=== PATIENT | female | born 1965 | race Caucasian/White ===

== ENCOUNTER 2023-08-10 09:41 | Outpatient (OUT) | payer OTHER, SELFPAY ==
--- NOTE | 2023-08-10 | VEIN_ITS ---
Patient Name: BEAU DUNCAN MR#: [id number] : 1965 Exam Date: 08/10/2023 Ordering Doctor: DR MANDY SMITH D.P.M. RADIOLOGY REPORT PROCEDURE: [facility] - OFFICE VISIT INITIAL COMPARISON: None. PROGRESS NOTES: [age] year old female who presents with a 20 year history of dilated bulging veins, leg pain, swelling, muscle cramping, with recent episodes of cellulitis. The patient's right leg symptoms are worse than the left. There has been a progression of symptoms over time. This increases with prolonged dependency. The patient describes an improvement with rest, elevation, exercise, and support stockings. The patient denies any signs and symptoms to suggest arterial ischemia. The patient describes a family history varicose veins on maternal side. The patient has drinking and smoking history of : Remote history of alcohol consumption; no tobacco use. Patient has a past medical history significant for diabetes mellitus type 2, hypertension, right lower extremity cellulitis and sepsis. The patient denies a history of deep venous thrombus or pulmonary embolus. See separate history and physical for medication list. No prior treatment for varicose or spider veins. Current use of compression stockings. After review of nurse notes, history and physical exam I discussed at length the pathophysiology of venous hypertension and possible treatments, therapies and strategies available. We discussed at length the importance of elevating the lower extremities above the level of the heart, increased physical activity and compression stocking use. Ultrasound venous reflux study performed today was discussed at length with the patient. The report demonstrates moderate-marked abnormal dilation and incompetency of the great saphenous and small saphenous veins bilaterally. Numerous abnormally dilated incompetent branch saphenous varicosities bilaterally, and bilateral distal lower extremity shift production associate veins. PHYSICAL EXAM: The right leg demonstrates multiple large varicosities, numerous spider veins, several skin surface blister wounds, but no ulceration, marked edema, marked skin discoloration. The left leg demonstrates multiple varicosities, numerous spider veins, no ulceration, marked edema, no skin discoloration. Both thighs, legs and feet were symmetrically warm to the touch. Good posterior tibial and dorsalis pedis pulses were present bilaterally. VEIN/VC Facility EST Comprehensive IMPRESSION: 1. Moderate-marked bilateral lower extremity venous insufficiency 2. Moderate-marked bilateral lower extremity varicose veins 3. Marked bilateral lower extremity subcutaneous edema 4. No flow significant arterial disease 5. CEAP: C4a, EC, AP, LA PLAN: 1. Continued use of compression stockings 2. Elevated legs and increased physical activity symptomatic relief 3. Endovenous laser ablation of right great saphenous, left great saphenous, right small saphenous, and left small saphenous veins. 4. Microfoam chemical ablation of bilateral lower extremity dilating incompetent branch saphenous varicosities. 5. Sclerotherapy of numerous prominent spider veins and reticular veins. Nurse notes, history and physical were reviewed and confirmed, see attached forms. The nurse was present throughout the physical exam and consultation Dictated by: Derek Caal M.D. on 08/10/2023 at 11:41 Approved by: Derek Caal M.D. on 08/10/2023 at 11:47
--- NOTE | 2023-08-10 | VEIN_ITS ---
Patient Name: BEAU DUNCAN MR#: [id number] : 1965 Exam Date: 08/10/2023 Ordering Doctor: DR MANDY HanksPKarey RADIOLOGY REPORT PROCEDURE: VC EXT VENOUS REFLUX [place] LMTD COMPARISON: None. INDICATIONS: Phlebitis of superficial vein of bilateral lower extremities TECHNIQUE: Duplex imaging of the lower extremity to assess the deep and superficial venous system for the presence of deep or superficial venous incompetence and to document the location and severity of disease. The study includes evaluation of the great saphenous vein (GSV), anterior accessory saphenous vein (AASV) and small saphenous vein (SSV). Patient scanned in reverse Trendelenburg and standing. FINDINGS: RIGHT LOWER EXTREMITY: Saphenofemoral Junction Reflux: Yes 9.5mm 2.7 sec GSV: Diam (mm) Reflux/ Time (sec) Proximal Thigh 8.1 Yes 3.2 Mid Thigh 6.7 Yes 2.5 Distal Thigh 8.0 Yes 1.5 Prox Calf 7.9 Yes 0.8 Mid Calf 5.5 Yes 2.0 Saphenopopliteal Junction Reflux: 6.8mm Yes 2.2 SSV: Proximal Calf 6.0 Yes 1.4 Mid Calf 6.9 1.6 AASV: Proximal Thigh 4.3 Yes 1.0 Mid Thigh 4.0 Yes 1.0 Distal Thigh Thrombi: No acute or chronic thrombus visualized Compressibility: Normal Flow: Normal Preforator: Dist/med calf 4.7mm with 0s reflux. Tech Note: Incompetent GSV and SSV. Patent varicose vein mid/med calf 5.2mm with 1.7s reflux. Patent varicose vein prox/med calf 6.7mm with 1.0s reflux. Patent varicose vein dist/med thigh 3.4mm with 0.8s reflux. Patent varicose vein mid/ant calf 3.5mm with 0.9s reflux. LEFT LOWER EXTREMITY: Saphenofemoral Junction Reflux: Yes 8.1 mm 2.1 sec GSV: Diam (mm) Reflux/Time (sec) Proximal Thigh 7.3 Yes 1.5 Mid Thigh 8.1 Yes 1.5 Distal Thigh 6.4 Yes 0.6 Prox Calf 5.0 No Mid Calf 2.5 No Saphenopopliteal Junction Relux: 5.9 mm Yes 2.9 SSV: Proximal Calf 6.1 Yes 1.5 Mid Calf 3.5 Yes 1.7 AASV: Not present Proximal Thigh Mid Thigh Distal Thigh Thrombi: No acute or chronic thrombus visualized Compressibility: Normal Flow: Normal Pulp Drier: Dist/med calf 2.8mm with 1.0s reflux. Mid/med calf 4.0mm with 0s reflux. Mid/med calf 4.2mm with 0.7s reflux. Tech Note: Incompetent GSV and SSV. Patent varicose vein prox/med calf 5.8mm with 1.6s reflux. Patent varicose vein mid/med thigh 5.5mm with 1.4s reflux. Patent varicose vein mid/med thigh 4.6mm with 0.7s reflux. Patent varicose vein mid/lat calf 4.5mm with 0.9s reflux. CONCLUSION: 1. Moderate-marked abnormal dilation and reflux within the great saphenous and small saphenous veins bilaterally. 2. Numerous prominent and incompetent branch saphenous varicosities bilaterally. 3. Bilateral distal lower extremity cadence specialists veins. Dictated by: Derek Caal M.D. on 08/10/2023 at 11:07 Approved by: Derek Caal M.D. on 08/10/2023 at 11:41
== END 2023-08-10 09:42 | disposition home or self-care (01) ==
LOC: VC 09:42
PROVIDERS: PCP Podiatrist Foot & Ankle Surgery; Visit Provider Podiatrist Foot & Ankle Surgery
DX: I83.813 Varicose veins of bilateral lower extremities with pain (principal)
CPT/HCPCS: 93970; G0463

== ENCOUNTER 2023-11-02 08:37 | Outpatient (OUT) | payer OTHER, SELFPAY ==
--- NOTE | 2023-11-02 08:38 | VEIN_ITS ---
The [address] [address] Patient Name: BEAU DUNCAN MRN: [id number] date: 1965 Sex: F Assigned Patient Location: Current Patient Location: Accession/Order Number: [id number] Exam Date: 11/02/2023 08:40 Report Date: 11/02/2023 10:01 At the request of: CARMELA COLORADO Procedure: VC Endovenous Ablation 1VeinRT EXAMINATION: VC Endovenous Ablation 1VeinRT HISTORY: Pain due to varicose veins of bilateral legs I83.813 The risks and benefits of the procedure had been previously discussed, and were rediscussed at length. Informed written consent was obtained. Jose Andrade RN and Katja Hong RDMS, RVT assisted. Time out procedure was performed. The right lower extremity was prepared and draped in the usual sterile fashion to allow knee flexion in the sterile field. Duplex ultrasound probe was draped in a sterile cover, sterile transmission gel was used. Venous mapping was performed with the areas of dilation and large tributaries marked. The total length was 67 cm from the entry 4 cm above the ankle to 3 cm below the Saphenofemoral junction. The diameter of the right great saphenous vein ranged from 8.1 mm. A 30 gauge needle and 1% buffered lidocaine was used to anesthetize the entry site. A 4 mm incision was made with a scalpel and the saphenous vein was entered percutaneously under direct ultrasound guidance with a micropuncture set, a single stick was successful in gaining access. A micro-guide wire was inserted and the needle removed. A micro-set including a dilator was inserted over the microwire and the needle and dilator were removed. A guide wire was inserted through the micro-set and guided through the saphenous vein to the saphenofemoral junction. The dilator was removed and an introducer sheath was inserted over the wire until the end of the sheath entered the saphenofemoral junction. The dilator and wire were removed and the 600 micron fiber was introduced and placed and positioned so that it extended beyond the sheath and was 3 cm distal to the saphenofemoral or saphenopopliteal junction. Final position of the fiber was determined by ultrasound guidance and duplex imaging. Tumescent anesthetic was delivered by ultrasound guidance. 475 cc of fluid was delivered along the entire course of the saphenous vein. The solution consisted of 1000 cc of normal saline with 40 mL of 1% lidocaine and 20 mL of sodium bicarbonate. A final positioning check was made. The energy source was turned on by means of the foot pedal and the fiber and sheath were withdrawn. The total number of Joules delivered was 3481. The laser was active for 435 seconds under continuous pulse, average laser use of 8 J. Laser start time 9:44 AM, 11/02/2023. Laser stop time 9:57 AM, 11/02/2023. A duplex ultrasound revealed compressibility and flow at the saphenofemoral junction immediately after the procedure. Hemostasis at the access site was achieved. The skin incision of the saphenous vein was closed with a 4 x 4. A compression stocking was applied. Postop instructions were given. A follow up appointment was recommended and scheduled. The patient tolerated the procedure well. Electronically authenticated by: VICKEY CRUM Date: 11/02/2023 10:01
[2023-11-02] MEDS: LIDOCAINE HCL 1% 100 MG/10 ML MDV INJ (08:39)
[2023-11-02] MEDS: 0.9 % SODIUM CHLORIDE 500 ML, LIDOCAINE HCL 20 ML, SODIUM BICARBONATE 10 MEQ INJ (08:39)
--- OUTSIDE RECORDS SUMMARY | 2023-11-02 08:43 | XMS_ITS | CCD ---
Author Name Unknown Address [address] [facility] [address] [place] [address] Organization [facility] Care Team Providers Care Industrial Custodian Name Role Phone Unavailable Primary Care Provider UnavailKarina Wright MD Primary Care Provider KARINA MARTINEZ Referring Unavailable KARINA MARTINEZ Primary Care Unavailable ALLSOKARINA Shah Referring Unavailable ALLSOKARINA Shah Primary Care Unavailable ROSISOKARINA Shah Referring Unavailable KARINA MARTINEZ Primary Care Unavailable PATEL RAYMOND Attending Unavailable Karina Martinez Primary Care Physician Sky Chen Attending Unavailable Karina Martinez Referring Unavailable DolSky hunter Attending Unavailable DolMark hunter Attending Unavailable DolMark hunter Attending Unavailable REFERRAL, SELF Referring Unavailable DolSky hunter Attending Unavailable NONE, XXXX Referring Unavailable Aris Juares Admitting Unavaila Aris Severino Attending Unavaila ble Karina Martinez Attending Unavailable Allsop, Karina D Admitting Unavailable [facility] Cardio, XXXX Consulting Unavailable ALAHMAD, Alaa Admitting Unavailable ALAHMAD, Alaa Attending Unavailable Heather REID Admitting Unavailable DolceMark Consulting Unavailable Adarsh Betancourt Attending Unavailable DolMark hunter Consulting Unavailable Dolce, Mark Britton Consulting Unavailable Dolce, Mark D Consulting Unavailable Dolce, Mark D Consulting Unavailable Dolce, Mark D Consulting Unavailable Dolce, Mark D Consulting Unavailable Dolce, Mark D Consulting Unavailable Dolce, Mark D Consulting Unavailable Dolce, Mark Reba Consulting Unavailable Dolce, Mark D Consulting Unavailable ALLSOP, KARINA Britton Attending Unavailable KARINA MARTINEZ Attending Unavailable Karina Martinez DO Primary Care Provider Allergies Allergy Classification Reported Allergen(s) Allergy Type Date of Onset Reaction(s) Facility (4 sources) Amoxicillin / Clavulanate; Translations: [amoxicillin-cl avulanate] Drug Allergy Lethargy (finding) [facility] (1 source) No Known Medication Allergies; Translations: [No Known Medication Allergies] Propensity to adverse reactions (disorder) [facility] Repository Medications Current Medications Medication Drug Class(es) Dates Sig (Normalized) Sig (Original) amLODIPine 5 mg oral tablet (11 sources) Dihydropyridine Calcium Channel Maury Start: 09-09-2023 take 1 tablet by mouth in the morning amLODIPine (Norvasc) 5 MG tablet Indications: Primary hypertension (CMS/HCC) Take 1 tablet (5 mg) by mouth in the morning. 0 09/09/2023 Active Start: 06-28-2023 take 1 tablet by eduin th once daily amLODIPine 10 mg Tab 10 mg = 1 tab(s), Oral, Daily, Refills(s) 0 Start Date: 06/28/23 Status: Ordered Start: 04-24-2021 End: 04-19-2022 take 1 tablet by mouth once daily amLODIPine 10 mg Tab 10 mg = 1 tab(s), Oral, Daily, X 90 day(s), # 90 tab(s), Refills(s) 3, [facility]: [facility], 170, cm, 04/23/21 10:46:00 EDT, Height/Length Dosing, 122, kg, 04/23/21 10:46:00 EDT, Weight Dosing Start Date: 04/24/21 Stop Date: 04/19/22 Status: Ordered apixaban 5 mg oral tablet (10 sources) Factor Xa Inhibitor Start: 07-02-2023 take 1 tablet by mouth in the morning apixaban (Eliquis) 5 MG tablet Indications: Paroxysmal atrial fibrillation (CMS/HCC) Take 1 tablet (5 mg) by mouth in the morning and 1 tablet (5 mg) before bedtime. 60 tablet 11 07/22/2023 Active aspirin 81 mg delayed release oral tablet (1 source) Platelet Aggregation Inhibitor, Nonsteroidal Anti-inflammatory Drug Start: 04-24-2021 End: 04-19-2022 take 1 tablet by mouth once daily aspirin 81 mg Oral EC Tab 81 mg = 1 tab(s), Oral, Daily, X 90 day(s), # 90 tab(s), Refills(s) 3, Pharmacy: [facility], 170, cm, 04/23/21 10:46:00 EDT, Height/Length Dosing, 122, kg, 04/23/21 10:46:00 EDT, Weight Dosing Start Date: 04/24/21 Stop Date: 04/19/22 Status: Ordered atorvastatin 40 mg oral tablet (11 sources) HMG-CoA Reductase Inhibitor Start: 06-16-2023 take 1 tablet by mouth once daily atorvastatin (Lipitor) 40 MG tablet Indications: Mixed hyperlipidemia (CMS/HCC) TAKE 1 TABLET BY MOUTH ONCE DAILY FOR 90 DAYS 90 tablet 3 06/16/2023 Active Start: 04-24-2021 End: 04-19-2022 take 1 tablet by mouth at bedtime atorvastatin 40 mg Tab 40 mg = 1 tab(s), Oral, Bedtime, X 90 day(s), # 90 tab(s), Refills(s) 3, Pharmacy: [facility], 170, cm, 04/23/21 10:46:00 EDT, Height/Length Dosing, 122, kg, 04/23/21 10:46:00 EDT, Weight Dosing Start Date: 04/24/21 Stop Date: 04/19/22 Status: Ordered busPIRone hydrochloride 5 mg oral tablet (10 sources) Start: 06-28-2023 take 1 tablet by mouth in the morning busPIRone (Buspar) 5 MG tablet Take 5 mg by mouth in the morning and 5 mg before bedtime. 0 06/28/2023 Active citalopram 20 mg oral tablet (3 sources) Serotonin Reuptake Inhibitor Start: 05-10-2023 take 1 tablet by mouth in the morning citalopram (CeleXA) 20 MG tablet Take 20 mg by mouth in the morning. 0 05/10/2023 Active clindamycin 300 mg oral capsule (4 sources) Lincosamide Antibacterial Start: 04-23-2021 clindamycin 300 mg oral cap Refills(s) 0 Start Date: 04/23/21 Status: Ordered cloNIDine hydrochloride 0.1 mg oral tablet (5 sources) Central alpha-2 Adrenergic Agonist Start: 04-07-2021 cloNIDine (CATAPRES) tablet 0.2 mg Start: 04-07-2021 take 1 tablet by eduin th once daily cloNIDine (CATAPRES) 0.2 MG tablet Take 1 tablet by mouth daily 30 tablet 0 04/07/2021 Active cyclobenzaprine hydrochloride 10 mg oral tablet (7 sources) Muscle Relaxant Start: 06-28-2023 take 1 tablet by mouth once daily as needed for muscle spasms cyclobenzaprine 10 mg Tab 10 mg = 1 tab(s), Oral, Daily, PRN for spasm, # 30 tab(s), Refills(s) 0 Start Date: 06/28/23 Status: Ordered doxycycline hyclate 100 mg oral capsule (9 sources) Tetracycline-c lass Drug Start: 07-13-2023 End: 10-26-2023 take 1 capsule by mouth in the morning doxycycline (Vibramycin) 100 MG capsule Indications: Cellulitis of other specified site Take 1 capsule (100 mg) by mouth in the morning and 1 capsule (100 mg) before bedtime. 20 capsule 0 10/26/2023 Active Start: 07-02-2023 take 1 capsule by mouth once d oxycycline hyclate 100 mg Cap 100 mg = 1 cap(s), Oral, q12hr, Take one capsule by mouth every twelve hours for ten days, # 20 cap(s), Refills(s) 0, Pharmacy: [facility], 170, cm, 06/28/23 15:08:00 EDT, Height/Length Dosing, 117, kg, 06/28/23 15:08:00 EDT, Weight Dosing Start Date: 07/02/23 Status: Ordered furosemide 20 mg oral tablet (8 sources) Loop Diuretic Start: 08-29-2023 take 1 tablet by mouth three times weekly furosemide (Lasix) 20 MG tablet Indications: Edema, unspecified type One tablet po 3 times weekly 12 tablet 3 08/29/2023 Active Start: 04-07-2021 furosemide (LA SIX) tablet 40 mg Start: 04-07-2021 take 1 tablet by eduin th once daily furosemide (LASIX) 20 MG tablet Take 1 tablet by mouth daily 10 tablet 0 04/07/2021 Active glimepiride 2 mg oral tablet (10 sources) Sulfonylurea Start: 06-28-2023 take 1.5 tablets by mouth once daily glimepiride 2 mg Tab 1.5, Oral, Daily, Refills(s) 0 Start Date: 06/28/23 Status: Ordered Start: 06-28-2023 take 1 tablet by eduin th before mealtime glimepiride (Amaryl) 2 MG tablet Take 2 mg by mouth in the morning. Take before meals. 0 06/28/2023 Active lisinopril 40 mg oral tablet (11 sources) Angiotensin Converting Enzyme Inhibitor Start: 08-23-2023 take 1 tablet by mouth once daily lisinopril 40 mg Tab 40 mg = 1 tab(s), Oral, Daily, # 90 tab(s), Refills(s) 3, Pharmacy: [facility], 170, cm, 08/23/23 13:24:00 EST, Height/Length Dosing, 125.1, kg, 08/23/23 13:24:00 EST, Weight Dosing Start Date: 08/23/23 Status: Ordered Start: 06-28-2023 take 1 tablet by eduin th in the morning lisinopril 20 MG tablet Take 20 mg by mouth in the morning. 0 06/28/2023 Active Start: 04-24-2021 End: 04-19-2022 take 1 tablet by mouth once daily lisinopril 20 mg Tab 20 mg = 1 tab(s), Oral, Daily, X 90 day(s), # 90 tab(s), Refills(s) 3, Pharmacy: [facility], 170, cm, 04/23/21 10:46:00 EDT, Height/Length Dosing, 122, kg, 04/23/21 10:46:00 EDT, Weight Dosing Start Date: 04/24/21 Stop Date: 04/19/22 Status: Ordered metFORMIN hydrochloride 500 mg oral tablet (11 sources) Biguanide Start: 06-28-2023 take 1 tablet by mouth twice daily metformin 500 mg ER Tab 500 mg = 1 tab(s), Oral, BID, Refills(s) 0 Start Date: 06/28/23 Status: Ordered Start: 04-24-2021 End: 04-19-2022 metformin 500 mg Tab 1,000 m g = 2 tab(s), Oral, BIDAC, X 90 day(s), # 360 tab(s), Refills(s) 3, Pharmacy: [facility], 170, cm, 04/23/21 10:46:00 EDT, Height/Length Dosing, 122, kg, 04/23/21 10:46:00 EDT, Weight Dosing Start Date: 04/24/21 Stop Date: 04/19/22 Status: Ordered microencapsulated potassium chloride 10 meq extended release oral tablet (3 sources) Start: 08-29-2023 take 1 tablet by mouth three times weekly potassium chloride CR (Klor-Con M10) 10 MEQ ER tablet Indications: Hypokalemia One tab po 3 times weekly 12 tablet 3 08/29/2023 Active SITagliptin 100 mg oral tablet (4 sources) Dipeptidyl Peptidase 4 Inhibitor Start: 09-09-2023 take 1 tablet by mouth in the morning SITagliptin (Januvia) 100 MG tablet Indications: Primary hypertension (CMS/HCC) Take 1 tablet (100 mg) by mouth in the morning. 90 tablet 3 09/09/2023 Active Start: 04-24-2021 End: 04-19-2022 take 2 tablets by mouth once daily Januvia 25 mg Tab 50 mg = 2 tab(s), Oral, Daily, X 90 day(s), # 180 tab(s), Refills(s) 3, Pharmacy: [facility], 170, cm, 04/23/21 10:46:00 EDT, Height/Length Dosing, 122, kg, 04/23/21 10:46:00 EDT, Weight Dosing Start Date: 04/24/21 Stop Date: 04/19/22 Status: Ordered Completed/Discontinued Medications Medication Drug Class(es) Dates Sig (Normalized) Sig (Original) Humalog (2 sources) Insulin Analog Start: 10-16-2023 End: 10-16-2023 HumaLOG Sliding Scale 0-10 Unit(s), Injection-Insulin, SubCutaneous, Start date 10/16/23 11:30:00 AM EST Start Date: 10/16/23 Stop Date: 10/16/23 Status: Completed Start: 10-14-2023 End: 10-14-2023 HumaLOG Sliding Scale 0-10 U nit(s), Injection-Insulin, SubCutaneous, Start date 10/14/23 4:30:00 PM EST Start Date: 10/14/23 Stop Date: 10/14/23 Status: Completed insulin lispro 100 units/mL injectable solution (4 sources) Start: 04-24-2021 insulin lispro 100 units/mL injectable solution See Instructions, Take 2 units of lispro if BS between 151-200 Take 4 units of lispro if BS between 201-250 Take 6 units of lispro if BS between 251-300 Take 8 units of lispro if BS between 301-350 Take 10 units of lispro if BS between 351-400 Ta... Start Date: 04/24/21 Status: Ordered 24 hr metoprolol succinate 50 mg extended release oral tablet (15 sources) beta-Adrenergic Maury Start: 10-15-2023 End: 10-16-2023 metoprolol 50 mg ER Tab 50 mg = 1 tab(s), Tab-ER, Oral, Start date 10/16/23 9:00:00 AM EST, 10/13/23 22:35:00 EST Start Date: 10/16/23 Stop Date: 10/16/23 Status: Completed Start: 07-15-2023 End: 07-14-2024 take 1 tablet by mouth every twenty-four hours in the morning metoprolol succinate XL (Toprol XL) 100 MG 24 hr tablet Indications: Paroxysmal atrial fibrillation (CMS/HCC) Take 1 tablet (100 mg) by mouth in the morning. Do not crush or chew. . 30 tablet 11 07/15/2023 07/14/2024 Active Start: 07-01-2023 End: 07-02-2023 take 1 tablet by mouth twice daily metoprolol 50 mg ER Tab 50 mg = 1 tab(s), Oral, BID, # 30 tab(s), Refills(s) 0, Pharmacy: [facility], 170, cm, 06/28/23 15:08:00 EDT, Height/Length Dosing, 117, kg, 06/28/23 15:08:00 EDT, Weight Dosing Start Date: 07/02/23 Status: Ordered Problems Active Problems Problem Classification Problem Date Documented Date Episodic/Chronic Acute and unspecified renal failure (2 sources) Acute renal failure syndrome; Translations: [Acute kidney failure, unspecified] Onset: 06-28-2023 Episodic Acute cerebrovascular disease (3 sources) Cerebrovascular accident; Translations: [Cerebral infarction, unspecified] Onset: 07-08-2023 07-08-2023 Chronic Anxiety disorders (2 sources) Anxiety disorder; Translations: [Anxiety disorder, unspecified] Onset: 10-13-2023 Chronic Cardiac dysrhythmias (3 sources) Unspecified atrial fibrillation; Translations: [Atrial fibrillation] Onset: 08-23-2023 Chronic Chronic ulcer of skin (3 sources) Chronic ulcer of lower extremity; Translations: [Non-pressure chronic ulcer of unspecified part of right lower leg with fat layer exposed] Onset: 07-08-2023 07-08-2023 Chronic Diabetes mellitus with complications (7 sources) Type 2 diabetes mellitus; Translations: [Type 2 diabetes mellitus with other diabetic neurological complication] Onset: 07-08-2023 07-08-2023 Chronic Diabetes mellitus without complication (3 sources) Type 2 diabetes mellitus without complication; Translations: [Type 2 diabetes mellitus without complications] Onset: 06-28-2023 Chronic Diseases of white blood cells (2 sources) Leukocytosis; Translations: [Elevated white blood cell count, unspecified] Onset: 06-28-2023 Chronic Disorders of lipid metabolism (5 sources) Hyperlipidemia; Translations: [Hyperlipidemia, unspecified] Onset: 06-28-2023 Chronic Essential hypertension (20 sources) Essential hypertension; Translations: [Essential (primary) hypertension] Onset: 06-28-2023 Chronic Fluid and electrolyte disorders (2 sources) Acidosis; Translations: [Acidosis, unspecified] Onset: 06-28-2023 Episodic Other aftercare (1 source) Long-term current use of anticoagulant; Translations: [intermediate manager (current) use of anticoagulants] Onset: 08-23-2023 Episodic Other aftercare (1 source) Long-term current use of drug therapy; Translations: [Other assisted (current) drug therapy] Onset: 10-13-2023 Episodic Other circulatory disease (1 source) History of transient ischemic attack; Translations: [Personal history of transient ischemic attack (TIA), and cerebral infarction without residual deficits] Onset: 06-28-2023 Episodic Other ear and sense organ disorders (3 sources) Hearing loss of right ear; Translations: [Unspecified hearing loss, right ear] Onset: 07-08-2023 07-08-2023 Chronic Other hematologic conditions (1 source) Abnormal finding on evaluation procedure; Translations: [Other specified abnormalities of plasma proteins] Onset: 06-28-2023 Episodic Other nutritional; endocrine; and metabolic disorders (1 source) Obesity; Translations: [Obesity, unspecified] Onset: 06-28-2023 Chronic Other nutritional; endocrine; and metabolic disorders (1 source) Body mass index 40+ - severely obese; Translations: [Body mass index (BMI) 40.0-44.9, adult] Onset: 08-23-2023 Chronic Other nutritional; endocrine; and metabolic disorders (3 sources) Morbid obesity; Translations: [Morbid (severe) obesity due to excess calories] Onset: 07-08-2023 07-08-2023 Chronic Other screening for suspected conditions (not mental disorders or infectious disease) (2 sources) Blood chemistry abnormal; Translations: [Other specified abnormal findings of blood chemistry] Onset: 08-23-2023 Episodic Residual codes; unclassified (1 source) Peripheral edema; Translations: [Edema, unspecified] Episodic Residual codes; unclassified (1 source) Edema; Translations: [Edema, unspecified] 10-21-2023 Episodic Skin and subcutaneous tissue infections (5 sources) Cellulitis of left foot; Translations: [Cellulitis of left lower limb] Onset: 10-13-2023 Episodic Past or Other Problems Problem Classification Problem Date Documented Date Episodic/Chronic Other diseases of veins and lymphatics (4 sources) Peripheral venous insufficiency; Translations: [Venous insufficiency (chronic) (peripheral)] Onset: 07-08-2023 07-08-2023 Episodic Other non-traumatic joint disorders (3 sources) Joint pain; Translations: [Pain in unspecified joint] Onset: 07-08-2023 07-08-2023 Episodic Pneumonia (except that caused by tuberculosis or sexually transmitted disease) (10 sources) Bacterial pneumonia; Translations: [Unspecified bacterial pneumonia] Onset: 07-08-2023 07-02-2023 Episodic Septicemia (except in labor) (3 sources) Sepsis; Translations: [Sepsis, unspecified organism] Onset: 06-28-2023 Episodic Spondylosis; intervertebral disc disorders; other back problems (3 sources) Acute back pain with sciatica; Translations: [Lumbago with sciatica, right side] Onset: 07-08-2023 07-08-2023 Episodic Varicose veins of lower extremity (4 sources) Ruptured varicose veins; Translations: [Varicose veins of unspecified lower extremity with other complications] Onset: 07-08-2023 Resolved: 09-11-2023 Episodic Results Test Name Value Interpretation Reference Range Facility POCT Glycated hemoglobin, to krishan 10-21-2023 HbA1c (Bld) [Mass fraction] 8.7 % [facility] Comment on above: 8.7 Interpretation and review of laboratory results Normal [facility] POCT microalbumin manually r esultedon 10-21-2023 Albumin DL <= 20 mg/L (U) [Mass/Vol] 80 mg/dL [facility] Albumin/Creatinine DL <= 1.0 mg/L (U) [Ratio] 300 [facility] Creatinine (U) [Mass/Vol] 80/300 [facility] Interpretation and review of laboratory results Normal [facility] BMPon 10-16-2023 Anion gap [Moles/Vol] 12 mmol/L Normal 6-16 [facility] Comment on above: Performed By: #### 2 [id number], [id number], [id number], [id number] ####[facility] [address] [place] [address] BUN/Creat Ratio 18 No Units Normal 10-20 [facility] Comment on above: Performed By: #### 2 518386, 0870547, 1841474, [id number] ####[facility] [address] [place] [address] Calcium [Mass/Vol] 8.0 mg/dL Low 8.9-11.1 [facility] Comment on above: Performed By: #### 2 851887, 0586787, 1545608, [id number] ####[facility] [address] [place] [address] Chloride [Moles/Vol] 103 mmol/L Normal 101-111 [facility] Comment on above: Performed By: #### 2 348186, 3462549, 4141418, [id number] ####[facility] [address] [place] [address] CO2 [Moles/Vol] 23 mmol/L Normal 21-31 [facility] Comment on above: Performed By: #### 2 443580, 1188098, 0975024, [id number] ####[facility] [address] [place] [address] Creatinine [Mass/Vol] 0.5 mg/dL Normal 0.5-1.3 [facility] Comment on above: Performed By: #### 2 452069, 8112114, 0224970, [id number] ####[facility] [address] [place] [address] Glucose [Mass/Vol] 180 mg/dL Normal 55-199 [facility] Comment on above: Performed By: #### 2 103262, 0329456, 8586604, [id number] ####[address] [address] Potassium [Moles/Vol] 3.1 mmol/L Low 3.5-5.3 [facility] Comment on above: Performed By: #### 2 447998, 4025149, 4708946, 30423963 ####[facility] [address] [place] [address] Sodium [Moles/Vol] 135 mmol/L Normal 135-145 [facility] Comment on above: Performed By: #### 2 324577, 2831322, 2832572, [id number] ####[facility] [address] [place] [address] Urea nitrogen [Mass/Vol] 9 mg/dL Normal 5-21 [facility] Comment on above: Performed By: #### 2 780371, 9962814, 8770770, [id number] ####[address] [address] CBC w/ Auto Diffon 4 Basophil Absolute 0.0 E9/L Normal 0.0-0.2 [facility] Comment on above: Performed By: #### 2 951501, 2708253, 1573042, [id number] ####[facility] [address] [place] [address] Basophils/100 WBC (Bld) 0.3 % Normal 0.0-2.0 [facility] Comment on above: Performed By: #### 2 191727, 7778849, 0325027, [id number] ####[facility] [address] [place] [address] Eos Absolute 0.0 E9/L Normal 0.0-0.5 [facility] Comment on above: Performed By: #### 2 653347, 1533176, 9394708, 75401922 ####[address] [address] Eosinophils/100 WBC (Bld) 0.6 % Normal 0.0-8.0 [facility] Comment on above: Performed By: #### 2 385667, 9663884, 4919632, 31982615 ####[address] [address] Erythrocyte distribution width (RBC) [Ratio] 14.7 % High 10.9-14.2 [facility] Comment on above: Performed By: #### 2 105141, 2404853, 4405147, [id number] ####[address] [address] Hematocrit (Bld) [Volume fraction] 35.0 % Normal 34.0-46.0 [facility] Comment on above: Performed By: #### 2 795512, 5246272, 1963755, 41421259 ####[address] [address] Hemoglobin (Bld) [Mass/Vol] 11.4 g/dL Low 12.0-16.0 [facility] Comment on above: Performed By: #### 2 885669, 1615600, 2982927, 51341930 ####[address] [address] Lymph Absolute 1.3 E9/L Normal 1.0-4.0 [facility] Comment on above: Performed By: #### 2 701247, 7566025, 2862477, [id number] ####[address] [address] Lymphocytes/100 WBC (Bld) 20.3 % Normal 14.0-50.0 [facility] Comment on above: Performed By: #### 2 299953, 3557778, 2981868, 03221050 ####[address] [address] MCH (RBC) [Entitic mass] 27.8 pg Normal 27.0-34.0 [facility] Comment on above: Performed By: #### 2 371007, 2558314, 7514819, [id number] ####[address] [address] MCHC (RBC) [Mass/Vol] 32.9 g/dL Normal 31.4-36.0 [facility] Comment on above: Performed By: #### 2 496641, 1962967, 6958616, [id number] ####[address] [address] MCV (RBC) [Entitic vol] 84.6 fL Normal 80.0-100.0 [facility] Comment on above: Performed By: #### 2 442411, 0647751, 6960493, [id number] ####[address] [address] [place] Absolute 0.5 E9/L Normal 0.2-1.0 [facility] Comment on above: Performed By: #### 2 962971, 7128219, 1091027, [id number] ####[address] [address] Monocytes/100 WBC (Bld) 6.8 % Normal 4.0-14.0 [facility] Comment on above: Performed By: #### 2 910384, 0705420, 6441758, [id number] ####[facility] [address] [place] [address] Neutro Absolute 4.8 E9/L Normal 2.0-7.5 [facility] Comment on above: Performed By: #### 2 869935, 5498492, 9021536, 11909081 ####[facility] [address] [facility] [place] [address] Neutro Auto 72.0 % Normal 36.0-75.0 [facility] Comment on above: Performed By: #### 2 147909, 1375688, 2327499, 83006112 ####[facility] [address] [place] [address] Platelet 156.0 E9/L Normal 150.0-500.0 [facility] Comment on above: Performed By: #### 2 337326, 4232059, 9532573, [id number] ####[facility] [address] [place] [address] Platelet mean volume (Bld) [Entitic vol] 10.0 fL Normal 6.4-10.8 [facility] Comment on above: Performed By: #### 2 082224, 1529036, 5420908, [id number] ####[facility] [address] [facility] [place] [address] RBC 4.1 E12/L Low 4.3-5.9 [facility] Comment on above: Performed By: #### 2 444219, 1462350, 9108276, 14634046 ####[facility] [address] [place] [address] WBC 6.6 E9/L Normal 4.0-11.0 [facility] Comment on above: Performed By: #### 2 222287, 6503091, 8507635, [id number] ####[facility] [address] [place] [address] CHEMISTRYOrdered By: Lab ROP User on 10-16-2023 Glucose [Mass/Vol] 246 mg/dL High 55 - 99 mg/dL [facility] POC Subsection Comment on above: Result Comment: Simón GRIFFIN POC Device SN [id number] Invalid Interpretation Code [facility] POC Subsection POC User ID [id number] 1 Invalid Interpretation Code FT POC Subsection POC Username MATT NORRIS Invalid Interpretation Code [facility] POC Subsection Glucose [Mass/Vol] 194 mg/dL High 55 - 99 mg/dL [facility] [place] Subsection Comment on above: Result Comment: Simón GRIFFIN POC Device SN [id number] Invalid Interpretation Code FT POC Subsection POC User ID [id number] 1 Invalid Interpretation Code FT POC Subsection POC Username MATT NORRIS Invalid Interpretation Code FT POC Subsection CHEMISTRYOrdered By: SYSTEM SYSTEM on 10-16-2023 Anion gap [Moles/Vol] 12 mmol/L Normal 6 - 16 mEq/L R emisol Chem Calcium [Mass/Vol] 8.0 mg/dL Low 8.9 - 11. 1 mg/dL Remisol Chem Chloride [Moles/Vol] 103 mmol/L Normal 101 - 1 11 mmol/L Remisol Chem CO2 [Moles/Vol] 23 mmol/L Normal 21 - 31 mmol/L Remisol Chem Creatinine [Mass/Vol] 0.5 mg/dL Normal 0.5 - 1.3 mg/dL Remisol Chem eGFR 107 mL/min/1.73 m2 Normal >=59mL/mi n/1 .73 m2 Remisol Chem Glucose [Mass/Vol] 180 mg/dL Normal 55 - 199 mg/dL Remisol Chem Magnesium [Mass/Vol] 1.8 mg/dL Normal 1.3 - 2 .4 mg/dL Remisol Chem Potassium [Moles/Vol] 3.1 mmol/L Low 3.5 - 5.3 mmol/L Remisol Chem Sodium [Moles/Vol] 135 mmol/L Normal 135 - 145 mmol/L Remisol Chem Urea nitrogen [Mass/Vol] 9 mg/dL Normal 5 - 21 mg/dL Remisol Chem Urea nitrogen/Creatinine [Mass ratio] 18 mg/mg Normal 10 - 20 Remisol Chem Capillary Glucose POCon Glucose [Mass/Vol] 246 mg/dL High 55-99 [facility] Comment on above: Result Comment: Simón GRIFFIN Performed By: #### 2 [id number] #### [facility] Laboratory [address] [place] [address] Glucose [Mass/Vol] 194 mg/dL High 55-99 [facility] Comment on above: Result Comment: Simón lozano RN/MD Performed By: #### 2 [id number] #### [facility] [address] [place] [address] Discharge Instructionson Discharge Instructions [id number] #[id number] Normal [facility] Discharge Note-Nursingon Discharge Note-Nursing MARILYN DUNCAN :1965 Visit Date:10/13/2023 Inpatient Discharge Instructions Your Care Team Admitting Physician - Heather REID DO Consulting Physician - Mark Chen DPM Reason for Your Visit Swelling of right leg that started yesterday Your Diagnosis Sepsis Cellulitis of right leg Acute renal failure Troponin level elevated Atrial fibrillation HTN (hypertension) DM2 (diabetes mellitus, type 2) Anxiety On deep vein thrombosis (DVT) prophylaxis Acute cellulitis Cellulitis - Leg Lactic acidosis Leukocytosis Tests Performed BMP -- Results Pending -- Magnesium Level -- Results Pending -- UA With Cult Reflex -- Results Pending -- MRI Tibia/Fibula w/ + w/o Contrast Right XR Chest Single View XR Tib/Fib Right 2 View Please visit your patient portal for your results or contact your primary care physician. This Is Your Medications List Misc Prescription (glucometer, lancets, alcohol swabs, syringes, needles) Misc Prescription (glucometer, lancets, alcohol swabs, syringes, needles, test strips) amlodipine (amLODIPine 10 mg Tab) apixaban (Eliquis 5 mg oral tablet) atorvastatin (atorvastatin 40 mg Tab) busPIRone (busPIRone 5 mg Tab) cyclobenzaprine (cyclobenzaprine 10 mg Tab) doxycycline (doxycycline hyclate 100 mg Cap) glimepiride (glimepiride 2 mg Tab) lisinopril (lisinopril 40 mg Tab) metformin (metformin 500 mg ER Tab) metoprolol (metoprolol 50 mg ER Tab) Procedure History Carpal tunnel, Hand tendon repaired. Discharge Vitals Temperature (Oral) 36.7 ?C Heart Rate (Monitored) 72 Respiratory Rate 18 Blood Pressure 144/83 What to do next Instructions From Your Doctor Event Name Event Result Discharge Activity Ambulate as tolerated Discharge Restrictions No restrictions Discharge Diet(s) Calorie Controlled- 1800 Calorie Diet, Fat Modified- Low cholesterol Pharmacy Information [facility] Previously Scheduled Follow-Up Appointments 2023 3:30 PM EDT With: Mor GUERRERO, Aris Hanks Where: [facility] New Follow Up Appointments after Discharge Follow Up with Mark Chen When: Within 1 week Where: [facility] [place] [address] [place] [address] 0 Business (1) Follow Up with Karina Martinez When: Comments: Keep scheduled appointment Where: [address] [place] [address]- Business (1) Medications What How Much When Why Instructions Next Dose New doxycycline (doxycycline hyclate 100 mg Cap) 1 Capsules By Mouth 2 times a day Pickup at [facility] #[facility] 10/16/2023 @ 9pm Changed amlodipine (amLODIPine 10 mg Tab) 1 Tablets By Mouth Every day 10/17/2023 @ 9am Unchanged apixaban (Eliquis 5 mg oral tablet) 1 Tablets By Mouth 2 times a day 10/16/2023 @ 9pm Unchanged atorvastatin (atorvastatin 40 mg Tab) 1 Tablets By Mouth Every day 10/17/2023 @ 9am Unchanged busPIRone (busPIRone 5 mg Tab) 1 Tablets By Mouth 2 times a day 10/16/2023 @ 9pm Unchanged cyclobenzaprine (cyclobenzaprine 10 mg Tab) 1 Tablets By Mouth Every day as needed for for spasm follow perscription as needed for spasms Unchanged glimepiride (glimepiride 2 mg Tab) 1.5 By Mouth Every day 10/17/2023 @ 9am Unchanged lisinopril (lisinopril 40 mg Tab) 1 Tablets By Mouth Every day 10/17/2023 @ 9am Unchanged metformin (metformin 500 mg ER Tab) 1 Tablets By Mouth 2 times a day 10/16/2023 @ 9pm Unchanged metoprolol (metoprolol 50 mg ER Tab) 1 Tablets By Mouth 2 times a day Sepsis Acute cellulitis Leukocytosis Acute renal failure Lactic acidosis 10/16/2023 @ 9pm Unchanged Misc Prescription (glucometer, lancets, alcohol swabs, syringes, needles) 0 check BS 3x/ day Unchanged Misc Prescription (glucometer, lancets, alcohol swabs, syringes, needles, test strips) 0 Diabetes check BS 3x/ day Pharmacy Information [facility]: [address] [place], [place] [id number] [phone] Test Results CBC BMP WBC: 6.6 E9/L (10/16/23 05:11:00) Glucose Lvl: 180 mg/dL (10/16/23 05:11:00) RBC: 4.1 E12/L Low (10/16/23 05:11:00) BUN: 9 mg/dL (10/16/23 05:11:00) HGB: 11.4 gm/dL Low (10/16/23 05:11:00) Creatinine: 0.5 mg/dL (10/16/23 05:11:00) Hct: 35 % (10/16/23 05:11:00) BUN/Creat Ratio: 18 (10/16/23 05:11:00) MCV: 84.6 fL (10/16/23 05:11:00) Sodium Lvl: 135 mmol/L (10/16/23 05:11:00) MCH: 27.8 pg (10/16/23 05:11:00) Potassium Lvl: 3.1 mmol/L Low (10/16/23 05:11:00) MCHC: 32.9 gm/dL (10/16/23 05:11:00) Chloride: 103 mmol/L (10/16/23 05:11:00) RDW: 14.7 % High (10/16/23 05:11:00) CO2: 23 mmol/L (10/16/23 05:11:00) Platelet: 156 E9/L (10/16/23 05:11:00) AGAP: 12 mEq/L (10/16/23 05:11:00) MPV: 10 fL (10/16/23 05:11:00) Calcium Lvl: 8 mg/dL Low (10/16/23 05:11:00) Allergies Augmentin (Lethargic) Problems Ongoing - Any (more content not included)... Normal [facility] HEMATOLOGYOrdered By: SYSTEM SYSTEM on 10-16-2023 Basophil Absolute 0.0 E9/L Normal 0.0 - 0.2 E9/L Remisol Heme Basophils/100 WBC (Bld) 0.3 % Normal 0.0 - 2.0 % Remisol Heme Eos Absolute 0.0 E9/L Normal 0.0 - 0.5 E9/L Remisol Heme Eosinophils/100 WBC (Bld) 0.6 % Normal 0.0 - 8.0 % Remisol Heme Erythrocyte distribution width (RBC) [Ratio] 14.7 % High 10.9 - 14.2 % Remisol Heme Hematocrit (Bld) [Volume fraction] 35.0 % Normal 34.0 - 46.0 % Remisol Heme Hemoglobin (Bld) [Mass/Vol] 11.4 g/dL Low 12.0 - 16.0 gm/dL Remisol Heme Lymph Absolute 1.3 E9/L Normal 1.0 - 4.0 E9/L Remisol Heme Lymphocytes/100 WBC (Bld) 20.3 % Normal 14.0 - 50.0 % Remisol Heme MCH (RBC) [Entitic mass] 27.8 pg Normal 27.0 - 34.0 pg Remisol Heme MCHC (RBC) [Mass/Vol] 32.9 g/dL Normal 31.4 - 36.0 gm/dL Remisol Heme MCV (RBC) [Entitic vol] 84.6 fL Normal 80.0 - 100.0 fL Remisol Heme [place] Absolute 0.5 E9/L Normal 0.2 - 1.0 E9/L Remisol Heme Monocytes/100 WBC (Bld) 6.8 % Normal 4.0 - 14.0 % Remisol Heme Neutro Absolute 4.8 E9/L Normal 2.0 - 7.5 E9/L Remisol Heme Neutro Auto 72.0 % Normal 36.0 - 75.0 % Remisol Heme Platelet 156.0 E9/L Normal 150.0 - 500.0 E9/L Remisol Heme Platelet mean volume (Bld) [Entitic vol] 10.0 fL Normal 6.4 - 10.8 fL Remisol Heme RBC 4.1 E12/L Low 4.3 - 5.9 E12/L Remisol Heme WBC 6.6 E9/L Normal 4.0 - 11.0 E9/L Remisol Heme Inpatient Clinical Summaryon 10-16-2023 Inpatient Clinical Summary [place] [address] Clinical Summary Person Information: Name: MARILYN DUNCAN Age: 58 Years : 1965 Sex: Female PCP: Karina Martinez DO Marital Status: Phone: [phone] Race: White Ethnicity: Non- or Language: Somali Visit Id: Visit Reason: Cellulitis - Leg; PUFFY RT LEG Speciality: Acuity: Enc Type: Inpatient Med Service: Medical Arrival: 10/13/2023 17:29:32 Discharge: Dispo Type: Admitted as IP to this Hosp Address: [address] [facility] [id number] Provider Notes: Diagnosis: 1:Sepsis; 2:Cellulitis of right leg; 3:Acute renal failure; 4:Troponin level elevated; 5:Atrial fibrillation; 6:HTN (hypertension); 7:DM2 (diabetes mellitus, type 2); 8:Anxiety; 9:On deep vein thrombosis (DVT) prophylaxis; Acute cellulitis; Lactic acidosis; Leukocytosis Problems Active Anxiety DM2 (diabetes mellitus, type 2) HTN (hypertension) Atrial fibrillation Bacterial pneumonia Smoking Status: Never Smoker Functional Status: Sensory Deficits: History of Falls: Mobility Assistance Prior to Admission: Independent ADLs: Independent Current Level of Assistance for Self-Care/Mobility: Cognitive Status: Oriented x 3 Allergies Augmentin (Lethargic) Measurements: Height: 170.18 cm Weight: 125.4 kg Blood Pressure: 144 mmHg / 83 mmHg BMI: 43.3 kg/m2 Procedures No Procedures Documented Immunizations No Immunizations Documented This Visit Final Med List: amlodipine (amLODIPine 10 mg Tab) 1 Tablets By Mouth every day. apixaban (Eliquis 5 mg oral tablet) 1 Tablets By Mouth 2 times a day. Refills: 1. atorvastatin (atorvastatin 40 mg Tab) 1 Tablets By Mouth every day. busPIRone (busPIRone 5 mg Tab) 1 Tablets By Mouth 2 times a day. cyclobenzaprine (cyclobenzaprine 10 mg Tab) 1 Tablets By Mouth every day as needed for spasm. doxycycline (doxycycline hyclate 100 mg Cap) 1 Capsules By Mouth 2 times a day. Refills: 0. glimepiride (glimepiride 2 mg Tab) 1.5 By Mouth every day. lisinopril (lisinopril 40 mg Tab) 1 Tablets By Mouth every day. Refills: 3. metformin (metformin 500 mg ER Tab) 1 Tablets By Mouth 2 times a day. metoprolol (metoprolol 50 mg ER Tab) 1 Tablets By Mouth 2 times a day. Refills: 0. Misc Prescription (glucometer, lancets, alcohol swabs, syringes, needles) 0. check BS 3x/day. Refills: 0. Misc Prescription (glucometer, lancets, alcohol swabs, syringes, needles, test strips) 0. check BS 3x/day. Refills: 0. Care Team Members: Attending Physician: Heather REID DO Consulting Physician: Mark Chen DPM Referring Physician: Follow up: With: Address: When: [facility] PHILLIP [facility] [address], [place] [address] 0 Business (1) Within 1 week With: Address: When: Karina Mendez[address] [address] Business (1) Comments: Keep scheduled appointment Type Location Start [facility] Cardiology Follow Up (FT) [facility] 11/25/2023 3:30 PM 11/25/2023 3:45 PM Confirmed Patient Education Information: Normal [facility] Inpatient Patient Summaryon 10-16-2023 Inpatient Patient Summary [address] [address] Patient Discharge Instructions PERSON INFORMATION Name: MARILYN DUNCAN Date of : 1965 Current Date: 10/16/2023 15:11:39 PHYSICIANS Admitting Physician: Heather REID DO Primary Care Physician: Karina Martinez DO PCP Comment: Discharge Diagnosis: 1:Sepsis; 2:Cellulitis of right leg; 3:Acute renal failure; 4:Troponin level elevated; 5:Atrial fibrillation; 6:HTN (hypertension); 7:DM2 (diabetes mellitus, type 2); 8:Anxiety; 9:On deep vein thrombosis (DVT) prophylaxis; Acute cellulitis; Lactic acidosis; Leukocytosis Condition at Discharge: Stable MARILYN DUNCAN has been given the following list of follow-up instructions, prescriptions, and patient education materials: PATIENT FOLLOW-UP INFORMATION Diet: Calorie Controlled- 1800 Calorie Diet, Fat Modified- Low cholesterol Discharge Activity: Ambulate as tolerated Discharge Restrictions: No restrictions Wound Care Instructions: Remove Your Dressing In Days Call Your Doctor For: IF UNABLE TO CONTACT YOUR PHYSICIAN AND YOU FEEL IT IS AN EMERGENCY, GO TO THE NEAREST EMERGENCY ROOM OR CALL 911 Home Treatment: Devices/Equipment: Blood glucose monitor Special Services: Additional Instructions: Primary Care Physician to provide the following pending test results: Follow up: With: Address: When: Mark PHILLIP [facility], [address], [place] [address] 0 Business (1) Within 1 week With: Address: When: Karina Martinez [address] [place] [address] Business (1) Comments: Keep scheduled appointment In the event that this physician does not participate in your insurance network, please consult with your insurance company to find a nearby participating provider. Type Location Start [facility] Cardiology Follow Up (FT) [facility] 11/25/2023 3:30 PM 11/25/2023 3:45 PM Confirmed Comment: DAKOTA Rico DEBORAH, have received the attached patient education materials/instructio ns and have verbalized understanding: Patient Signature Date Clinican/Nurse Signature Date HERE ARE THE MEDICATION CHANGES THAT OCCURRED DURING YOUR HOSPITAL STAY New Medications [facility], [address], [place] [id number], [phone] doxycycline (doxycycline hyclate 100 mg Cap) 1 Capsules By Mouth 2 times a day. Refills: 0. Last Dose: Next Dose: Medications to Continue Taking That Have Changed Other Medications START: amlodipine (amLODIPine 10 mg Tab) 1 Tablets By Mouth every day. Last Dose: Next Dose: STOP: amlodipine 5 Milligram By Mouth every day. Medications to Continue with No Changes Other Medications apixaban (Eliquis 5 mg oral tablet) 1 Tablets By Mouth 2 times a day. Refills: 1. Last Dose: Next Dose: atorvastatin (atorvastatin 40 mg Tab) 1 Tablets By Mouth every day. Last Dose: Next Dose: busPIRone (busPIRone 5 mg Tab) 1 Tablets By Mouth 2 times a day. Last Dose: Next Dose: cyclobenzaprine (cyclobenzaprine 10 mg Tab) 1 Tablets By Mouth every day as needed for spasm. Last Dose: Next Dose: glimepiride (glimepiride 2 mg Tab) 1.5 By Mouth every day. Last Dose: Next Dose: lisinopril (lisinopril 40 mg Tab) 1 Tablets By Mouth every day. Refills: 3. Last Dose: Next Dose: metformin (metformin 500 mg ER Tab) 1 Tablets By Mouth 2 times a day. Last Dose: Next Dose: metoprolol (metoprolol 50 mg ER Tab) 1 Tablets By Mouth 2 times a day. Refills: 0. Last Dose: Next Dose: Misc Prescription (glucometer, lancets, alcohol swabs, syringes, needles) 0. check BS 3x/day. Refills: 0. Last Dose: Next Dose: Misc Prescription (glucometer, lancets, alcohol swabs, syringes, needles, test strips) 0. check BS 3x/day. Refills: 0. Last Dose: Next Dose: Comment: MEDICATION LIST PROVIDED FOR YOU IS A LIST OF YOUR CURRENT MEDICATIONS. PLEASE CARRY THIS WITH YOU AT ALL TIMES. amlodipine (amLODIPine 10 mg Tab) 1 Tablets By Mouth every day. apixaban (Eliquis 5 mg oral tablet) 1 Tablets By Mouth 2 times a day. Refills: 1. atorvastatin (atorvastatin 40 mg Tab) 1 Tablets By Mouth every day. busPIRone (busPIRone 5 mg Tab) 1 Tablets By Mouth 2 times a day. cyclobenzaprine (cyclobenzaprin (more content not included)... [facility] Interdisciplinary Note - Vinayak e Manageron 10-16-2023 Interdisciplinary Note - Switchboard Inspector Pt is awake and alert in bed, previously rounded with Dr. Betancourt. Pt is aware of plan to check with Podiatry but will DC home today on oral antibiotics. Pt is from home with spouse, has all needed DME at home and declines any further concerns or DC needs. will transport today. . PCP verified and insurance information reviewed and DME discussed. Contact information provided and white board updated. [facility] Comment on above: Result Comment: Elec tronically Signed By: Sol MERAZ, uJhi\.br\Date and Time Signed: 10/16/23 10:35 EST Magnesiumon 10-16-2023 Magnesium [Mass/Vol] 1.8 mg/dL Normal 1.3-2.4 [facility] Comment on above: Performed By: #### 2 [id number], [id number], [id number], [id number] ####[facility] [address] [place] [address] Monitor Recordon 10-16-2023 Monitor Record [id number] [facility] Progress Note-Physicianon Progress Note-Physician Subjective Day 4 IV Arjun Still having a burning-like tingling sensation to her right leg but doing better overall; no complaints otherwise Review of Systems Constitutional: no fever, no chills, no sweats, no weakness Respiratory: no shortness of breath, no cough, no orthopnea, no wheezing Cardiovascular: no chest pain, no palpitations, no edema Additional ROS info: Except as noted in the above Review of Systems and in the History of Present Illness all other systems have been reviewed and are negative or noncontributory. Objective Vitals & Measurements T: 36.7 ?C(Oral) TMIN: 36.4 ?C(Oral) TMAX: 37.4 ?C(Oral) HR: 73(Monitored) RR: 18 BP: 141/81 SpO2: 98% Intake & Output This visit (24 hour periods starting at 07:00 EST) 10/16/23 * 10/15/23 10/14/23 Total Summary Intake mL -- 700.68 325.57 Output mL -- -- -- Fluid Balance -- 700.68 325.57 Intake (4) Al hydroxide/Mg hydroxide/simethicon e mL -- 30 -- Oral Intake mL -- 550 -- Sodium Chloride 0.9% mL -- -- 325.57 Sodium Chloride 0.9%, piperacillin-tazobac mcguire mL -- 120.68 -- Total -- 700.68 325.57 Output (0) Counts (0) * This column has not completed the indicated time period. Physical Exam Constitutional: Awake and alert; oriented x 3 with no apparent distress or respiratory distress Head/neck: Neck supple with no palpable lymphadenopathy, bruits or masses; trachea midline with increased neck circumference Chest/lungs: Diminished but clear with no wheezes or rhonchi noted bilaterally Cardiovascular: Regular rate and rhythm; normal S1-S2 with no murmur; 1+ pitting edema right lower extremity and 2+ pulses bilaterally: Erythema right lower extremity no open lesions or sores Gastrointestinal: Soft, nontender, nondistended, positive bowel sounds; obese Neurological: Nonfocal; cranial nerves II through XII are intact Psychological: Pleasant affect Lab Results WBC: 6.6 E9/L (10/16/23 05:11:00) RBC: 4.1 E12/L Low (10/16/23 05:11:00) HGB: 11.4 gm/dL Low (10/16/23 05:11:00) Hct: 35 % (10/16/23 05:11:00) MCV: 84.6 fL (10/16/23 05:11:00) MCH: 27.8 pg (10/16/23 05:11:00) MCHC: 32.9 gm/dL (10/16/23 05:11:00) RDW: 14.7 % High (10/16/23 05:11:00) Platelet: 156 E9/L (10/16/23 05:11:00) MPV: 10 fL (10/16/23 05:11:00) Neutro Auto: 72 % (10/16/23 05:11:00) Lymph Auto: 20.3 % (10/16/23 05:11:00) [place] Auto: 6.8 % (10/16/23 05:11:00) Eos Auto: 0.6 % (10/16/23 05:11:00) Basophil Auto: 0.3 % (10/16/23 05:11:00) Neutro Absolute: 4.8 E9/L (10/16/23 05:11:00) Lymph Absolute: 1.3 E9/L (10/16/23 05:11:00) [place] Absolute: 0.5 E9/L (10/16/23 05:11:00) Eos Absolute: 0 E9/L (10/16/23 05:11:00) Basophil Absolute: 0 E9/L (10/16/23 05:11:00) Glucose Lvl: 180 mg/dL (10/16/23 05:11:00) BUN: 9 mg/dL (10/16/23 05:11:00) Creatinine: 0.5 mg/dL (10/16/23 05:11:00) eGFR: 107 mL/min/1.73 m2 (10/16/23 05:11:00) BUN/Creat Ratio: 18 (10/16/23 05:11:00) Sodium Lvl: 135 mmol/L (10/16/23 05:11:00) Potassium Lvl: 3.1 mmol/L Low (10/16/23 05:11:00) Chloride: 103 mmol/L (10/16/23 05:11:00) CO2: 23 mmol/L (10/16/23 05:11:00) AGAP: 12 mEq/L (10/16/23 05:11:00) Calcium Lvl: 8 mg/dL Low (10/16/23 05:11:00) Magnesium: 1.8 mg/dL (10/16/23 05:11:00) Glucose Cap: 194 mg/dL High (10/16/23 08:25:00) POC Device SN: [id number] (10/16/23 08:25:00) POC User ID: [id number] (10/16/23 08:25:00) POC Username: POC Username (10/16/23 08:25:00) Assessment/Plan 58-year-old female admitted for sepsis (leukocytosis; her tachycardia and lactic acidosis has resolved) secondary to cellulitis of her right leg. MRI of the right tib-fib shows cellulitis with no bone involvement. Initially had acute kidney injury which has resolved as well. Patient has had history of type 2 diabetes, hypertension, hypercholesterolemia , A-fib on Eliquis therapy and anxiety. 1. Sepsis (A41.9: Sepsis, unspecified organism) Resolved On IV Zosyn Blood cultures x 2 no growth to date Ordered: [facility] Care/Day Moderate 35 Minutes 27412 2. Cellulitis of right leg (L03.115: Cellulitis of right lower limb) MRI right tib-fib shows cellulitis but no bony involvement Continue IV antibiotics with day 4 IV Zosyn Compression orders per podiatry with double Tubigrip Blood culture x 2 no growth to date Ordered: [facility] Care/Day Moderate 35 Minutes 24086 3. Acute renal failure (N17.9: Acute kidney failure, unspecified) Resolved [facility] Care/Day Moderate 35 Minutes 24332 4. Troponin level elevated (R79.89: Other specified abnormal findings of blood chemistry) Stable/resolved Ordered: [facility] Care/Day Moderate 35 Minutes 68306 5. Atrial fibrillation (I48.91: Unspecified atrial fibrillation) In sinus rhythm Continue metoprolol and Eliquis Ordered: [facility] Care/Day Moderate 35 Minutes 60247 6. HTN (hypertension) (I10: Essential (primary) hypertension) On amlodipine plus metopr (more content not included)... Normal [facility] Comment on above: Result Comment: Elec tronically Signed By: Adarsh Betancourt DO.br\Date and Time Signed: 10/16/23 09:13 EST eGFRon 10-16-2023 eGFR 107 mL/min/1.73 m2 Normal >=59 [facility] Comment on above: Order Comment: Order added by Discern Expert. Performed By: #### 2 [id number], [id number], [id number], [id number] ####[facility] [address] [place] [address] BMPon 10-15-2023 Anion gap [Moles/Vol] 10 mmol/L Normal 6-16 [facility] Comment on above: Performed By: #### 2 [id number], [id number], [id number] ####[facility] [address] [place] [address] BUN/Creat Ratio 24 No Units High 10-20 [facility] Comment on above: Performed By: #### 2 004287, [id number], [id number] ####[facility] [address] [place] [address] Calcium [Mass/Vol] 8.0 mg/dL Low 8.9-11.1 [facility] Comment on above: Performed By: #### 2 [id number], [id number], [id number] ####[facility] [address] [place] [address] Chloride [Moles/Vol] 104 mmol/L Normal 101-111 [facility] Comment on above: Performed By: #### 2 838836, [id number], [id number] ####[facility] [address] [place] [address] CO2 [Moles/Vol] 26 mmol/L Normal 21-31 [facility] Comment on above: Performed By: #### 2 910833, [id number], [id number] ####[facility] [address] [place] [address] Creatinine [Mass/Vol] 0.7 mg/dL Normal 0.5-1.3 [facility] Comment on above: Performed By: #### 2 [id number], [id number], [id number] ####[facility] [address] [place] [address] Glucose [Mass/Vol] 150 mg/dL Normal 55-199 [facility] Comment on above: Performed By: #### 2 490559, [id number], [id number] ####[facility] [address] [place] [address] Potassium [Moles/Vol] 3.5 mmol/L Normal 3.5-5.3 [facility] Comment on above: Performed By: #### 2 599972, [id number], [id number] ####[place] [address] [place] [address] Sodium [Moles/Vol] 136 mmol/L Normal 135-145 [facility] Comment on above: Performed By: #### 2 811164, [id number], [id number] ####[address] [address] Urea nitrogen [Mass/Vol] 17 mg/dL Normal 5-21 [facility] Comment on above: Performed By: #### 2 228268, [id number], [id number] ####[address] [address] CBC w/ Auto Diffon 4 Basophil Absolute 0.0 E9/L Normal 0.0-0.2 [facility] Comment on above: Performed By: #### 2 453374, [id number], [id number] ####[address] [address] Basophils/100 WBC (Bld) 0.2 % Normal 0.0-2.0 [facility] [facility] Comment on above: Performed By: #### 2 668719, 8527228, [id number] ####[address] [address] Eos Absolute 0.0 E9/L Normal 0.0-0.5 [facility] Comment on above: Performed By: #### 2 419989, 3906617, [id number] ####[address] [address] Eosinophils/100 WBC (Bld) 0.1 % Normal 0.0-8.0 [facility] Comment on above: Performed By: #### 2 790425, 0306200, 78060402 ####[address] [address] Erythrocyte distribution width (RBC) [Ratio] 14.6 % High 10.9-14.2 [facility] Comment on above: Performed By: #### 2 680356, 3654403, 79116975 ####[address] [address] Hematocrit (Bld) [Volume fraction] 35.0 % Normal 34.0-46.0 [facility] Comment on above: Performed By: #### 2 176491, 9745799, 66149822 ####[place] [address] Hemoglobin (Bld) [Mass/Vol] 11.4 g/dL Low 12.0-16.0 [facility] Comment on above: Performed By: #### 2 069105, 4143930, 51834151 ####[address] [address] Lymph Absolute 1.3 E9/L Normal 1.0-4.0 [facility] Comment on above: Performed By: #### 2 868291, 9558598, 28128468 ####[address] [address] Lymphocytes/100 WBC (Bld) 12.0 % Low 14.0-50.0 [facility] Comment on above: Performed By: #### 2 437284, 3290747, 36465239 ####[address] [address] MCH (RBC) [Entitic mass] 28.0 pg Normal 27.0-34.0 [facility] Comment on above: Performed By: #### 2 439107, 6740611, 56313298 ####[address] [address] MCHC (RBC) [Mass/Vol] 32.8 g/dL Normal 31.4-36.0 [facility] Comment on above: Performed By: #### 2 569893, 6601720, 12218054 ####[address] [address] MCV (RBC) [Entitic vol] 85.5 fL Normal 80.0-100.0 [facility] Comment on above: Performed By: #### 2 608345, 7227034, 40122680 ####[facility] [address] [place] [address] [place] Absolute 0.3 E9/L Normal 0.2-1.0 [facility] Comment on above: Performed By: #### 2 343466, 1419276, 55701975 ####[address] [address] Monocytes/100 WBC (Bld) 3.0 % Low 4.0-14.0 [facility] Comment on above: Performed By: #### 2 431256, 7093274, 03181782 ####[address] [address] Neutro Absolute 9.1 E9/L High 2.0-7.5 [facility] Comment on above: Performed By: #### 2 439512, 5967956, 57761861 ####[address] [address] Neutro Auto 84.7 % High 36.0-75.0 [facility] Comment on above: Performed By: #### 2 359275, 3372667, 82596399 ####[address] [address] Platelet 175.0 E9/L Normal 150.0-500.0 [facility] Comment on above: Performed By: #### 2 942913, 8450398, 93782372 ####[place] [address] [place] [address] Platelet mean volume (Bld) [Entitic vol] 9.8 fL Normal 6.4-10.8 [facility] Comment on above: Performed By: #### 2 797122, 3540143, 69465982 ####[place] [address] [place] [address] RBC 4.1 E12/L Low 4.3-5.9 [facility] Comment on above: Performed By: #### 2 453016, 0858823, 23344160 ####[facility] [address] [place] [address] WBC 10.8 E9/L Normal 4.0-11.0 [facility] Comment on above: Performed By: #### 2 717146, 2403720, 45879645 ####[facility] [address] [place] [address] CHEMISTRYOrdered By: Lab ROP User on 10-15-2023 Glucose [Mass/Vol] 179 mg/dL High 55 - 99 mg/dL [facility] Subsection Comment on above: Result Comment: Simón lozano RN/ POC Device SN [id number] Invalid Interpretation Code [facility] Subsection POC User ID [id number] 1 Invalid Interpretation Code [facility] Subsection POC Username JUDE GARCIA Invalid Interpretation Code [facility] Subsection CHEMISTRYOrdered By: SYSTEM SYSTEM on 10-15-2023 Anion gap [Moles/Vol] 10 mmol/L Normal 6 - 16 mEq/L R emisol Chem Calcium [Mass/Vol] 8.0 mg/dL Low 8.9 - 11. 1 mg/dL Remisol Chem Chloride [Moles/Vol] 104 mmol/L Normal 101 - 1 11 mmol/L Remisol Chem CO2 [Moles/Vol] 26 mmol/L Normal 21 - 31 mmol/L Remisol Chem Creatinine [Mass/Vol] 0.7 mg/dL Normal 0.5 - 1.3 mg/dL Remisol Chem eGFR 99 mL/min/1.73 m2 Normal >=59mL/min /1 .73 m2 Remisol Chem Glucose [Mass/Vol] 150 mg/dL Normal 55 - 199 mg/dL Remisol Chem Potassium [Moles/Vol] 3.5 mmol/L Normal 3.5 - 5.3 mmol/L Remisol Chem Sodium [Moles/Vol] 136 mmol/L Normal 135 - 145 mmol/L Remisol Chem Urea nitrogen [Mass/Vol] 17 mg/dL Normal 5 - 21 mg/dL Remisol Chem Urea nitrogen/Creatinine [Mass ratio] 24 mg/mg High 10 - 20 Remisol Chem Capillary Glucose POCon 02-0 Glucose [Mass/Vol] 179 mg/dL High 55-99 [facility] Comment on above: Result Comment: Simón lozano RN/ Performed By: #### 2 [id number] #### [facility] [address] [place] [address] Glucose [Mass/Vol] 163 mg/dL High 55-99 [facility] Comment on above: Result Comment: Simón GRIFFIN Performed By: #### 2 [id number] #### [facility] [address] [place] [address] Glucose [Mass/Vol] 203 mg/dL High 55-99 [facility] Comment on above: Performed By: #### 2 [id number] #### [facility] [address] [place] [address] Glucose [Mass/Vol] 202 mg/dL High 55-99 [facility] Comment on above: Result Comment: Simón GRIFFIN Performed By: #### 2 610744, 1071504, 5239603, 2206529, 43146653 #### [facility] [address] [place] [address] Coding Queryon 10-15-2023 Coding Query - From: Adán Davidson RN To: Adarsh Betancourt DO; Sent: 10/15/2023 11:37:21 EST ! Subject: Coding Query Due Date/Time: 10/16/2023 11:37:00 EST Caller Name: MARILYN DUNCAN; Caller Number: H , B [phone] Documentation in the medical record indicates that this patient has been admitted with the following BMI: BMI 43.3 While BMI may be coded from speech therapy director or nursing documentation, the weight-related diagnosis must be coded from physician documentation. BMI is usually calculated as weight (in kg) divided by height (in meters) squared, or kg/m2. The following is also documented in the medical record: BMI 43.3 Based on your medical judgment, can you further clarify the following? Select all that apply: [___]Morbid (severe) obesity due to excess calories (BMI 40 or greater) [___]BMI 40.0 - 44.9 [___]Other: In responding to this request, please exercise your independent professional judgement. The fact that a question is asked does not imply that any particular answer is desired or expected. Thank you![phone] [phone] - From: Adarsh Betancourt DO To: Lety RN, Adán Cardenas; Sent: 10/15/2023 16:32:33 EST Subject: RE: Coding Query Caller Name: MARILYN DUNCAN; Caller Number: H , B [phone] Morbid (severe) obesity due to excess calories (BMI 40 or greater) Normal [facility] HEMATOLOGYOrdered By: SYSTEM SYSTEM on 10-15-2023 Basophil Absolute 0.0 E9/L Normal 0.0 - 0.2 E9/L Remisol Heme Basophils/100 WBC (Bld) 0.2 % Normal 0.0 - 2.0 % Remisol Heme Eos Absolute 0.0 E9/L Normal 0.0 - 0.5 E9/L Remisol Heme Eosinophils/100 WBC (Bld) 0.1 % Normal 0.0 - 8.0 % Remisol Heme Erythrocyte distribution width (RBC) [Ratio] 14.6 % High 10.9 - 14.2 % Remisol Heme Hematocrit (Bld) [Volume fraction] 35.0 % Normal 34.0 - 46.0 % Remisol Heme Hemoglobin (Bld) [Mass/Vol] 11.4 g/dL Low 12.0 - 16.0 gm/dL Remisol Heme Lymph Absolute 1.3 E9/L Normal 1.0 - 4.0 E9/L Remisol Heme Lymphocytes/100 WBC (Bld) 12.0 % Low 14.0 - 50.0 % Remisol Heme MCH (RBC) [Entitic mass] 28.0 pg Normal 27.0 - 34.0 pg Remisol Heme MCHC (RBC) [Mass/Vol] 32.8 g/dL Normal 31.4 - 36.0 gm/dL Remisol Heme MCV (RBC) [Entitic vol] 85.5 fL Normal 80.0 - 100.0 fL Remisol Heme [place] Absolute 0.3 E9/L Normal 0.2 - 1.0 E9/L Remisol Heme Monocytes/100 WBC (Bld) 3.0 % Low 4.0 - 14.0 % Remisol Heme Neutro Absolute 9.1 E9/L High 2.0 - 7.5 E9/L Remisol Heme Neutro Auto 84.7 % High 36.0 - 75.0 % Remisol Heme Platelet 175.0 E9/L Normal 150.0 - 500.0 E9/L Remisol Heme Platelet mean volume (Bld) [Entitic vol] 9.8 fL Normal 6.4 - 10.8 fL Remisol Heme RBC 4.1 E12/L Low 4.3 - 5.9 E12/L Remisol Heme WBC 10.8 E9/L Normal 4.0 - 11.0 E9/L Remisol Heme Insurance Correspondence Off iceon 10-15-2023 Insurance Correspondence Office [id number] 5#1.00TIFF Normal [facility] Interdisciplinary Note - Vinayak e Manageron 10-15-2023 Interdisciplinary Note - Switchboard Inspector CRM to room to discuss DC planning. Patient is awake, alert and oriented. Patient is from home with her spouse. He will transport at [place]. Patient verified PCP, home DME and insurance. Patient is here as inpatient for puffy legs. Patient has cellulitis. Patient is assigned to Dr Betancourt. Patient has seen by podiatry. Patient had a CXR and it was negative. MRI= Cellulitis, no abscess. Patient denied need for DME, HH or PM. She has a walker at home. Patient was provided CRM contact, white board updated. CRM following CRM will get updates at 10am, if IV meds needed at DC patient would like HH and her and her spouse would be willing to learn. Per Dr Betancourt unknown if IV at DC needed, pending final cx. Blood cultures are showing negative for day 1 Normal [facility] Comment on above: Result Comment: Elec tronically Signed By: Yumiko Black\.br\Date and Time Signed: 10/15/23 13:22 EST MRI Tibia/Fibula w/ + w/o Co ntrast Righton 10-15-2023 MRI Tibia/Fibula w/ + w/o Contrast Right Exam Date/Time: 10/14/2023 19:15 EST Reason for Exam: Cellulitis Report IMPRESSION: FINDINGS COMPATIBLE WITH CELLULITIS. NO ABSCESS. EXAMINATION: MRI Tibia/Fibula w/ + w/o Contrast Right HISTORY: Redness and swelling of the right lower extremity. Chronic wound. COMPARISON: None available TECHNIQUE: Multiplanar multisequence MRI of the right lower extremity was performed without and with contrast FINDINGS: Diffuse subcutaneous soft tissue edema and skin thickening. No loculated rim-enhancing fluid collection is suggest abscess. Visualized myotendinous structures are intact. No aggressive bone marrow signal abnormality or enhancing bone lesion. Ordering Provider: Mark Chen FINAL REPORT Dictated: 10/15/2023 8:21 am Jos Kohler DO Signed (Electronic Signature): 10/15/2023 8:21 am Signed by: Jos Kohler DO Transcribed by: ELEN Technologist: HORACE Technical Comments Vueway Contrast amount in ml's: 7.5 Normal [facility] Monitor Recordon 10-15-2023 Monitor Record [id number] 0#1.00TIFF Normal [facility] Progress Note-Physicianon Progress Note-Physician Subjective Day 3 IV Arjun Appreciate Podiatry consult Doing well voicing no complaints overnight or this morning; she describes a burning tingling sensation with weightbearing to her right ankle Review of Systems Constitutional: no fever, no chills, no sweats, no weakness Respiratory: no shortness of breath, no cough, no orthopnea, no wheezing Cardiovascular: no chest pain, no palpitations, no edema Additional ROS info: Except as noted in the above Review of Systems and in the History of Present Illness all other systems have been reviewed and are negative or noncontributory. Objective Vitals & Measurements T: 37.1 ?C(Oral) TMIN: 36.6 ?C(Oral) TMAX: 39.1 ?C(Oral) HR: 89(Apical) RR: 18 BP: 176/70 SpO2: 96% Intake & Output This visit (24 hour periods starting at 07:00 EST) 10/15/23 * 10/14/23 10/13/23 Total Summary Intake mL -- 325.57 3,196.01 Output mL -- -- -- Fluid Balance -- 325.57 3,196.01 Intake (4) Generic Diluent, vancomycin mL -- -- 400 Sodium Chloride 0.9% mL -- 325.57 2,174.58 Sodium Chloride 0.9% intravenous solution 1,000 mL mL -- -- 471.43 Sodium Chloride 0.9%, piperacillin-tazobac mcguire mL -- -- 150 Total -- 325.57 3,196.01 Output (0) Counts (0) * This column has not completed the indicated time period. Physical Exam Constitutional: Awake and alert; oriented x 3 with no apparent distress or respiratory distress Head/neck: Neck supple with no palpable lymphadenopathy, bruits or masses; trachea midline with increased neck circumference Chest/lungs: Diminished but clear with no wheezes or rhonchi noted bilaterally Cardiovascular: Regular rate and rhythm; normal S1-S2 with no murmur; 1+ pitting edema right lower extremity and 2+ pulses bilaterally: Erythema right lower extremity no open lesions or sores Gastrointestinal: Soft, nontender, nondistended, positive bowel sounds; obese Neurological: Nonfocal; cranial nerves II through XII are intact Psychological: Pleasant affect Lab Results WBC: 10.8 E9/L (10/15/23 05:52:00) RBC: 4.1 E12/L Low (10/15/23 05:52:00) HGB: 11.4 gm/dL Low (10/15/23 05:52:00) Hct: 35 % (10/15/23 05:52:00) MCV: 85.5 fL (10/15/23 05:52:00) MCH: 28 pg (10/15/23 05:52:00) MCHC: 32.8 gm/dL (10/15/23 05:52:00) RDW: 14.6 % High (10/15/23 05:52:00) Platelet: 175 E9/L (10/15/23 05:52:00) MPV: 9.8 fL (10/15/23 05:52:00) Neutro Auto: 84.7 % High (10/15/23 05:52:00) Lymph Auto: 12 % Low (10/15/23 05:52:00) [place] Auto: 3 % Low (10/15/23 05:52:00) Eos Auto: 0.1 % (10/15/23 05:52:00) Basophil Auto: 0.2 % (10/15/23 05:52:00) Neutro Absolute: 9.1 E9/L High (10/15/23 05:52:00) Lymph Absolute: 1.3 E9/L (10/15/23 05:52:00) [place] Absolute: 0.3 E9/L (10/15/23 05:52:00) Eos Absolute: 0 E9/L (10/15/23 05:52:00) Basophil Absolute: 0 E9/L (10/15/23 05:52:00) Glucose Lvl: 150 mg/dL (10/15/23 05:52:00) BUN: 17 mg/dL (10/15/23 05:52:00) Creatinine: 0.7 mg/dL (10/15/23 05:52:00) eGFR: 99 mL/min/1.73 m2 (10/15/23 05:52:00) BUN/Creat Ratio: 24 High (10/15/23 05:52:00) Sodium Lvl: 136 mmol/L (10/15/23 05:52:00) Potassium Lvl: 3.5 mmol/L (10/15/23 05:52:00) Chloride: 104 mmol/L (10/15/23 05:52:00) CO2: 26 mmol/L (10/15/23 05:52:00) AGAP: 10 mEq/L (10/15/23 05:52:00) Calcium Lvl: 8 mg/dL Low (10/15/23 05:52:00) Glucose Cap: 202 mg/dL High (10/15/23 09:21:00) POC Device SN: [id number] (10/15/23 09:21:00) POC User ID: [id number] (10/15/23 09:21:00) POC Username: EMELYN RANDALL (10/15/23 09:21:00) Images MRI Tibia/Fibula w/ + w/o Contrast Right 10/15/23 08:25:03 IMPRESSION: FINDINGS COMPATIBLE WITH CELLULITIS. NO ABSCESS. EXAMINATION: MRI Tibia/Fibula w/ + w/o Contrast Right HISTORY: Redness and swelling of the right lower extremity. Chronic wound. COMPARISON: None available TECHNIQUE: Multiplanar multisequence MRI of the right lower extremity was performed without and with contrast FINDINGS: Diffuse subcutaneous soft tissue edema and skin thickening. No loculated rim-enhancing fluid collection is suggest abscess. Visualized myotendinous structures are intact. No aggressive bone marrow signal abnormality or enhancing bone lesion. Ordering Provider: Mark Chen Signed By: Jos Kohler DO 10/14/23 19:15:45 Vueway Contrast amount in ml?s: 7.5 Signed By: Jos Kohler DO XR Tibia/Fibula Right 10/15/23 09:17:35 IMPRESSION: NO ACUTE OSSEOUS ABNORMALITY. EXAMINATION: X-ray tibia and fibula, 2 view HISTORY: Lower extremity swelling TECHNIQUE: AP and lateral views of the right tibia and fibula COMPARISON: MRI 10/15/2023 FINDINGS: No acute or aggressive abnormality of the tibia or fibula. Diffuse subcutaneous soft tissue edema. Ordering Provider: Mark Chen Signed By: Jos Kohler DO 10/15/23 08:40:10 Radiation Dose: Ka,r in mGy = 0 DAP = 0 Signed By: Jos Kohler DO As (more content not included)... Normal [facility] Comment on above: Result Comment: Elec tronically Signed By: Adarsh Betancourt DO\.br\Date and Time Signed: 10/15/23 10:38 EST XR Tib/Fib Right 2 Viewon XR Tib/Fib Right 2 View Exam Date/Time: 10/15/2023 08:40 EST Reason for Exam: Other (please specify) Report IMPRESSION: NO ACUTE OSSEOUS ABNORMALITY. EXAMINATION: X-ray tibia and fibula, 2 view HISTORY: Lower extremity swelling TECHNIQUE: AP and lateral views of the right tibia and fibula COMPARISON: MRI 10/15/2023 FINDINGS: No acute or aggressive abnormality of the tibia or fibula. Diffuse subcutaneous soft tissue edema. Ordering Provider: Mark Chen FINAL REPORT Dictated: 10/15/2023 9:14 am Jos Kohler DO Signed (Electronic Signature): 10/15/2023 9:14 am Signed by: Jos Kohler DO Transcribed by: ELEN Technologist: WADE Technical Comments Radiation Dose: Ka,r in mGy = 0 DAP = 0 Normal [facility] eGFRon 10-15-2023 eGFR 99 mL/min/1.73 m2 Normal >=59 [facility] Comment on above: Order Comment: Order added by Discern Expert. Performed By: #### 2 826889, 0963878, [id number] ####[facility] [address] [place] [address] BMPon 10-14-2023 Anion gap [Moles/Vol] 12 mmol/L Normal 6-16 [facility] Comment on above: Performed By: #### 2 739594, 9301561, 9294545, 2073816, 99589005 #### [facility] [address] [place] [address] BUN/Creat Ratio 24 No Units High 10-20 [facility] Comment on above: Performed By: #### 2 111731, 7404723, 5754823, 2408025, 18090694 #### [facility] [address] [place] [address] Calcium [Mass/Vol] 7.9 mg/dL Low 8.9-11.1 [facility] Comment on above: Performed By: #### 2 061548, 4295582, 8429001, 9033821, 97881319 #### [facility] [address] [place] [address] Chloride [Moles/Vol] 103 mmol/L Normal 101-111 [facility] Comment on above: Performed By: #### 2 469505, 8873567, 6137972, 8984201, 98153375 #### [facility] [address] [place] [address] CO2 [Moles/Vol] 24 mmol/L Normal 21-31 [facility] Comment on above: Performed By: #### 2 719337, 4941443, 4035698, 0403503, 85284406 #### [facility] [address] [place] [address] Creatinine [Mass/Vol] 0.9 mg/dL Normal 0.5-1.3 [facility] Comment on above: Performed By: #### 2 382019, 0412358, 6629229, 6986949, 55998745 #### [facility] [address] [place] [address] Glucose [Mass/Vol] 116 mg/dL Normal 55-199 [facility] Comment on above: Performed By: #### 2 853754, 4594924, 7983695, 7121741, 87429134 #### [facility] [address] [place] [address] Potassium [Moles/Vol] 3.4 mmol/L Low 3.5-5.3 [facility] Comment on above: Performed By: #### 2 033003, 5850592, 3295989, 2501344, 61791290 #### [facility] [address] [place] [address] Sodium [Moles/Vol] 136 mmol/L Normal 135-145 [facility] Comment on above: Performed By: #### 2 340538, 9930533, 5770985, 0345260, 44358103 #### [facility] [address] [place] [address] Urea nitrogen [Mass/Vol] 22 mg/dL High 5-21 [facility] Comment on above: Performed By: #### 2 863133, 3586689, 8058716, 3095757, 16174353 #### [facility] [address] [place] [address] CBC w/Indiceson 10-14-2023 RBC morphology finding Nom (Bld) NORMAL Invalid Interpretation Code [facility] Comment on above: Performed By: #### 2 891236, 6074422, 4826627, 5244330, 69635496 #### [facility] [address] [place] [address] Erythrocyte distribution width (RBC) [Ratio] 15.0 % High 10.9-14.2 [facility] Comment on above: Performed By: #### 2 368497, 8139050, 7901471, 5663378, 01666295 #### [facility] [address] [place] [address] Hematocrit (Bld) [Volume fraction] 37.0 % Normal 34.0-46.0 [facility] Comment on above: Performed By: #### 2 407355, 1266087, 6616898, 1530228, 31105281 #### [facility] [address] [place] [address] Hemoglobin (Bld) [Mass/Vol] 11.7 g/dL Low 12.0-16.0 [facility] Comment on above: Performed By: #### 2 227392, 9419518, 2818303, 1509354, 81558674 #### [facility] [address] [place] [address] MCH (RBC) [Entitic mass] 27.5 pg Normal 27.0-34.0 [facility] Comment on above: Performed By: #### 2 150677, 1788376, 5369462, 2222765, 34860407 #### [facility] [address] [place] [address] MCHC (RBC) [Mass/Vol] 31.9 g/dL Normal 31.4-36.0 [facility] Comment on above: Performed By: #### 2 150816, 9890362, 7148572, 5317715, 54524200 #### [facility] [address] [place] [address] MCV (RBC) [Entitic vol] 86.2 fL Normal 80.0-100.0 [facility] Comment on above: Performed By: #### 2 500688, 0133093, 5045333, 6408026, 19195125 #### [facility] [address] [place] [address] Platelet 186.0 E9/L Normal 150.0-500.0 [facility] Comment on above: Performed By: #### 2 327884, 4993018, 3831041, 0196313, 21125650 #### [facility] [address] [place] [address] Platelet mean volume (Bld) [Entitic vol] 10.1 fL Normal 6.4-10.8 [facility] Comment on above: Performed By: #### 2 406715, 0791994, 1814401, 6698542, 04319407 #### [facility] [address] [place] [address] RBC 4.3 E12/L Normal 4.3-5.9 [facility] Comment on above: Performed By: #### 2 543565, 2959325, 8245150, 1941689, 43964054 #### [facility] [address] [place] [address] WBC 15.0 E9/L High 4.0-11.0 [facility] Comment on above: Performed By: #### 2 737369, 8831419, 1971706, 3275617, 07154013 #### [facility] [address] [place] [address] CHEMISTRYOrdered By: SYSTEM SYSTEM on 10-14-2023 Anion gap [Moles/Vol] 12 mmol/L Normal 6 - 16 mEq/L R emisol Chem Calcium [Mass/Vol] 7.9 mg/dL Low 8.9 - 11. 1 mg/dL Remisol Chem Chloride [Moles/Vol] 103 mmol/L Normal 101 - 1 11 mmol/L Remisol Chem CO2 [Moles/Vol] 24 mmol/L Normal 21 - 31 mmol/L Remisol Chem Creatinine [Mass/Vol] 0.9 mg/dL Normal 0.5 - 1.3 mg/dL Remisol Chem eGFR 73 mL/min/1.73 m2 Normal >=59mL/min /1 .73 m2 Remisol Chem Glucose [Mass/Vol] 116 mg/dL Normal 55 - 199 mg/dL Remisol Chem Magnesium [Mass/Vol] 1.3 mg/dL Normal 1.3 - 2 .4 mg/dL Remisol Chem Potassium [Moles/Vol] 3.4 mmol/L Low 3.5 - 5.3 mmol/L Remisol Chem Sodium [Moles/Vol] 136 mmol/L Normal 135 - 145 mmol/L Remisol Chem Troponin 25.10 pg/mL Normal 10.10 - 27.10 pg/mL Remisol Chem Comment on above: Interpretive Data: T he 95% CI (Confidence Interval) PPV (Positive Predictive Value) for myocardial infarction in females is 38 pg/mL, in males 51 pg/mL. The results should be used in conjunction with clinical conditions of myocardial infarction. (Access High Sensitivity Troponin I Instructions For Use, Geraldo Jessica, April 2018) Urea nitrogen [Mass/Vol] 22 mg/dL High 5 - 21 mg/dL Remisol Chem Urea nitrogen/Creatinine [Mass ratio] 24 mg/mg High 10 - 20 Remisol Chem Capillary Glucose POCon 02-0 Glucose [Mass/Vol] 193 mg/dL High 55-99 [facility] Comment on above: Result Comment: Simón lozano RN/ Performed By: #### 2 [id number] #### [facility] [address] [place] [address] Glucose [Mass/Vol] 126 mg/dL High 55-99 [facility] Comment on above: Result Comment: Yin aneta Meter Performed By: #### 2 [id number] #### [facility] [address] [place] [address] Glucose [Mass/Vol] 160 mg/dL High 55-99 [facility] Comment on above: Result Comment: Yin aneta Meter Performed By: #### 2 [id number] #### [facility] [address] [place] [address] Glucose [Mass/Vol] 146 mg/dL High 55-99 [facility] Comment on above: Result Comment: Yin aneta Meter Performed By: #### 2 [id number] #### [facility] [address] [place] [address] Glucose [Mass/Vol] 104 mg/dL High 55-99 [facility] Comment on above: Result Comment: Simón lozano RN/ Performed By: #### 2 [id number] #### [facility] [address] [place] [address] Consultation Noteon 10-14-19 Consultation Note Patient: MARILYN DUNCAN Age: 58 years Sex: Female : 1965 Associated Diagnoses: None Author: Mark Chen DPM Subjective Chief complaint 10/13/2023 22:18 EST Swelling of right leg that started yesterday 10/13/2023 17:40 EST patient presents with right lower leg cellulitis up to inner thigh that started yesterday with fevers last night. . Patient is a 58-year-old female with past medical history as noted below who comes in with above-stated chief complaint. Patient states that she noticed right lower extremity erythema and pain on 10/12/2023. Symptoms progressed and became more severe on 10/13/2023 therefore she came to ED for evaluation. Patient does admit to having some subjective chills but no fever. Patient denies any chest pain, shortness of breath, headache, vision changes, diarrhea, abdominal pain, nausea, vomiting, vision changes. Of note patient had a chronic wound on her right lower extremity for the majority of 2022. She states that she was released from wound care middle fall 2022 and had been doing well until this bout of erythema. Patient is currently on vancomycin and Zosyn. Duplex ultrasound was negative for deep venous thrombosis. She was seen previously in the wound care center for this issue. She relates no history of ulcerations. Or portals of entry. She denies any history of trauma Health Status Allergies: Allergic Reactions (Selected) Severity Not Documented Augmentin- Lethargic., Allergies (1) Active Severity Reaction Augmentin Lethargic Current medications: (Selected) Inpatient Medications Ordered Benadryl 25 mg Cap: 25 mg = 1 cap(s), Cap, Oral, q6hr PRN Itching, Routine, Start date 10/13/23 22:41:00 EST, 10/13/23 22:41:00 EST Dextrose 50% Soln-IV: 50 mL, Soln-IV, IV Push, Once PRN Blood glucose, Routine, Start date 10/13/23 22:40:00 EST Eliquis 5 mg oral tablet: 5 mg = 1 tab(s), Tab, Oral, BID, Routine, Start date 10/14/23 9:00:00 EST, 10/13/23 22:35:00 EST HumaLOG Sliding Scale: 0-10 Unit(s), Injection-Insulin, SubCutaneous, QIDACHS, Routine, Start date 10/14/23 7:30:00 EST Norvasc 5 mg Tab: 5 mg = 1 tab(s), Tab, Oral, Daily, Routine, Start date 10/14/23 9:00:00 EST, 10/13/23 22:34:00 EST Zofran 4 mg/2 mL Injection: 4 mg = 2 mL, Injection, IV Push, q6hr PRN Nausea, Routine, Start date 10/13/23 22:41:00 EST, 10/13/23 22:41:00 EST acetaminophen 325 mg Tab: 650 mg = 2 tab(s), Tab, Oral, q6hr PRN Pain, Routine, Start date 10/13/23 22:41:00 EST, 10/13/23 22:41:00 EST atorvastatin 40 mg Tab: 40 mg = 1 tab(s), Tab, Oral, Daily, Routine, Start date 10/14/23 9:00:00 EST, 10/13/23 22:35:00 EST busPIRone 5 mg Tab: 5 mg = 1 tab(s), Tab, Oral, BID, NOW, Start date 10/13/23 22:35:00 EST, 10/13/23 22:35:00 EST hydrALAZINE 20 mg/mL Inj: 10 mg = 0.5 mL, Injection, IV Push, q6hr PRN Other (see comment), Routine, Start date 10/13/23 22:41:00 EST, 10/13/23 22:41:00 EST metformin: 500 mg = 1 tab(s), Tab, Oral, BIDWM for 30 day(s), Stop date 11/12/23 22:59:00 EST, Start date 10/13/23 23:00:00 EST metoprolol 50 mg ER Tab: 50 mg = 1 tab(s), Tab-ER, Oral, BID, NOW, Start date 10/13/23 22:35:00 EST, 10/13/23 22:35:00 EST piperacillin-tazobac mcguire additive + Sodium Chloride 0.9% intravenous solution 50 mL: 3.375 gm = 1 EA, Injection, IV Piggyback, q6hr, Stop date 11/12/23 23:59:00 EST, Routine, Start date 10/14/23 0:00:00 EST, 100 mL/hr, Infuse over 30 minute(s) Prescriptions Prescribed Eliquis 5 mg oral tablet: 5 mg = 1 tab(s), Oral, BID, # 60 tab(s), Refills(s) 1, Pharmacy: [facility], 170, cm, 06/28/23 15:08:00 EDT, Height/Length Dosing, 117, kg, 06/28/23 15:08:00 EDT, Weight Dosing glucometer, lancets, alcohol swabs, syringes, needles, test strips: glucometer, lancets, alcohol swabs, syringes, needles, test strips, check BS 3x/day, Print Requisition, Supply glucometer, lancets, alcohol swabs, syringes, needles: glucometer, lancets, alcohol swabs, syringes, needles, check BS 3x/day, Print Requisition, Supply lisinopril 40 mg Tab: 40 mg = 1 tab(s), Oral, Daily, # 90 tab(s), Refills(s) 3, Pharmacy: [facility], 170, cm, 08/23/23 13:24:00 EST, Height/Length Dosing, 125.1, kg, 08/23/23 13:24:00 EST, Weight Dosing metoprolol 50 mg ER Tab: 50 mg = 1 tab(s), Oral, BID, # 30 tab(s), Refills(s) 0, Pharmacy: [facility], 170, cm, 06/28/23 15:08:00 EDT, Height/Length Dosing, 117, kg, 06/28/23 15:08:00 EDT, Weight Dosing Documented Medications Documented amLODIPine 10 mg Tab: 10 mg = 1 tab(s), Oral, Daily, Refills(s) 0 amlodipine: 5 mg, Oral, Daily, Refills(s) 0 atorvastatin 40 mg Tab: 40 mg = 1 tab(s), Oral, Daily, Refills(s) 0 busPIRone 5 mg Tab: 5 mg = 1 tab(s), Oral, BID, Refills(s) 0 cyclobenzaprine 10 mg Tab: 10 mg = 1 tab(s), Oral, Daily, PRN for spasm, # 30 tab(s), Refills(s) 0 glimepiride 2 mg Tab: 1.5, Oral, Daily, Refills(s) 0 metformin 500 mg ER Tab: 500 mg = 1 tab(s), Oral, BID, Refills(s) 0 Problem list: All Problems A (more content not included)... Normal [facility] Comment on above: Result Comment: Elec tronically Signed By: Mark Chen DPM\.br\Date and Time Signed: 10/14/23 17:02 EST HEMATOLOGYOrdered By: SYSTEM SYSTEM on 10-14-2023 Erythrocyte distribution width (RBC) [Ratio] 15.0 % High 10.9 - 14.2 % Remisol Heme Hematocrit (Bld) [Volume fraction] 37.0 % Normal 34.0 - 46.0 % Remisol Heme Hemoglobin (Bld) [Mass/Vol] 11.7 g/dL Low 12.0 - 16.0 gm/dL Remisol Heme MCH (RBC) [Entitic mass] 27.5 pg Normal 27.0 - 34.0 pg Remisol Heme MCHC (RBC) [Mass/Vol] 31.9 g/dL Normal 31.4 - 36.0 gm/dL Remisol Heme MCV (RBC) [Entitic vol] 86.2 fL Normal 80.0 - 100.0 fL Remisol Heme Platelet 186.0 E9/L Normal 150.0 - 500.0 E9/L Remisol Heme Platelet mean volume (Bld) [Entitic vol] 10.1 fL Normal 6.4 - 10.8 fL Remisol Heme RBC 4.3 E12/L Normal 4.3 - 5.9 E12/L Remisol Heme WBC 15.0 E9/L High 4.0 - 11.0 E9/L Remisol Heme HEMATOLOGYOrdered By: Didi Yoder on 10-14-2023 RBC morphology finding Nom (Bld) NORMAL Invalid Interpretation Code Remisol Heme Insurance Correspondence Off iceon 10-14-2023 Insurance Correspondence Office [id number] 6#1.00TIFF Normal [facility] Interdisciplinary Note - Vinayak e Manageron 10-14-2023 Interdisciplinary Note - Switchboard Inspector CRM to room to discuss DC planning. Patient is awake, alert and oriented. Patient is from home with her spouse. He will transport at DC. Patient verified PCP, home DME and insurance. Patient is here as inpatient for puffy legs. Patient is assigned to Dr Betancourt. Patient will be seen by podiatry. Patient had a CXR and it was negative. Patient is not a DC today. Patient was made aware he will be here a few days. Patient denied need for DME, HH or PM. She has a walker at home. Patient was provided CRM contact, white board updated. CRM following Normal [facility] Comment on above: Result Comment: Elec tronically Signed By: Yumiko Black\.br\Date and Time Signed: 10/14/23 12:30 EST Lactic Acidon 10-14-2023 Lactic Acid Lvl 1.7 mmol/L Normal 0.5-2.2 [facility] Comment on above: Order Comment: Order added by EKS Rule. (FT_LACTIC_ACID_REFLEX) Adds reflex Lactic Acid 4 hours after initial if result is greater than or equal to 2.0. Performed By: #### 2 [id number] #### [facility] [address] [place] [address] Magnesiumon 10-14-2023 Magnesium [Mass/Vol] 1.3 mg/dL Normal 1.3-2.4 [facility] Comment on above: Performed By: #### 2 [id number] #### [facility] [address] [place] [address] Monitor Recordon 10-14-2023 Monitor Record [id number] 4#1.00TIFF Normal [facility] Monitor Record [id number] 3#1.00TIFF Normal [facility] Progress Note-Physicianon Progress Note-Physician Subjective Day 2 IV Zosyn Patient doing well voicing no complaints overnight or this morning Review of Systems Constitutional: no fever, no chills, no sweats, no weakness Respiratory: no shortness of breath, no cough, no orthopnea, no wheezing Cardiovascular: no chest pain, no palpitations, no edema Additional ROS info: Except as noted in the above Review of Systems and in the History of Present Illness all other systems have been reviewed and are negative or noncontributory. Objective Vitals & Measurements T: 37.5 ?C(Oral) TMIN: 36.9 ?C(Oral) TMAX: 39.4 ?C(Oral) HR: 86(Apical) RR: 12 BP: 119/68 SpO2: 95% HT: 170.18 cm WT: 125.4 kg Intake & Output This visit (24 hour periods starting at 07:00 EST) 10/14/23 * 10/13/23 10/12/23 Total Summary Intake mL 325.57 3,196.01 -- Output mL -- -- -- Fluid Balance 325.57 3,196.01 -- Intake (4) Generic Diluent, vancomycin mL -- 400 -- Sodium Chloride 0.9% mL 325.57 2,174.58 -- Sodium Chloride 0.9% intravenous solution 1,000 mL mL -- 471.43 -- Sodium Chloride 0.9%, piperacillin-tazobac mcguire mL -- 150 -- Total 325.57 3,196.01 -- Output (0) Counts (0) * This column has not completed the indicated time period. Physical Exam Constitutional: Awake and alert; oriented x 3 with no apparent distress or respiratory distress Head/neck: Neck supple with no palpable lymphadenopathy, bruits or masses; trachea midline with increased neck circumference Chest/lungs: Diminished but clear with no wheezes or rhonchi noted bilaterally Cardiovascular: Regular rate and rhythm; normal S1-S2 with no murmur; 1+ pitting edema right lower extremity and 2+ pulses bilaterally: Erythema right lower extremity no open lesions or sores Gastrointestinal: Soft, nontender, nondistended, positive bowel sounds; obese Neurological: Nonfocal; cranial nerves II through XII are intact Psychological: Pleasant affect Lab Results WBC: 15 E9/L High (10/14/23 06:01:00) RBC: 4.3 E12/L (10/14/23 06:01:00) HGB: 11.7 gm/dL Low (10/14/23 06:01:00) Hct: 37 % (10/14/23 06:01:00) MCV: 86.2 fL (10/14/23 06:01:00) MCH: 27.5 pg (10/14/23 06::00) MCHC: 31.9 gm/dL (10/14/23 06:01:00) RDW: 15 % High (10/14/23 06:01:00) Platelet: 186 E9/L (10/14/23 06:01:00) MPV: 10.1 fL (10/14/23 06:01:00) Neutro Auto: 94 % High (10/13/23 18:01:00) Lymph Auto: 4.4 % Low (10/13/23 18:01:00) [place] Auto: 1.5 % Low (10/13/23 18:01:00) Eos Auto: 0 % (10/13/23 18:01:00) Basophil Auto: 0.1 % (10/13/23 18:01:00) Neutro Absolute: 18.5 E9/L High (10/13/23 18:01:00) Lymph Absolute: 0.9 E9/L Low (10/13/23 18:01:00) [place] Absolute: 0.3 E9/L (10/13/23 18:01:00) Eos Absolute: 0 E9/L (10/13/23 18:01:00) Basophil Absolute: 0 E9/L (10/13/23 18:01:00) RBC Morph: NORMAL (10/14/23 06:01:00) PT: 26.1 second(s) High (10/13/23 18:01:00) INR: 2.3 (10/13/23 18:01:00) PTT: 43.2 second(s) High (10/13/23 18:01:00) Glucose Lvl: 116 mg/dL (10/14/23 06::00) BUN: 22 mg/dL High (10/14/23 06::00) Creatinine: 0.9 mg/dL (10/14/23 06::00) eGFR: 73 mL/min/1.73 m2 (10/14/23 06::00) BUN/Creat Ratio: 24 High (10/14/23 06::00) Sodium Lvl: 136 mmol/L (10/14/23 06::00) Potassium Lvl: 3.4 mmol/L Low (10/14/23::00) Chloride: 103 mmol/L (10/14/23 06::00) CO2: 24 mmol/L (10/14/23 06::00) AGAP: 12 mEq/L (10/14/23 06::00) Calcium Lvl: 7.9 mg/dL Low (10/14/23 06::00) Alk Phos: 60 Int._Unit/L (10/13/23 18:01:00) ALT: 14 Int._Unit/L (10/13/23 18::00) AST: 22 Int._Unit/L (10/13/23 18::00) Total Protein: 7.8 gm/dL (10/13/23 18:01:00) Albumin Lvl: 3.7 gm/dL (10/13/23 18:01:00) Globulin: 4.1 gm/dL High (10/13/23 18::00) A/G Ratio: 0.9 Low (10/13/23 18:01:00) Bili Total: 0.8 mg/dL (10/13/23 18:01:00) Lactic Acid Lvl: 1.7 mmol/L (10/13/23 21:45:00) Magnesium: 1.3 mg/dL (10/14/23 06:01:00) Troponin: 25.1 pg/mL (10/14/23 06:01:00) Glucose Cap: 146 mg/dL High (10/14/23 08:39:00) POC Device SN: [id number] (10/14/23 08:39:00) POC User ID: [id number] (10/14/23 08:39:00) POC Username: POC Username (10/14/23 08:39:00) Assessment/Plan 58-year-old female admitted for sepsis (leukocytosis; her tachycardia and lactic acidosis has resolved) secondary to cellulitis of her right leg. Initially had acute kidney injury which has resolved as well. Patient has had history of type 2 diabetes, hypertension, hypercholesterolemia , A-fib on Eliquis therapy and anxiety. 1. Sepsis (A41.9: Sepsis, unspecified organism) Secondary to cellulitis of her right leg Day 2 IV Zosyn Blood cultures x 2 pending Will saline lock the patient at this time 2. Cellulitis of right leg (L03.115: Cellulitis of right lower limb) Day 2 IV Zosyn Podiatry consult pending 3. Acute renal failure (N17.9: Acute kidney failure, unspecified) Resolved with fluids 4. Troponin level elevated (R79.89: Other specified abnormal findings of blood chemistry) Resolved 5. Atrial fibri (more content not included)... Normal [facility] Comment on above: Result Comment: Elec tronically Signed By: Adarsh Betancourt DO\.br\Date and Time Signed: 10/14/23 10:54 EST RAD - MRI Screening Formon 0 10-14-2023 RAD - MRI Screening Form [id number] #1.00TIFF Normal [facility] Troponinon 10-14-2023 Troponin 25.10 pg/mL Normal 10.10-27.10 [facility] Comment on above: Result Comment: The 95% CI (Confidence Interval) PPV (Positive Predictive Value) for myocardial infarction in females is 38 pg/mL, in males 51 pg/mL. The results should be used in conjunction with clinical conditions of myocardial infarction. (Access High Sensitivity Troponin I Instructions For Use, Geraldo Siloam, April 2018) Performed By: #### 2 [id number] #### [facility] [address] [place] [address] eGFRon 10-14-2023 eGFR 73 mL/min/1.73 m2 Normal >=59 [facility] Comment on above: Order Comment: Order added by Discern Expert. Performed By: #### 2 [id number], [id number] #### [facility] [address] [place] [address] CBC w/ Auto Diffon 4 Basophil Absolute 0.0 E9/L Normal 0.0-0.2 [facility] Comment on above: Performed By: #### 2 [id number] #### [facility] [address] [place] [address] Basophils/100 WBC (Bld) 0.1 % Normal 0.0-2.0 [facility] Comment on above: Performed By: #### 2 [id number] #### [facility] [address] [place] [address] Eos Absolute 0.0 E9/L Normal 0.0-0.5 [facility] Comment on above: Performed By: #### 2 [id number] #### [facility] [address] [place] [address] Eosinophils/100 WBC (Bld) 0.0 % Normal 0.0-8.0 [facility] Comment on above: Performed By: #### 2 [id number] #### [facility] [address] [place] [address] Erythrocyte distribution width (RBC) [Ratio] 15.1 % High 10.9-14.2 [facility] Comment on above: Performed By: #### 2 [id number] #### [facility] [address] [place] [address] Hematocrit (Bld) [Volume fraction] 41.0 % Normal 34.0-46.0 [facility] Comment on above: Performed By: #### 2 [id number] #### [facility] [address] [place] [address] Hemoglobin (Bld) [Mass/Vol] 13.6 g/dL Normal 12.0-16.0 [facility] Comment on above: Performed By: #### 2 [id number] #### [facility] [address] [place] [address] Lymph Absolute 0.9 E9/L Low 1.0-4.0 [facility] Comment on above: Performed By: #### 2 [id number] #### [facility] [address] [place] [address] Lymphocytes/100 WBC (Bld) 4.4 % Low 14.0-50.0 [facility] Comment on above: Performed By: #### 2 [id number] #### [facility] [address] [place] [address] MCH (RBC) [Entitic mass] 27.9 pg Normal 27.0-34.0 [facility] Comment on above: Performed By: #### 2 [id number] #### [facility] [address] [place] [address] MCHC (RBC) [Mass/Vol] 32.9 g/dL Normal 31.4-36.0 [facility] Comment on above: Performed By: #### 2 [id number] #### [facility] [address] [place] [address] MCV (RBC) [Entitic vol] 84.8 fL Normal 80.0-100.0 [facility] Comment on above: Performed By: #### 2 [id number] #### [facility] [address] [place] [address] [place] Absolute 0.3 E9/L Normal 0.2-1.0 [facility] Comment on above: Performed By: #### 2 [id number] #### [facility] [address] [place] [address] Monocytes/100 WBC (Bld) 1.5 % Low 4.0-14.0 [facility] Comment on above: Performed By: #### 2 [id number] #### [facility] [address] [place] [address] Neutro Absolute 18.5 E9/L High 2.0-7.5 [facility] Comment on above: Performed By: #### 2 [id number] #### [facility] [address] [place] [address] Neutro Auto 94.0 % High 36.0-75.0 [facility] Comment on above: Performed By: #### 2 [id number] #### [facility] [address] [place] [address] Platelet 251.0 E9/L Normal 150.0-500.0 [facility] Comment on above: Performed By: #### 2 [id number] #### [facility] [address] [place] [address] Platelet mean volume (Bld) [Entitic vol] 9.9 fL Normal 6.4-10.8 [facility] Comment on above: Performed By: #### 2 [id number] #### [facility] [address] [place] [address] RBC 4.9 E12/L Normal 4.3-5.9 [facility] Comment on above: Performed By: #### 2 [id number] #### [facility] [address] [place] [address] WBC 19.7 E9/L High 4.0-11.0 [facility] Comment on above: Performed By: #### 2 [id number] #### [facility] [address] [place] [address] CHEMISTRYOrdered By: SYSTEM SYSTEM on 10-13-2023 Lactic Acid Lvl 1.7 mmol/L Normal 0.5 - 2.2 mmol/L Remisol Chem Albumin [Mass/Vol] 3.7 g/dL Normal 3.3 - 5.0 gm/dL Remisol Chem Albumin/Globulin [Mass ratio] 0.9 {ratio} Low 1.1 - 2.2 Remisol Chem Alk Phos 60 [iU]/d Normal 21 - 98 Int._Unit/L Remisol Chem ALT 14 [iU]/d Normal 6 - 46 Int._Unit/L Remisol Chem AST 22 [iU]/d Normal 5 - 43 Int._Unit/L Remisol Chem Bili Total 0.8 mg/dL Normal 0.0 - 1.1 mg/dL Remisol Chem Globulin (S) [Mass/Vol] 4.1 g/dL High 1.4 - 4.0 gm/dL Remisol Chem Lactic Acid Lvl 3.9 mmol/L High 0.5 - 2.2 mmol/L Remisol Chem Protein [Mass/Vol] 7.8 g/dL Normal 6.0 - 7.8 gm/dL Remisol Chem Troponin 28.20 pg/mL High 10.10 - 27.10 pg/mL Remisol Chem Comment on above: Interpretive Data: T he 95% CI (Confidence Interval) PPV (Positive Predictive Value) for myocardial infarction in females is 38 pg/mL, in males 51 pg/mL. The results should be used in conjunction with clinical conditions of myocardial infarction. (Access High Sensitivity Troponin I Instructions For Use, Geraldo Siloam, April 2018) CMPon 10-13-2023 Albumin [Mass/Vol] 3.7 g/dL Normal 3.3-5.0 [facility] Comment on above: Performed By: #### 2 [id number] #### [facility] [address] [place] [address] Albumin/Globulin [Mass ratio] 0.9 {ratio} Low 1.1-2.2 [facility] Comment on above: Performed By: #### 2 [id number] #### [facility] [address] [place] [address] Alk Phos 60 Int._Unit/L Normal 21-98 [facility] Comment on above: Performed By: #### 2 [id number] #### [facility] [address] [place] [address] ALT 14 Int._Unit/L Normal 6-46 [facility] Comment on above: Performed By: #### 2 [id number] #### [facility] [address] [place] [address] Anion gap [Moles/Vol] 17 mmol/L High 6-16 [facility] Comment on above: Performed By: #### 2 [id number] #### [facility] [address] [place] [address] AST 22 Int._Unit/L Normal 5-43 [facility] Comment on above: Performed By: #### 2 [id number] #### [facility] [address] [place] [address] Bili Total 0.8 mg/dL Normal 0.0-1.1 [facility] Comment on above: Performed By: #### 2 [id number] #### [facility] [address] [place] [address] BUN/Creat Ratio 17 No Units Normal 10-20 [facility] Comment on above: Performed By: #### 2 [id number] #### [facility] [address] [place] [address] Calcium [Mass/Vol] 9.0 mg/dL Normal 8.9-11.1 [facility] Comment on above: Performed By: #### 2 [id number] #### [facility] [address] [place] [address] Chloride [Moles/Vol] 97 mmol/L Low 101-111 [facility] Comment on above: Performed By: #### 2 [id number] #### [facility] [address] [place] [address] CO2 [Moles/Vol] 22 mmol/L Normal 21-31 [facility] Comment on above: Performed By: #### 2 [id number] #### [facility] [address] [place] [address] Creatinine [Mass/Vol] 1.4 mg/dL High 0.5-1.3 [facility] Comment on above: Performed By: #### 2 [id number] #### [facility] [address] [place] [address] Globulin (S) [Mass/Vol] 4.1 g/dL High 1.4-4.0 [facility] Comment on above: Performed By: #### 2 [id number] #### [facility] [address] [place] [address] Glucose [Mass/Vol] 193 mg/dL Normal 55-199 [facility] Comment on above: Performed By: #### 2 [id number] #### [facility] [address] [place] [address] Potassium [Moles/Vol] 3.5 mmol/L Normal 3.5-5.3 [facility] Comment on above: Performed By: #### 2 [id number] #### [facility] [address] [place] [address] Protein [Mass/Vol] 7.8 g/dL Normal 6.0-7.8 [facility] Comment on above: Performed By: #### 2 [id number] #### [facility] [address] [place] [address] Sodium [Moles/Vol] 132 mmol/L Low 135-145 [facility] Comment on above: Performed By: #### 2 [id number] #### [facility] [address] [place] [address] Urea nitrogen [Mass/Vol] 24 mg/dL High 5-21 [facility] Comment on above: Performed By: #### 2 [id number] #### [facility] [address] [place] [address] COAGULATIONOrdered By: Moise Eng on 10-13-2023 aPTT Coag (PPP) [Time] 43.2 s High 25.1 - 36.5 second(s) [facility] Comment on above: Interpretive Data: Pablo rivas 15 days - 4 weeks 1 - 5 months 6 - 11 months 1 - 5 years 6 - 10 years 11 - 17 years PTT Mean: 35.4 (27.6-45.6) Mean: 33.5 (24.8-40.7) Mean: 32.4 (25.1-40.7) Mean: 31.6 (24.0-39.2) Mean: 31.6 (26.9-38.7) Mean: 31.0 (24.6-38.4) Pediatric Reference ranges were obtained from a study by miguel angel Hylton al. prepared from 1437 samples obtained at 7 different centers using the same coagulation reagent and instrumentation as [facility]. Currently there are no coagulation studies available worldwide for children to 14 days, and no normal ranges. Heparin therapeutic range (represented by Anti-Factor Xa activity of 0.2 - 0.4 U/mL) corresponds to PTT of 56.6 - 109.0 sec. INR Coag (PPP) [Relative time] 2.3 {INR} Invalid Interpretation Code [facility] Auto Coag Comment on above: Interpretive Data: I NR results are specifically intended to assess patients stabilized on long-term Anticoagulation therapy suggested INR s Less Intensive Anticoagulation 2.0 3.0 Conventional Range 3.0 4.5 PT Coag (PPP) [Time] 26.1 s High 9.4 - 1 2.5 second(s) [facility] Auto Coag Comment on above: Interpretive Data: 1 5 days - 4 weeks 1 - 5 months 6 -11 months 1 5 years 6 10 years 11 -17 years Mean: 11.2 (9.5 12.6) Mean: 11.0 (9.7 12.8) Mean: 11.0 (9.8 13.0) Mean: 11.3 (9.9 13.4) Mean: 11.7 (10.0 14.6) Mean: 11.8 (10.0 - 14.1) Pediatric Reference ranges were obtained from a study by miguel angel Hylton alNadeem prepared from 1437 samples obtained at 7 different centers using the same coagulation reagent and instrumentation as [facility]. Currently there are no coagulation studies available worldwide for children to 14 days, and no normal ranges. Consent for Treatmenton 09-15 Consent for Treatment [id number]#1.00TIFF Normal [facility] Consent for Treatment [id number] #1.00TIFF Normal [facility] ED Clinical Summaryon 2023 ED Clinical Summary [address] [address] ED Clinical Summary Person Information Name: MARILYN DUNCAN/New_Richard Age: 58 Years : 1965 Sex: Female Language: Somali PCP: Karina Martinez DO Marital Status: Phone: [phone] Visit Id: Visit Reason: Cellulitis - Leg; PUFFY RT LEG Speciality: Acuity: 3 Enc Type: Inpatient Med Service: Emergency Arrival: 10/13/2023 17:29:32 Discharge: LOS: 000 04:01 Checkin: 10/13/2023 17:29:32 Checkout: 10/13/2023 21:30:17 Dispo Type: Admitted as IP to this [facility] EVENTS: Event Name Event Status Request Date/Time Start Date/Time Complete Date/Time Arrive Complete 10/13/2023 17:29:32 10/13/2023 17:29:32 10/13/2023 17:29:32 Document Home Meds Request 10/13/2023 17:29:32 Triage Complete 10/13/2023 17:29:32 10/13/2023 17:46:26 10/13/2023 17:46:26 Bed Assign Complete 10/13/2023 17:40:15 10/13/2023 17:40:15 10/13/2023 17:40:15 Dr Exam Complete 10/13/2023 17:40:15 10/13/2023 17:40:59 10/13/2023 17:40:59 RN Exam Complete 10/13/2023 17:40:15 10/13/2023 18:08:10 10/13/2023 18:08:10 Registration Complete 10/13/2023 17:40:59 10/13/2023 17:50:51 10/13/2023 17:58:35 Dr Exam Complete 10/13/2023 17:46:50 10/13/2023 17:46:50 10/13/2023 17:46:50 EKG Complete 10/13/2023 17:52:14 10/13/2023 18:32:45 Pending Labs Request 10/13/2023 17:52:14 Lab Request 10/13/2023 17:52:14 Urine Collect Request 10/13/2023 17:52:14 X-Ray Complete 10/13/2023 17:52:14 10/13/2023 17:58:37 10/13/2023 18:19:13 RT Request 10/13/2023 17:52:14 Meds Admin Complete 10/13/2023 17:52:14 10/13/2023 18:04:28 Reg Complete Request 10/13/2023 17:58:35 Reg Bed Request Complete 10/13/2023 17:58:35 10/13/2023 17:58:35 10/13/2023 17:58:35 Pending Labs Complete 10/13/2023 18:07:40 10/13/2023 18:07:40 10/13/2023 18:27:07 Lab Complete 10/13/2023 18:07:40 10/13/2023 18:07:40 10/13/2023 18:27:07 Wet Read Request 10/13/2023 18:19:13 Pending Labs Request 10/13/2023 18:24:57 Lab Request 10/13/2023 18:24:57 Pending Labs Complete 10/13/2023 18:33:48 10/13/2023 18:33:48 10/13/2023 18:33:49 Meds Admin Request 10/13/2023 18:35:19 Meds Admin Complete 10/13/2023 18:39:55 10/13/2023 19:30:57 Meds Admin Complete 10/13/2023 18:55:17 10/13/2023 19:00:44 Consult Request 10/13/2023 19:20:23 Hospitalist Consult Request 10/13/2023 19:20:23 Bed Request Request 10/13/2023 19:24:35 Reg Bed Request Complete 10/13/2023 19:24:35 10/13/2023 19:28:28 10/13/2023 19:28:28 Admit Request 10/13/2023 19:24:35 Patient Care Request 10/13/2023 19:28:29 Patient Care Request 10/13/2023 19:28:29 Patient Care Request 10/13/2023 19:28:29 Patient Care Request 10/13/2023 19:28:29 Patient Care Request 10/13/2023 19:28:30 Patient Care Request 10/13/2023 19:28:30 ADDRESS: [address] [facility] [id number] PHYS DOC NOTES: MEDICAL INFORMATION: Prescriptions Given: Medications to Continue with No Changes Other Medications amlodipine (amLODIPine 10 mg Tab) 1 Tablets By Mouth every day. apixaban (Eliquis 5 mg oral tablet) 1 Tablets By Mouth 2 times a day. Refills: 1. atorvastatin (atorvastatin 40 mg Tab) 1 Tablets By Mouth every day. busPIRone (busPIRone 5 mg Tab) 1 Tablets By Mouth 2 times a day. cyclobenzaprine (cyclobenzaprine 10 mg Tab) 1 Tablets By Mouth every day as needed for spasm. glimepiride (glimepiride 2 mg Tab) 1.5 By Mouth every day. lisinopril (lisinopril 40 mg Tab) 1 Tablets By Mouth every day. Refills: 3. metformin (metformin 500 mg ER Tab) 1 Tablets By Mouth 2 times a day. metoprolol (metoprolol 50 mg ER Tab) 1 Tablets By Mouth 2 times a day. Refills: 0. Misc Prescription (glucometer, lancets, alcohol swabs, syringes, needles) 0. check BS 3x/day. Refills: 0. Misc Prescription (glucometer, lancets, alcohol swabs, syringes, needles, test strips) 0. check BS 3x/day. Refills: 0. PATIENT EDUCATION INFORMATION: Instructions: Follow up: DIAGNOSIS: Cellulitis of right leg; Sepsis Normal [facility] ED Note-Physicianon 10-13-19 24 ED Note-Physician Basic Information Time Seen: Korey ARANDA, Juanjo Liz 10/13/2023 17:41 Chief Complaint patient presents with right lower leg cellulitis up to inner thigh that started yesterday with fevers last night. History of Present Illness A 58-year-old female reports to the emergency department chief complaint of right lower leg cellulitis. Reports he goes on the right leg all the way up to the inner thigh. Reports started yesterday, had low-grade fevers last night. Reports that she is on Eliquis. She denies any chest pain or shortness of breath. Reports otherwise she feels okay, has had cellulitis in his leg before. Reports has been worse before, but thought she went to get checked out. Reports allergies to Augmentin. Reports somewhat itchy and painful. Review of Systems A 10 point review of systems is negative except as noted above. Medical and Surgical History: Reviewed and noted Social history: Lives at home Family History: Reviewed. Tobacco: Denies Physical Exam Vitals & Measurements T: 37.5 ?C(Oral) HR: 117(Monitored) RR: 22 BP: 131/59 SpO2: 93% HT: 170 cm WT: 129.1 kg BMI: 44.67 General: The patient appears well and in no apparent distress. Patient is resting comfortably on bed. Afebrile Skin: Warm, dry, no pallor noted. there is a large area of erythema that is sharply demarcated all the way from the lower extremity that extends upward along the medial aspect of the inner leg all the way up into the thigh. Warmth noted on palpation. Head: Normocephalic, atraumatic Neck: No JVD Eye: PERRLA, EOMI ENT: Moist mucus membranes Cardiovascular: Tachycardic rate normal peripheral perfusion. Pedal pulses +2 bilaterally Respiratory: No respiratory distress no accessory muscle use no obvious audible wheezing Chest Wall: no deformity Musculoskeletal: normal ROM, no deformity, no swelling GI: No obvious distention soft nontender nondistended no guarding rebounding or rigidity Neurological: A&O moves all extremities equal strength and symmetry Psychiatric: Cooperative and appropriate Medical Decision Making MEDICAL DECISION MAKING Number and Complexity of Problems Differential Diagnosis: [] [facility] Data External documents reviewed: [] My EKG interpretation: [Reviewed My CT interpretation: [] My X-ray interpretation: Reviewed My Ultrasound interpretation: [] Decision rules/scores evaluated: [] Discussed with: [] Treatment and Disposition ED Course: A 58-year-old female reports emerged department chief complaint of cellulitis of her right leg. Reports that she has had this before. Reports started yesterday. Reports low-grade fevers last night. States that otherwise she feels okay, but wanting it checked out. On exam, she has diffuse cellulitis, but exam basically her entire right leg. Warmth on palpation. Patient is tachycardic here, as well as has a temperature of 37.5. Reports low-grade fevers at home. Due to concerns, we did do a full septic workup on the patient. Lab work reviewed and noted. Patient's white count did elevate to 19, as well as troponin slightly elevated. Lactic acid at 3.9. Due to this, we did initiate septic protocol. We did give her 2 L of fluid, which does cover her ideal body weight, which would be 1830 mL of saline. due to her obesity we did not want to overload the patient.. We did get blood cultures. Patient started on Zosyn and vancomycin. Due to the patient's cellulitis as well as likely sepsis, patient will be admitted to the hospitalist. Discussed case with hospitalist who was agreeable with admission. Total critical care time: 35 minutes. Due to a high probability of clinically significant, life threatening deterioration, the patient required my highest level of preparedness to intervene emergently and I personally spent this critical care time directly and personally managing the patient. This critical care time included obtaining a history; examining the patient; pulse oximetry; ordering and review of studies; arranging urgent treatment with development of a management plan; evaluation of patient's response to treatment; frequent reassessment; and, discussions with other providers. This critical care time was performed to assess and manage the high probability of imminent, life-threatening deterioration that could result in multi-organ failure. It was exclusive of separately billable procedures and treating other patients and teaching time. Please see MDM section and the rest of the note for further information on patient assessment and treatment. Shared decision making: [] Code status: [] Assessment/Plan Cellulitis of right leg (L03.115: Cellulitis of right lower limb) Sepsis (A41.9: Sepsis, unspecified organism) Orders: acetaminophen, 650 mg = 2 tab(s), Tab, Oral, Once, Stop date 10/13/23 17:51:00 EST, STAT, Start date 10/13/23 17:51:00 EST, 10/13/23 17:51:00 EST piperacillin-tazobac mcguire + Sodium Chloride 0.9% intravenous solution 50 mL, 3.375 gm = 1 EA, IV P (more content not included)... Normal [facility] Comment on above: Result Comment: Elec tronically Signed By: Juanjo Nair PA-C\.br\Date and Time Signed: 10/13/23 19:20 EST\.br\Electronically Co-Signed By: Antonio Potter DO\.br\Date and Time Co-Signed: 10/13/23 19:36 EST ED Patient Education Noteon 10-13-2023 ED Patient Education Note Normal [facility] ED Patient Summaryon 024 ED Patient Summary [place] [id number] Patient Discharge Instructions Person Information Name: MARILYN DUNCAN Age: 58 Years Arrival Date: 10/13/2023 17:29:32 Discharge Diagnosis: Cellulitis of right leg; Sepsis Primary Care Physician: Karina Martinez DO Provider Information Primary Provider: Antonio Potter DO Advanced Event Coordinator:None The exam and treatment you received in the Emergency Department were for an urgent problem and are not intended as complete care. It is important that you follow up with a doctor, nurse practitioner, or physician?s cashier assistant for ongoing care. If your symptoms become worse or you do not improve as expected and you are unable to reach your usual health care provider, you should return to the Emergency Department. We are available 24 hours a day. MARILYN DUNCAN has been given the following list of patient education materials, prescriptions and follow-up instructions: Follow-up Instructions: In the event that this physician does not participate in your insurance network, please consult with your insurance company to find a nearby participating provider. Patient Education Materials: A MESSAGE TO ALL PATIENTS REGARDING OPIOIDS PRESCRIPTION OPIOIDS: WHAT YOU NEED TO KNOW Prescription opioids can be used to help relieve xzikpxtw-xv-aueqzx pain and are often prescribed following a surgery or injury, or for certain health conditions. These medications can be an important part of the treatment but also come with serious risks. It is important to work with your healthcare provider to make sure you are getting the safest, most effective care. WHAT ARE THE RISKS AND SIDE EFFECTS OF OPIOID USE? Prescription opioids carry serious risks of addiction and overdose, especially with prolonged use. An opioid overdose, often marked by slowed breathing, can cause sudden . The use of prescription opioids can have a number of side effects as well, even when taken as directed: ? Tolerance?meaning you might need to take more of the medication for the same pain relief ? Physical dependence?meaning you have symptoms of withdrawal when a medication is stopped ? Increased sensitivity to pain ? Constipation ? Nausea, vomiting, and dry mouth ? Sleepiness and dizziness ? Confusion ? Depression ? Low levels of testosterone that can result in lower sex drive, energy, and strength ? Itching and sweating RISKS ARE GREATER WITH: ? History of drug misuse, substance use disorder, or overdose ? Mental health conditions (such as depression or anxiety) ? Sleep apnea ? Older age (65 years and older) ? Avoid alcohol while taking prescription opioids. Also, unless specifically advised by your health care provider, medications to avoid include: ? Benzodiazepines (such as Xanax or Valium) ? Muscle relaxants (such as Soma or Flexeril) ? Hypnotics (such as Ambien or Lunesta) ? Other prescription opioids KNOW YOUR OPTIONS Talk to your health care provider about ways to manage your pain that don?t involve prescription opioids. Some of these options may actually work better and have fewer risks and side effects. Options may include: ? Pain relievers such as acetaminophen, ibuprofen, and naproxen ? Some medication that are also used for depression or seizures ? Physical therapy and exercise ? Cognitive behavioral therapy, a psychological, goal-directed approach, in which patients learn how to modify physical, behavioral, and emotional triggers of pain and stress. IF YOU ARE PRESCRIBED OPIOIDS FOR PAIN: ? Never take opioids in greater amounts or more often than prescribed. ? Follow up with your primary health care provider. o Work together to create a plan on how to manage your pain. o Talk about ways to help manage your pain that don?t involve prescription opioids. o Talk about any and all concerns and side effects. ? Help prevent misuse and abuse o Never sell or share prescription opioids. o Never use another person?s prescription opioids. ? Store prescription opioids in a secure place and out of reach of others (this may include visitors, children, friends, and family). ? Safely dispose of unused prescription opioids: Find your community drug take-back program or your pharmacy mail-back program, or flush them down the toilet, following guidance from the Food and Drug Administration (www.fda.gov/Drugs/R esourcesForYou). ? Visit www.cdc.gov/drugover dose to learn about the risks of opioids abuse and overdose. ? If you believe you may be struggling with addiction, tell your health hospice care transitions coordinator and ask for guidance or call [facility]?S National Helpline at 7-415-241-CENC. h Source: [place] Department of Health and Human Services/Center for Disease Control & Prevention [facility] Medications Given: Medication Dose (more content not included)... Normal [facility] HEMATOLOGYOrdered By: SYSTEM SYSTEM on 10-13-2023 Basophil Absolute 0.0 E9/L Normal 0.0 - 0.2 E9/L Remisol Heme Basophils/100 WBC (Bld) 0.1 % Normal 0.0 - 2.0 % Remisol Heme Eos Absolute 0.0 E9/L Normal 0.0 - 0.5 E9/L Remisol Heme Eosinophils/100 WBC (Bld) 0.0 % Normal 0.0 - 8.0 % Remisol Heme Lymph Absolute 0.9 E9/L Low 1.0 - 4.0 E9/L Remisol Heme Lymphocytes/100 WBC (Bld) 4.4 % Low 14.0 - 50.0 % Remisol Heme [place] Absolute 0.3 E9/L Normal 0.2 - 1.0 E9/L Remisol Heme Monocytes/100 WBC (Bld) 1.5 % Low 4.0 - 14.0 % Remisol Heme Neutro Absolute 18.5 E9/L High 2.0 - 7.5 E9/L Remisol Heme Neutro Auto 94.0 % High 36.0 - 75.0 % Remisol Heme Lactic Acidon 10-13-2023 Lactic Acid Lvl 3.9 mmol/L High 0.5-2.2 [facility] Comment on above: Performed By: #### 2 [id number] #### [facility] [address] [place] [address] No Panel InformationOrdered By: ANGPROCESSSERVER MICROBIOLOGY on 10-13-2023 Blood Culture Charcoal No growth at 2 da ys. Final to follow at 7 days. [facility] Blood Culture Charcoal No growth at 2 da ys. Final to follow at 7 days. [facility] PT & PTTon 10-13-2023 aPTT Coag (PPP) [Time] 43.2 second(s) High 25.1-36.5 [facility] Comment on above: Result Comment: Para meter 15 days - 4 weeks 1 - 5 months 6 - 11 months 1 - 5 years 6 - 10 years 11 - 17 years PTT Mean: 35.4 (27.6-45.6) Mean: 33.5 (24.8-40.7) Mean: 32.4 (25.1-40.7) Mean: 31.6 (24.0-39.2) Mean: 31.6 (26.9-38.7) Mean: 31.0 (24.6-38.4) Pediatric Reference ranges were obtained from a study by Donald Astorga et al. prepared from 1437 samples obtained at 7 different centers using the same coagulation reagent and instrumentation as [facility]. Currently there are no coagulation studies available worldwide for children to 14 days, and no normal ranges. Heparin therapeutic range (represented by Anti-Factor Xa activity of 0.2 - 0.4 U/mL) corresponds to PTT of 56.6 - 109.0 sec. Performed By: #### 2 [id number] #### [facility] [address] [place] [address] INR Coag (PPP) [Relative time] 2.3 {INR} Invalid Interpretation Code [facility] Comment on above: Result Comment: INR results are specifically intended to assess patients stabilized on long-term Anticoagulation therapy suggested INR?s ?Less Intensive Anticoagulation? 2.0 ? 3.0 Conventional Range 3.0 ? 4.5 Performed By: #### 2 [id number] #### [facility] [address] [place] [address] PT Coag (PPP) [Time] 26.1 second(s) High 9.4-12.5 [facility] Comment on above: Result Comment: 15 d ays - 4 weeks 1 - 5 months 6 -11 months 1 ? 5 years 6 ? 10 years 11 -17 years Mean: 11.2 (9.5 ? 12.6) Mean: 11.0 (9.7 ? 12.8) Mean: 11.0 (9.8 ? 13.0) Mean: 11.3 (9.9 ? 13.4) Mean: 11.7 (10.0 ? 14.6) Mean: 11.8 (10.0 - 14.1) Pediatric Reference ranges were obtained from a study by miguel angel Hylton al. prepared from 1437 samples obtained at 7 different centers using the same coagulation reagent and instrumentation as [facility]. Currently there are no coagulation studies available worldwide for children to 14 days, and no normal ranges. Performed By: #### 2 [id number] #### [facility] [address] [place] [address] Troponinon 10-13-2023 Troponin 28.20 pg/mL High 10.10-27.10 [facility] Comment on above: Result Comment: The 95% CI (Confidence Interval) PPV (Positive Predictive Value) for myocardial infarction in females is 38 pg/mL, in males 51 pg/mL. The results should be used in conjunction with clinical conditions of myocardial infarction. (Access High Sensitivity Troponin I Instructions For Use, [employer], April 2018) Performed By: #### 2 [id number] #### [facility] [address] [place] [address] XR Chest Single Viewon 10-13 XR Chest Single View Exam Date/Time: 10/13/2023 18:19 EST Reason for Exam: Shortness of breath (SOB) Report IMPRESSION: NO RADIOGRAPHIC EVIDENCE OF ACUTE INTRATHORACIC PROCESS. EXAM: XR Chest Single View History: Shortness of breath Technique: Portable AP view of the chest. Comparison: 06/28/2023 radiograph Findings: The cardiomediastinal silhouette is within normal limits. No pneumothorax, pleural effusion, or consolidation. No acute osseous abnormality. Ordering Provider: Juanjo Nair FINAL REPORT Dictated: 10/13/2023 6:42 pm Jos Kohler DO Signed (Electronic Signature): 10/13/2023 6:42 pm Signed by: Jos Kohler DO Transcribed by: ELEN Technologist: SHIELA Technical Comments Radiation Dose: Ka,r in mGy = na DAP = na Normal [facility] eGFRon 10-13-2023 eGFR 43 mL/min/1.73 m2 Low >=59 [facility] Comment on above: Order Comment: Order added by Discern Expert. Performed By: #### 2 [id number] #### [facility] [address] [place] [address] Insurance Correspondenceon 1 10-25-2022 Insurance Correspondence [id number] #1.00TIFF Normal [facility] Consent for Treatmenton 08-13 Consent for Treatment [id number] #1.00TIFF Normal [facility] Heart and Vascular Office/Cl inic Noteon 08-23-2023 Heart and Vascular Office/Clinic Note Chief Complaint Inpatient F/U History of Present Illness Marilyn Duncan is a 57-year-old female who presents in the office for inpatient follow-up for new onset of atrial fibrillation, sepsis, and cellulitis. The patient reports an improvement in her condition compared to a month ago. She has received approval from her insurance provider to undergo a vein procedure to address her cellulitis. This procedure will be performed at [facility]. She mentions that the normal size of her legs should be 5 mm, but they currently measure between 8 mm and 10 mm. Despite the absence of significant swelling, she is experiencing issues with cellulitis. She develops large water blisters that require several weeks to heal. She also mentions that she has never undergone a stress test. She has been taking amlodipine for about 3 years. Review of Systems PHQ Score Initial Depression Screen Score: 0 SCORE Constitutional: no fever, no chills, no weakness, no fatigue Respiratory: no shortness of breath, no cough, no orthopnea, no wheezing Cardiovascular: no chest pain, no palpitations, Positive for lower extremity edema Neuro: no dizziness, no lightheadedness, no syncope Additional ROS info: Except as noted in the above Review of Systems and in the History of Present Illness all other systems have been reviewed and are negative or noncontributory. Physical Exam Vitals & Measurements HR: 55(Peripheral) BP: 162/78 SpO2: 99% HT: 67 in HT: 170 cm WT: 125.1 kg WT: 275.22 lb BMI: 43.29 General: alert, no acute distress Skin: warm, dry intact Head: atraumatic, normocephalic Neck: trachea midline, no JVD, no bruit Eye: normal conjunctiva, sclera clear ENMT: oral mucosa moist Cardiovascular: regular rate and rhythm, no murmur, normal peripheral perfusion Respiratory: lungs CTA, respirations non labored Chest wall: no deformity. Gastrointestinal: soft, non-distended, no tenderness, no guarding. Back: no tenderness, normal ROM, normal alignment. Extremities: no edema, no deformity, no trauma Neurological: oriented x 4, LOC appropriate for age, sensation equal & normal bilaterally, speech normal Psychiatric: cooperative, affect appropriate for age, normal judgement, normal psychiatric thoughts. Procedure Results: Ejection fraction is normal. Elevated troponin. Assessment/Plan Marilyn Duncan is a 57-year-old female with a history of lower extremity venous stasis and recurrent cellulitis; recent admission with cellulitis and sepsis; found to have atrial fibrillation, new onset. We started her on NOAC and rate control with beta blockers. She did well. She is here for follow-up now, and she has converted to sinus rhythm. She is feeling good. Blood pressure remains a little bit high during hospitalization. During the hospitalization, she had elevated troponin, which she had not yet investigated. The plan is to get a stress test, a Lexiscan, to increase her blood pressure control with lisinopril, going up to 40 mg, and consider possibly discontinuing amlodipine since she is having so many issues with swollen legs. In addition, she is getting a vein procedure soon. 1. New onset atrial fibrillation (I48.91: Unspecified atrial fibrillation) Now converted to sinus spontaneously, we discussed AF was probably related to sepsis. We will continue Eliquis and rate control for 6 more months. If patient has no recurrence, we will check an event monitor and then she might be able to come off of Eliquis. 2. Troponin level elevated (R79.89: Other specified abnormal findings of blood chemistry) We will need stress test, staff to arrange 3. Hypertension (I10: Essential (primary) hypertension) Borderline poor control at this point, so we will increase lisinopril. Rx sent for lisinopril 40 mg daily. 4. Hyperlipidemia (E78.5: Hyperlipidemia, unspecified) She continues on atorvastatin 40 mg daily 5. BMI 40.0-44.9, adult (Z68.41: Body mass index [BMI] 40.0-44.9, adult) The standard range for ages 18 and older is >=18.5 and < 25 kg/m2. Your BMI today was above this range, this falls in the overweight to obese category and there are medical benefits to weight loss. We can offer counselling, referral, and/or medical support in addressing this problem. Your BMI and weight management will be followed at subsequent visits. 6. Anticoagulated (Z79.01: intermediate manager (current) use of anticoagulants) Will continue Eliquis 5 mg BID for now Portions of this record may have been created with voice recognition artificial intelligence software, specifically en-Gauge, [employer] and or NOTIK. Substitutions may have occurred due to the inherent limitations of voice recognition and artificial intelligence software. ATTESTATION: Documentation services were performed after patient or guardian consented to allow [employer] to record this visit. KIESHA biomedical equipment support specialist and provider reviewed before signing. DA (more content not included)... [facility] Comment on above: Result Comment: Elec tronically Signed By: Mor GUERRERO, Aris Hanks\.br\Date and Time Signed: 08/23/23 16:54 EST\.br\Electronically Co-Signed By: Emily Gonzalez\.br\Date and Time Co-Signed: 08/23/23 15:00 EST Physician Orderon 08-23-2023 Physician Order [id number] 6#1.00TIFF [facility] Outside Recordson 08-10-2023 Outside Records [id number] 8#1.00TIFF [facility] Outside Records [id number] 8#1.00TIFF [facility] Coding Queryon 07-28-2023 Coding Query - From: Ty MERAZ, Madeline To: Unruly CUETO MD; Cc: Lucía Randhawa; Sent: 07/06/2023 08:39:57 EDT ! Subject: Coding Query Due Date/Time: 07/12/2023 08:39:00 EDT Caller Name: MARILYN DUNCAN; Caller Number: H , F [phone] Documentation in the medical record indicates this patient has been admitted with or diagnosed as having: Sepsis The following is also documented in the medical record: H&P, 07/01 progress note, DC summary-Associated with some confusion and disorientation. ED note -Per squad she is slightly confused. Reports that it is up, for last few days. Her who is with her, also gave some of the story. reports that cellulitis began a couple days ago, but yesterday morning she became more confused. Reports that she has not had any fever that they have not noted. Based on your medical judgment, can you please clarify any underlying cause of the above clinical indicators/diagnosis ? Respond back with any that apply: [___]Metabolic encephalopathy [___]Other encephalopathy [___]Septic encephalopathy [___]Other: In responding to this request, please exercise your independent professional judgement. The fact that a question is asked does not imply that any particular answer is desired or expected. Thank you! Madeline [phone] - From: Unruly CUETO MD To: Madeline Crawford RN; Sent: 07/14/2023 16:06:02 EDT Subject: RE: Coding Query Caller Name: MARILYN DUNCAN; Caller Number: H , B [phone] - From: Madeline Crawford RN To: Unruly CUETO MD; Cc: Lucía Randhawa; Sent: 07/27/2023 07:44:05 EST ! Subject: FW: Coding Query Due Date/Time: 07/28/2023 07:43:00 EST Caller Name: MARILYN DUNCAN; Caller Number: H , I [phone] Jose Cueto your response was blank so I was hoping you can take a look and respond back. I checked the discharge summary and did not see an addendum there either. - From: Unruly CUETO MD To: Ty MERAZ, Madeline; Sent: 07/28/2023 13:55:24 EST Subject: RE: Coding Query Caller Name: MARILYN DUNCAN; Caller Number: Clement , B [phone] Metabolic encephalopathy [facility] Consent for Treatmenton 07-14 Consent for Treatment [id number] #1.00TIFF [facility] Multi-Wound Charton 07-27-20 Multi-Wound Chart [id number] 8#1.00TIFF [facility] Nursing Assessment - Woundon 07-27-2023 Nursing Assessment - Wound [id number] 2#1.00TIFF [facility] Nursing Note - Woundon 07-27 Nursing Note - Wound [id number] 6#1.00TIFF [facility] Physician Orderon 07-27-2023 Physician Order [id number] 3#1.00TIFF [facility] Procedure - Woundon 07-27-20 Procedure - Wound [id number] 1#1.00TIFF [facility] Progress Note - Woundon 07-14 Progress Note - Wound [id number] 7#1.00TIFF [facility] Nursing Note - Woundon 07-26 Nursing Note - Wound [id number] 3#3.00TIFF [facility] Correspondence - [place] Correspondence - Wound [id number] 311 [id number] 1#1.00TIFF [facility] Insurance Correspondenceon 1 09-20-2022 Insurance Correspondence [id number] 3#1.00TIFF [facility] Consent for Procedure/Surger yon 07-20-2023 Consent for Procedure/Surgery [id number] 4#1.00TIFF [facility] Consent for Treatmenton Consent for Treatment [id number] #1.00TIFF [facility] Consent to Photographon Consent to Photograph [id number] 0#1.00TIFF [facility] Correspondence - [place]ound[place] Correspondence - Wound [id number] 3#1.00TIFF [facility] Correspondence - Wound [id number] 311 [id number] 0#1.00TIFF [facility] Multi-Wound Charton 07-20-20 Multi-Wound Chart [id number] 1#1.00TIFF [facility] Nursing Assessment - Woundon 07-20-2023 Nursing Assessment - Wound [id number] 7#1.00TIFF [facility] Nursing Assessment - Wound [id number] 3#1.00TIFF [facility] Physician Orderon 07-20-2023 Physician Order [id number] 4#1.00TIFF [facility] Procedure - Woundon 07-20-20 23 Procedure - Wound [id number] 6#1.00TIFF [facility] Progress Note - Woundon 11-0 Progress Note - Wound [id number] 1#1.00TIFF Normal [facility] Progress Note-Physicianon Progress Note-Physician Basic Informatio n 57-year-old white female with past medical history obesity, hypertension, hyperlipidemia, history of TIA diabetes type 2, and a history of, cellulitis of present emergency room with right leg swelling, redness, and tenderness. Right leg redness extended from her ankle to the knee. It is very warm to touch. Associated with fever. Associated with some confusion and disorientation. She had recent a blister on her right foot. No history of injury or trauma. She denies having nausea vomiting. No diarrhea. She denies any chest pain or shortness of breath. No orthopnea PND. No dysuria, hematuria, frequency. Upon presentation to emergency room she was tachycardic and tachypneic. Her white count was elevated at 20,000. Her lactic acid was elevated at 3.6. She was given IV fluid and given vancomycin and Zosyn. She was admitted to the hospital for further management. A/P 1. Sepsis (A41.9: Sepsis, unspecified organism) Tachycardia tachypnea/leukocytos is Secondary to acute right leg cellulitis Seen and examined Clinically better Low grade fever CBC is improving Blood cultures are negative C/O Zosyn IV and Vancomycin IV CBC with diff daily 2. Acute cellulitis (L03.90: Cellulitis, unspecified) As above 3. Leukocytosis (D72.829: Elevated white blood cell count, unspecified) CBC with differential daily 4. Acute renal failure (N17.9: Acute kidney failure, unspecified) Resolved 5. Lactic acidosis (E87.20: Acidosis, unspecified) Lactic acid daily 6. Elevated troponin (R77.8: Other specified abnormalities of plasma proteins) Type II secondary to increased demand No chest pain 7. Diabetes mellitus, type II (E11.9: Type 2 diabetes mellitus without complications) Accu-Chek ACHS Insulin sliding scale 8. HTN (hypertension) (I10: Essential (primary) hypertension) Resume home medication 9. Hyperlipemia (E78.5: Hyperlipidemia, unspecified) Resume home medication 10. History of TIA (transient ischemic attack) (Z86.73: Personal history of transient ischemic attack (TIA), and cerebral infarction without residual deficits) Resume home medication 11. Obesity (E66.9: Obesity, unspecified) Lifestyle modification DVT prophylaxis: Lovenox Subjective Doing slightly better Low grade fever Review of Systems Constitutional: no fever, no chills, no sweats, no weakness Respiratory: no shortness of breath, no cough, no orthopnea, no wheezing Cardiovascular: no chest pain, no palpitations, no edema Additional ROS info: Except as noted in the above Review of Systems and in the History of Present Illness all other systems have been reviewed and are negative or noncontributory. Objective Vitals & Measurements T: 37.9 ?C(Oral) TMIN: 36.7 ?C(Axillary) TMAX: 39.4 ?C(Oral) HR: 109(Monitored) RR: 16 BP: 138/74 SpO2: 97% HT: 170.18 cm WT: 125.5 kg Intake & Output This visit (24 hour periods starting at 07:00 EDT) 06/29/23 * 06/28/23 06/27/23 Total Summary Intake mL -- 1,452 -- Output mL -- -- -- Fluid Balance -- 1,452 -- Intake (4) Generic Diluent, acetaminophen mL -- 100 -- Generic Diluent, vancomycin mL -- 350 -- Sodium Chloride 0.9% mL -- 1,000 -- diltiazem mL -- 2 -- Total -- 1,452 -- Output (0) Counts (0) * This column has not completed the indicated time period. Physical Exam General: alert, no acute distress Skin: warm, dry Head: no trauma, normocephalic Neck: Trachea midline, no adenopathy, no tenderness Eye: normal conjunctiva, sclera clear ENMT: TM's clear, oral mucosa moist, no pharyngeal erythema or exudate Cardiovascular: regular rate and rhythm, normal peripheral perfusion Respiratory: Lungs CTA, respirations non labored Chest wall: no deformity. Gastrointestinal: soft, non distended, no tenderness, no guarding. Back: No tenderness, Normal ROM, Normal alignment. Extremities: no deformity, no trauma, right leg swelling, redness around the ankle to the knee, very warm to touch, very tender to touch. Neurological: oriented x 4, LOC appropriate for age, CN II-XII intact, motor strength equal & normal bilaterally, sensation equal & normal bilaterally, speech normal Psychiatric: cooperative, affect appropriate for age, normal judgement, normal psychiatric thoughts. Lab Results WBC: 18 E9/L High (06/29/23 05:59:00) RBC: 5 E12/L (06/29/23 05:59:00) HGB: 14.4 gm/dL (06/29/23 05:59:00) Hct: 43.1 % (06/29/23 05:59:00) MCV: 85.9 fL (06/29/23 05:59:00) MCH: 28.6 pg (06/29/23 05:59:00) MCHC: 33.3 gm/dL (06/29/23 05:59:00) RDW: 14.1 % (06/29/23 05:59:00) Platelet: 107 E9/L Low (06/29/23 05:59:00) MPV: 10.8 fL (06/29/23 05:59:00) Segs Man: 81 % High (06/29/23 05:59:00) Band Man: 12 % High (06/29/23 05:59:00) Lymph Man: 7 % Low (06/29/23 05:59:00) Monocyte Man: 0 % Low (06/29/23 05:59:00) Eos Man: 0 % (06/29/23 05:59:00) Basophil Man: 0 % (06/29/23 05:59:00) React Lymph Man: 0 % (06/29/23 (more content not included)... Normal [facility] Comment on above: Result Comment: Elec tronically Signed By: NELY GUERRERO, Unruly\.br\Date and Time Signed: 07/14/23 09:05 EDT Progress Note-Physician Basic Informatio n 57-year-old white female with past medical history obesity, hypertension, hyperlipidemia, history of TIA diabetes type 2, and a history of, cellulitis of present emergency room with right leg swelling, redness, and tenderness. Right leg redness extended from her ankle to the knee. It is very warm to touch. Associated with fever. Associated with some confusion and disorientation. She had recent a blister on her right foot. No history of injury or trauma. She denies having nausea vomiting. No diarrhea. She denies any chest pain or shortness of breath. No orthopnea PND. No dysuria, hematuria, frequency. Upon presentation to emergency room she was tachycardic and tachypneic. Her white count was elevated at 20,000. Her lactic acid was elevated at 3.6. She was given IV fluid and given vancomycin and Zosyn. She was admitted to the hospital for further management. A/P 1. Sepsis (A41.9: Sepsis, unspecified organism) Tachycardia tachypnea/leukocytos is Secondary to acute right leg cellulitis Seen and examined Clinically better Less leg swelling Less redness No fever Blood cultures are negative CBC is trending down C/w Zosyn and Vancomycin IV 2. Acute cellulitis (L03.90: Cellulitis, unspecified) As above 3. Leukocytosis (D72.829: Elevated white blood cell count, unspecified) CBC with differential daily Improving 4. Acute renal failure (N17.9: Acute kidney failure, unspecified) Resolved 5. Lactic acidosis (E87.20: Acidosis, unspecified) Lactic acid daily 6. Elevated troponin (R77.8: Other specified abnormalities of plasma proteins) Type II secondary to increased demand No chest pain 7. Diabetes mellitus, type II (E11.9: Type 2 diabetes mellitus without complications) Accu-Chek ACHS Insulin sliding scale 8. HTN (hypertension) (I10: Essential (primary) hypertension) Resume home medication 9. Hyperlipemia (E78.5: Hyperlipidemia, unspecified) Resume home medication 10. History of TIA (transient ischemic attack) (Z86.73: Personal history of transient ischemic attack (TIA), and cerebral infarction without residual deficits) Resume home medication 11. Obesity (E66.9: Obesity, unspecified) Lifestyle modification 12. Afib with RVR On Cardizem infusion Toprol Xl Cardiology was consulted Replace potassium 13. Hypokalemia: Replaced DVT prophylaxis: Lovenox Objective Vitals & Measurements T: 36.0 ?C(Axillary) TMIN: 36.0 ?C(Axillary) TMAX: 38.8 ?C(Axillary) HR: 84(Monitored) RR: 16 BP: 113/77 SpO2: 97% WT: 125.7 kg Intake & Output This visit (24 hour periods starting at 07:00 EDT) 06/30/23 * 06/29/23 06/28/23 Total Summary Intake mL -- 2,250 1,452 Output mL -- 200 -- Fluid Balance -- 2,050 1,452 Intake (5) Generic Diluent, acetaminophen mL -- -- 100 Generic Diluent, vancomycin mL -- 250 350 Sodium Chloride 0.9% mL -- -- 1,000 Sodium Chloride 0.9% intravenous solution 1,000 mL mL -- 2,000 -- diltiazem mL -- -- 2 Total -- 2,250 1,452 Output (1) Urine Voided mL -- 200 -- Total -- 200 -- Counts (1) Stool Count -- 1 -- * This column has not completed the indicated time period. Physical Exam General: alert, no acute distress Skin: warm, dry Head: no trauma, normocephalic Neck: Trachea midline, no adenopathy, no tenderness Eye: normal conjunctiva, sclera clear ENMT: TM's clear, oral mucosa moist, no pharyngeal erythema or exudate Cardiovascular: irregularly-irregula r rate and rhythm, normal peripheral perfusion Respiratory: Lungs CTA, respirations non labored Chest wall: no deformity. Gastrointestinal: soft, non distended, no tenderness, no guarding. Back: No tenderness, Normal ROM, Normal alignment. Extremities: no deformity, no trauma Neurological: oriented x 4, LOC appropriate for age, CN II-XII intact, motor strength equal & normal bilaterally, sensation equal & normal bilaterally, speech normal Psychiatric: cooperative, affect appropriate for age, normal judgement, normal psychiatric thoughts. Lab Results Glucose Lvl: 223 mg/dL High (06/30/23 06:22:00) BUN: 17 mg/dL (06/30/23 06:22:00) Creatinine: 0.8 mg/dL (06/30/23 06:22:00) eGFR: 85 mL/min/1.73 m2 (06/30/23 06:22:00) BUN/Creat Ratio: 21 High (06/30/23 06:22:00) Sodium Lvl: 136 mmol/L (06/30/23 06:22:00) Potassium Lvl: 3 mmol/L Low (06/30/23 06:22:00) Chloride: 109 mmol/L (06/30/23 06:22:00) CO2: 21 mmol/L (06/30/23 06:22:00) AGAP: 9 mEq/L (06/30/23 06:22:00) Calcium Lvl: 7.8 mg/dL Low (06/30/23 06:22:00) Lactic Acid Lvl: 1.8 mmol/L (06/29/23 12:43:00) Hgb A1C %: 9.7 % High (06/29/23 08:42:00) Glucose Cap: 221 mg/dL High (06/29/23 21:12:00) POC Device SN: [id number] (06/29/23 21:12:00) POC User ID: [id number] (06/29/23 21:12:00) POC Username: STAN WILD (06/29/23 21:12:00) Problem List/Past Medical History Ongoing No qualifying data Historical No qualifying data Med[employer] (more content not included)... Normal [facility] Comment on above: Result Comment: Elec tronically Signed By: NELY GUERRERO, Unruly\.br\Date and Time Signed: 07/14/23 09:05 EDT GENESIS w/Reflex if POSon 2022 Nuclear Ab Ql (S) Negative Invalid Interpretation Code Negative [facility] Comment on above: Result Comment: Perf ormed at: [facility] [address] [id number] PhD Wilver Damon Performed By: #### 2 [id number] #### [facility] [address] [place] [address] Auto Diffon 07-08-2023 Basophils/100 WBC (Bld) 0.7 % Normal 0.0-2.0 [facility] Comment on above: Order Comment: Order Added by Discern Expert. Performed By: #### 2 254186, [id number], [id number], [id number], [id number] ####[facility] [address] [place] [address] Basophils/Leukocytes Auto (Bld) [Pure # fraction] 0.1 E9/L Normal 0.0-0.2 [facility] Comment on above: Order Comment: Order Added by Discern Expert. Performed By: #### 2 226065, 2691364, 3339216, [id number], [id number] ####[facility] [address] [place] [address] Eosinophils/100 WBC (Bld) 0.7 % Normal 0.0-8.0 [facility] Comment on above: Order Comment: Order Added by Discern Expert. Performed By: #### 2 991714, 2584566, 0141647, [id number], [id number] ####[facility] [address] [place] [address] Eosinophils/Leukocytes Auto (Bld) [Pure # fraction] 0.1 E9/L Normal 0.0-0.5 [facility] Comment on above: Order Comment: Order Added by Discern Expert. Performed By: #### 2 288064, 9259746, 6131934, [id number], [id number] ####[address] [address] Lymphocytes/100 WBC (Bld) 26.2 % Normal 14.0-50.0 [facility] Comment on above: Order Comment: Order Added by Mariano Expert. Performed By: #### 2 543062, 1272545, 3848421, 05647671, [id number] ####[address] [place] [address] Lymphocytes/Leukocytes Auto (Bld) [Pure # fraction] 2.6 E9/L Normal 1.0-4.0 [facility] Comment on above: Order Comment: Order Added by Mariano Expert. Performed By: #### 2 315174, 6480907, 1138280, 93084134, 94097730 ####[address] [place] [address] Monocytes/100 WBC (Bld) 6.0 % Normal 4.0-14.0 [facility] Comment on above: Order Comment: Order Added by Discern Expert. Performed By: #### 2 338763, 5807841, 2438372, [id number], 67724914 ####[address] [place] [address] Monocytes/Leukocytes Auto (Bld) [Pure # fraction] 0.6 E9/L Normal 0.2-1.0 [facility] Comment on above: Order Comment: Order Added by Discern Expert. Performed By: #### 2 271816, 0371243, 3843466, [id number], [id number] ####[address] [address] Neutrophils/100 WBC (Bld) 66.4 % Normal 36.0-75.0 [facility] Comment on above: Order Comment: Order Added by Discern Expert. Performed By: #### 2 069668, 9023647, 3792682, 43873937, 08678359 ####[address] [address] Neutrophils/Leukocytes Auto (Bld) [Pure # fraction] 6.5 E9/L Normal 2.0-7.5 [facility] Comment on above: Order Comment: Order Added by Discern Expert. Performed By: #### 2 255273, 9356542, 6227049, 58272184, [id number] ####[address] [address] CBC w/ Auto Diffon Erythrocyte distribution width (RBC) [Ratio] 14.1 % Normal 10.9-14.2 [facility] Comment on above: Performed By: #### 2 107298, 8211393, 2638979, 52693071, 67202784 ####[address] [address] Hematocrit (Bld) [Volume fraction] 41.5 % Normal 34.0-46.0 [facility] Comment on above: Performed By: #### 2 273207, 3764570, 0255382, 17160466, 46875144 ####[address] [place] [address] Hemoglobin (Bld) [Mass/Vol] 13.9 g/dL Normal 12.0-16.0 [facility] Comment on above: Performed By: #### 2 606016, 9626602, 6150718, 06758685, 79423577 ####[address] [address] MCH (RBC) [Entitic mass] 28.9 pg Normal 27.0-34.0 [facility] Comment on above: Performed By: #### 2 063391, 6579661, 8345795, 56282725, 11044001 ####[address] [address] MCHC (RBC) [Mass/Vol] 33.4 g/dL Normal 31.4-36.0 [facility] Comment on above: Performed By: #### 2 857442, 6575816, 0539433, 59563228, 30287510 ####[address] [address] MCV (RBC) [Entitic vol] 86.7 fL Normal 80.0-100.0 [facility] Comment on above: Performed By: #### 2 745881, 6143163, 9558171, 94009840, 27813371 ####[address] [address] Platelet mean volume (Bld) [Entitic vol] 9.4 fL Normal 6.4-10.8 [facility] Comment on above: Performed By: #### 2 595167, 5389989, 4563080, 57971961, 42570996 ####[address] [address] Platelets (Bld) [#/Vol] 347.0 E9/L Normal 150.0-500.0 [facility] Comment on above: Performed By: #### 2 798503, 7097673, 4615797, 27222033, 94021152 ####[facility] [address] [place] [address] RBC (Bld) [#/Vol] 4.8 E12/L Normal 4.3-5.9 [facility] Comment on above: Performed By: #### 2 272803, 6647586, 5703050, 84879787, 04692260 ####[facility] [address] [place] [address] WBC corrected for nucl RBC Auto (Bld) [#/Vol] 9.8 E9/L Normal 4.0-11.0 [facility] Comment on above: Performed By: #### 2 125406, 4552851, 3039706, 28279130, 04654577 ####[facility] [address] [place] [address] CHEMISTRYOrdered By: SYSTEM SYSTEM on 07-08-2023 Albumin [Mass/Vol] 3.4 g/dL Normal 3.3 - 5.0 gm/dL [facility] Albumin/Globulin [Mass ratio] 0.7 {ratio} Low 1.1 - 2.2 [facility] ALP [Catalytic activity/Vol] 71 [iU]/d Normal 21 - 98 Int._Unit/L [facility] ALT No additional P-5'-P [Catalytic activity/Vol] 28 [iU]/d Normal 6 - 46 Int._Unit/L [facility] Anion gap [Moles/Vol] 12 mmol/L Normal 6 - 16 mEq/L F [facility] AST [Catalytic activity/Vol] 27 [iU]/d Normal 5 - 43 Int._Unit/L [facility] Bilirubin [Mass/Vol] 0.6 mg/dL Normal 0.0 - 1 .1 mg/dL [facility] Calcium [Mass/Vol] 9.4 mg/dL Normal 8.9 - 11. 1 mg/dL [facility] Chloride [Moles/Vol] 100 mmol/L Low 101 - 1 11 mmol/L [facility] CO2 [Moles/Vol] 26 mmol/L Normal 21 - 31 mmol/L [facility] Creatinine [Mass/Vol] 0.6 mg/dL Normal 0.5 - 1.3 mg/dL [facility] Remisol GFR/1.73 sq M.predicted among non-blacks MDRD (S/P/Bld) [Vol rate/Area] 103 mL/min/1.73 m2 Normal >=59mL/min/1 .73 m2 [facility] Chem S Comment on above: Interpretive Data: C hronic kidney disease could be indicated at eGFR's of less than 60 mL/min/1.73m2. Kidney failure is indicated at less than 15 mL/min/1.73m2. Globulin (S) [Mass/Vol] 5.0 g/dL High 1.4 - 4.0 gm/dL [facility] Remisol Glucose [Mass/Vol] 226 mg/dL High 55 - 199 mg/dL [facility] Remisol Comment on above: Interpretive Data: I f this glucose result represents a fasting glucose, interpretation should refer to the following reference range: 55-99 mg/dL Potassium [Moles/Vol] 3.9 mmol/L Normal 3.5 - 5.3 mmol/L [facility] Remisol Protein [Mass/Vol] 8.4 g/dL High 6.0 - 7.8 gm/dL [facility] Remisol Sodium [Moles/Vol] 134 mmol/L Low 135 - 145 mmol/L [facility] Remisol Urea nitrogen [Mass/Vol] 9 mg/dL Normal 5 - 21 mg/dL [facility] Remisol Urea nitrogen/Creatinine [Mass ratio] 15 mg/mg Normal 10 - 20 [facility] Remisol CMPon 07-08-2023 Albumin [Mass/Vol] 3.4 g/dL Normal 3.3-5.0 [facility] Comment on above: Performed By: #### 2 821814, 9921919, 3345945, 01386293, [id number] ####[facility] [address] [place] [address] Albumin/Globulin (S) [Mass conc ratio] 0.7 Low 1.1-2.2 [facility] Comment on above: Performed By: #### 2 493892, 8707970, 9294605, 97193666, 06435160 ####[facility] [address] [place] [address] ALP [Catalytic activity/Vol] 71 Int._Unit/L Normal 21-98 [facility] Comment on above: Performed By: #### 2 286799, 7097818, 5041391, 94649000, 84774842 ####[facility] [address] [place] [address] ALT No additional P-5'-P [Catalytic activity/Vol] 28 Int._Unit/L Normal 6-46 [facility] Comment on above: Performed By: #### 2 359630, 0549083, 6944521, 42556101, 47661362 ####[facility] [address] [place] [address] Anion gap [Moles/Vol] 12 mmol/L Normal 6-16 [facility] Comment on above: Performed By: #### 2 027404, 7356969, 3048018, 82603834, 20137949 ####[facility] [address] [place] [address] AST [Catalytic activity/Vol] 27 Int._Unit/L Normal 5-43 [facility] Comment on above: Performed By: #### 2 454095, 3190965, 7140952, 80486175, 69845801 ####[facility] [address] [place] [address] Bilirubin [Mass/Vol] 0.6 mg/dL Normal 0.0-1.1 [facility] Comment on above: Performed By: #### 2 237497, 0520093, 2896906, 72726987, 83281346 ####[facility] [address] [place] [address] Calcium [Mass/Vol] 9.4 mg/dL Normal 8.9-11.1 [facility] Comment on above: Performed By: #### 2 321513, 7016731, 8984184, 24712938, 51868030 ####[facility] [address] [place] [address] Chloride [Moles/Vol] 100 mmol/L Low 101-111 [facility] Comment on above: Performed By: #### 2 437517, 5986739, 9827093, 28434204, 83554007 ####[facility] [address] [place] [address] CO2 [Moles/Vol] 26 mmol/L Normal 21-31 [facility] Comment on above: Performed By: #### 2 040203, 4684638, 6195930, 36323130, 03395282 ####[facility] [address] [place] [address] Creatinine [Mass/Vol] 0.6 mg/dL Normal 0.5-1.3 [facility] Comment on above: Performed By: #### 2 470790, 9291492, 0730968, 20009594, 35198895 ####[facility] [address] [place] [address] Globulin (S) [Mass/Vol] 5.0 g/dL High 1.4-4.0 [facility] Comment on above: Performed By: #### 2 076773, 6187011, 0905706, 22028159, 01246438 ####[facility] [address] [place] [address] Glucose [Mass/Vol] 226 mg/dL High 55-199 [facility] Comment on above: Result Comment: If t his glucose result represents a fasting glucose, interpretation should refer to the following reference range: 55-99 mg/dL Performed By: #### 2 143003, 4841337, 3245781, 07516158, 12062846 ####[facility] [address] [place] [address] Potassium [Moles/Vol] 3.9 mmol/L Normal 3.5-5.3 [facility] Comment on above: Performed By: #### 2 797787, 0320591, 1116361, 74255220, 65714550 ####[facility] [address] [place] [address] Protein [Mass/Vol] 8.4 g/dL High 6.0-7.8 [facility] Comment on above: Performed By: #### 2 405180, 6585496, 2959292, 69084674, 95016794 ####[facility] [address] [place] [address] Sodium [Moles/Vol] 134 mmol/L Low 135-145 [facility] Comment on above: Performed By: #### 2 444926, 0445317, 4615999, 46601594, 65296757 ####[facility] [address] [place] [address] Urea nitrogen [Mass/Vol] 9 mg/dL Normal 5- [facility] Comment on above: Performed By: #### 2 085597, 2477766, 7350396, 89002770, 64979686 ####[facility] [address] [place] [address] Urea nitrogen/Creatinine [Mass ratio] 15 No Units Normal 10- [facility] Comment on above: Performed By: #### 2 820922, 2309919, 7767522, 72436073, 58388551 ####[facility] [address] [place] [address] Consent for Treatmenton 06-14 Consent for Treatment [id number] #1.00TIFF Normal [facility] HEMATOLOGYOrdered By: SYSTEM SYSTEM on 07-08-2023 Basophils/100 WBC (Bld) 0.7 % Normal 0.0 - 2.0 % [facility] Basophils/Leukocytes Auto (Bld) [Pure # fraction] 0.1 E9/L Normal 0.0 - 0.2 E9/L [facility] Eosinophils/100 WBC (Bld) 0.7 % Normal 0.0 - 8.0 % [facility] Eosinophils/Leukocytes Auto (Bld) [Pure # fraction] 0.1 E9/L Normal 0.0 - 0.5 E9/L [facility] Lymphocytes/100 WBC (Bld) 26.2 % Normal 14.0 - 50.0 % [facility] Lymphocytes/Leukocytes Auto (Bld) [Pure # fraction] 2.6 E9/L Normal 1.0 - 4.0 E9/L [facility] Monocytes/100 WBC (Bld) 6.0 % Normal 4.0 - 14.0 % [facility] Monocytes/Leukocytes Auto (Bld) [Pure # fraction] 0.6 E9/L Normal 0.2 - 1.0 E9/L [facility] Neutrophils/100 WBC (Bld) 66.4 % Normal 36.0 - 75.0 % [facility] Neutrophils/Leukocytes Auto (Bld) [Pure # fraction] 6.5 E9/L Normal 2.0 - 7.5 E9/L [facility] HEMATOLOGYOrdered By: Jackie Bauman on 07-08-2023 Erythrocyte distribution width (RBC) [Ratio] 14.1 % Normal 10.9 - 14.2 % [facility] Hematocrit (Bld) [Volume fraction] 41.5 % Normal 34.0 - 46.0 % [facility] Hemoglobin (Bld) [Mass/Vol] 13.9 g/dL Normal 12.0 - 16.0 gm/dL [facility] MCH (RBC) [Entitic mass] 28.9 pg Normal 27.0 - 34.0 pg [facility] MCHC (RBC) [Mass/Vol] 33.4 g/dL Normal 31.4 - 36.0 gm/dL [facility] MCV (RBC) [Entitic vol] 86.7 fL Normal 80.0 - 100.0 fL [facility] Platelet mean volume (Bld) [Entitic vol] 9.4 fL Normal 6.4 - 10.8 fL [facility] Platelets (Bld) [#/Vol] 347.0 E9/L Normal 150. 0 - 500.0 E9/L [facility] RBC (Bld) [#/Vol] 4.8 E12/L Normal 4.3 - 5.9 E12/L [facility] WBC corrected for nucl RBC Auto (Bld) [#/Vol] 9.8 E9/L Normal 4.0 - 11.0 E9/L [facility] Physician Orderon 07-08-2023 Physician Order [id number] #1.00TIFF Normal [facility] eGFRon 07-08-2023 GFR/1.73 sq M.predicted among non-blacks MDRD (S/P/Bld) [Vol rate/Area] 103 mL/min/1.73 m2 Normal >=59 [facility] Comment on above: Order Comment: Order added by Discern Expert. Result Comment: Stenciler jyothi kidney disease could be indicated at eGFR's of less than 60 mL/min/1.73m2. Kidney failure is indicated at less than 15 mL/min/1.73m2. Performed By: #### 2 172404, 6277984, 5217050, 41602687, 83416669 ####[facility] [address] [place] [address] Insurance Correspondence Off iceon 07-07-2023 Insurance Correspondence Office [id number]#1.00TIFF Normal [facility] Coding Queryon 07-04-2023 Coding Query - From: Madeline Crawford RN To: Unruly CUETO MD; Sent: 07/01/2023 12:57:00 EDT ! Subject: Coding Query Due Date/Time: 07/02/2023 12:56:00 EDT Caller Name: MARILYN DUNCAN; Caller Number: , B [phone] The following abnormal lab values are documented in the medical record. Platelet 06/30-83.0, 06/29-107.0 Please document the significance of the abnormal lab and treatment or clarify which diagnosis or condition these tests and treatments were associated with: Document/clarify: [___]Other: In responding to this request, please exercise your independent professional judgement. The fact that a question is asked does not imply that any particular answer is desired or expected. Thank you! Madeline [phone] - From: Unruly CUETO MD To: Madeline Crawford RN; Sent: 07/04/2023 17:58:55 EDT Subject: RE: Coding Query Caller Name: MARILYN DUNCAN; Caller Number: Clement , B [phone] thrombocytopenia Normal [facility] C. diff by PCRon 07-02-2023 Clostridium difficile by PCR Negative Normal Negative [facility] Comment on above: Order Comment: Order added by Discern Expert. Result Comment: This test result should be correlated with clinical presentations and medical history by a healthcare provider to determine its clinical significance. Performed By: #### 3 [id number], [id number] ####[facility] [address] [place] [address] CDiff PCRon 07-02-2023 Cdiff Specimen Acceptable Acceptable Normal [facility] Comment on above: Performed By: #### 3 [id number], [id number] ####[facility] [address] [place] [address] Order Cancelled No, PCR to follow Normal Fi [facility] Comment on above: Performed By: #### 3 [id number], [id number] ####[facility] [address] [place] [address] CHEMISTRYOrdered By: Lab ROP User on 07-02-2023 Glucose [Mass/Vol] 304 mg/dL High 55 - 99 mg/dL [facility] POC Subsection Comment on above: Result Comment: Simón GRIFFIN POC Username TIP MOTTA Invalid Interpretation Code FT POC Subsection Sodium [Moles/Vol] 745741830749 mmol/L Invalid Interpretation Code FT POC Subsection Sodium [Moles/Vol] 139595122 mmol/L Invalid Interpretation Code FT POC Subsection Glucose [Mass/Vol] 242 mg/dL High 55 - 99 mg/dL [facility] POC Subsection Comment on above: Result Comment: Simón GRIFFIN POC Username TIP MOTTA Invalid Interpretation Code FT POC Subsection Sodium [Moles/Vol] 337522637686 mmol/L Invalid Interpretation Code FT POC Subsection Sodium [Moles/Vol] 948617552 mmol/L Invalid Interpretation Code FT POC Subsection CHEMISTRYOrdered By: SYSTEM SYSTEM on 07-02-2023 Vancomycin trough [Moles/Vol] 6 microgram/mL Low 10 - 20 mcg/mL [facility] Remisol Capillary Glucose POCon 06-14 Glucose [Mass/Vol] 304 mg/dL High 55-99 [facility] Comment on above: Result Comment: Simón lozano RN/ Performed By: #### 2 [id number] #### [facility] [address] [place] [address] Glucose [Mass/Vol] 242 mg/dL High 55-99 [facility] Comment on above: Result Comment: Simón lozano RN/ Performed By: #### 2 [id number] ####[facility] [address] [place] [address] Coding Queryon 07-02-2023 Coding Query - From: Adán Davidson RN To: Unruly CUETO MD; Sent: 06/29/2023 07:44:16 EDT ! Subject: Coding Query Due Date/Time: 06/30/2023 07:44:00 EDT Caller Name: MARILYN DUNCAN; Caller Number: H , B [phone] Documentation in the medical record indicates this patient has been admitted with or diagnosed as having: sepsis/ elevated troponin The following is also documented in the medical record: # 6. Elevated troponin (R77.8: Other specified abnormalities of plasma proteins) Type II secondary to increased demand No chest pain Based on your medical judgment, can you please clarify which, if any, of the following conditions are present? [___]Demand ischemia with Type 2 OK. [___]Other: In responding to this request, please exercise your independent professional judgement. The fact that a question is asked does not imply that any particular answer is desired or expected. Thank you!adán [phone] - From: Unruly CUETO MD To: Adán Davidson RN; Sent: 07/02/2023 13:56:18 EDT Subject: RE: Coding Query Caller Name: MARILYN DUNCAN; Caller Number: Clement , B [phone] Demand ischemia with Type 2 OK. Normal [facility] Discharge Instructionson Discharge Instructions [id number] #1.00TIFF Normal [facility] Discharge Note-Nursingon Discharge Note-Nursing Per Dr. Cueto, he will not refill her diabetic medication Lispro scale. She needs to discuss this medication with her PCP when she has her follow up visit with him. Patient verbally agreed. Normal [facility] Discharge Note-Nursing MARILYN DUNCAN :1965 Visit Date:06/28/2023 Inpatient Discharge Instructions Your Care Team Admitting Physician - NELY GUERRERO, Unruly Consulting Physician - [facility] Cardio, XXXX Reason for Your Visit Right leg swollen Your Diagnosis Cellulitis - Leg Sepsis Leukocytosis Acute renal failure Lactic acidosis Elevated troponin Diabetes mellitus, type II HTN (hypertension) Hyperlipemia History of TIA (transient ischemic attack) Obesity Fever Leg pain-swelling Shortness of breath Tests Performed .Manual Abs Automated Diff Basic Metabolic Panel BMP Capillary Glucose POC CBC w/ Auto Diff Clostridium difficile by PCR Clostridium Difficile PCR CMP eGFR HgbA1c Lactic Acid Magnesium Level Manual Diff PT & PTT Troponin UA With Cult Reflex -- Results Pending -- Vancomycin Level Peak Vancomycin Level Trough Echo Transthoracic Complete XR Chest Single View Please visit your patient portal for your results or contact your primary care physician. This Is Your Medications List Misc Prescription (glucometer, lancets, alcohol swabs, syringes, needles) Misc Prescription (glucometer, lancets, alcohol swabs, syringes, needles, test strips) amlodipine (amLODIPine 10 mg Tab) apixaban (Eliquis 5 mg oral tablet) atorvastatin (atorvastatin 40 mg Tab) busPIRone (busPIRone 5 mg Tab) cyclobenzaprine (cyclobenzaprine 10 mg Tab) doxycycline (doxycycline hyclate 100 mg Cap) glimepiride (glimepiride 2 mg Tab) lisinopril (lisinopril 20 mg Tab) metformin (metformin 500 mg ER Tab) metoprolol (metoprolol 50 mg ER Tab) [Image Removed: STOP]Stop taking these medications clindamycin (clindamycin 300 mg oral cap) insulin lispro (insulin lispro 100 units/mL injectable solution) Procedure History Carpal tunnel, Hand tendon repaired. Discharge Vitals Temperature (Axillary) 36.5 ?C Heart Rate (Monitored) 106 Respiratory Rate 16 Blood Pressure 120/75 What to do next Instructions From Your Doctor Event Name Event Result Discharge Activity Ambulate as tolerated Discharge Restrictions No restrictions Discharge Diet(s) Calorie Controlled- 1800 Calorie Diet Pending Diagnostic Test Results None Pharmacy Information [facility] New Follow Up Appointments after Discharge Follow Up with Karina Martinez When: 07/08/2023 05:00 PM EDT Where: [place] [address] Business (1) Medications What How Much When Why Instructions Next Dose New apixaban (Eliquis 5 mg oral tablet) 1 Tablets By Mouth 2 times a day Refills: 1 Pickup at [facility] 07/02/23 @9pm New doxycycline (doxycycline hyclate 100 mg Cap) 1 Capsules By Mouth Every 12 hours Take one capsule by mouth every twelve hours for ten days [facility]up at [facility] 07/02/23 @ 9pm New metoprolol (metoprolol 50 mg ER Tab) 1 Tablets By Mouth 2 times a day Sepsis Acute cellulitis Leukocytosis Acute renal failure Lactic acidosis Pickup at [facility] 07/02/23@ 9pm Unchanged amlodipine (amLODIPine 10 mg Tab) 1 Tablets By Mouth Every day 07/03/23 Unchanged atorvastatin (atorvastatin 40 mg Tab) 1 Tablets By Mouth Every day 07/03/23 Unchanged busPIRone (busPIRone 5 mg Tab) 1 Tablets By Mouth 2 times a day 07/02/23 @9pm Unchanged cyclobenzaprine (cyclobenzaprine 10 mg Tab) 1 Tablets By Mouth Every day as needed for for spasm Take as needed for spasms Unchanged glimepiride (glimepiride 2 mg Tab) 1.5 By Mouth Every day 07/02/23 Unchanged lisinopril (lisinopril 20 mg Tab) 1 Tablets By Mouth Every day 07/02/23 Unchanged metformin (metformin 500 mg ER Tab) 1 Tablets By Mouth 2 times a day 07/02/23 @ 9pm Pharmacy Information [facility]: [address], [place] [id number] [phone] What How Much When Comments Stop Taking clindamycin (clindamycin 300 mg oral cap) Stop Taking insulin lispro (insulin lispro 100 units/ mL injectable solution) See instructions Take 2 units of lispro if BS between 151-200 Take 4 units of lispro if BS between 201-250 Take 6 units of lispro if BS between 251-300 Take 8 units of lispro if BS between 301-350 Take 10 units of lispro if BS between 351-400 Take 14 units of lispro if BS between >400 Test Results CBC BMP WBC: 8.1 E9/L (07/01/23 06:21:00) Glucose Lvl: 223 mg/dL High (07/01/23 06:21:00) RBC: 4.3 E12/L (07/01/23 06:21:00) BUN: 12 mg/dL (07/01/23 06:21:00) HGB: 12.5 gm/dL (07/01/23 06:21:00) Creatinine: 0.7 mg/dL (07/01/23 06:21:00) Hct: 36.8 % (07/01/23 06:21:00) BUN/Creat Ratio: 17 (07/01/23 06:21:00) MCV: 85.6 fL (07/01/23 06:21:00) Sodium Lvl: 135 mmol/L (07/01/23 06:21:00) MCH: 29 pg (07/01/23 06:21:00) Potassium Lvl: 3.6 mmol/L (07/01/23 06:21:00) MCHC: 33.9 gm/dL (07/01/23 06:21:00) Chloride: 108 mmol/L (07/01/23 06:21:00) RDW: 14.2 % (07/01/23 06:21:00) CO2: 1 (more content not included)... Normal [facility] Discharge Note-Nursing MARILYN DUNCAN :1965 Visit Date:06/28/2023 Inpatient Discharge Instructions Your Care Team Admitting Physician - NELY GUERRERO, Unruly Consulting Physician - [facility] Cardio, XXXX Reason for Your Visit Right leg swollen Your Diagnosis Cellulitis - Leg Sepsis Leukocytosis Acute renal failure Lactic acidosis Elevated troponin Diabetes mellitus, type II HTN (hypertension) Hyperlipemia History of TIA (transient ischemic attack) Obesity Fever Leg pain-swelling Shortness of breath Tests Performed .Manual Abs Automated Diff Basic Metabolic Panel BMP Capillary Glucose POC CBC w/ Auto Diff Clostridium Difficile PCR -- Results Pending -- CMP eGFR HgbA1c Lactic Acid Magnesium Level Manual Diff PT & PTT Troponin UA With Cult Reflex -- Results Pending -- Vancomycin Level Peak Vancomycin Level Trough Echo Transthoracic Complete XR Chest Single View Please visit your patient portal for your results or contact your primary care physician. This Is Your Medications List Misc Prescription (glucometer, lancets, alcohol swabs, syringes, needles) Misc Prescription (glucometer, lancets, alcohol swabs, syringes, needles, test strips) amlodipine (amLODIPine 10 mg Tab) apixaban (Eliquis 5 mg oral tablet) atorvastatin (atorvastatin 40 mg Tab) busPIRone (busPIRone 5 mg Tab) cyclobenzaprine (cyclobenzaprine 10 mg Tab) doxycycline (doxycycline hyclate 100 mg Cap) glimepiride (glimepiride 2 mg Tab) insulin lispro (insulin lispro 100 units/mL injectable solution) lisinopril (lisinopril 20 mg Tab) metformin (metformin 500 mg ER Tab) metoprolol (metoprolol 50 mg ER Tab) [Image Removed: STOP]Stop taking these medications clindamycin (clindamycin 300 mg oral cap) Procedure History Carpal tunnel, Hand tendon repaired. Discharge Vitals Temperature (Axillary) 36.5 ?C Heart Rate (Monitored) 106 Respiratory Rate 16 Blood Pressure 120/75 What to do next Instructions From Your Doctor Event Name Event Result Discharge Activity Ambulate as tolerated Discharge Restrictions No restrictions Discharge Diet(s) Calorie Controlled- 1800 Calorie Diet Pending Diagnostic Test Results None Pharmacy Information [facility] New Follow Up Appointments after Discharge Follow Up with Karina Martinez When: 07/08/2023 05:00 PM EDT Where: [address] [place] [address]- Business (1) Medications What How Much When Why Instructions Next Dose New apixaban (Eliquis 5 mg oral tablet) 1 Tablets By Mouth 2 times a day Refills: 1 Pickup at [facility] #27 New doxycycline (doxycycline hyclate 100 mg Cap) 1 Capsules By Mouth Every 12 hours Take one capsule by mouth every twelve hours for ten days Pickup at [facility] New metoprolol (metoprolol 50 mg ER Tab) 1 Tablets By Mouth 2 times a day Sepsis Acute cellulitis Leukocytosis Acute renal failure Lactic acidosis Pickup at [facility] Unchanged amlodipine (amLODIPine 10 mg Tab) 1 Tablets By Mouth Every day Unchanged atorvastatin (atorvastatin 40 mg Tab) 1 Tablets By Mouth Every day Unchanged busPIRone (busPIRone 5 mg Tab) 1 Tablets By Mouth 2 times a day Unchanged cyclobenzaprine (cyclobenzaprine 10 mg Tab) 1 Tablets By Mouth Every day as needed for for spasm Unchanged glimepiride (glimepiride 2 mg Tab) 1.5 By Mouth Every day Unchanged insulin lispro (insulin lispro 100 units/ mL injectable solution) See instructions Take 2 units of lispro if BS between 151-200 Take 4 units of lispro if BS between 201-250 Take 6 units of lispro if BS between 251-300 Take 8 units of lispro if BS between 301-350 Take 10 units of lispro if BS between 351-400 Take 14 units of lispro if BS between >400 Unchanged lisinopril (lisinopril 20 mg Tab) 1 Tablets By Mouth Every day Unchanged metformin (metformin 500 mg ER Tab) 1 Tablets By Mouth 2 times a day Unchanged Misc Prescription (glucometer, lancets, alcohol swabs, syringes, needles) 0 check BS 3x/ day Unchanged Misc Prescription (glucometer, lancets, alcohol swabs, syringes, needles, test strips) 0 Diabetes check BS 3x/ day Pharmacy Information [facility]27: [address], [place] [id number] [phone] What When Comments Stop Taking clindamycin (clindamycin 300 mg oral cap) Test Results CBC BMP WBC: 8.1 E9/L (07/01/23 06:21:00) Glucose Lvl: 223 mg/dL High (07/01/23 06:21:00) RBC: 4.3 E12/L (07/01/23 06:21:00) BUN: 12 mg/dL (07/01/23 06:21:00) HGB: 12.5 gm/dL (07/01/23 06:21:00) Creatinine: 0.7 mg/dL (07/01/23 06:21:00) Hct: 36.8 % (07/01/23 06:21:00) BUN/Creat Ratio: 17 (07/01/23 06:21:00) MCV: 85.6 fL (07/01/23 06:21:00) Sodium Lvl: 135 mmol/L (07/01/23 06:21:00) MCH: 29 pg (07/01/23 06:21:00) Potassium Lvl: 3.6 mmol/L (07/01/23 06:21:00) MCHC: 33.9 gm/dL (07/01/23 06:21:00) Chlori (more content not included)... Normal [facility] Discharge Note-Nursing MARILYN DUNCAN :1965 Visit Date:06/28/2023 Inpatient Discharge Instructions Your Care Team Admitting Physician - NELY GUERRERO, Unruly Consulting Physician - [facility] Cardio, XXXX Reason for Your Visit Right leg swollen Your Diagnosis Cellulitis - Leg Sepsis Leukocytosis Acute renal failure Lactic acidosis Elevated troponin Diabetes mellitus, type II HTN (hypertension) Hyperlipemia History of TIA (transient ischemic attack) Obesity Fever Leg pain-swelling Shortness of breath Tests Performed .Manual Abs Automated Diff Basic Metabolic Panel BMP Capillary Glucose POC CBC w/ Auto Diff Clostridium Difficile PCR -- Results Pending -- CMP eGFR HgbA1c Lactic Acid Magnesium Level Manual Diff PT & PTT Troponin UA With Cult Reflex -- Results Pending -- Vancomycin Level Peak Vancomycin Level Trough Echo Transthoracic Complete XR Chest Single View Please visit your patient portal for your results or contact your primary care physician. This Is Your Medications List Misc Prescription (glucometer, lancets, alcohol swabs, syringes, needles) Misc Prescription (glucometer, lancets, alcohol swabs, syringes, needles, test strips) amlodipine (amLODIPine 10 mg Tab) apixaban (Eliquis 5 mg oral tablet) atorvastatin (atorvastatin 40 mg Tab) busPIRone (busPIRone 5 mg Tab) cyclobenzaprine (cyclobenzaprine 10 mg Tab) doxycycline (doxycycline hyclate 100 mg Cap) glimepiride (glimepiride 2 mg Tab) insulin lispro (insulin lispro 100 units/mL injectable solution) lisinopril (lisinopril 20 mg Tab) metformin (metformin 500 mg ER Tab) metoprolol (metoprolol 50 mg ER Tab) [Image Removed: STOP]Stop taking these medications clindamycin (clindamycin 300 mg oral cap) Procedure History Carpal tunnel, Hand tendon repaired. Discharge Vitals Temperature (Axillary) 36.5 ?C Heart Rate (Monitored) 106 Respiratory Rate 16 Blood Pressure 120/75 What to do next Instructions From Your Doctor Event Name Event Result Discharge Activity Ambulate as tolerated Discharge Restrictions No restrictions Discharge Diet(s) Calorie Controlled- 1800 Calorie Diet Pending Diagnostic Test Results None Pharmacy Information [facility] New Follow Up Appointments after Discharge Follow Up with Karina Martinez When: 07/08/2023 05:00 PM EDT Where: [address] [place] [address] Business (1) Medications What How Much When Why Instructions Next Dose New apixaban (Eliquis 5 mg oral tablet) 1 Tablets By Mouth 2 times a day Refills: 1 Pickup at [facility] #27 07/02/23 @ 9pm New doxycycline (doxycycline hyclate 100 mg Cap) 1 Capsules By Mouth Every 12 hours Take one capsule by mouth every twelve hours for ten days Pickup at [facility] 07/02/23 @9pm New metoprolol (metoprolol 50 mg ER Tab) 1 Tablets By Mouth 2 times a day Sepsis Acute cellulitis Leukocytosis Acute renal failure Lactic acidosis Pickup at [facility] 07/02/23 @9pm Unchanged amlodipine (amLODIPine 10 mg Tab) 1 Tablets By Mouth Every day 07/03/23 Unchanged atorvastatin (atorvastatin 40 mg Tab) 1 Tablets By Mouth Every day 07/03/23 Unchanged busPIRone (busPIRone 5 mg Tab) 1 Tablets By Mouth 2 times a day 07/02/23 @9pm Unchanged cyclobenzaprine (cyclobenzaprine 10 mg Tab) 1 Tablets By Mouth Every day as needed for for spasm Take as needed for spasms Unchanged glimepiride (glimepiride 2 mg Tab) 1.5 By Mouth Every day 07/03/23 Unchanged insulin lispro (insulin lispro 100 units/ mL injectable solution) See instructions Take 2 units of lispro if BS between 151-200 Take 4 units of lispro if BS between 201-250 Take 6 units of lispro if BS between 251-300 Take 8 units of lispro if BS between 301-350 Take 10 units of lispro if BS between 351-400 Take 14 units of lispro if BS between >400 07/02/23 @dinnertime and bedtime Unchanged lisinopril (lisinopril 20 mg Tab) 1 Tablets By Mouth Every day 07/03/23 Unchanged metformin (metformin 500 mg ER Tab) 1 Tablets By Mouth 2 times a day 07/02/23 @ 9pm Unchanged Misc Prescription (glucometer, lancets, alcohol swabs, syringes, needles) 0 check BS 3x/ day Unchanged Misc Prescription (glucometer, lancets, alcohol swabs, syringes, needles, test strips) 0 Diabetes check BS 3x/ day Pharmacy Information [facility]: [address], [place] [id number] [phone] What When Comments Stop Taking clindamycin (clindamycin 300 mg oral cap) Test Results CBC BMP WBC: 8.1 E9/L (07/01/23 06:21:00) Glucose Lvl: 223 mg/dL High (07/01/23 06:21:00) RBC: 4.3 E12/L (07/01/23 06:21:00) BUN: 12 mg/dL (07/01/23 06:21:00) HGB: 12.5 gm/dL (07/01/23 06:21:00) Creatinine: 0.7 mg/dL (07/01/23 06:21:00) Hct: 36.8 % (07/01/23 06:21:00) BUN/Creat Ratio: 17 (07/01/23 06:21:00) MCV: 85.6 fL (07/01/23 06:21:00) S[place] (more content not included)... Normal [facility] Inpatient Clinical Summaryon 07-02-2023 Inpatient Clinical Summary [address] [address] Clinical Summary Person Information: Name: MARILYN DUNCAN Age: 57 Years : 1965 Sex: Female PCP: Karina Martinez DO Marital Status: Phone: [phone] Race: White Ethnicity: Non- or Language: Somali Visit Id: Visit Reason: Cellulitis - Leg; Fever; Shortness of breath; Leg pain-swelling; LEG EDEMA Speciality: Acuity: Enc Type: Inpatient Med Service: Medical Arrival: 06/28/2023 14:45:11 Discharge: Dispo Type: Admitted as IP to this Hosp Address: [address] [place] [phone] Provider Notes: Diagnosis: 2:Sepsis; 3:Leukocytosis; 4:Acute renal failure; 5:Lactic acidosis; 6:Elevated troponin; 7:Diabetes mellitus, type II; 8:HTN (hypertension); 9:Hyperlipemia; 10:History of TIA (transient ischemic attack); 11:Obesity Problems Active Bacterial pneumonia Smoking Status: Never Smoker Functional Status: Sensory Deficits: History of Falls: Mobility Assistance Prior to Admission: Independent ADLs: Moderate assistance Current Level of Assistance for Self-Care/Mobility: Cognitive Status: Not oriented to place, Not oriented to time Allergies No Known Medication Allergies Measurements: Height: 170.18 cm Weight: 125.6 kg Blood Pressure: 120 mmHg / 75 mmHg BMI: 44.09 kg/m2 Procedures No Procedures Documented Immunizations No Immunizations Documented This Visit Final Med List: amlodipine (amLODIPine 10 mg Tab) 1 Tablets By Mouth every day. apixaban (Eliquis 5 mg oral tablet) 1 Tablets By Mouth 2 times a day. Refills: 1. atorvastatin (atorvastatin 40 mg Tab) 1 Tablets By Mouth every day. busPIRone (busPIRone 5 mg Tab) 1 Tablets By Mouth 2 times a day. cyclobenzaprine (cyclobenzaprine 10 mg Tab) 1 Tablets By Mouth every day as needed for spasm. doxycycline (doxycycline hyclate 100 mg Cap) 1 Capsules By Mouth every 12 hours. Take one capsule by mouth every twelve hours for ten days. Refills: 0. glimepiride (glimepiride 2 mg Tab) 1.5 By Mouth every day. insulin lispro (insulin lispro 100 units/mL injectable solution) Take 2 units of lispro if BS between 151-200 Take 4 units of lispro if BS between 201-250 Take 6 units of lispro if BS between 251-300 Take 8 units of lispro if BS between 301-350 Take 10 units of lispro if BS between 351-400 Take 14 units of lispro if BS between >400. Refills: 3. lisinopril (lisinopril 20 mg Tab) 1 Tablets By Mouth every day. metformin (metformin 500 mg ER Tab) 1 Tablets By Mouth 2 times a day. metoprolol (metoprolol 50 mg ER Tab) 1 Tablets By Mouth 2 times a day. Refills: 0. Misc Prescription (glucometer, lancets, alcohol swabs, syringes, needles) 0. check BS 3x/day. Refills: 0. Misc Prescription (glucometer, lancets, alcohol swabs, syringes, needles, test strips) 0. check BS 3x/day. Refills: 0. Care Team Members: Attending Physician: Unruly CUETO MD Consulting Physician: [facility] [place] [facility], XXXX Referring Physician: Follow up: With: Address: When: Karina Martinez [address] [place], [place] [id number] Business (1) 07/08/2023 5:00 PM Patient Education Information: Cellulitis, Adult; Sepsis, Diagnosis, Adult Normal [facility] Inpatient Patient Summaryon 07-02-2023 Inpatient Patient Summary [address] [address] Patient Discharge Instructions PERSON INFORMATION Name: MARILYN DUNCAN Date of : 1965 Current Date: 07/02/2023 11:43:27 PHYSICIANS Admitting Physician: Unruly CUETO MD Primary Care Physician: Karina Martinez DO PCP Comment: Discharge Diagnosis: 2:Sepsis; 3:Leukocytosis; 4:Acute renal failure; 5:Lactic acidosis; 6:Elevated troponin; 7:Diabetes mellitus, type II; 8:HTN (hypertension); 9:Hyperlipemia; 10:History of TIA (transient ischemic attack); 11:Obesity Condition at Discharge: Improved MARILYN DUNCAN has been given the following list of follow-up instructions, prescriptions, and patient education materials: PATIENT FOLLOW-UP INFORMATION Diet: Calorie Controlled- 1800 Calorie Diet Discharge Activity: Ambulate as tolerated Discharge Restrictions: No restrictions Wound Care Instructions: Remove Your Dressing In Days Call Your Doctor For: IF UNABLE TO CONTACT YOUR PHYSICIAN AND YOU FEEL IT IS AN EMERGENCY, GO TO THE NEAREST EMERGENCY ROOM OR CALL 911 Home Treatment: Devices/Equipment: None Special Services: Additional Instructions: Primary Care Physician to provide the following pending test results: None Follow up: With: Address: When: [address] [place] [place] [place] [address] Business (1) 07/08/2023 5:00 PM In the event that this physician does not participate in your insurance network, please consult with your insurance company to find a nearby participating provider. Comment: DAKOTA Rico DEBORAH, have received the attached patient education materials/instructio ns and have verbalized understanding: Patient Signature Date Clinican/Nurse Signature Date HERE ARE THE MEDICATION CHANGES THAT OCCURRED DURING YOUR HOSPITAL STAY New Medications [facility], [address], [place] [id number], [phone] apixaban (Eliquis 5 mg oral tablet) 1 Tablets By Mouth 2 times a day. Refills: 1. Last Dose: Next Dose: doxycycline (doxycycline hyclate 100 mg Cap) 1 Capsules By Mouth every 12 hours. Take one capsule by mouth every twelve hours for ten days. Refills: 0. Last Dose: Next Dose: metoprolol (metoprolol 50 mg ER Tab) 1 Tablets By Mouth 2 times a day. Refills: 0. Last Dose: Next Dose: Medications to Continue with No Changes Other Medications amlodipine (amLODIPine 10 mg Tab) 1 Tablets By Mouth every day. Last Dose: Next Dose: atorvastatin (atorvastatin 40 mg Tab) 1 Tablets By Mouth every day. Last Dose: Next Dose: busPIRone (busPIRone 5 mg Tab) 1 Tablets By Mouth 2 times a day. Last Dose: Next Dose: cyclobenzaprine (cyclobenzaprine 10 mg Tab) 1 Tablets By Mouth every day as needed for spasm. Last Dose: Next Dose: glimepiride (glimepiride 2 mg Tab) 1.5 By Mouth every day. Last Dose: Next Dose: insulin lispro (insulin lispro 100 units/mL injectable solution) Take 2 units of lispro if BS between 151-200 Take 4 units of lispro if BS between 201-250 Take 6 units of lispro if BS between 251-300 Take 8 units of lispro if BS between 301-350 Take 10 units of lispro if BS between 351-400 Take 14 units of lispro if BS between >400. Refills: 3. Last Dose: Next Dose: lisinopril (lisinopril 20 mg Tab) 1 Tablets By Mouth every day. Last Dose: Next Dose: metformin (metformin 500 mg ER Tab) 1 Tablets By Mouth 2 times a day. Last Dose: Next Dose: Misc Prescription (glucometer, lancets, alcohol swabs, syringes, needles) 0. check BS 3x/day. Refills: 0. Last Dose: Next Dose: Misc Prescription (glucometer, lancets, alcohol swabs, syringes, needles, test strips) 0. check BS 3x/day. Refills: 0. Last Dose: Next Dose: No Longer Take the Following Medications clindamycin (clindamycin 300 mg oral cap) Comment: MEDICATION LIST PROVIDED FOR YOU IS A LIST OF YOUR CURRENT MEDICATIONS. PLEASE CARRY THIS WITH YOU AT ALL TIMES. amlodipine (amLODIPine 10 mg Tab) 1 Tablets By Mouth every day. apixaban (Eliquis 5 mg oral tablet) 1 Tablets By Mouth 2 times a day. Refills: 1. atorvastatin (atorvastatin 40 mg Tab) 1 Tablets By Mouth every day. busPIRone (busPIRone 5 mg Tab) 1 Tablets By Mouth 2 times a day. cyclobenzaprine (cyclobenzaprine 10 mg Tab) 1 (more content not included)... Normal [facility] Interdisciplinary Note - Vinayak e Manageron 07-02-2023 Interdisciplinary Note - Switchboard Inspector Pt is awake and alert in chair, previously rounded with Dr. Cueto. pt is aware of plan to DC home today, declines any concerns or DC needs. Discussed plan to DC home today, discussed paramedicine, pt declines. PCP verified and insurance information reviewed and DME discussed. Contact information provided and Normal [facility] Comment on above: Result Comment: Elec tronically Signed By: Sol MERAZ, Juhi\.carlos\Date and Time Signed: 07/02/23 12:32 EDT Monitor Recordon 07-02-2023 Monitor Record [id number] 2#1.00TIFF [facility] Progress Note-Physicianon Progress Note-Physician Basic Informatio n 57-year-old white female with past medical history obesity, hypertension, hyperlipidemia, history of TIA diabetes type 2, and a history of, cellulitis of present emergency room with right leg swelling, redness, and tenderness. Right leg redness extended from her ankle to the knee. It is very warm to touch. Associated with fever. Associated with some confusion and disorientation. She had recent a blister on her right foot. No history of injury or trauma. She denies having nausea vomiting. No diarrhea. She denies any chest pain or shortness of breath. No orthopnea PND. No dysuria, hematuria, frequency. Upon presentation to emergency room she was tachycardic and tachypneic. Her white count was elevated at 20,000. Her lactic acid was elevated at 3.6. She was given IV fluid and given vancomycin and Zosyn. She was admitted to the hospital for further management. A/P 1. Sepsis (A41.9: Sepsis, unspecified organism) Tachycardia tachypnea/leukocytos is Secondary to acute right leg cellulitis Seen and examined Clinically better No fever No Leukocytosis Less leg redness Blood cultures are negative C/w Zosyn and Vancomycin IV 2. Acute cellulitis (L03.90: Cellulitis, unspecified) As above 3. Leukocytosis (D72.829: Elevated white blood cell count, unspecified) CBC with differential daily Improving 4. Acute renal failure (N17.9: Acute kidney failure, unspecified) Resolved 5. Lactic acidosis (E87.20: Acidosis, unspecified) Lactic acid daily 6. Elevated troponin (R77.8: Other specified abnormalities of plasma proteins) Type II secondary to increased demand No chest pain 7. Diabetes mellitus, type II (E11.9: Type 2 diabetes mellitus without complications) Accu-Chek ACHS Insulin sliding scale 8. HTN (hypertension) (I10: Essential (primary) hypertension) Resume home medication 9. Hyperlipemia (E78.5: Hyperlipidemia, unspecified) Resume home medication 10. History of TIA (transient ischemic attack) (Z86.73: Personal history of transient ischemic attack (TIA), and cerebral infarction without residual deficits) Resume home medication 11. Obesity (E66.9: Obesity, unspecified) Lifestyle modification 12. Afib with RVR HR is better controlled DC IV Cardizem infusion Toprol XL DAILY Replace potassium 13. Hypokalemia: Replaced DVT prophylaxis: Lovenox Subjective Doing better Less leg swelling Less leg redness No fever Review of Systems ;;ftros Objective Vitals & Measurements T: 36.3 ?C(Oral) TMIN: 36.2 ?C(Oral) TMAX: 36.7 ?C(Axillary) HR: 84(Monitored) RR: 18 BP: 126/66 SpO2: 96% WT: 125.6 kg Intake & Output This visit (24 hour periods starting at 07:00 EDT) 07/01/23 * 06/30/23 06/29/23 Total Summary Intake mL -- 1,500.09 2,250 Output mL -- 950 200 Fluid Balance -- 550.09 2,050 Intake (6) Generic Diluent, potassium chloride mL -- 197.26 -- Generic Diluent, vancomycin mL -- 250 250 Sodium Chloride 0.9% intravenous solution 1,000 mL mL -- 610.48 2,000 Sodium Chloride 0.9%, piperacillin-tazobac mcguire mL -- 150 -- Sodium Chloride 0.9%, vancomycin mL -- 250 -- diltiazem 100 mg [5 mg/hr] + Sodium Chloride 0.9% intravenous solution 100 mL mL -- 42.35 -- Total -- 1,500.09 2,250 Output (1) Urine Voided mL -- 950 200 Total -- 950 200 Counts (1) Stool Count -- -- 1 * This column has not completed the indicated time period. Physical Exam ;;General: alert, no acute distress Skin: warm, dry Head: no trauma, normocephalic Neck: Trachea midline, no adenopathy, no tenderness Eye: normal conjunctiva, sclera clear ENMT: TM's clear, oral mucosa moist, no pharyngeal erythema or exudate Cardiovascular: regular rate and rhythm, normal peripheral perfusion Respiratory: Lungs CTA, respirations non labored Chest wall: no deformity. Gastrointestinal: soft, non distended, no tenderness, no guarding. Back: No tenderness, Normal ROM, Normal alignment. Extremities: no deformity, no trauma, right leg swelling, redness around the ankle to the knee, very warm to touch, very tender to touch. Neurological: oriented x 4, LOC appropriate for age, CN II-XII intact, motor strength equal & normal bilaterally, sensation equal & normal bilaterally, speech normal Psychiatric: cooperative, affect appropriate for age, normal judgement, normal psychiatric thoughts. [1] Lab Results WBC: 8.1 E9/L (07/01/23 06:21:00) RBC: 4.3 E12/L (07/01/23 06:21:00) HGB: 12.5 gm/dL (07/01/23 06:21:00) Hct: 36.8 % (07/01/23 06:21:00) MCV: 85.6 fL (07/01/23 06:21:00) MCH: 29 pg (07/01/23 06:21:00) MCHC: 33.9 gm/dL (07/01/23 06:21:00) RDW: 14.2 % (07/01/23 06:21:00) Platelet: 108 E9/L Low (07/01/23 06:21:00) MPV: 11.3 fL High (07/01/23 06:21:00) Neutro Auto: 71.5 % (07/01/23 06:21:00) Lymph Auto: 19.9 % (07/01/23 06:21:00) [place] Auto: 7.9 % (07/01/23 06:21:00) Eos Auto: 0.4 % (07/01/23 06:2 (more content not included)... Normal [facility] Comment on above: Result Comment: Elec tronically Signed By: NELY GUERRERO, Unruly\.br\Date and Time Signed: 07/02/23 11:35 EDT Vanco Peakon 07-02-2023 VANCOMYCIN 16 microgram/mL Abnormal 20-40 [facility] Comment on above: Result Comment: Crit ical Result verified by repeat analysis\Critical Result S_VANC_P:16.0 Called to [facility] AT 3S by COLBY MARTINEZ And Read Back For Confirmation at: 07/02/2023 00:19:01 Performed By: #### 2 [id number] ####[facility] [id number] [place] [address] Vanco Troughon 07-02-2023 VANCOMYCIN 6 microgram/mL Low 07-02 [facility] Comment on above: Order Comment: Pleas e draw 1 hour prior to dose at 0800 on 07/02. Thank you. Performed By: #### 2 [id number] ####[facility] [id number] [place] [address] Auto Diffon 07-01-2023 Basophils/100 WBC (Bld) 0.3 % Normal 0.0-2.0 [facility] Comment on above: Order Comment: Order added by Discern Expert. Performed By: #### 2 [id number], [id number], [id number], [id number], [id number] #### [facility] [address] [place] [address] Basophils/Leukocytes Auto (Bld) [Pure # fraction] 0.0 E9/L Normal 0.0-0.2 [facility] Comment on above: Order Comment: Order added by Discern Expert. Performed By: #### 2 [id number], [id number], [id number], [id number], [id number] #### [facility] [address] [place] [address] Eosinophils/100 WBC (Bld) 0.4 % Normal 0.0-8.0 [facility] Comment on above: Order Comment: Order added by Discern Expert. Performed By: #### 2 [id number], 5809538, 5581895, [id number], [id number] #### [facility] [address] [place] [address] Eosinophils/Leukocytes Auto (Bld) [Pure # fraction] 0.0 E9/L Normal 0.0-0.5 [facility] Comment on above: Order Comment: Order added by Discern Expert. Performed By: #### 2 476497, 3081068, 2131445, 1362244, [id number] #### [facility] [address] [place] [address] Lymphocytes/100 WBC (Bld) 19.9 % Normal 14.0-50.0 [facility] Comment on above: Order Comment: Order added by Discern Expert. Performed By: #### 2 518415, 4914130, 2306125, 9283849, [id number] #### [facility] [address] [place] [address] Lymphocytes/Leukocytes Auto (Bld) [Pure # fraction] 1.6 E9/L Normal 1.0-4.0 [facility] Comment on above: Order Comment: Order added by Mariano Expert. Performed By: #### 2 250789, 4063736, 2515391, 2025504, [id number] #### [facility] [address] [place] [address] Monocytes/100 WBC (Bld) 7.9 % Normal 4.0-14.0 [facility] Comment on above: Order Comment: Order added by Mariano Expert. Performed By: #### 2 534423, 6742663, 1379889, 6141001, [id number] #### [facility] [address] [place] [address] Monocytes/Leukocytes Auto (Bld) [Pure # fraction] 0.6 E9/L Normal 0.2-1.0 [facility] Comment on above: Order Comment: Order added by Mariano Expert. Performed By: #### 2 109580, 9746911, 6481340, 0694075, [id number] #### [facility] [address] [place] [address] Neutrophils/100 WBC (Bld) 71.5 % Normal 36.0-75.0 [facility] Comment on above: Order Comment: Order added by Discern Expert. Performed By: #### 2 783733, 4903106, 7048975, 0379404, [id number] #### [facility] [address] [place] [address] Neutrophils/Leukocytes Auto (Bld) [Pure # fraction] 5.8 E9/L Normal 2.0-7.5 [facility] Comment on above: Order Comment: Order added by Discern Expert. Performed By: #### 2 003136, 6297148, 6566834, 4201526, [id number] #### [facility] [address] [place] [address] BMPon 07-01-2023 Anion gap [Moles/Vol] 12 mmol/L Normal 6-16 [facility] Comment on above: Performed By: #### 2 [id number] #### [facility] [address] [place] [address] Calcium [Mass/Vol] 7.9 mg/dL Low 8.9-11.1 [facility] Comment on above: Performed By: #### 2 [id number] #### [facility] [address] [place] [address] Chloride [Moles/Vol] 108 mmol/L Normal 101-111 [facility] Comment on above: Performed By: #### 2 [id number] #### [facility] [address] [place] [address] CO2 [Moles/Vol] 19 mmol/L Low 21-31 [facility] Comment on above: Performed By: #### 2 [id number] #### [facility] [address] [place] [address] Creatinine [Mass/Vol] 0.7 mg/dL Normal 0.5-1.3 [facility] Comment on above: Performed By: #### 2 [id number] #### [facility] [address] [place] [address] Glucose [Mass/Vol] 223 mg/dL High 55-199 [facility] Comment on above: Result Comment: If t his glucose result represents a fasting glucose, interpretation should refer to the following reference range: 55-99 mg/dL Performed By: #### 2 [id number] #### [facility] [address] [place] [address] Potassium [Moles/Vol] 3.6 mmol/L Normal 3.5-5.3 [facility] Comment on above: Performed By: #### 2 [id number] #### [facility] [address] [place] [address] Sodium [Moles/Vol] 135 mmol/L Normal 135-145 [facility] Comment on above: Performed By: #### 2 [id number] #### [facility] [address] [place] [address] Urea nitrogen [Mass/Vol] 12 mg/dL Normal 5-21 [facility] Comment on above: Performed By: #### 2 [id number] #### [facility] [address] [place] [address] Urea nitrogen/Creatinine [Mass ratio] 17 No Units Normal 10-20 [facility] Comment on above: Performed By: #### 2 [id number] #### [facility] [address] [place] [address] CBC w/ Auto Diffon 3 Erythrocyte distribution width (RBC) [Ratio] 14.2 % Normal 10.9-14.2 [facility] Comment on above: Performed By: #### 2 136568, 3232091, 4445469, 1393109, [id number] #### [facility] [address] [place] [address] Hematocrit (Bld) [Volume fraction] 36.8 % Normal 34.0-46.0 [facility] Comment on above: Performed By: #### 2 294150, 1076436, 4587138, 9987639, 43959813 #### [facility] [address] [place] [address] Hemoglobin (Bld) [Mass/Vol] 12.5 g/dL Normal 12.0-16.0 [facility] Comment on above: Performed By: #### 2 939521, 0553984, 9868315, 2740891, [id number] #### [facility] [address] [place] [address] MCH (RBC) [Entitic mass] 29.0 pg Normal 27.0-34.0 [facility] Comment on above: Performed By: #### 2 298783, 9780623, 3081519, 2170680, [id number] #### [facility] [address] [place] [address]34 MCHC (RBC) [Mass/Vol] 33.9 g/dL Normal 31.4-36.0 [facility] Comment on above: Performed By: #### 2 [id number], [id number], 4250746, [id number], [id number] #### [facility] [address] [place] [address] 87044 MCV (RBC) [Entitic vol] 85.6 fL Normal 80.0-100.0 [facility] Comment on above: Performed By: #### 2 258517, 4940753, 6178354, 4113204, [id number] #### [facility] [address] [place] [address] 88409 Platelet mean volume (Bld) [Entitic vol] 11.3 fL High 6.4-10.8 [facility] Comment on above: Performed By: #### 2 432885, 2291771, 1922611, 7462692, [id number] #### [facility] [address] [place] [address] 604[address] Platelets (Bld) [#/Vol] 108.0 E9/L Low 150.0-500.0 [facility] Comment on above: Performed By: #### 2 068390, 5166605, 0092409, 8119801, [id number] #### [facility] [address] [place] [address] RBC (Bld) [#/Vol] 4.3 E12/L Normal 4.3-5.9 [facility] Comment on above: Performed By: #### 2 609815, 8715188, 2945344, 2055061, [id number] #### [facility] [address] [place] [address] WBC corrected for nucl RBC Auto (Bld) [#/Vol] 8.1 E9/L Normal 4.0-11.0 [facility] Comment on above: Performed By: #### 2 927961, 9648692, 0138038, 7505710, [id number] #### [facility] [address] [place] [address] CHEMISTRYOrdered By: SYSTEM SYSTEM on 07-01-2023 Vancomycin peak [Moles/Vol] 16 microgram/mL Invalid Interpretation Code 20 - 40 mcg/mL [facility] Comment on above: Result Comment: Crit ical Result verified by repeat analysis\Critical Result S_VANC_P:16.0 Called to [facility] by COLBY MARTINEZ And Read Back For Confirmation at: 07/02/2023 00:19:01 Anion gap [Moles/Vol] 12 mmol/L Normal 6 - 16 mEq/L [facility] Calcium [Mass/Vol] 7.9 mg/dL Low 8.9 - 11. 1 mg/dL [facility] Chloride [Moles/Vol] 108 mmol/L Normal 101 - 1 11 mmol/L [facility] CO2 [Moles/Vol] 19 mmol/L Low 21 - 31 mmol/L [facility] Creatinine [Mass/Vol] 0.7 mg/dL Normal 0.5 - 1.3 mg/dL [facility] GFR/1.73 sq M.predicted among non-blacks MDRD (S/P/Bld) [Vol rate/Area] 100 mL/min/1.73 m2 Normal >=59mL/min/1 .73 m2 [facility] Chem S Comment on above: Interpretive Data: C hronic kidney disease could be indicated at eGFR's of less than 60 mL/min/1.73m2. Kidney failure is indicated at less than 15 mL/min/1.73m2. Glucose [Mass/Vol] 223 mg/dL High 55 - 199 mg/dL [facility] Comment on above: Interpretive Data: I f this glucose result represents a fasting glucose, interpretation should refer to the following reference range: 55-99 mg/dL Magnesium [Mass/Vol] 1.8 mg/dL Normal 1.3 - 2 .4 mg/dL [facility] Remisol Potassium [Moles/Vol] 3.6 mmol/L Normal 3.5 - 5.3 mmol/L [facility] Remisol Sodium [Moles/Vol] 135 mmol/L Normal 135 - 145 mmol/L [facility] Remisol Urea nitrogen [Mass/Vol] 12 mg/dL Normal 5 - 21 mg/dL [facility] Urea nitrogen/Creatinine [Mass ratio] 17 mg/mg Normal 10 - 20 [facility] CHEMISTRYOrdered By: Lab ROP User on 07-01-2023 Glucose [Mass/Vol] 208 mg/dL High 55 - 99 mg/dL [facility] POC Subsection POC Username DUSTIN FARRELL Invalid Interpretation Code [facility] POC Subsection Sodium [Moles/Vol] 761622065274 mmol/L Invalid Interpretation Code [facility] POC Subsection Sodium [Moles/Vol] 653730972 mmol/L Invalid Interpretation Code [facility] POC Subsection Capillary Glucose POCon 06-13 Glucose [Mass/Vol] 208 mg/dL High 55-99 [facility] Comment on above: Performed By: #### 2 [id number] #### [facility] [address] [place] [address] Glucose [Mass/Vol] 275 mg/dL High 55-99 [facility] Comment on above: Result Comment: Simón GRIFFIN Performed By: #### 2 [id number] ####[facility] [address] [place] [address] Glucose [Mass/Vol] 253 mg/dL High 55-99 [facility] Comment on above: Result Comment: Simón GRIFFIN Performed By: #### 2 086210, 6045990, 0861778, 7332517, [id number] #### [facility] [address] [place] [address] Glucose [Mass/Vol] 214 mg/dL High 55-99 [facility] Comment on above: Result Comment: Simón GRIFFIN Performed By: #### 2 [id number] #### [facility] [address] [place] [address] HEMATOLOGYOrdered By: Roth Builders SYSTEM on 07-01-2023 Basophils/100 WBC (Bld) 0.3 % Normal 0.0 - 2.0 % [facility] Basophils/Leukocytes Auto (Bld) [Pure # fraction] 0.0 E9/L Normal 0.0 - 0.2 E9/L [facility] Eosinophils/100 WBC (Bld) 0.4 % Normal 0.0 - 8.0 % [facility] Eosinophils/Leukocytes Auto (Bld) [Pure # fraction] 0.0 E9/L Normal 0.0 - 0.5 E9/L [facility] Lymphocytes/100 WBC (Bld) 19.9 % Normal 14.0 - 50.0 % [facility] Lymphocytes/Leukocytes Auto (Bld) [Pure # fraction] 1.6 E9/L Normal 1.0 - 4.0 E9/L [facility] Monocytes/100 WBC (Bld) 7.9 % Normal 4.0 - 14.0 % [facility] Monocytes/Leukocytes Auto (Bld) [Pure # fraction] 0.6 E9/L Normal 0.2 - 1.0 E9/L [facility] Neutrophils/100 WBC (Bld) 71.5 % Normal 36.0 - 75.0 % [facility] Neutrophils/Leukocytes Auto (Bld) [Pure # fraction] 5.8 E9/L Normal 2.0 - 7.5 E9/L [facility] HEMATOLOGYOrdered By: Zoë Kaur on 07-01-2023 Erythrocyte distribution width (RBC) [Ratio] 14.2 % Normal 10.9 - 14.2 % [facility] Hematocrit (Bld) [Volume fraction] 36.8 % Normal 34.0 - 46.0 % [facility] Hemoglobin (Bld) [Mass/Vol] 12.5 g/dL Normal 12.0 - 16.0 gm/dL [facility] MCH (RBC) [Entitic mass] 29.0 pg Normal 27.0 - 34.0 pg [facility] MCHC (RBC) [Mass/Vol] 33.9 g/dL Normal 31.4 - 36.0 gm/dL [facility] MCV (RBC) [Entitic vol] 85.6 fL Normal 80.0 - 100.0 fL [facility] Platelet mean volume (Bld) [Entitic vol] 11.3 fL High 6.4 - 10.8 fL [facility] Platelets (Bld) [#/Vol] 108.0 E9/L Low 150. 0 - 500.0 E9/L [facility] RBC (Bld) [#/Vol] 4.3 E12/L Normal 4.3 - 5.9 E12/L [facility] WBC corrected for nucl RBC Auto (Bld) [#/Vol] 8.1 E9/L Normal 4.0 - 11.0 E9/L [facility] Insurance Correspondence Off iceon 07-01-2023 Insurance Correspondence Office [id number] #1.00TIFF [facility] Interdisciplinary Note - Vinayak e Manageron 07-01-2023 Interdisciplinary Note - Switchboard Inspector Pt is awake and alert in bed, previously rounded with Dr. Cueto. Pt is aware of plan to stay in hospital today and anticipate DC tomorrow. Pt is form home with spouse and he will transport at DC. Declines any concerns or DC needs . PCP verified and insurance information reviewed and DME discussed. Contact information provided and white board updated. Normal [facility] Comment on above: Result Comment: Elec tronically Signed By: Sol MERAZ, Juhi\.carlos\Date and Time Signed: 07/01/23 12:11 EDT Magnesiumon 07-01-2023 Magnesium [Mass/Vol] 1.8 mg/dL Normal 1.3-2.4 [facility] Comment on above: Performed By: #### 2 [id number] #### [facility] [address] [place] [address] Monitor Recordon 07-01-2023 Monitor Record [id number] 3#1.00TIFF Normal [facility] Monitor Record [id number] 3#1.00TIFF Normal [facility] eGFRon 07-01-2023 GFR/1.73 sq M.predicted among non-blacks MDRD (S/P/Bld) [Vol rate/Area] 100 mL/min/1.73 m2 Normal >=59 [facility] Comment on above: Order Comment: Order added by Discern Expert. Result Comment: Stenciler jyothi kidney disease could be indicated at eGFR's of less than 60 mL/min/1.73m2. Kidney failure is indicated at less than 15 mL/min/1.73m2. Performed By: #### 2 [id number] #### [facility] [address] [place] [address] Auto Diffon 06-30-2023 Basophils/100 WBC (Bld) 0.2 % Normal 0.0-2.0 [facility] Comment on above: Order Comment: Order Added by Discern Expert. Performed By: #### 2 [id number] #### [facility] [address] [place] [address] Basophils/Leukocytes Auto (Bld) [Pure # fraction] 0.0 E9/L Normal 0.0-0.2 [facility] Comment on above: Order Comment: Order Added by Discern Expert. Performed By: #### 2 [id number] #### [facility] [address] [place] [address] Eosinophils/100 WBC (Bld) 0.0 % Normal 0.0-8.0 [facility] Comment on above: Order Comment: Order Added by Discern Expert. Performed By: #### 2 [id number] #### [facility] [address] [place] [address] Eosinophils/Leukocytes Auto (Bld) [Pure # fraction] 0.0 E9/L Normal 0.0-0.5 [facility] Comment on above: Order Comment: Order Added by Discern Expert. Performed By: #### 2 [id number] #### [facility] [address] [place] [address] 17794 Lymphocytes/100 WBC (Bld) 11.8 % Low 14.0-50.0 [facility] Comment on above: Order Comment: Order Added by Discern Expert. Performed By: #### 2 [id number] #### [facility] [address] [place] [address] Lymphocytes/Leukocytes Auto (Bld) [Pure # fraction] 1.3 E9/L Normal 1.0-4.0 [facility] Comment on above: Order Comment: Order Added by Discern Expert. Performed By: #### 2 [id number] #### [facility] [address] [place] [address] Monocytes/100 WBC (Bld) 5.9 % Normal 4.0-14.0 [facility] Comment on above: Order Comment: Order Added by Discern Expert. Performed By: #### 2 [id number] #### [facility] [address] [place] [address]69 Monocytes/Leukocytes Auto (Bld) [Pure # fraction] 0.7 E9/L Normal 0.2-1.0 [facility] Comment on above: Order Comment: Order Added by Discern Expert. Performed By: #### 2 [id number] #### [facility] [address] [place] [address] 08259 Neutrophils/100 WBC (Bld) 82.1 % High 36.0-75.0 [facility] Comment on above: Order Comment: Order Added by Discern Expert. Performed By: #### 2 [id number] #### [facility] [address] [place] [address] 313[address] Neutrophils/Leukocytes Auto (Bld) [Pure # fraction] 9.4 E9/L High 2.0-7.5 [facility] Comment on above: Order Comment: Order Added by Discern Expert. Performed By: #### 2 [id number] #### [facility] [address] [facility] [address] BMPon 06-30-2023 Anion gap [Moles/Vol] 9 mmol/L Normal 6-16 [facility] Comment on above: Performed By: #### 2 [id number] #### [facility] [address] [place] [address] Calcium [Mass/Vol] 7.8 mg/dL Low 8.9-11.1 [facility] Comment on above: Performed By: #### 2 [id number] #### [facility] [address] [place] [address] Chloride [Moles/Vol] 109 mmol/L Normal 101-111 [facility] Comment on above: Performed By: #### 2 [id number] #### [facility] [address] [place] [address] CO2 [Moles/Vol] 21 mmol/L Normal 21-31 [facility] Comment on above: Performed By: #### 2 [id number] #### [facility] [address] [place] [address] Creatinine [Mass/Vol] 0.8 mg/dL Normal 0.5-1.3 [facility] Comment on above: Performed By: #### 2 [id number] #### [facility] [address] [place] [address] Glucose [Mass/Vol] 223 mg/dL High 55-199 [facility] Comment on above: Result Comment: If t his glucose result represents a fasting glucose, interpretation should refer to the following reference range: 55-99 mg/dL Performed By: #### 2 [id number] #### [facility] [address] [place] [address] Potassium [Moles/Vol] 3.0 mmol/L Low 3.5-5.3 [facility] Comment on above: Performed By: #### 2 [id number] #### [facility] [address] [place] [address] Sodium [Moles/Vol] 136 mmol/L Normal 135-145 [facility] Comment on above: Performed By: #### 2 [id number] #### [facility] [address] [place] [address] Urea nitrogen [Mass/Vol] 17 mg/dL Normal 5-21 [facility] Comment on above: Performed By: #### 2 [id number] #### [facility] [address] [place] [address] Urea nitrogen/Creatinine [Mass ratio] 21 No Units High 10-20 [facility] Comment on above: Performed By: #### 2 [id number] #### [facility] [address] [place] [address] CBC w/ Auto Diffon Erythrocyte distribution width (RBC) [Ratio] 14.2 % Normal 10.9-14.2 [facility] Comment on above: Performed By: #### 2 [id number] #### [facility] [address] [place] [address] Hematocrit (Bld) [Volume fraction] 38.9 % Normal 34.0-46.0 [facility] Comment on above: Performed By: #### 2 [id number] #### [facility] [address] [place] [address] Hemoglobin (Bld) [Mass/Vol] 13.2 g/dL Normal 12.0-16.0 [facility] Comment on above: Performed By: #### 2 [id number] #### [facility] [address] [place] [address] MCH (RBC) [Entitic mass] 29.0 pg Normal 27.0-34.0 [facility] Comment on above: Performed By: #### 2 [id number] #### [facility] [address] [place] [address] MCHC (RBC) [Mass/Vol] 34.0 g/dL Normal 31.4-36.0 [facility] Comment on above: Performed By: #### 2 [id number] #### [facility] [address] [place] [address] MCV (RBC) [Entitic vol] 85.2 fL Normal 80.0-100.0 [facility] Comment on above: Performed By: #### 2 [id number] #### [facility] [address] [place] [address] Platelet mean volume (Bld) [Entitic vol] 10.5 fL Normal 6.4-10.8 [facility] Comment on above: Performed By: #### 2 [id number] #### [facility] [address] [place] [address] Platelets (Bld) [#/Vol] 83.0 E9/L Low 150.0-500.0 [facility] Comment on above: Result Comment: Plat elet count verified using smear estimate Performed By: #### 2 [id number] #### [facility] [address] [place] [address] RBC (Bld) [#/Vol] 4.6 E12/L Normal 4.3-5.9 [facility] Comment on above: Performed By: #### 2 [id number] #### [facility] [address] [place] [address] WBC corrected for nucl RBC Auto (Bld) [#/Vol] 11.4 E9/L High 4.0-11.0 [facility] Comment on above: Performed By: #### 2 [id number] #### [facility] [address] [place] [id number] CHEMISTRYOrdered By: SYSTEM SYSTEM on 06-30-2023 Vancomycin trough [Moles/Vol] 11 microgram/mL Normal 10 - 20 mcg/mL [facility] Vancomycin peak [Moles/Vol] 38 microgram/mL Normal 20 - 40 mcg/mL [facility] Anion gap [Moles/Vol] 9 mmol/L Normal 6 - 16 mEq/L [facility] Calcium [Mass/Vol] 7.8 mg/dL Low 8.9 - 11. 1 mg/dL [facility] Chloride [Moles/Vol] 109 mmol/L Normal 101 - 1 11 mmol/L [facility] CO2 [Moles/Vol] 21 mmol/L Normal 21 - 31 mmol/L [facility] Remisol Creatinine [Mass/Vol] 0.8 mg/dL Normal 0.5 - 1.3 mg/dL [facility] Remisol GFR/1.73 sq M.predicted among non-blacks MDRD (S/P/Bld) [Vol rate/Area] 85 mL/min/1.73 m2 Normal >=59mL/min/1 .73 m2 [facility] Chem S Comment on above: Interpretive Data: C hronic kidney disease could be indicated at eGFR's of less than 60 mL/min/1.73m2. Kidney failure is indicated at less than 15 mL/min/1.73m2. Glucose [Mass/Vol] 223 mg/dL High 55 - 199 mg/dL [facility] Remisol Comment on above: Interpretive Data: I f this glucose result represents a fasting glucose, interpretation should refer to the following reference range: 55-99 mg/dL Magnesium [Mass/Vol] 1.8 mg/dL Normal 1.3 - 2 .4 mg/dL [facility] Remisol Potassium [Moles/Vol] 3.0 mmol/L Low 3.5 - 5.3 mmol/L [facility] Remisol Sodium [Moles/Vol] 136 mmol/L Normal 135 - 145 mmol/L [facility] Remisol Urea nitrogen [Mass/Vol] 17 mg/dL Normal 5 - 21 mg/dL [facility] Remisol Urea nitrogen/Creatinine [Mass ratio] 21 mg/mg High 10 - 20 [facility] Remisol Capillary Glucose POCon 06-13 Glucose [Mass/Vol] 294 mg/dL High 55-99 [facility] Comment on above: Result Comment: Simón GRIFFIN Performed By: #### 2 [id number] ####[facility] [address] [place] [address] Glucose [Mass/Vol] 229 mg/dL High 55-99 [facility] Comment on above: Result Comment: Simón GRIFFIN Performed By: #### 2 [id number], [id number], 4567503, 7240130, [id number] #### [facility] [address] [place] [address] Glucose [Mass/Vol] 285 mg/dL High 55-99 [facility] Comment on above: Result Comment: Simón GRIFFIN Performed By: #### 2 [id number] #### [facility] [address] [place] [address] Glucose [Mass/Vol] 223 mg/dL High 55-99 [facility] Comment on above: Result Comment: Simón GRIFFIN Performed By: #### 2 [id number] #### [facility] [address] [place] [address] HEMATOLOGYOrdered By: Roth Builders SYSTEM on 06-30-2023 Basophils/100 WBC (Bld) 0.2 % Normal 0.0 - 2.0 % [facility] Basophils/Leukocytes Auto (Bld) [Pure # fraction] 0.0 E9/L Normal 0.0 - 0.2 E9/L [facility] Eosinophils/100 WBC (Bld) 0.0 % Normal 0.0 - 8.0 % [facility] Eosinophils/Leukocytes Auto (Bld) [Pure # fraction] 0.0 E9/L Normal 0.0 - 0.5 E9/L [facility] Lymphocytes/100 WBC (Bld) 11.8 % Low 14.0 - 50.0 % [facility] Lymphocytes/Leukocytes Auto (Bld) [Pure # fraction] 1.3 E9/L Normal 1.0 - 4.0 E9/L [facility] Monocytes/100 WBC (Bld) 5.9 % Normal 4.0 - 14.0 % [facility] Monocytes/Leukocytes Auto (Bld) [Pure # fraction] 0.7 E9/L Normal 0.2 - 1.0 E9/L [facility] Neutrophils/100 WBC (Bld) 82.1 % High 36.0 - 75.0 % [facility] Neutrophils/Leukocytes Auto (Bld) [Pure # fraction] 9.4 E9/L High 2.0 - 7.5 E9/L [facility] HEMATOLOGYOrdered By: Nathaly Modi on 06-30-2023 Erythrocyte distribution width (RBC) [Ratio] 14.2 % Normal 10.9 - 14.2 % [facility] Hematocrit (Bld) [Volume fraction] 38.9 % Normal 34.0 - 46.0 % [facility] Hemoglobin (Bld) [Mass/Vol] 13.2 g/dL Normal 12.0 - 16.0 gm/dL [facility] MCH (RBC) [Entitic mass] 29.0 pg Normal 27.0 - 34.0 pg [facility] MCHC (RBC) [Mass/Vol] 34.0 g/dL Normal 31.4 - 36.0 gm/dL [facility] MCV (RBC) [Entitic vol] 85.2 fL Normal 80.0 - 100.0 fL [facility] Platelet mean volume (Bld) [Entitic vol] 10.5 fL Normal 6.4 - 10.8 fL [facility] Platelets (Bld) [#/Vol] 83.0 E9/L Low 150. 0 - 500.0 E9/L [facility] Comment on above: Result Comment: Plat elet count verified using smear estimate RBC (Bld) [#/Vol] 4.6 E12/L Normal 4.3 - 5.9 E12/L [facility] WBC corrected for nucl RBC Auto (Bld) [#/Vol] 11.4 E9/L High 4.0 - 11.0 E9/L [facility] Insurance Correspondence Off iceon 06-30-2023 Insurance Correspondence Office [id number] 1#1.00TIFF [facility] Interdisciplinary Note - Vinayak e Manageron 06-30-2023 Interdisciplinary Note - Switchboard Inspector CRM to room to discuss DC planning. Pt is awake and alert in bed, previously rounded with Dr. Cueto. Pt is aware of plan to remain in hospital for few days, anticipate DC Wednesday. PT is from home with spouse, independent with activities and spouse will transport at DC. Declines any concerns or DC needs. CRM following. . Contact information provided and white board updated. [facility] Comment on above: Result Comment: Elec tronically Signed By: Yumiko Black\.br\Date and Time Signed: 06/30/23 13:09 EDT Magnesiumon 06-30-2023 Magnesium [Mass/Vol] 1.8 mg/dL Normal 1.3-2.4 [facility] Comment on above: Performed By: #### 2 [id number], [id number], 6159409, [id number], [id number] #### [facility] [address] [place] [address] Monitor Recordon 06-30-2023 Monitor Record [id number] 8#1.00TIFF Normal [facility] Monitor Record [id number] 8#1.00TIFF Normal [facility] Monitor Record [id number] 2#1.00TIFF Normal [facility] Monitor Record [id number] 1#1.00TIFF Normal [facility] Progress Note - Pharmacyon 1 Progress Note - Pharmacy Indication: Empiric Treatment Goal Range:AUC/FLACO: 400 - 600 RECOMMENDATIONS PLAN: Pharmacy consulted for vancomycin dosing for MARILYN DUNCAN, a 57 Years, Female who is being treated with vancomycin for . 1. VANCO STATUS Vancomycin therapy is still active, today is day 3 of treatment. Patient is receiving Vanco 1000 mg IV q12hr 2. VANCO LEVEL The most recent vanco level were, Peak 38 mcg/mL draw at 12:37 on 06/30/23 and Trough 11 mcg/mL drawn at 20:12 on 06/30/2023. Based on these levels AUC is 731. These levels were drawn on day 3 of therapy. 3. DOSING RECS The Vanco AUC is not therapeutic, the following dosing adjustments have been made:decreased to 1000 mg q12hr 4. NEXT LEVELThe next paired levels are schedule. Peak at 2300 on 07/01 and Trough at 0800 on 07/02. 5. MRSA NASAL SWAB A MRSA NASAL swab is not appropriate at this time... We will follow patient renal function, vancomycin levels and doses with you during the course of therapy. Additional recommendations will appear in follow up notes. If you have any question please contact pharmacy. Age: 57 Years Allergies: ALLERGIES NKA Weight Last Documented Weight and Type of Scale Used Last Documented Weight Weight Measured: 125.7 kg (06/30/23 06:43:00) Type of Scale Used Weight Measured Type of Scale: Bed Scale (digital) (06/28/23 18:55:00) Height Last Documented Height/Length Last Documented Height/Length Height/Length Measured: 170.18 cm (06/29/23 07:46:00) CrCl: 100 mL/min Scr: 0.8 mg/dL Labs: WBC: 11.4 E9/L High (06/30/23 06:22:00) RBC: 4.6 E12/L (06/30/23 06:22:00) HGB: 13.2 gm/dL (06/30/23 06:22:00) Hct: 38.9 % (06/30/23 06:22:00) MCV: 85.2 fL (06/30/23 06:22:00) MCH: 29 pg (06/30/23 06:22:00) MCHC: 34 gm/dL (06/30/23 06:22:00) RDW: 14.2 % (06/30/23 06:22:00) Platelet: 83 E9/L Low (06/30/23 06:22:00) MPV: 10.5 fL (06/30/23 06:22:00) Neutro Auto: 82.1 % High (06/30/23 06:22:00) Lymph Auto: 11.8 % Low (06/30/23 06:22:00) [place] Auto: 5.9 % (06/30/23 06:22:00) Eos Auto: 0 % (06/30/23 06:22:00) Basophil Auto: 0.2 % (06/30/23 06:22:00) Neutro Absolute: 9.4 E9/L High (06/30/23 06:22:00) Lymph Absolute: 1.3 E9/L (06/30/23 06:22:00) [place] Absolute: 0.7 E9/L (06/30/23 06:22:00) Eos Absolute: 0 E9/L (06/30/23 06:22:00) Basophil Absolute: 0 E9/L (06/30/23 06:22:00) Glucose Lvl: 223 mg/dL High (06/30/23 06:22:00) BUN: 17 mg/dL (06/30/23 06:22:00) Creatinine: 0.8 mg/dL (06/30/23 06:22:00) eGFR: 85 mL/min/1.73 m2 (06/30/23 06:22:00) BUN/Creat Ratio: 21 High (06/30/23 06:22:00) Sodium Lvl: 136 mmol/L (06/30/23 06:22:00) Potassium Lvl: 3 mmol/L Low (06/30/23 06:22:00) Chloride: 109 mmol/L (06/30/23 06:22:00) CO2: 21 mmol/L (06/30/23 06:22:00) AGAP: 9 mEq/L (06/30/23 06:22:00) Calcium Lvl: 7.8 mg/dL Low (06/30/23 06:22:00) Magnesium: 1.8 mg/dL (06/30/23 06:22:00) Vanco Tr: 11 mcg/mL (06/30/23 19:53:00) Vanco Pk: 38 mcg/mL (06/30/23 11:53:00) Glucose Cap: 294 mg/dL High (06/30/23 20:15:00) POC Device SN: [id number] (06/30/23 20:15:00) POC User ID: [id number] (06/30/23 20:15:00) POC Username: POC Username (06/30/23 20:15:00) Normal [facility] Vanco [place] 06-30-2023 VANCOMYCIN 38 microgram/mL Normal 20-40 [facility] Comment on above: Order Comment: Take at noon please. Thank you Performed By: #### 2 [id number] #### [facility] [address] [place] [address] Vanco Troughon 06-30-2023 VANCOMYCIN 11 microgram/mL Normal 10-20 [facility] Comment on above: Order Comment: Take trough one hour prior to dose at 2100. Thank you Performed By: #### 2 513768, 6721138, 1158012, 5310305, [id number] #### [facility] [address] [place] [address] eGFRon 06-30-2023 GFR/1.73 sq M.predicted among non-blacks MDRD (S/P/Bld) [Vol rate/Area] 85 mL/min/1.73 m2 Normal >=59 [facility] Comment on above: Order Comment: Order added by Discern Expert. Result Comment: Stenciler jyothi kidney disease could be indicated at eGFR's of less than 60 mL/min/1.73m2. Kidney failure is indicated at less than 15 mL/min/1.73m2. Performed By: #### 2 [id number] #### [facility] [address] [place] [address] .Manual Abson 06-29-2023 Basophils/Leukocytes Manual cnt (Bld) [Pure # fraction] 0.0 E9/L Normal 0.0-0.2 [facility] Comment on above: Performed By: #### 2 160906, 6284795, 96401822, 5992039, 21938130, 2270416 ####[facility] [address] [place] [address] Eosinophils/Leukocytes Manual cnt (Bld) [Pure # fraction] 0.0 E9/L Normal 0.0-0.5 [facility] Comment on above: Performed By: #### 2 732255, 1014957, 97060030, 9895273, 94603775, 7622295 ####[facility] [address] [place] [address] Lymphocytes/Leukocytes Manual cnt (Bld) [Pure # fraction] 1.3 E9/L Normal 1.0-4.0 [facility] Comment on above: Performed By: #### 2 840180, 9286787, 51814923, 0672537, 14001219, 6735020 ####[facility] [address] [place] [address] Monocytes/Leukocytes Manual cnt (Bld) [Pure # fraction] 0.0 E9/L Low 0.2-1.0 [facility] Comment on above: Performed By: #### 2 425868, 0371697, 52770854, 2740204, 03119172, 7005895 ####[facility] [address] [place] [address] Neutrophils/Leukocytes Auto (Bld) [Pure # fraction] 16.7 E9/L High 2.0-7.5 [facility] Comment on above: Performed By: #### 2 584483, 9032526, 05014117, 2780110, 91565236, 1721203 ####[facility] [address] [place] [address] BMPon 06-29-2023 Anion gap [Moles/Vol] 13 mmol/L Normal 6-16 [facility] Comment on above: Performed By: #### 2 449135, 3731584, 62849822, 9839275, 59257853, 4509436 ####[facility] [address] [place] [address] Calcium [Mass/Vol] 8.1 mg/dL Low 8.9-11.1 [facility] Comment on above: Performed By: #### 2 871312, 9410996, 24607910, 3258883, 31783102, 8501941 ####[facility] [address] [place] [address] Chloride [Moles/Vol] 104 mmol/L Normal 101-111 [facility] Comment on above: Performed By: #### 2 956780, 1423672, 66097658, 3961341, 82844401, 3577204 ####[facility] [address] [place] [address] CO2 [Moles/Vol] 21 mmol/L Normal 21-31 [facility] Comment on above: Performed By: #### 2 703703, 7235229, 32542741, 1419116, 45788548, 7756137 ####[facility] [address] [place] [address] Creatinine [Mass/Vol] 1.0 mg/dL Normal 0.5-1.3 [facility] Comment on above: Performed By: #### 2 023036, 2577491, 19609383, 1006037, 65403420, 7497443 ####[facility] [address] [place] [address] Glucose [Mass/Vol] 209 mg/dL High 55-199 [facility] Comment on above: Result Comment: If t his glucose result represents a fasting glucose, interpretation should refer to the following reference range: 55-99 mg/dL Performed By: #### 2 176647, 1458831, 07556917, 5364560, 73026283, 8513900 ####[facility] [address] [place] [address] Potassium [Moles/Vol] 3.4 mmol/L Low 3.5-5.3 [facility] Comment on above: Performed By: #### 2 749381, 3127821, 39910873, 6332612, 61969957, 1100111 ####[facility] [address] [place] [address] Sodium [Moles/Vol] 135 mmol/L Normal 135-145 [facility] Comment on above: Performed By: #### 2 347311, 4381131, 66343230, 4387012, 97117583, 9824469 ####[facility] [address] [place] [address] Urea nitrogen [Mass/Vol] 30 mg/dL High 5-21 [facility] Comment on above: Performed By: #### 2 082906, 6830772, 16604448, 4563134, 01389322, 4425940 ####[facility] [address] [place] [address] Urea nitrogen/Creatinine [Mass ratio] 30 No Units High 10-20 [facility] Comment on above: Performed By: #### 2 289157, 1531322, 31323681, 3434423, 71264327, 0115809 ####[facility] [address] [place] [address] CBC w/ Auto Diffon Erythrocyte distribution width (RBC) [Ratio] 14.1 % Normal 10.9-14.2 [facility] Comment on above: Performed By: #### 2 761057, 9529789, 80705856, 7388709, 76781202, 9503883 ####[address] [place] [address] Hematocrit (Bld) [Volume fraction] 43.1 % Normal 34.0-46.0 [facility] Comment on above: Performed By: #### 2 933304, 0762626, 25177578, 1443240, 78187700, 2524755 ####[address] [place] [address] Hemoglobin (Bld) [Mass/Vol] 14.4 g/dL Normal 12.0-16.0 [facility] Comment on above: Performed By: #### 2 739011, 3265345, 59956289, 9211954, 18895026, 7688568 ####[address] [place] [address] MCH (RBC) [Entitic mass] 28.6 pg Normal 27.0-34.0 [facility] Comment on above: Performed By: #### 2 316534, 4577168, 87697400, 8630328, 82234812, 0419912 ####[address] [address] MCHC (RBC) [Mass/Vol] 33.3 g/dL Normal 31.4-36.0 [facility] Comment on above: Performed By: #### 2 708953, 5180779, 63102384, 9530008, 76537528, 1168058 ####[address] [place] [address] MCV (RBC) [Entitic vol] 85.9 fL Normal 80.0-100.0 [facility] Comment on above: Performed By: #### 2 384996, 5792521, 00424352, 2110542, 19059748, 5147568 ####[facility] [address] [place] [address] Platelet mean volume (Bld) [Entitic vol] 10.8 fL Normal 6.4-10.8 [facility] Comment on above: Performed By: #### 2 007710, 3981371, 06311906, 6772498, 33509973, 9821554 ####[facility] [address] [place] [address] Platelets (Bld) [#/Vol] 107.0 E9/L Low 150.0-500.0 [facility] Comment on above: Performed By: #### 2 213836, 6856161, 09437337, 4104022, 49596324, 4359360 ####[address] [place] [address] RBC (Bld) [#/Vol] 5.0 E12/L Normal 4.3-5.9 [facility] Comment on above: Performed By: #### 2 090958, 0249631, 57504460, 6259375, 64409652, 4336202 ####[address] [place] [address] WBC corrected for nucl RBC Auto (Bld) [#/Vol] 18.0 E9/L High 4.0-11.0 [facility] Comment on above: Performed By: #### 2 568148, 4064006, 11259593, 0672544, 37807448, 3331982 ####[facility] [address] [place] [address] CHEMISTRYOrdered By: SYSTEM SYSTEM on 06-29-2023 Lactate [Mass/Vol] 1.8 mmol/L Normal 0.5 - 2.2 mmol/L [facility] Comment on above: Result Comment: 'Spe cimen hemolyzed, result may be affected. Redraw is recommended.' Lactate [Mass/Vol] 2.6 mmol/L High 0.5 - 2.2 mmol/L [facility] Rem[facility] Anion gap [Moles/Vol] 13 mmol/L Normal 6 - 16 mEq/L [facility] Calcium [Mass/Vol] 8.1 mg/dL Low 8.9 - 11. 1 mg/dL [facility] Chloride [Moles/Vol] 104 mmol/L Normal 101 - 1 11 mmol/L [facility] Remisol CO2 [Moles/Vol] 21 mmol/L Normal 21 - 31 mmol/L [facility] Remisol Creatinine [Mass/Vol] 1.0 mg/dL Normal 0.5 - 1.3 mg/dL [facility] Remisol GFR/1.73 sq M.predicted among non-blacks MDRD (S/P/Bld) [Vol rate/Area] 65 mL/min/1.73 m2 Normal >=59mL/min/1 .73 m2 [facility] Chem S Comment on above: Interpretive Data: C hronic kidney disease could be indicated at eGFR's of less than 60 mL/min/1.73m2. Kidney failure is indicated at less than 15 mL/min/1.73m2. Glucose [Mass/Vol] 209 mg/dL High 55 - 199 mg/dL [facility] Remisol Comment on above: Interpretive Data: I f this glucose result represents a fasting glucose, interpretation should refer to the following reference range: 55-99 mg/dL Potassium [Moles/Vol] 3.4 mmol/L Low 3.5 - 5.3 mmol/L [facility] Remisol Sodium [Moles/Vol] 135 mmol/L Normal 135 - 145 mmol/L [facility] Remisol Urea nitrogen [Mass/Vol] 30 mg/dL High 5 - 21 mg/dL [facility] Remisol Urea nitrogen/Creatinine [Mass ratio] 30 mg/mg High 10 - 20 [facility] Remisol Vancomycin trough [Moles/Vol] 8 microgram/mL Low 10 - 20 mcg/mL [facility] Remisol CHEMISTRYOrdered By: Chantale Jack on 06-29-2023 HbA1c (Bld) [Mass fraction] 9.7 % High <=5.9% [facility] ChemAutoSS Capillary Glucose POCon 06-13 Glucose [Mass/Vol] 221 mg/dL High 55-99 [facility] Comment on above: Result Comment: Yin aneta Meter Performed By: #### 2 987018, 5942591, 7103469, 5068275, 77003787 #### [facility] [address] [place] [address] Glucose [Mass/Vol] 165 mg/dL High 55-99 [facility] Comment on above: Result Comment: Simón GRIFFIN Performed By: #### 2 [id number] #### [facility] [address] [place] [address] Glucose [Mass/Vol] 194 mg/dL High 55-99 [facility] Comment on above: Result Comment: Simón GRIFFIN Performed By: #### 2 [id number] #### [facility] [address] [place] [address] Glucose [Mass/Vol] 219 mg/dL High 55-99 [facility] Comment on above: Result Comment: Simón GRIFFIN Performed By: #### 2 682329, 9506867, 9734275, 0987992, 19056774 #### [facility] [address] [place] [address] HEMATOLOGYOrdered By: Jennifer davalos on 06-29-2023 Band form neutrophils/100 WBC (Bld) 12 % High 0 - 10 % [facility] HemeManSS Basophils/100 WBC (Bld) 0 % Normal 0 - 2 % [facility] HemeManSS Basophils/Leukocytes Manual cnt (Bld) [Pure # fraction] 0.0 E9/L Normal 0.0 - 0.2 E9/L [facility] HemeManSS Eosinophils/100 WBC (Bld) 0 % Normal 0 - 8 % [facility] HemeManSS Eosinophils/Leukocytes Manual cnt (Bld) [Pure # fraction] 0.0 E9/L Normal 0.0 - 0.5 E9/L [facility] HemeManSS Erythrocyte distribution width (RBC) [Ratio] 14.1 % Normal 10.9 - 14.2 % [facility] HemeAutoSS Hematocrit (Bld) [Volume fraction] 43.1 % Normal 34.0 - 46.0 % [facility] HemeAutoSS Hemoglobin (Bld) [Mass/Vol] 14.4 g/dL Normal 12.0 - 16.0 gm/dL [facility] HemeAutoSS Lymphocytes/100 WBC (Bld) 7 % Low 14 - 50 % [facility] HemeManSS Lymphocytes/Leukocytes Manual cnt (Bld) [Pure # fraction] 1.3 E9/L Normal 1.0 - 4.0 E9/L [facility] HemeManSS MCH (RBC) [Entitic mass] 28.6 pg Normal 27.0 - 34.0 pg [facility] HemeAutoSS MCHC (RBC) [Mass/Vol] 33.3 g/dL Normal 31.4 - 36.0 gm/dL [facility] HemeAutoSS MCV (RBC) [Entitic vol] 85.9 fL Normal 80.0 - 100.0 fL [facility] HemeAutoSS Monocytes/100 WBC (Bld) 0 % Low 4 - 14 % F [facility] HemeManSS Monocytes/Leukocytes Manual cnt (Bld) [Pure # fraction] 0.0 E9/L Low 0.2 - 1.0 E9/L [facility] HemeManSS Morphology Javier (Bld) [Interp] Normal (06/29/23 5:59 AM) Normal [facility] HemeManSS Neutrophils/Leukocytes Auto (Bld) [Pure # fraction] 16.7 E9/L High 2.0 - 7.5 E9/L [facility] HemeManSS Platelet mean volume (Bld) [Entitic vol] 10.8 fL Normal 6.4 - 10.8 fL [facility] HemeAutoSS Platelets (Bld) [#/Vol] 107.0 E9/L Low 150. 0 - 500.0 E9/L [facility] HemeAutoSS RBC (Bld) [#/Vol] 5.0 E12/L Normal 4.3 - 5.9 E12/L [facility] HemeAutoSS Segmented neutrophils/100 WBC (Bld) 81 % High 36 - 75 % [facility] HemeManSS Variant lymphocytes LM Ql (Bld) 0 % Normal <=0% [facility] HemeManSS WBC corrected for nucl RBC Auto (Bld) [#/Vol] 18.0 E9/L High 4.0 - 11.0 E9/L [facility] HemeAutoSS [id number] 06-29-2023 HbA1c (Bld) [Mass fraction] 9.7 % High <=5.9 [facility] Comment on above: Order Comment: Order placed by EKM rule. [id number] Performed By: #### 2 959159, 8939775, 1515458, 1486749, 11908398 #### [facility] [address] [place] [address] Interdisciplinary Note - Vinayak e Manageron 06-29-2023 Interdisciplinary Note - Switchboard Inspector Pt is awake and alert in bed, previously rounded with Dr. Cueto Pt is aware of plan to remain in hospital for few days, anticipate DC or Wednesday on continued IV antbiotics. PT is from home with spouse, independent with activiies and spouse will transport at DC. Declines any concerns or DC needs. CRM following. . PCP verified and insurance information reviewed and DME discussed. Contact information provided and white board updated. Pt does not have [employer] insurance as listed, states she has medical mutual and her will bring in card today to have scanned into chart. UR updated. Normal [facility] Comment on above: Result Comment: Elec tronically Signed By: Sol MERAZ, Juhi\.br\Date and Time Signed: 06/29/23 11:22 EDT Lactic Acidon 06-29-2023 Lactate [Mass/Vol] 1.8 mmol/L Normal 0.5-2.2 [facility] Comment on above: Order Comment: Order added by EKS Rule. (FT_LACTIC_ACID_REFLEX) Adds reflex Lactic Acid 4 hours after initial if result is greater than or equal to 2.0.Order placed for recollect at 06/29/2023 12:17:27 EDT due to Hemolysis. Message sent to [facility] hd Result Comment: 'Spe cimen hemolyzed, result may be affected. Redraw is recommended.' Performed By: #### 2 [id number] #### [facility] [address] [place] [address] Lactate [Mass/Vol] 2.6 mmol/L High 0.5-2.2 [facility] Comment on above: Performed By: #### 2 389336, 5697639, 9805855, 3929243, 88667982 #### [facility] [address] [place] [address] Manual Diffon 06-29-2023 Band form neutrophils/100 WBC (Bld) 12 % High 0-10 [facility] Comment on above: Order Comment: Order Added by Discern Expert. Performed By: #### 2 525696, 0173793, 44406919, 5076345, 98674604, 0883074 ####[facility] [address] [place] [address] Basophils/100 WBC (Bld) 0 % Normal 0-2 [facility] Comment on above: Order Comment: Order Added by Discern Expert. Performed By: #### 2 433715, 4964866, 51258378, 6887453, 62648256, 8715418 ####[facility] [address] [place] [address] Eosinophils/100 WBC (Bld) 0 % Normal 0-8 [facility] Comment on above: Order Comment: Order Added by Mariano Expert. Performed By: #### 2 804140, 4741062, 08279204, 7305474, 58589539, 2312866 ####[facility] [address] [place] [address] Lymphocytes/100 WBC (Bld) 7 % Low 14-50 [facility] Comment on above: Order Comment: Order Added by Mariano Expert. Performed By: #### 2 800763, 0288341, 44906263, 6287898, 42073366, 9434736 ####[facility] [address] [place] [address] Monocytes/100 WBC (Bld) 0 % Low 4-14 [facility] Comment on above: Order Comment: Order Added by Discern Expert. Performed By: #### 2 509509, 2931524, 82644983, 0927238, 79118014, 1300504 ####[facility] [address] [place] [address] Morphology Javier (Bld) [Interp] Normal Normal [facility] Comment on above: Order Comment: Order Added by Mariano Expert. Performed By: #### 2 067687, 6125411, 28645650, 1548611, 26432656, 0071487 ####[facility] [address] [place] [address] Segmented neutrophils/100 WBC (Bld) 81 % High 36-75 [facility] Comment on above: Order Comment: Order Added by Discern Expert. Performed By: #### 2 827955, 4133165, 79005837, 0061982, 85183549, 0035967 ####[facility] [address] [place] [address] Variant lymphocytes LM Ql (Bld) 0 % Normal <=0 [facility] Comment on above: Order Comment: Order Added by Discern Expert. Performed By: #### 2 083949, 5040059, 54117111, 2537083, 62094452, 2809068 ####[facility] [address] [place] [address] Progress Note - Pharmacyon 1 Progress Note - Pharmacy Indication: Empiric Treatment Goal Range: AUC/FLACO: 400 - 600 RECOMMENDATIONS PLAN: Pharmacy consulted for vancomycin dosing for MARILYN DUNCAN, a 57 Years, Female who is being treated with vancomycin for cellulitis. 1. VANCO STATUS Vancomycin therapy is still active, today is day 2 of treatment. Patient is receiving Vanco 1.25 gm IV q12hr 2. VANCO LEVEL _Ordered for PK at 06/30 @ 1200 and TR ordered at 06/30 @ 2000 3. DOSING RECS (Other comments) Starting patient on regimen based on Vanco calc given patient is obese. 4. NEXT LEVELThe next paired levels are schedule. Peak at 1200 on 06/30 and Trough at 2000 on 06/30. 5. MRSA NASAL SWAB A MRSA NASAL swab is not appropriate at this time... We will follow patient renal function, vancomycin levels and doses with you during the course of therapy. Additional recommendations will appear in follow up notes. If you have any question please contact pharmacy. Age: 57 Years Allergies: ALLERGIES Weight Last Documented Weight and Type of Scale Used Last Documented Weight Weight Measured: 125.5 kg (06/29/23 06:15:00) Type of Scale Used Weight Measured Type of Scale: Bed Scale (digital) (06/28/23 18:55:00) Height Last Documented Height/Length Last Documented Height/Length Height/Length Measured: 170.18 cm (06/28/23 18:55:00) CrCl: 80 mL/min Labs: WBC: 18 E9/L High (06/29/23 05:59:00) RBC: 5 E12/L (06/29/23 05:59:00) HGB: 14.4 gm/dL (06/29/23 05:59:00) Hct: 43.1 % (06/29/23 05:59:00) MCV: 85.9 fL (06/29/23 05:59:00) MCH: 28.6 pg (06/29/23 05:59:00) MCHC: 33.3 gm/dL (06/29/23 05:59:00) RDW: 14.1 % (06/29/23 05:59:00) Platelet: 107 E9/L Low (06/29/23 05:59:00) MPV: 10.8 fL (06/29/23 05:59:00) Segs Man: 81 % High (06/29/23 05:59:00) Band Man: 12 % High (06/29/23 05:59:00) Lymph Man: 7 % Low (06/29/23 05:59:00) Monocyte Man: 0 % Low (06/29/23 05:59:00) Eos Man: 0 % (06/29/23 05:59:00) Basophil Man: 0 % (06/29/23 05:59:00) React Lymph Man: 0 % (06/29/23 05:59:00) Segs Abs Man: 16.7 E9/L High (06/29/23 05:59:00) Lymph Abs Man: 1.3 E9/L (06/29/23 05:59:00) [place] Abs Man: 0 E9/L Low (06/29/23 05:59:00) Eos Abs Man: 0 E9/L (06/29/23 05:59:00) Basophil Abs Man: 0 E9/L (06/29/23 05:59:00) RBC Morph: Normal (06/29/23 05:59:00) PT: 18.5 second(s) High (06/28/23 15:20:00) INR: 1.6 (06/28/23 15:20:00) PTT: 39.3 second(s) High (06/28/23 15:20:00) Glucose Lvl: 209 mg/dL High (06/29/23 05:59:00) BUN: 30 mg/dL High (06/29/23 05:59:00) Creatinine: 1 mg/dL (06/29/23 05:59:00) eGFR: 65 mL/min/1.73 m2 (06/29/23 05:59:00) BUN/Creat Ratio: 30 High (06/29/23 05:59:00) Sodium Lvl: 135 mmol/L (06/29/23 05:59:00) Potassium Lvl: 3.4 mmol/L Low (06/29/23 05:59:00) Chloride: 104 mmol/L (06/29/23 05:59:00) CO2: 21 mmol/L (06/29/23 05:59:00) AGAP: 13 mEq/L (06/29/23 05:59:00) Calcium Lvl: 8.1 mg/dL Low (06/29/23 05:59:00) Alk Phos: 64 Int._Unit/L (06/28/23 15:20:00) ALT: 29 Int._Unit/L (06/28/23 15:20:00) AST: 46 Int._Unit/L High (06/28/23 15:20:00) Total Protein: 8 gm/dL High (06/28/23 15:20:00) Albumin Lvl: 3.8 gm/dL (06/28/23 15:20:00) Globulin: 4.2 gm/dL High (06/28/23 15:20:00) A/G Ratio: 0.9 Low (06/28/23 15:20:00) Bili Total: 1.2 mg/dL High (06/28/23 15:20:00) Lactic Acid Lvl: 2.6 mmol/L High (06/29/23 08:17:00) Troponin: 56.6 pg/mL Critical (06/28/23 15:20:00) Vanco Tr: 8 mcg/mL Low (06/29/23 05:59:00) Glucose Cap: 219 mg/dL High (06/29/23 07:29:00) POC Device SN: [id number] (06/29/23 07:29:00) POC User ID: [id number] (06/29/23 07:29:00) POC Username: MATT BOOGIE (06/29/23 07:29:00) Vanco Random Level drawn at 0600 this morning 06/29 approx 12 hours after last dose of vancomycin 1.75 gm on 06/28 @ 1500. Normal [facility] Vanco Troughon 06-29-2023 VANCOMYCIN 8 microgram/mL Low 07-02 [facility] Comment on above: Performed By: #### 2 580679, 2308631, 49761985, 9573929, 95512784, 9259922 ####[facility] [address] [place] [address] eGFRon 06-29-2023 GFR/1.73 sq M.predicted among non-blacks MDRD (S/P/Bld) [Vol rate/Area] 65 mL/min/1.73 m2 Normal >=59 [facility] Comment on above: Order Comment: Order added by Discern Expert. Result Comment: Stenciler jyothi kidney disease could be indicated at eGFR's of less than 60 mL/min/1.73m2. Kidney failure is indicated at less than 15 mL/min/1.73m2. Performed By: #### 2 383748, 9646585, 97859060, 5263119, 10455468, 3654844 ####[facility] [address] [place] [address] .Manual Abson 06-28-2023 Basophils/Leukocytes Manual cnt (Bld) [Pure # fraction] 0.0 E9/L Normal 0.0-0.2 [facility] Comment on above: Performed By: #### 2 231326, 8490225, 30689064, 2080251, [id number], 19727290, [id number], [id number] ####[facility] [address] [place] [address] Eosinophils/Leukocytes Manual cnt (Bld) [Pure # fraction] 0.0 E9/L Normal 0.0-0.5 [facility] Comment on above: Performed By: #### 2 [id number], [id number], [id number], 1172392, 4176312, 80444131, 8577737, [id number] ####[facility] [address] [place] [address] Lymphocytes/Leukocytes Manual cnt (Bld) [Pure # fraction] 1.0 E9/L Normal 1.0-4.0 [facility] Comment on above: Performed By: #### 2 [id number], [id number], [id number], 8914249, 1623260, [id number], 3883974, [id number] ####[id number] [place] [address] Monocytes/Leukocytes Manual cnt (Bld) [Pure # fraction] 0.4 E9/L Normal 0.2-1.0 [facility] Comment on above: Performed By: #### 2 213337, 2579958, 98639245, 7773338, 0214588, 50304167, 7359483, [id number] ####[address] [address] Neutrophils/Leukocytes Auto (Bld) [Pure # fraction] 18.9 E9/L High 2.0-7.5 [facility] Comment on above: Performed By: #### 2 479748, 2117265, 03174564, 6224684, 9009361, 75214655, 7357639, [id number] ####[address] [place] [address] CBC w/ Auto Diffon 3 Erythrocyte distribution width (RBC) [Ratio] 13.9 % Normal 10.9-14.2 [facility] Comment on above: Performed By: #### 2 093330, 9544145, 98219438, 3698171, 9938254, 91224587, 3191120, 89955756 ####[address] [place] [address] Hematocrit (Bld) [Volume fraction] 44.7 % Normal 34.0-46.0 [facility] Comment on above: Performed By: #### 2 235853, 4753154, 03632943, 3915413, 6437824, 53568632, 2370882, 23862634 ####[facility] [address] [place] [address] Hemoglobin (Bld) [Mass/Vol] 15.2 g/dL Normal 12.0-16.0 [facility] Comment on above: Performed By: #### 2 676325, 9928418, 61792226, 9897067, 9822584, 35187243, 4865863, 36579395 ####[address] [place] [address] MCH (RBC) [Entitic mass] 29.2 pg Normal 27.0-34.0 [facility] Comment on above: Performed By: #### 2 176316, 7009358, 73026333, 5463530, 8597715, 91538141, 3380603, 83782849 ####[facility] [address] [place] [address] MCHC (RBC) [Mass/Vol] 33.9 g/dL Normal 31.4-36.0 [facility] Comment on above: Performed By: #### 2 781457, 2316176, 06673238, 7859440, 4992466, 99080180, 9686397, 56581574 ####[address] [address] MCV (RBC) [Entitic vol] 85.9 fL Normal 80.0-100.0 [facility] Comment on above: Performed By: #### 2 460990, 5425478, 72124132, 2625405, 1331023, 42630570, 4877559, 96130324 ####[address] [place] [address] Platelet mean volume (Bld) [Entitic vol] 10.8 fL Normal 6.4-10.8 [facility] Comment on above: Performed By: #### 2 760273, 1569908, 54525618, 7752507, 0223748, 78533935, 6259930, 35221280 ####[facility] [address] [place] [address] Platelets (Bld) [#/Vol] 153.0 E9/L Normal 150.0-500.0 [facility] Comment on above: Performed By: #### 2 460632, 5160166, 68526912, 0201493, 3449179, 18106461, 1353623, 05817821 ####[facility] [address] [place] [address] RBC (Bld) [#/Vol] 5.2 E12/L Normal 4.3-5.9 [facility] Comment on above: Performed By: #### 2 130980, 2156515, 86845455, 8018137, 7092365, 51054964, 7262887, 45172276 ####[facility] [address] [place] [address] WBC corrected for nucl RBC Auto (Bld) [#/Vol] 20.3 E9/L High 4.0-11.0 [facility] Comment on above: Performed By: #### 2 040804, 7431691, 34129554, 2642062, 5106253, 06613103, 5775352, 07499225 ####[facility] [address] [place] [address] CHEMISTRYOrdered By: SYSTEM SYSTEM on 06-28-2023 Lactate [Mass/Vol] 2.7 mmol/L High 0.5 - 2.2 mmol/L [facility] Remisol Albumin [Mass/Vol] 3.8 g/dL Normal 3.3 - 5.0 gm/dL [facility] Remisol Albumin/Globulin [Mass ratio] 0.9 {ratio} Low 1.1 - 2.2 [facility] Remisol ALP [Catalytic activity/Vol] 64 [iU]/d Normal 21 - 98 Int._Unit/L [facility] Remisol ALT No additional P-5'-P [Catalytic activity/Vol] 29 [iU]/d Normal 6 - 46 Int._Unit/L [facility] Remisol AST [Catalytic activity/Vol] 46 [iU]/d High 5 - 43 Int._Unit/L [facility] Bilirubin [Mass/Vol] 1.2 mg/dL High 0.0 - 1 .1 mg/dL [facility]isol Globulin (S) [Mass/Vol] 4.2 g/dL High 1.4 - 4.0 gm/dL [facility] Remisol Protein [Mass/Vol] 8.0 g/dL High 6.0 - 7.8 gm/dL [facility] Remisol Troponin I.cardiac [Mass/Vol] 56.60 pg/mL Invalid Interpretation Code 10.10 - 27.10 pg/mL [facility] Comment on above: Result Comment: Crit ical Result I_hsTnI:56.[address] KNAPP at ER by JAMES LABOY and read back for confirmation at 06/28/2023 16:10:01\ Critical Result I_hsTnI:56.6 Called to RA TOBAR at ER by JAMES LABOY and read back for confirmation at 06/28/2023 16:11:45\Critical Result verified by repeat analysis Interpretive Data: T he 95% CI (Confidence Interval) PPV (Positive Predictive Value) for myocardial infarction in females is 38 pg/mL, in males 51 pg/mL. The results should be used in conjunction with clinical conditions of myocardial infarction. (Access High Sensitivity Troponin I Instructions For Use, Geraldo Siloam, April 2018) CMPon 06-28-2023 Albumin [Mass/Vol] 3.8 g/dL Normal 3.3-5.0 [facility] Comment on above: Performed By: #### 2 741178, 4116748, 66840086, 1912263, 6174630, 25072029, 9630928, 47760961 ####[facility] [address] [place] [address] Albumin/Globulin (S) [Mass conc ratio] 0.9 Low 1.1-2.2 [facility] Comment on above: Performed By: #### 2 258778, 9828239, 81221384, 4198025, 2518269, 86780555, 3226407, 14377919 ####[facility] [address] [place] [address] ALP [Catalytic activity/Vol] 64 Int._Unit/L Normal 21-98 [facility] Comment on above: Performed By: #### 2 959759, 1689027, 81306373, 7693171, 0238850, 21425187, 7041809, 05254816 ####[facility] [address] [place] [address] ALT No additional P-5'-P [Catalytic activity/Vol] 29 Int._Unit/L Normal 6-46 [facility] Comment on above: Performed By: #### 2 626313, 7387522, 63527084, 1641518, 4646717, 23035526, 9395577, 41126131 ####[facility] [address] [place] [address] AST [Catalytic activity/Vol] 46 Int._Unit/L High 5-43 [facility] Comment on above: Performed By: #### 2 898904, 6010796, 91172419, 5642924, 1754045, 81944230, 2305871, 51899089 ####[facility] [address] [place] [address] Bilirubin [Mass/Vol] 1.2 mg/dL High 0.0-1.1 [facility] Comment on above: Performed By: #### 2 604423, 8000408, 02492982, 9354966, 3770873, 74185771, 5761018, 43255869 ####[facility] [address] [place] [address] Creatinine [Mass/Vol] 1.4 mg/dL High 0.5-1.3 [facility] Comment on above: Performed By: #### 2 411250, 1292916, 92694619, 9212561, 0507188, 12827173, 3305830, 28630920 ####[facility] [address] [place] [address] Globulin (S) [Mass/Vol] 4.2 g/dL High 1.4-4.0 [facility] Comment on above: Performed By: #### 2 500934, 0551175, 58454204, 8879623, 3414335, 08766124, 5484582, 09926415 ####[facility] [address] [place] [address] Protein [Mass/Vol] 8.0 g/dL High 6.0-7.8 [facility] Comment on above: Performed By: #### 2 258716, 4478581, 37285735, 1822062, 8457873, 60778637, 4789625, 05209735 ####[facility] [address] [place] [address] Urea nitrogen [Mass/Vol] 35 mg/dL High 5-21 [facility] Comment on above: Performed By: #### 2 038776, 6175461, 40691024, 1131242, 0140578, 85284073, 8455121, 99677216 ####[facility] [address] [place] [address] Urea nitrogen/Creatinine [Mass ratio] 25 No Units High 10-20 [facility] Comment on above: Performed By: #### 2 699497, 7203241, 37063075, 4623306, 8284218, 79654538, 6654849, 35257232 ####[facility] [address] [place] [address] Anion gap [Moles/Vol] 15 mmol/L Normal 6-16 [facility] Comment on above: Performed By: #### 2 388449, 5657939, 92770949, 1200178, 1192007, 54904525, 9129813, 13131573 ####[facility] [address] [place] [address] Calcium [Mass/Vol] 9.0 mg/dL Normal 8.9-11.1 [facility] Comment on above: Performed By: #### 2 973056, 3851219, 80322389, 2758950, 0045430, 75238559, 9115949, 55813870 ####[facility] [address] [place] [address] Chloride [Moles/Vol] 97 mmol/L Low 101-111 [facility] Comment on above: Performed By: #### 2 391198, 9911145, 00739105, 9450053, 2256718, 78096858, 2602072, 68781229 ####[facility] [address] [place] [address] CO2 [Moles/Vol] 22 mmol/L Normal 21-31 [facility] Comment on above: Performed By: #### 2 256969, 1551889, 03330634, 2200839, 3009521, 39869453, 7852513, 13743810 ####[facility] [address] [place] [address] Glucose [Mass/Vol] 233 mg/dL High 55-199 [facility] Comment on above: Result Comment: If t his glucose result represents a fasting glucose, interpretation should refer to the following reference range: 55-99 mg/dL Performed By: #### 2 591184, 4179151, 89700578, 6223776, 5935500, 87797053, 0578859, 87670487 ####[facility] [address] [place] [address] Potassium [Moles/Vol] 3.7 mmol/L Normal 3.5-5.3 [facility] Comment on above: Performed By: #### 2 240519, 0886064, 75883741, 8184813, 1689824, 14143980, 0547937, 93892638 ####[facility] [address] [place] [address] Sodium [Moles/Vol] 130 mmol/L Low 135-145 [facility] Comment on above: Performed By: #### 2 175838, 1607679, 91023277, 3434299, 5108331, 44834892, 4923756, 23124821 ####[facility] [address] [place] [address] COAGULATIONOrdered By: Isaac Ballard on 06-28-2023 aPTT Coag (PPP) [Time] 39.3 s High 25.1 - 36.5 second(s) [facility] Comment on above: Interpretive Data: Pablo irvas 15 days - 4 weeks 1 - 5 months 6 - 11 months 1 - 5 years 6 - 10 years 11 - 17 years PTT Mean: 35.4 (27.6-45.6) Mean: 33.5 (24.8-40.7) Mean: 32.4 (25.1-40.7) Mean: 31.6 (24.0-39.2) Mean: 31.6 (26.9-38.7) Mean: 31.0 (24.6-38.4) Pediatric Reference ranges were obtained from a study by Donald Astorga et al. prepared from 1437 samples obtained at 7 different centers using the same coagulation reagent and instrumentation as [facility]. Currently there are no coagulation studies available worldwide for children to 14 days, and no normal ranges. Heparin therapeutic range (represented by Anti-Factor Xa activity of 0.2 - 0.4 U/mL) corresponds to PTT of 56.6 - 109.0 sec. INR Coag (PPP) [Relative time] 1.6 {INR} Invalid Interpretation Code [facility] Comment on above: Interpretive Data: I NR results are specifically intended to assess patients stabilized on long-term Anticoagulation therapy suggested INR s Less Intensive Anticoagulation 2.0 3.0 Conventional Range 3.0 4.5 PT Coag (PPP) [Time] 18.5 s High 9.4 - 1 2.5 second(s) [facility] Comment on above: Interpretive Data: 1 5 days - 4 weeks 1 - 5 months 6 -11 months 1-5 years 6-10 years 11 -17 years Mean: 11.2 (9.5-12.6) Mean: 11.0 (9.7-12.8) Mean: 11.0 (9.8-13.0) Mean: 11.3 (9.9-13.4) Mean: 11.7 (10.0-14.6) Mean: 11.8 (10.0 - 14.1) Pediatric Reference ranges were obtained from a study by miguel angel Hylton al. prepared from 1437 samples obtained at 7 different centers using the same coagulation reagent and instrumentation as [facility]. Currently there are no coagulation studies available worldwide for children to 14 days, and no normal ranges. Capillary Glucose POCon 06-13 Glucose [Mass/Vol] 224 mg/dL High 55-99 [facility] Comment on above: Result Comment: Simón lozano RN/ Performed By: #### 2 819104, 8934993, 3405875, 4210578, 56655243 #### [facility] [address] [place] [address] Consent for Treatmenton 06-13 Consent for Treatment [id number] 31 [id number] #[id number] Normal [facility] ED Clinical Summaryon 2022 ED Clinical Summary [address] [address] ED Clinical Summary Person Information Name: MARILYN DUNCAN/[facility] Age: 57 Years : 1965 Sex: Female Language: Somali PCP: Karina Martinez DO Marital Status: Phone: [phone] Visit Id: Visit Reason: Fever; Shortness of breath; Leg pain-swelling; Cellulitis - Leg; LEG EDEMA Speciality: Acuity: 2 Enc Type: Observation Med Service: Emergency Arrival: 06/28/2023 14:45:11 Discharge: LOS: 000 03:57 Checkin: 06/28/2023 14:45:11 Checkout: 06/28/2023 18:42:45 Dispo Type: Admitted as IP to this [facility] EVENTS: Event Name Event Status Request Date/Time Start Date/Time Complete Date/Time Arrive Complete 06/28/2023 14:45:11 06/28/2023 14:45:11 06/28/2023 14:45:11 Document Home Meds Request 06/28/2023 14:45:11 Triage Complete 06/28/2023 14:45:11 06/28/2023 15:08:22 06/28/2023 15:08:22 Bed Assign Complete 06/28/2023 14:45:11 06/28/2023 14:45:11 06/28/2023 14:45:11 Dr Exam Complete 06/28/2023 14:45:11 06/28/2023 14:48:49 06/28/2023 14:48:49 RN Exam Complete 06/28/2023 14:45:11 06/28/2023 15:29:34 06/28/2023 15:29:34 Registration Complete 06/28/2023 14:48:49 06/28/2023 15:19:05 06/28/2023 15:19:05 Dr Exam Complete 06/28/2023 14:49:16 06/28/2023 14:49:16 06/28/2023 14:49:16 EKG Complete 06/28/2023 14:56:16 06/28/2023 15:02:42 Meds Admin Complete 06/28/2023 15:11:53 06/28/2023 15:22:27 Pending Labs Request 06/28/2023 15:11:53 Lab Request 06/28/2023 15:11:53 Urine Collect Request 06/28/2023 15:11:53 X-Ray Complete 06/28/2023 15:11:53 06/28/2023 15:25:20 06/28/2023 16:45:59 RT Request 06/28/2023 15:11:53 Meds Admin Complete 06/28/2023 15:12:20 06/28/2023 15:22:27 Reg Complete Request 06/28/2023 15:19:05 Reg Bed Request Complete 06/28/2023 15:19:05 06/28/2023 15:19:05 06/28/2023 15:19:05 Pending Labs Complete 06/28/2023 15:40:19 06/28/2023 15:40:19 06/28/2023 15:59:43 Lab Complete 06/28/2023 15:40:19 06/28/2023 15:40:19 06/28/2023 15:59:43 Pending Labs Request 06/28/2023 15:59:08 Lab Request 06/28/2023 15:59:08 Pending Labs Complete 06/28/2023 16:22:39 06/28/2023 16:22:39 06/28/2023 16:26:42 Lab Complete 06/28/2023 16:22:39 06/28/2023 16:22:39 06/28/2023 16:26:42 Pending Labs Complete 06/28/2023 16:22:40 06/28/2023 16:22:40 06/28/2023 16:26:42 Meds Admin Cancel 06/28/2023 16:33:19 06/28/2023 17:42:23 Meds Admin Request 06/28/2023 16:35:20 Wet Read Complete 06/28/2023 16:45:59 06/28/2023 16:46:30 06/28/2023 16:46:30 Meds Admin Complete 06/28/2023 16:55:12 06/28/2023 17:14:15 Patient Care Complete 06/28/2023 17:12:12 06/28/2023 17:24:29 Consult Request 06/28/2023 17:12:22 Hospitalist Consult Request 06/28/2023 17:12:23 Patient Care Request 06/28/2023 17:35:24 Meds Admin Request 06/28/2023 17:35:24 Bed Request Request 06/28/2023 17:35:24 Reg Bed Request Complete 06/28/2023 17:35:24 06/28/2023 18:18:04 06/28/2023 18:18:04 Admit Request 06/28/2023 17:35:24 Meds Admin Request 06/28/2023 17:36:39 Patient Care Request 06/28/2023 17:36:39 Meds Admin Request 06/28/2023 17:37:38 Pending Labs Request 06/28/2023 17:38:36 Lab Request 06/28/2023 17:38:36 Meds Admin Cancel 06/28/2023 17:43:51 06/28/2023 17:49:10 Pending Labs Cancel 06/28/2023 17:44:41 06/28/2023 17:47:25 Lab Cancel 06/28/2023 17:44:41 06/28/2023 17:47:25 Pending Labs Request 06/28/2023 17:51:49 Lab Request 06/28/2023 17:51:49 Patient Care Request 06/28/2023 18:18:05 Patient Care Request 06/28/2023 18:18:05 Patient Care Request 06/28/2023 18:18:06 Patient Care Request 06/28/2023 18:18:06 Pending Labs Complete 06/28/2023 18:28:40 06/28/2023 18:28:40 06/28/2023 18:28:41 ADDRESS: [id number] [address] [facility] [phone] PHYS DOC NOTES: MEDICAL INFORMATION: Prescriptions Given: Medications to Continue with No Changes Other Medications clindamycin (clindamycin 300 mg oral cap) insulin lispro (insulin lispro 100 units/mL injectable solution) Take 2 units of lispro if BS between 151-200 Take 4 units of lispro if BS between 201-250 Take 6 units of lispro if BS between 251-300 Take 8 units of lispro if BS between 301-350 Take 10 units of lispro if BS between 351-400 Take 14 units of lispro if BS between >400. Refills: 3. Misc Prescription (glucometer, lancets, alcohol swabs, syringes, needles) 0. check BS 3x/day. Refills: 0. Misc Prescription (glucometer, lancets, alcohol swabs, syringes, needles, test strips) 0. check BS 3x/day. Refills: 0. PATIENT EDUCATION INFORMATION: Instructions: Follow up: DIAGNOSIS: 1:Sepsis; 2:Acute cellulitis; 3:Leukocytosis; 4:Acute renal failure; 5:Lactic acidosis; 6:Elevated troponin; 7:Diabetes mellitus, type II; 8:HTN (hypertension); 9:Hyperlipemia; 10:History of TIA (transient ischemic attack); 11:Obesity Normal [facility] ED Note-Nursingon 06-28-2023 ED Note-Nursing Grandmother came to ED to take the patient at great grandmother's house who's safety planned him. Said KELLY will make followup starting tomorrow at 1100 til Wednesday. Patient is calm and cooperative. Normal [facility] Comment on above: Other Comment: wrong entry ED Note-Physicianon 06-28-20 ED Note-Physician Basic Information Time Seen: Juanjo Nair PA-C 06/28/2023 14:48 Chief Complaint Pt. came with the squad here d/t leg swelling, redness and pain that started months ago.Pt is Alert but not oriented to time and place. Pt got fever of 100.1 is tachycardic and feels SOB. History of Present Illness A 57-year-old female reports to the emergency department with a chief complaint of redness and swelling of her right leg. Reports that this has been going on for months. Per squad she is slightly confused. Reports that it is up, for last few days. Her who is with her, also gave some of the story. reports that cellulitis began a couple days ago, but yesterday morning she became more confused. Reports that she has not had any fever that they have not noted. Reports that she is diabetic. Wanted to get checked out because of the redness of her right leg. States that otherwise she has been doing well. Reports that she is a diabetic. Denies being any blood thinners. Review of Systems A 10 point review of systems is negative except as noted above. Medical and Surgical History: Reviewed and noted Social history: Lives at home Family History: Reviewed. Tobacco: Denies Physical Exam Vitals & Measurements T: 37.8 ?C(Oral) HR: 112(Peripheral) RR: 30 BP: 139/78 SpO2: 96% HT: 170 cm WT: 117 kg BMI: 40.48 General: The patient appears well and in no apparent distress. Patient is resting comfortably on bed. Afebrile Skin: Warm, dry, no pallor noted. Head: Normocephalic, atraumatic Neck: No JVD Eye: PERRLA, EOMI ENT: Moist mucus membranes Cardiovascular: Tachycardic rate normal peripheral perfusion. Pedal pulses +2 bilaterally Respiratory: No respiratory distress no accessory muscle use no obvious audible wheezing. Lung sounds clear auscultation Chest Wall: no deformity Musculoskeletal: There is diffuse swelling of the right lower extremity, from just above the ankle to just below the knee that is circumferential with redness and erythema. Warmth noted on palpation. Tenderness noted throughout palpation. No seeping noted. GI: No obvious distention soft nontender nondistended no guarding rebounding or rigidity. Neurological: A&O moves all extremities equal strength and symmetry Psychiatric: Cooperative and appropriate Medical Decision Making MEDICAL DECISION MAKING Number and Complexity of Problems Differential Diagnosis: [] [facility] Data External documents reviewed: [] My EKG interpretation: reviewed My CT interpretation: [] My X-ray interpretation: reviewed My Ultrasound interpretation: [] Decision rules/scores evaluated: [] Discussed with: [] Treatment and Disposition ED Course: 57-year-old female reports via squad with chief complaint of redness and swelling of her right leg. Reports that increase short of breath, fever, and some confusion per squad. States that has had this happen before for cellulitis. On physical exam the right leg is very erythematous and red and warm to touch. This is obvious cellulitis of her right leg. Patient is alert and oriented only to self and place at this time. She does have some slight confusion, but no other focal neurological defects. Otherwise no other signs or symptoms of bacterial infection elsewhere. She is not febrile at this time, but her temperature is 37.8. She is tachycardic and has some slightly increased respirations. Due to her concerns, we did do a septic type work-up on the patient. Lab work reviewed and noted. She does have elevation of her white blood cell count, some elevation of her creatinine as well. Lactic acid is 3.7 and troponin is elevated. Chest x-ray was negative EKG reviewed and noted. Due to her likely cellulitis main source of infection, likely causing the sepsis, she will be admitted. Patient was started on vancomycin and Zosyn. She was given IV Tylenol down here, as well as 2 L of fluid. I did discuss case with hospitalist, who is agreeable with admission. Total critical care time: 35 minutes. Due to a high probability of clinically significant, life threatening deterioration, the patient required my highest level of preparedness to intervene emergently and I personally spent this critical care time directly and personally managing the patient. This critical care time included obtaining a history; examining the patient; pulse oximetry; ordering and review of studies; arranging urgent treatment with development of a management plan; evaluation of patient's response to treatment; frequent reassessment; and, discussions with other providers. This critical care time was performed to assess and manage the high probability of imminent, life-threatening deterioration that could result in multi-organ failure. It was exclusive of separately billable procedures and treating other patients and teaching time. Please see MDM section and the rest of the note for further information on patient assessment and treatment. Shared decision making: [] (more content not included)... Normal [facility] Comment on above: Result Comment: Elec tronically Signed By: Juanjo Nair PA-C\.br\Date and Time Signed: 06/28/23 17:18 EDT\.br\Electronically Co-Signed By: Afshin Krueger DO\.br\Date and Time Co-Signed: 06/28/23 18:37 EDT ED Patient Education Noteon 06-28-2023 ED Patient Education Note Normal [facility] ED Patient Summaryon 023 ED Patient Summary [place] [address] Patient Discharge Instructions Person Information Name: MARILYN DUNCAN Age: 57 Years Arrival Date: 06/28/2023 14:45:11 Discharge Diagnosis: 1:Sepsis; 2:Acute cellulitis; 3:Leukocytosis; 4:Acute renal failure; 5:Lactic acidosis; 6:Elevated troponin; 7:Diabetes mellitus, type II; 8:HTN (hypertension); 9:Hyperlipemia; 10:History of TIA (transient ischemic attack); 11:Obesity Primary Care Physician: Karina Martinez DO Provider Information Primary Provider: Afshin Krueger DO Advanced Event Coordinator:None The exam and treatment you received in the Emergency Department were for an urgent problem and are not intended as complete care. It is important that you follow up with a doctor, nurse practitioner, or physician?s cashier assistant for ongoing care. If your symptoms become worse or you do not improve as expected and you are unable to reach your usual health care provider, you should return to the Emergency Department. We are available 24 hours a day. DAKOTA MARILYN has been given the following list of patient education materials, prescriptions and follow-up instructions: Follow-up Instructions: In the event that this physician does not participate in your insurance network, please consult with your insurance company to find a nearby participating provider. Patient Education Materials: A MESSAGE TO ALL PATIENTS REGARDING OPIOIDS PRESCRIPTION OPIOIDS: WHAT YOU NEED TO KNOW Prescription opioids can be used to help relieve btrfmahk-ol-thpkta pain and are often prescribed following a surgery or injury, or for certain health conditions. These medications can be an important part of the treatment but also come with serious risks. It is important to work with your healthcare provider to make sure you are getting the safest, most effective care. WHAT ARE THE RISKS AND SIDE EFFECTS OF OPIOID USE? Prescription opioids carry serious risks of addiction and overdose, especially with prolonged use. An opioid overdose, often marked by slowed breathing, can cause sudden . The use of prescription opioids can have a number of side effects as well, even when taken as directed: ? Tolerance?meaning you might need to take more of the medication for the same pain relief ? Physical dependence?meaning you have symptoms of withdrawal when a medication is stopped ? Increased sensitivity to pain ? Constipation ? Nausea, vomiting, and dry mouth ? Sleepiness and dizziness ? Confusion ? Depression ? Low levels of testosterone that can result in lower sex drive, energy, and strength ? Itching and sweating RISKS ARE GREATER WITH: ? History of drug misuse, substance use disorder, or overdose ? Mental health conditions (such as depression or anxiety) ? Sleep apnea ? Older age (65 years and older) ? Avoid alcohol while taking prescription opioids. Also, unless specifically advised by your health care provider, medications to avoid include: ? Benzodiazepines (such as Xanax or Valium) ? Muscle relaxants (such as Soma or Flexeril) ? Hypnotics (such as Ambien or Lunesta) ? Other prescription opioids KNOW YOUR OPTIONS Talk to your health care provider about ways to manage your pain that don?t involve prescription opioids. Some of these options may actually work better and have fewer risks and side effects. Options may include: ? Pain relievers such as acetaminophen, ibuprofen, and naproxen ? Some medication that are also used for depression or seizures ? Physical therapy and exercise ? Cognitive behavioral therapy, a psychological, goal-directed approach, in which patients learn how to modify physical, behavioral, and emotional triggers of pain and stress. IF YOU ARE PRESCRIBED OPIOIDS FOR PAIN: ? Never take opioids in greater amounts or more often than prescribed. ? Follow up with your primary health care provider. o Work together to create a plan on how to manage your pain. o Talk about ways to help manage your pain that don?t involve prescription opioids. o Talk about any and all concerns and side effects. ? Help prevent misuse and abuse o Never sell or share prescription opioids. o Never use another person?s prescription opioids. ? Store prescription opioids in a secure place and out of reach of others (this may include visitors, children, friends, and family). ? Safely dispose of unused prescription opioids: Find your community drug take-back program or your pharmacy mail-back program, or flush them down the toilet, following guidance from the Food and Drug Administration (www.fda.gov/Drugs/R esourcesForYou). ? Visit www.cdc.gov/drugover dose to learn about the risks of opioids abuse and overdose. ? If you believe you may be struggling with addiction, tell your health hospice care transitions coordinator and ask for guidance or call [facility]?Kyree Tran (more content not included)... Normal [facility] HEMATOLOGYOrdered By: Heather Mitchell on 06-28-2023 Band form neutrophils/100 WBC (Bld) 5 % Normal 0 - 10 % [facility] HemeManSS Basophils/100 WBC (Bld) 0 % Normal 0 - 2 % [facility] HemeManSS Basophils/Leukocytes Manual cnt (Bld) [Pure # fraction] 0.0 E9/L Normal 0.0 - 0.2 E9/L [facility] HemeManSS Eosinophils/100 WBC (Bld) 0 % Normal 0 - 8 % FT [facility] Eosinophils/Leukocytes Manual cnt (Bld) [Pure # fraction] 0.0 E9/L Normal 0.0 - 0.5 E9/L [facility] Lymphocytes/100 WBC (Bld) 5 % Low 14 - 50 % [facility] HemeManSS Lymphocytes/Leukocytes Manual cnt (Bld) [Pure # fraction] 1.0 E9/L Normal 1.0 - 4.0 E9/L [facility] Monocytes/100 WBC (Bld) 2 % Low 4 - 14 % [facility] HemeManSS Monocytes/Leukocytes Manual cnt (Bld) [Pure # fraction] 0.4 E9/L Normal 0.2 - 1.0 E9/L [facility] Javier (Bld) [Interp] Normal (06/28/23 3:20 PM) Normal [facility] Neutrophils/Leukocytes Auto (Bld) [Pure # fraction] 18.9 E9/L High 2.0 - 7.5 E9/L [facility] Segmented neutrophils/100 WBC (Bld) 88 % High 36 - 75 % [facility] Variant lymphocytes LM Ql (Bld) 0 % Normal <=0% [facility] Lactic Acidon 06-28-2023 Lactate [Mass/Vol] 2.7 mmol/L High 0.5-2.2 [facility] Comment on above: Performed By: #### 2 [id number], 9484824, 4725781, 6726703, [id number] #### [facility] Laboratory [address] [place] [address] Lactate [Mass/Vol] 3.6 mmol/L High 0.5-2.2 [facility] Comment on above: Performed By: #### 2 660008, 2511327, 90854262, 3544872, 8626496, 29568731, 1776493, 29378806 ####[facility] [address] [place] [address] Manual Diffon 06-28-2023 Band form neutrophils/100 WBC (Bld) 5 % Normal 0-10 [facility] Comment on above: Order Comment: Order Added by Discern Expert. Performed By: #### 2 183347, 7758104, 27215648, 2432274, 6092870, 28653963, 0221732, 12248953 ####[facility] [address] [place] [address] Basophils/100 WBC (Bld) 0 % Normal 0-2 [facility] Comment on above: Order Comment: Order Added by Discern Expert. Performed By: #### 2 896994, 4172127, 89960538, 1737327, 3592050, 43117419, 6501172, 56536107 ####[facility] [address] [place] [address] Eosinophils/100 WBC (Bld) 0 % Normal 0-8 [facility] Comment on above: Order Comment: Order Added by Discern Expert. Performed By: #### 2 177518, 2262088, 39245574, 6428249, 1439739, 67306340, 7499037, 19230375 ####[facility] [address] [place] [address] Lymphocytes/100 WBC (Bld) 5 % Low 14-50 [facility] Comment on above: Order Comment: Order Added by Discern Expert. Performed By: #### 2 993944, 0298351, 76155104, 8901561, 7917763, 25307626, 4856164, 53428028 ####[facility] [address] [place] [address] Monocytes/100 WBC (Bld) 2 % Low 4-14 [facility] Comment on above: Order Comment: Order Added by Discern Expert. Performed By: #### 2 292924, 0583053, 98364398, 9192192, 7443012, 92117916, 0256327, 47294357 ####[facility] [address] [place] [address] Morphology Javier (Bld) [Interp] Normal Normal [facility] Comment on above: Order Comment: Order Added by Discern Expert. Performed By: #### 2 429800, 7416721, 03709134, 3018857, 5619519, 58186389, 7941648, 58547025 ####[facility] [address] [place] [address] Segmented neutrophils/100 WBC (Bld) 88 % High 36-75 [facility] Comment on above: Order Comment: Order Added by Discern Expert. Performed By: #### 2 127665, 2486845, 99132412, 7495955, 7166702, 53637978, 7480454, 14491039 ####[facility] [address] [place] [address] Variant lymphocytes LM Ql (Bld) 0 % Normal <=0 [facility] Comment on above: Order Comment: Order Added by Discern Expert. Performed By: #### 2 234257, 1831884, 42037139, 8065131, 8848348, 07898875, 3213012, 99244973 ####[facility] [address] [place] [address] Monitor Recordon 06-28-2023 Monitor Record [id number] 4#1.00TIFF Normal [facility] Monitor Record [id number] 8#1.00TIFF Normal [facility] Monitor Record [id number] 4#1.00TIFF Normal [facility] No Panel InformationOrdered By: ANGPROCESSSERVER MICROBIOLOGY on 06-28-2023 Blood Culture Charcoal No growth at 4 da ys. Final to follow at 7 days. [facility] Blood Culture Charcoal No growth at 4 da ys. Final to follow at 7 days. [facility] PT & PTTon 06-28-2023 aPTT Coag (PPP) [Time] 39.3 second(s) High 25.1-36.5 [facility] Comment on above: Result Comment: Para meter 15 days - 4 weeks 1 - 5 months 6 - 11 months 1 - 5 years 6 - 10 years 11 - 17 years PTT Mean: 35.4 (27.6-45.6) Mean: 33.5 (24.8-40.7) Mean: 32.4 (25.1-40.7) Mean: 31.6 (24.0-39.2) Mean: 31.6 (26.9-38.7) Mean: 31.0 (24.6-38.4) Pediatric Reference ranges were obtained from a study by Donald Astorga et al. prepared from 1437 samples obtained at 7 different centers using the same coagulation reagent and instrumentation as [facility]. Currently there are no coagulation studies available worldwide for children to 14 days, and no normal ranges. Heparin therapeutic range (represented by Anti-Factor Xa activity of 0.2 - 0.4 U/mL) corresponds to PTT of 56.6 - 109.0 sec. Performed By: #### 2 [id number] #### [facility] [address] [place] [address] INR Coag (PPP) [Relative time] 1.6 {INR} Invalid Interpretation Code [facility] Comment on above: Result Comment: INR results are specifically intended to assess patients stabilized on long-term Anticoagulation therapy suggested INR?s ?Less Intensive Anticoagulation? 2.0 ? 3.0 Conventional Range 3.0 ? 4.5 Performed By: #### 2 [id number] #### [facility] [address] [place] [address] PT Coag (PPP) [Time] 18.5 second(s) High 9.4-12.5 [facility] Comment on above: Result Comment: 15 d ays - 4 weeks 1 - 5 months 6 -11 months 1-5 years 6-10 years 11 -17 years Mean: 11.2 (9.5-12.6) Mean: 11.0 (9.7-12.8) Mean: 11.0 (9.8-13.0) Mean: 11.3 (9.9-13.4) Mean: 11.7 (10.0-14.6) Mean: 11.8 (10.0 - 14.1) Pediatric Reference ranges were obtained from a study by Donald Astorga et al. prepared from 1437 samples obtained at 7 different centers using the same coagulation reagent and instrumentation as [facility]. Currently there are no coagulation studies available worldwide for children to 14 days, and no normal ranges. Performed By: #### 2 [id number] #### [facility] [address] [place] [address] Pre-Arrival Noteon 3 Pre-Arrival Note Pre-Arrival Summary Name: , Current Date: 06/28/2023 14:46:33 EDT Gender: Female Date of : Age: 57 Pre-Arrival Type: EMS ETA: 06/28/2023 15:07:00 EDT Primary Care Physician: Presenting Problem: Leg edema Pre-Arrival User: Rae Butler RN Referring Source: Location: PA Completion Date/Time: 06/28/2023 14:37:00 [facility] Emergency Department Pre-Hospital Report Form Vital Signs: Pre-Hospital Report: Treatment in Route: Response to Treatment: Misc. Issues: Normal [facility] Progress Note - Pharmacyon 1 Progress Note - Pharmacy Vancomycin Pharmacy to Dose Consult Note Indication: Skin and Skin Structure Infection Goal Range: Trough: 10-20 RECOMMENDATIONS/PLAN : Pharmacy consulted for vancomycin dosing for MARILYN DUNCAN, a 57 Years old, Female who is being treated for . 1. VANCO STATUS: Vancomycin therapy is still active, today is day 1 of treatment. Patient is receiving Vancomycin 1750mg IV once, will follow up with trough and renal function in am and reevaluate due to ALCIRA. 2. VANCO LEVEL: No vancomycin level has been drawn for this dosing regimen. 3. DOSING RECS: _ 4. NEXT LEVEL: The next level is scheduled for an labs on 06/29. 5. MRSA NASAL SWAB? A MRSA nasal swab is not appropriate at this time. We will follow patient renal function, vancomycin levels, and doses with you during the course of therapy. Additional recommendations will appear in follow up notes. If you have any questions, please contact the pharmacy at extension [phone]. Age: 57 Years Allergies: ALLERGIES Weight: Last Documented Weight and Type of Scale Used Last Documented Weight Weight Measured: 117 kg (06/28/23 14:52:00) Type of Scale Used Weight Measured Type of Scale: Bed Scale (digital) (06/28/23 14:52:00) Height: Last Documented Height/Length Last Documented Height/Length Height/Length Measured: 170 cm (06/28/23 14:52:00) CrCl: 57.17 mL/min Labs: WBC: 20.3 E9/L High (06/28/23 15:20:00) RBC: 5.2 E12/L (06/28/23 15:20:00) HGB: 15.2 gm/dL (06/28/23 15:20:00) Hct: 44.7 % (06/28/23:20:00) MCV: 85.9 fL (06/28/23:20:00) MCH: 29.2 pg (06/28/23:20:00) MCHC: 33.9 gm/dL (06/28/23:20:00) RDW: 13.9 % (06/28/23 15:20:00) Platelet: 153 E9/L (06/28/23:20:00) MPV: 10.8 fL (06/28/23:20:00) Segs Man: 88 % High (06/28/23 15:20:00) Band Man: 5 % (06/28/23 15:20:00) Lymph Man: 5 % Low (06/28/23:20:00) Monocyte Man: 2 % Low (06/28/23 15:20:00) Eos Man: 0 % (06/28/23:20:00) Basophil Man: 0 % (06/28/23:20:00) React Lymph Man: 0 % (06/28/23:20:00) Segs Abs Man: 18.9 E9/L High (06/28/23:20:00) Lymph Abs Man: 1 E9/L (06/28/23:20:00) [place] Abs Man: 0.4 E9/L (06/28/23:20:00) Eos Abs Man: 0 E9/L (06/28/23 15:20:00) Basophil Abs Man: 0 E9/L (06/28/23 15:20:00) RBC Morph: Normal (06/28/23 15:20:00) PT: 18.5 second(s) High (06/28/23 15:20:00) INR: 1.6 (06/28/23:20:00) PTT: 39.3 second(s) High (06/28/23 15:20:00) Glucose Lvl: 233 mg/dL High (06/28/23 15:20:00) BUN: 35 mg/dL High (06/28/23 15:20:00) Creatinine: 1.4 mg/dL High (06/28/23 15:20:00) eGFR: 43 mL/min/1.73 m2 Low (06/28/23 15:20:00) BUN/Creat Ratio: 25 High (06/28/23 15:20:00) Sodium Lvl: 130 mmol/L Low (06/28/23 15:20:00) Potassium Lvl: 3.7 mmol/L (06/28/23 15:20:00) Chloride: 97 mmol/L Low (06/28/23 15:20:00) CO2: 22 mmol/L (06/28/23:20:00) AGAP: 15 mEq/L (06/28/23:20:00) Calcium Lvl: 9 mg/dL (06/28/23 15:20:00) Alk Phos: 64 Int._Unit/L (06/28/23 15:20:00) ALT: 29 Int._Unit/L (06/28/23 15:20:00) AST: 46 Int._Unit/L High (06/28/23 15:20:00) Total Protein: 8 gm/dL High (06/28/23 15:20:00) Albumin Lvl: 3.8 gm/dL (06/28/23 15:20:00) Globulin: 4.2 gm/dL High (06/28/23 15:20:00) A/G Ratio: 0.9 Low (06/28/23 15:20:00) Bili Total: 1.2 mg/dL High (06/28/23 15:20:00) Lactic Acid Lvl: 3.6 mmol/L High (06/28/23 15:20:00) Troponin: 56.6 pg/mL Critical (06/28/23 15:20:00) Normal [facility] Troponinon 06-28-2023 Troponin I.cardiac [Mass/Vol] 56.60 pg/mL Abnormal 10.10-27.10 [facility] Comment on above: Result Comment: Crit ical Result I_hsTnI:56.[address] KNAPP at ER by JAMES LABOY and read back for confirmation at 06/28/2023 16:10:01\ Critical Result I_hsTnI:56.6 Called to RA TOBAR at ER by JAMES LABOY and read back for confirmation at 06/28/2023 16:11:45\Critical Result verified by repeat analysis The 95% CI (Confidence Interval) PPV (Positive Predictive Value) for myocardial infarction in females is 38 pg/mL, in males 51 pg/mL. The results should be used in conjunction with clinical conditions of myocardial infarction. (Access High Sensitivity Troponin I Instructions For Use, [employer], April 2018) Performed By: #### 2 [id number], 8078056, 28183479, 5912155, 9854622, 88956784, 1041008, [id number] ####[facility] [address] [place] [address] XR Chest Single Viewon 06-28 XR Chest Single View Exam Date/Time: 06/28/2023 16:45 EDT Reason for Exam: Shortness of breath (SOB) Report IMPRESSION: NO EVIDENCE OF ACTIVE CHEST DISEASE. CLINICAL HISTORY: Shortness of breath (SOB). COMMENT: AP portable. The heart is normal in size. The mediastinum is unremarkable. The respiratory effort is somewhat shallow. No consolidated airspace opacification nor pleural effusion is evident. Ordering Provider: Juanjo Nair FINAL REPORT Dictated: 06/28/2023 4:56 pm Bradley Gonzalez M.D. Signed (Electronic Signature): 06/28/2023 4:56 pm Signed by: Bradley Gonzalez M.D. Transcribed by: ELEN Technologist: FELICIA Technical Comments Radiation Dose: Ka,r in mGy = na DAP = na Normal [facility] eGFRon 06-28-2023 GFR/1.73 sq M.predicted among non-blacks MDRD (S/P/Bld) [Vol rate/Area] 43 mL/min/1.73 m2 Low >=59 [facility] Comment on above: Order Comment: Order added by Discern Expert. Result Comment: Stenciler jyothi kidney disease could be indicated at eGFR's of less than 60 mL/min/1.73m2. Kidney failure is indicated at less than 15 mL/min/1.73m2. Performed By: #### 2 517695, 0642536, 17873165, 9474342, 4558313, 33165209, 1490513, 32984424 ####[facility] [address] [address] Correspondence - [place]ound[place] Correspondence - Wound [id number] 2#1.00CD:127 Normal [facility] Physician Orderon 11-18-2022 Physician Order [id number] 3#2.00CD:127 Normal [facility] Coding Summary.on 11-17-2022 Coding Summary. CD:[id number]:[id number] Gh0bWw+PGhlYWQ+PE1FV LOeL27mnGRdvZ6MG8gIY R5ZZSXTTOGDUY7NBM6gj LO5VBdiJ9UiciUw DzrrnDPtOU03TKm7NCW0 tWkoOQhwoN4yeEAxL7n2 DkJwZB73iU81QNrmURKt JbQ2GeWrkwhyuVTr C1dmZiAwhDBzIoj+PHRh YmxlIHdpZHRoPScxMDAl VtReaXdsPB4pUl1cXBFq LWNvbGxhcHNlOiBj n3ceMGIbVQmmFA8mvMmu C0JinWR4KMJuy0u4Aw72 dHI+MRFmWAU3lHxsBMqe q280VbYta5tkMCD5 dBDrLGwlVPZ0I93yd9Y7 RVDbFRMxZRH5hBT6pI2u tAkasvqbC6CpjRHuNxF7 OLG6vTDmoE6ehJzj zhfkbW2yMus+Q71SEC3Q CAMVCR7OPyt1E8XwWdjf dHI+GW40WJBiQS80fZUc oQDan6clnJg7JiAd SSQmAAT4jEobZVkln1Ph URUqI95neEWax7X1ATHy nPxqfRPvNhVwqWR2qI5h QRidkyiup3oocfuh Lxvml4ggut06lR61K14l OPcjYDOnPOT9LWBnKAOx xQtdus7dhS4hUq7+IDxj g8xpg0pqaNu5FeUy SMZxoeKfoSeaBUL9x5Pl Fh54N0NzjSfvz1BjUaf2 xi41dRYri4Q6oAC3ECtu JKKufS3mMJrpLfE8 CKLaZrUllR87cHIuATsx Yv2zcQwwdRxtHD5cOGPf sklnDKBmkH4lXQMhjPHu nZdxPU9iIHZpikho t665BaJiDAM6QONvgDLr L1YydQ0hXgJpIGChIBAe C0SekMOlLYknG566IMgr KtD1FIGlaxUrW9Ek XNCjoPuwSmE1m8Y6Yv9B f6AwtprkDEQ3NTzpCHNo MxB5CgFeTtI9P9JjYqs0 RKLhhQyqMK1hU7Sy IFTemxdbzimcbIW9RBIi QYMdxX78fQSuYGmfBd3f o9B0h613JYGeUTOsyY46 Oe6xsNapQKYdjMJN eJ5odqgvn1avzlqqYsTj YPHuFPj3NKh0CEReeKee OlLaGWG7BcG9LIW8eJNe lC8cuYipfvffoB9p Oyc+S90tdS4dDLF4AFA6 pnldOCGkugYyWW93AX78 A6CbEdqqwIXbjQR+PGRp juMevAwdYW7zKqMe m9efi0HhNXcdQ5BuQFRh IWabIsx8QHKcYRC0dUH0 hM8zUDPhICmbm6L2sJO1 D8LdnjRquc2mi0nd EDGtNEnhN33ddNCok5N5 PUOatXV7FKYlwCjxUcLd iI79Vbt+RZBuvSyml9Qm Utapv5box7zwjHy0 IjMwJSIgdmFsaWduPSJ0 y1MoAq94Q55jMFlnJGJj XWRnKDPrCKPivQyyzh4v jS5hOq6+PGNvbCB3 hGV6eV1oVAGaCfV7HWwr Z356EuGxpHHlHrohj6kc x6enaFl2YdScIKZghmHe yHutVGY6y1NwWp55 I51sXEbqDFEqHGWhHBEn VIDuwUeiia6dbE7aRn3+ MO8op3gsxm61aZ33lCR+ JOWrQJI6aJcgMGyf HXRjvG0eDEvlDeW4GAQh QvHxaU03aXLmTFzkRi5w uLrcfYajXF0aOIJdofhr v161QyNhn1ouXSJt xMTpFHriLSR2E78mi5P7 APTrWGHuTWW0bAQ8sL1q bGlnbjogbGVmdDsgdmVy uVaoGTdzRWzdG918 IHRvcDsnPlBhdGllbnQg EuKkRBa8C5SoRny9YZYq tVaoVG3qcRInSWnaSf0f kYajiZyiVD9wLUCx ncffk187UpLvg2dsNVDm iESjQLgrXRK1Z10gs5R2 ABFkPLMtJDV2kSD0nR1l bGlnbjogbGVmdDsg cfKwaTlkHPvkAHuzM986 IHRvcDsnPkJpcnRoIERh pRM7HO20DJ99uYWkp0M9 pLT8C4IgXHNovkzy aoxatMB9VWJwYKKlaZ50 Lo2eoOxuFv5rKJHmAPW1 MFBwePLuX2OujF6jIqWj BXPnXDFvO9PmyWFs NBoxT651LJifAsH9JHJp nrBjO6VmFEJoeMpxSwZ1 m3Y1Pq7EU8V2WK89BX92 eKWve8E1tFA2V3Xj SIVtebzhsntfiNV7YKWk YFUhcW97Ik4zcMhwSg1h MVXrGTX4DQAxmJMrW4Ed wB5wTxCrAMLzBWRa Z9NdtHXsNPvbT538ADcs IyZ4WOUfheQfK6EkSJNd aSjvBoJ0m8I2Lq4DFTz7 QQ59ED65aRFro3I5 dOR7U3AdDMVyhcmhixdd wYY3LLUeALOraI86Al5b dYvnJs7yMKYoWCF2FFOu sJLmV4StgA2iMmYo SAQiJWCrT6ThuVNsCJgr K427CBtnBnJ0AMUlujYu F7UgLLAavBbvCwN3q1H6 Es0SSWRhJL57OYW7 bWV7UR01YP83N7RwBjee dGFibGU+PHRhYmxlIHdp ZHRoPScxMDAlJyBzdHls NI2sCs2hYIHrBXDs gXzuvJMkAkEnj6qhMYNf XTquOZ9drTqaI9ZsiJY7 PBDdu4m9Rh78T82nE0Pa dXA+NTNzuWW8vIC4 fQ9bKdDuQgX0SEuiI296 TzGmwBLxRplub6jao5la uTe8OjO7HYPecnKniDos DZA1a7XhVj27J87x IHdpZHRoPSIxNSUiIHZh tTttqj4xoT1xJo2+PGNv zLW8gQL9jI7kYlVyPkL8 ZCfwN391FaQgrHDp Jutke1wlh5iwcZq0XxQj UDOqjuQecZdzXLL7w9Kf Zw43P5BynYpyq2QeYmr1 ek11uWCek8R3lUE2 F3DrSFGresfwlIOtnYlt KU1rUSBjvebiCSZezU9r VWNhY1w8KhReItE9FUhl G1RxcfR5ZVFtvJJu BLrnFOK8P79np7W5LAUh EYAtULF9rUO6wA0hzDkn bjogbGVmdDsgdmVydGlj POctTNjfJ498FSZf cRroKAEwhA2kUSFlrQNx aXiqHW5rMKPutgwqNkGL PoUGPmRDNJYxMNUXTt1T JTp4V4TzBnr9XWJa fKwzQI7csTXcZCxtIc1e pIbgxRjmTL5pHUXrrcdi KXRvjM8nEUNgkFDppSak JL6zDUPsanpoo372 OfYlWPV5DWMoqZFfK9Cs jE3rOcJbFAKzXFGtM8Kz zIQsYKasI807IMnoWnR1 PPFhyqWnT1DuDALv vDtoFwJ9p5N3Xp0pFA0x QL1rBNV6JR82HY43kXWl o1M7dOH4M1EnCQFagzto etyltHD4YSPzNEYj fP81eWWuOCdkYe5vn1U5 r151RNCdFMPehD46Ou6b wPbpSVGgiOOEwX4svqaq p3aszubuNlEyDKLo LGf6RTd8XEBmkAbeLoSi MVH9MaH5XKN0tAKezT4w vDtjvshsbV5gUue+NTkg QCKelqL5L7NwOal8 WCInaVaqQP3ooKAyCUla Ex1ejHspvZvqBQ6jJQYn tcnlRNSeeU6iNTPhnSCt kEpxNE2mXPTpcbjb q196SeVkNCM4HZCbaSCh B8UooN4eNrKmQICeCHOl W8EuiXLzHTtgD691VRon KnU9XCFdhbCrV8Xb SEClsBioPeI7x8K3Xh1Z IH7qdWL3Z2KyHxg9ZXQg zWmzPF2ufWXbRTpeBr2a yTdheXxiEB2uWLZt mamgOTXrcC0hOUKwmFBi aQbnYS7eSRBdstvhh797 AlTpNOX6ECMxgYEgX0Yk iY5bKmDdWWNzQJHy B3WdjCWdMMyrG273GMii AdM3MOOrngOaU3XrCMCc lMqwShN5t2Y7To1DdCUo BVKdNX77GX63AN56 S4LcIwbjhQJgqFJ+PHRh YmxlIHdpZHRoPScxMDAl GqEvfVypTP9iZv4jBBOs LWNvbGxhcHNlOiBj u6mySLFoVEwdRJ8gdWit S7NaaZK3FJPal4r2Ot79 R01xR2NigOK+PGNvbCB3 zCH3xN9uBhMaUxZ2 AXcdO675HkMmbHBpQlbs j6oap6zhiPt2TjWlHASr vqZdeYlaZJJ5n2KuLd87 S87cEAfnJZEpEIOx TTKdVDEkbUfwae0asC3v Ii8+OUTmdHH3bEA9vG4r TiXxPcL2ZFqzK402TjVj qGHkGiexV62oW9Rb dXA+XEBgAfg7OFCyjWzz EM7jvJGnMQcoOg2wFWL8 RbAmEbQgOVkoJ1ExPEPa ebaejtfpjAS4TPSg RGSiuM14Ok7ikZytMl5a DJQvGUC6JTMubFWgL1Fr wQ2yKuZbTFWtGVDlJ9Ew aGVtVXnuM642XJdt FqU9NVNnmcOvU4PtXWZb fEdkNbU6n7U3Kf9SjBtk yKDgLR5oMiAxANj5E2Xa Nci2PWZqeTaxOI4v zZDmGXaoSx0nvNqolIbn NM3dQYPsdddwx996MpAw c4mgKRCstDIvLBqfHIJ1 T72mu7Z9OSBcZXPh NNY7aFV0qJ1ngYmbiflo bGVmdDsgdmVydGljYWwt JQrrS360PLRebXzrZpFW Eth1E7WmEsc7HSJc gNxaGT1xnEEhVFwyGp9t oKcfvMpvKM6gWRIvgtaf o849AxJoi4fcGTSxvNZl AQowXCW8V23um8T2 FQVjNNBvAIS1xUW0yC7w bGlnbjogbGVmdDsgdmVy nEvhTZapPXnpW139LXIy zAinPv6UWms7V4Zo Tnu1UWKjkPcrGZ6vgUWy LLfxXm7gfXiqsJtxEN7r ISDrdpgvf739SrLsh1he IDEwcHQgVGltZXM7 P63yw4D8GUOgPOLnDCS6 oFS9vK7beBmiqsehhQZx dDsgdmVydGljYWwtYWxp N258ZMOthMapQzHi eWVyOjwvdGQ+ZB61wz43 J9JiCzdpUvb4UFRcHIB5 cSD6pQ4yFCAkXJbtq0T2 sWI4I8FdrxNiux4y b2xs (more content not included)... Normal [facility] Multi-Wound Charton 11-14-19 23 Multi-Wound Chart [id number] 2#1.00CD:127 [facility] Nursing Note - Woundon 11-13 Nursing Note - Wound [id number] 0 [id number] 2#2.00CD:127 [facility] Nursing Note - Wound [id number] 0 [id number] 7#2.00CD:127 [facility] Interdisciplinary Note - Nut ritionon 11-12-2022 Interdisciplinary Note - Nutrition Nutrition consult for [facility] r/t refusal of DM educ. HgbA1c 7.4%. Pt states that she works with Dr. Martinez on her DM tx. Pt has not attended outpt DM in the past as with her work schedule it would be too hard. Pt also has DM dx and they work together with diet/medication/etc. Current wound of rt lower leg venous ulcer that IDT confirms is healed this day. Pt notes her A1c used to be 13%, and she has improved it greatly over the past year (7.4% now). Contact info provided to pt for [facility]pt DM educ [facility] Comment on above: Result Comment: Elec tronically Signed By: Dionicio UNGER, RD., , Shalini Lopez.carlos\Date and Time Signed: 11/12/22 14:05 EST Coding Summary.on 11-11-2022 Coding Summary. CD:[id number] Gh0bWw+PGhlYWQ+PE1FV OAqC25drWIwrP6GN7rCN M9SSEUXEJZZBF2EME2kk UC1ODcxB8EzfzQb GopzsFMpEA50WCo7PFF1 tWezEMeiiU4arSSfW9b1 NjVrAT14gT36HDmoBZZx NxY5XuDskjotfEUr C1moKrHyyUTuNno+PHRh YmxlIHdpZHRoPScxMDAl IbZiaPycOH4uNu2jMZOa LWNvbGxhcHNlOiBj m2arYEZmSZpzPX7aeLmp E5VloUW3QRFnf5m9Lg78 dHI+XAWvZQE6mYxcDFyc e784JcLwy1kjZQI3 oQMvRIwkMBV9R36jv2Y3 JGWbKRCoSKP3dLA9iV2t kZdyiulnP7XvcXSeQdD6 RRZ9jWTftF2bvNal esqkwS5pAkv+L39SRX1Z JCZSSY7EXzn4O3KhCpzc dHI+PL15KPOkJI94wTGh qKAoi7ovbEu9VlIv NIIuUJJ1tSujWGsjc8Dx EWTiS33efIWtu1V7JZLy hIgekBWqQaNaoQS7rA3f DJkxeunhu4evppsy Dzyrf1empc61sO73N36r OCzgPBKcSZK1DEIqBRLt lNkpal0irT0rJw0+IDxj g4plj7hghUg5JsDo ITDdydAzwVwcXEV8h7Lx Pu92C5KsbKbwn1ZqUcy2 jj95nBFph2G9oSI8EGjp YFIugZ2jQWedVbQ9 SEApKsIbjL02lPWvPKhn Re3deSuguMwnWA8yFRVu cpuyDVIenB7lBFAlzGAl nBrnZA0eTQRcikbv c917LkFtDWX6DRAhqEEo B5MmhC6nOuHkBVYcZYSx F4MrzLSzFMglJ708HCoz BaU7HLBkclMnR2Xw JSFxeWwuJvW0a5I3Cb3H r5LbdyktFSA1LDsgKCQs RoArPcRdQmJ1L7LuOvh4 MNSiiMlzOU1tL0Vl OLNkliabdgkpqYG9MWXa RTOxoF28rVFvYMllYd7t e5B1l035JKDrTTQvtV01 Ed4sxShwZWWihESM kB6iwdoob2suaunwLkRv XYLuHXv4YZi0AIVaxRix WuNuVKS0UvT2SNW6mLFm dM5otCydexbsnZ7u Oyc+N71haV7tCQL8TBS9 vwlrEACqmjXqJF66FH39 P8TkJonmmECdmNP+PGRp aiKqqYwxHE1uKrIy a8dfj1UkZAkmW1BqQTNn AUscOlz8PCUlIMK3qHF3 tT5aTCYnCMofz8C9lNP5 D8XiqrZaxg3to1un WNYsDThcQ20peSTqq8T9 RIFnmMZ5XRYqdHsjLlXk iR21Efi+PNYbkZwqt1Kw Sczol8fvt8jzpUa0 IjMwJSIgdmFsaWduPSJ0 w0FeOf34Z64kZFcqHZZv PKZrHTRyCEKhiDlswi5d cF9kTi6+PGNvbCB3 wLJ6nF0xEMXvGwM2BRxd M827NnOcbCOgPkmql1ep l1gsvMp0TpIpOVEdxnJo wFhbEUM7n0SyYf09 F55sTGqtIYEsYGAwXPLh IFOamDrlsd9fgK4nUw0+ IJ5vr8tlmr50dB80tGA+ OOBvYMM9jClcVPen XXLbmQ8dGCgqAgZ9NMSg BpPetB72aSOtPOkyWc4h bSpkrDyiYQ3vVIShnbrg y710OeYkm6woKHSp rPXqDQigCVT1R04ks7Q5 POIrWNYbRQP7xGG3vC2c bGlnbjogbGVmdDsgdmVy xCgaQQtuNHveJ061 IHRvcDsnPlBhdGllbnQg GjIoCSn7M2EzCoo7PCLr bDcdSP4xjVNzTUxcDc9y sKhqoLxcTP9lGFNa ehuxw269JrUdz0tkOPAl dEYsYPlbNJI8C24so2D5 KYAnHBUySSO4kVV0kZ4k bGlnbjogbGVmdDsg xiRunQbxSAvgUAmlJ932 IHRvcDsnPkJpcnRoIERh pLL4SG49XA20zRJme2E5 dMF9K4AmADPybaao ndvrhNU1YIMgKTDknT27 Kf8dcDqqPu9rHKXtWRK0 WJBzcDGqX1TbdD6aPoEb KYGaHJFmG5MihQSz LDreZ889IQbjFvS1ZOZh kyQsI0JnSWAipCqwMbV2 v7R1Ct4NF9X8QH86XC09 cYNel0W8gEI4J0Ku UFAihnzheidvvCK6ZZVg CZYwsB25Nt0weXjtZe7c NHWhZLL5PKIwlTMoP7Ta oR8qXbRlGDXcMTKo O4BefBNeGKitT651UXdr RtB4RTAoymUuY6OtJWQq fBpmSfH6k0N2Xw7RTEk7 RH55AD08qCSaz6N9 gDG2J5NvAWYzavawghcs kNC0CSIeVGNnfT23Yk9t oAcgNc3aOVCzJHO8LZKn lNRjX9GihJ7fAqZb KSTgHLXpP7DxsSMzCIbb B056MDamElG7ARBoztBb Z8RgHPDdqWpbCaN1q3W2 Sb6FPFIwOE04USF7 aBW0JV28PN16K6EgMfxm dGFibGU+PHRhYmxlIHdp ZHRoPScxMDAlJyBzdHls BT6pBk8xDNXoAPUd xOxrjJUiCaWcr7hhFPHr NNamOJ3zpBppA4XfpMJ0 YEExm5q8Xd14K44vX1Jo dXA+XILhfZJ4nWK1 qD3vHuHqFuB4AIukX739 AbLgbEHeAievh0bel6jq kSk2OtT9UWAxfaUgrDcd OZH6y0EoIe03M65i IHdpZHRoPSIxNSUiIHZh sInscv2mlV5iIp5+PGNv oZN9nJY6sB3tCrFjWeW1 IVxbO674ViZcqCIp Dbovx4scb5pffCi0XfIw LUVyrhChjRllOAL2n1Yq Ia95V1StsOjrs6LrRfs3 la26nTHuc4H7iSS5 O2AsCTNqtyiobFCkvQjl FC4sAVVaymcuQHKiyK0b KWHzV4p3KuNfJuP4FCuz C3CxngW0ZTSmySIx TWgzVJN2V63sx0X3HDAl IKOtBRT9jJJ3sF5svYbs bjogbGVmdDsgdmVydGlj IFkyKMesQ232MRYl eHmlIBUctS3bYGSmsQNn nQdxVZ7pTPTodeguRaAT PtJRDuNANYAoSLYBAd8B GJg9X2TlNcr1YEQv jNphRJ2kkRAvRDfuLn0w dRafqTzhSN6aTIUvueob MZQbuL6hPQBqgHJrdUxm ES7vYBYehhlwm111 InYbYED5KOIrgDLiD4Ay bW4lUwCoWXXeLQMbO3De lMQlDNvoI030KVnzJcP9 XQUdvqLdX0DbDHWc qIloGwF6f6A3Tn4sVI7i FG2iZXT4QP47PX36jBFw a1J6jZJ5G1IeJJOccjqx liwgnKF1QAXbRUDn wH09oOQcKBvvXl3vp2W6 n979QTVtQYZsrY42Al5c iYbqNVRtzOSFbP9hetqi g7mflkmuIzXxGMIg CDu1WAn6IFSclLmxDtJi QYI8GbT3NGY5uZXwcA9s fUdikrtnuW7dGuu+NTkg UWFdwpO9Q7BtGot1 JJKjcMpdRJ7nfVIsVBwe Lc4nkFymnEbuGT6kHXRm dmewCVNnoB7nLTNfoWHe iFvaOE2lEUZirxrl m179HhXfQOI2CHGozBHs M1HckG9oCcOcEPZbGOVu S7OpeODzPZuaW733SFkg WvY5TBXofdQrD1Gb RDRifWazOfU2x2Y3Yh1S QH1ltSL1R5GbCvk1ZUVl zGfdGB8biQOfPJkqXo1p uKsdmGkqRE8dWYLq bggkIMMtpD8zEYLjqVIm yMbnAT6fWMIcutfoq278 DkKqNJZ4DGBvoNAtH0Ic vB0yShXxHADaIAGp Z0JpnLUdFJabO683JBgx VpH1WIOgahNeQ4FaENDq gSvcPuX6e8C2Xx3OsMRc PBYuHT75WJ59LJ02 J3VrHgtibWFweMO+PHRh YmxlIHdpZHRoPScxMDAl DsZblOusTR6tJv7gRPQf LWNvbGxhcHNlOiBj o7cjXNNoTEdfIO7vlZcl N1WnwPD4WIBmk1u1Oo00 W17wO8VahPH+PGNvbCB3 zYK0oR3yVtJkFrD6 FLsmU409GrWqcBFpDehl k6qgn4rmlIc4IpIdEGIh thOlzFdiRGW6g0MxEf09 C21fBRcjOZVgOXNx ESQlOKSavLcktn0xiG3x Ii8+GAXrxPU9qNA7vJ7w YtRvIjC5ZZujQ450KxMd eIAiRmkuX61iC9Wi dXA+AUGhYxe6XMYxwBop GX5bwGGxSDfhBa5vWXA9 LoMrTmXrDZlnX1KrQDNx feudojqimIJ3BNJx JFJvjT69Dp5njGbgTm3k ZGHxNKR0ZIPjpDJnC6Lq aB8xCcTkTIBuPQXlI8Ul cRCyEOhvA738PQha StT7HRWyjhJdT0PdCNUf rIhyFkA9i5K1Md8HfSnd sRKgRT4cQaPuAGl5G8Hk Wsz4EMWlqOqiVO5l jYPhVLtqFw5xwEbisBup WD6jUBIteuprc411SnIq i3fdOLFjlZDqNKyeEDY9 X35do9W3DWRmXNEv IAM6eAG7zF8lbGewlbgp bGVmdDsgdmVydGljYWwt QPqlE456GQMuuUyfBrGE Oxj5M8XnTwt1IBDn mHuiEO9ecTZlEXatFg5z kMeetSubTR3aUEHxfspe k924AxTag6nnLBQraWUw EKziMBX6P88ip0I8 DLOxVUAcEKS0fOW0tB4j bGlnbjogbGVmdDsgdmVy wFuzQIdoCDwgD673INIn nHvhMv2YWre7Z4Fy Ndd3BSJklNduWX7ilRBq FBtjUp9kuPphdUkyVZ4f PVRzpmcmi626MmUpf1zx IDEwcHQgVGltZXM7 Y83ru3Z0KYLrXNSiTCW8 sUD2yF5awIbtemdgbKTz dDsgdmVydGljYWwtYWxp B788XIYlpNdcIySe eWVyOjwvdGQ+WA64ga41 V5StQsleKtp5MZQnUWL1 gKY3hO0eAOBeVLrst7G8 mXC8Q2FhtuEatw3w b2xs (more content not included)... [facility] Consent for Procedure/Surger yon 11-11-2022 Consent for Procedure/Surgery [id number] #1.00CD:127 [facility] Consent for Treatmenton Consent for Treatment [id number] 30 [id number] #1.00CD:127 [facility] Multi-Wound Charton 11-12-19 Multi-Wound Chart [id number] 3#1.00CD:127 [facility] Nursing Assessment - Woundon 11-11-2022 Nursing Assessment - Wound [id number] 6#1.00CD:127 [facility] Physician Orderon 11-11-2022 Physician Order [id number] 6#1.00CD:127 [facility] Progress Note - Woundon Progress Note - Wound [id number] 30 [id number] 0#1.00CD:127 [facility] Coding Summary.on 11-10-2022 Coding Summary. CD:[id number]:[id number] Gh0bWw+PGhlYWQ+PE1FV CSpD69bwCXjsO4PL8qNM I5KFJHUYULAOS2AKG0el UL0DSlwA6ZomzGp LmslxXYtML60JAm5SAN4 uWskWUtjuX7wpZJwD4s0 WuVxMP78wI77KRvaRLJq PuQ4MdOkyqaceTAk P2ffXvOofBVoKyg+PHRh YmxlIHdpZHRoPScxMDAl NkMskXtcUG3aBu2rPTNx LWNvbGxhcHNlOiBj h7gsEVEpOWwiLA4klWuh T9ZmwUA9IRVgm0o5Cx61 dHI+IRIxMTA6vMcxMWbi y095VcLvl2bwWSB6 jTUlERtfGGS5K62tp3R8 GQXfAVZuLZK0fCS7zA7f rVyjfbdzE6XfgUVwRpV3 VVN4bPLkxW5jrJzs nfubrP3fDrx+J08IWE6P PFMEYY3XIhk9P4IjTefr dHI+YV71MCIrPG96mSHl uSNni0ujlXn6RtKb EGKcQFW6aGljSVyhf7Vi HEDtH60wrABgx0C8EIFx yFetzHHoLmCphBN7hK1x BFcbkzcqf3ybidqs Xomms0mkvw72xD99H02y BLcgWIRyOIF4TXAqIBIe rJiwqs3rrI2yNp4+IDxj o1hgr5klpHs7VnDm EEMjrrPiyGlgTGT1s6Zo Xg80G6RneAusc4XmLrf1 ln61hPWtg9H5wVB3ZRfx WMYbbL2uPKatXiA4 WARqAdNbzH88eQHkAWke Sp3jvIvlhPbxCH1iLJGz lyvvJZXtaL9dHWEdrAPv tDbwLK2nAOHiqzlx y956YeGaXLE9DLTrpNVu W5GhdG7qTzAhCUKbNRCh M4MsdFKuIDqmQ226OGun JoM7EPLxwkWeN6Fj PSCicAqnRqS8i8D9Ed2V m4VqahxtQGF2GLmnICGh QyH0CzIaLaV4A1PrZeu9 GURbgMouVJ5mQ7Lj WHSwrverelmyhYM1MHYz KTNsjZ81zJUrYJtqQp2v t2F6w368IQZmYRLlxS73 Vn0maCoeJHIwaMBE aE1axljsa9fzgryiAtWq TUWoYFj0RPs2AFPswPue TfSpDXM5JrY0TJL6oFFh vL2yuDrfnshfxR2s Oyc+D47upJ5pXHK1DEQ8 rkwfVKNllvWyDU49VH51 J2TlVnqjoIPchRA+PGRp dyNqcDflQP6bNdFb s8wgv8XfDZmcJ5LaBEXo OWdoFur6IJIxWQP7sKO3 zM5dCCRuQNvng6Q1dBU0 X3MoyvJjpi9qz2kt ZQXzJIlbY15ziZIii6I3 RGDziVO4GKYsxLqtLqJs fZ71Huw+NIWlwTije6Kc Fbydy6uou9nevDl6 IjMwJSIgdmFsaWduPSJ0 i0LvPj35B40bTUcmPSTj CEJgUXSyAPLeqMrlgm6w jT4sUe9+PGNvbCB3 mMP9nK7oJRGsLxX7NTqi E806JoKlyBPrUmqdn4rf n7kkbXb1SzToVRKeldOr iQwkBCX2b1KmWd20 G70gLWleJAIxKGGgCXXt XZCjkWehus6haJ5rZs4+ EX0kb3ubja95aO05hSO+ PVYxHOK8tZwfZOua ODNofS6fAOnqAaG5SBEe YyHgaM01xJZiNTzqYi2u bNzmxFvyGQ5bVVPyuvhb f770JtOzn3skEGKf qWCfYPvdJRD0Z48my9C1 MSVfRCQeSQM0eCD4pY3f bGlnbjogbGVmdDsgdmVy qQmmIWobQTtqF031 IHRvcDsnPlBhdGllbnQg EhAhSAx9Y2ZcPnt4NBFz cSsnXZ8jlXZoLTkdMy8k eKswuZhbTB9mNKTy rxcpp816TaVgh4hfPGPi nWBuALsfAON3T30nh0Q7 QUOaCKWsUSK5aIV7fH1y bGlnbjogbGVmdDsg ryBtrRtmTZoyVMrzS921 IHRvcDsnPkJpcnRoIERh tWA0CY88RK01wNQpt2V9 yZQ9H0KaQPFoljzs fgghtAY7XBQnVZVorH45 Mb2peBraYf7nFHXvXBT0 XRRhhNAfT0CorI6xVnYi NGZsVSPjN0FiaFDz SPkhT487WXvvKoP1VLGh cbZxP0NlKQFihAvjRqH3 k3P1Nk6BO0Z6FU58WC88 vCOdo6L2pFZ3N8Dp CGGzrlgpahtnvTZ0DATc XJGujH89Un0ldSdzAy2k YJMbAAV9KQLyqFRcW2Fi iM9iNzUyOBJdJIBv Q3WthZQeVWdwP965VNgg PiY5ONLkmvZlF8RjCRBt wCroUjY9d2H3Jc6QZXy5 AP78CG47iBMfz2A7 yKL4C0KwKGKfktulkvjt wAI9UAOoPYHkwI89Ku1j eZjlUl9cKLMsQYZ2WJMe fURxH3GigA6qIbFm OYQfPHIzD2RqvXRxLIjq B414EKrxEqC4VJGyzeCj G9YdGKHbbMwoGgV4v5F9 Na2MGYBgGZ08HVI8 uRN6EL50IH94O9DePjaz dGFibGU+PHRhYmxlIHdp ZHRoPScxMDAlJyBzdHls VP9tEj2qSPOzSGHk rSbsmYTmAlNst3wyDFDg BDjtBC6egSztD0HxdKD6 MMAhd6u6Cw35V52gT2Zv dXA+IACrhEU2jPL2 sM7nWhXtIfB8ECkjI799 PwFvpDInMvsow3qdw5qe rKy3UrT0LERzyoHkaOvg DLA1x3YtYa71X94c IHdpZHRoPSIxNSUiIHZh dLdbfu9hyM8iIv9+PGNv fIJ3fIZ4rU4uTsYvSuM2 TNhhU808GvZkeZSk Acxny4wwu3pwkXb1XpFd ETTawoFvzKfgXTV3g1Fc Pm20J4IecRggd1YwSsp2 oo67mAXct7C1bQS8 X8KcAJApdmbvxVAkmQaz ZI4vSMOazdujABIqhC9o AZHpK9e9FuFnKgU5BIyz N1ZxyzC0LEIhkOFz BZogELT4W90cd8B2HEJt BBIqXCZ4cHT8lL1dnIvj bjogbGVmdDsgdmVydGlj OEueEPdpJ914XBBl sZmdOTBieV2qYMEboVZl nUbwTE7lCJRpnoscHbMI NjTUDjDOACPcNCCDTx3Z VSv5F2WzPxm6ZFQj mEfcQX3znEBaFYxqYu7l eIuxbIkoUN7eABCleiye VHExpV8jBIQacPSvwXnx JF9oLVBloukrp445 KzCxDSY8HTAysOCfD8Rq sT6kKfQqZBWbWEYyM0Ia iDQrSAptS427MWmyJzN5 KCOkxsKmU2YiZYUh zQquDtI3z8N6Eu0zIM1j AE5zPTJ3PY89QX24sXYe f9K2xDW7D9SoMVWxpfrx fccllFY1WIBlUHCg kA71oAMyMYkkDd6vu5O0 t444ZDOrKHNylV65Xy6e jExyDMHciBPMsZ0vxali z5ueukbqEfFiAZZb SIr3ASw9ZUBwfUkwNaFp ZJG1QcL8UUQ2bNIpdK5j pJulysvpoU5uUer+NTkg VVZhpnW7U9AuDbc0 IJVsdZscKD8poNRbOYop Xv0jcCdciNzuDJ7aOLIa xhqpKJFurW3cYGRniKMi mOeuJH8sWSHfvzhr g693CdMeNBN8SKPioRYu K7HmgD1hGpLkOONqHELv O3KkcIOtSPyoK464KEwn ZbZ4ERJdyyYeZ6Gj HUHocPwrSaV6a3I6Il1L EK5rsXT0A4AnSbu0QGRu kKftPB1rwJNeUVyjJi0n eUyciPvdWN0hUTNy drunQCRpxS6wJUOysUHe eBhqYR4aOHAhvgvhz823 AsWrATT7QSMzzTTbD0Dt kF5oDtIeXLOxIRKl B4GpoCHmOVmrP943KYin VhT5VGTtlzLcX3DoBXTl ePfyDfE0i3F8Qi1BcPCq ODSwON14CM97YM21 A9ZqAkfqfYZmuTR+PHRh YmxlIHdpZHRoPScxMDAl IlBdwMxdCE9sZd1jOQSv LWNvbGxhcHNlOiBj h6srFKEpZYchCI5luOkg L9YrpGH8DTNlk1k1Zm90 X07aD8DbsTE+PGNvbCB3 dGA2uD2wBbHwVaP0 BPhcB374XsQqyRMqUjoe o6qgx7ylhXc5NgMfLXVy mwOalBxoTVP6z1PmZq65 V87dASdmAMEaGNGo OMBdMHJgkFvtpg3quZ6x Ii8+LTEdaUA1nWY7bN1y WdKtOmQ6ZFcxG277ImGf oJRhGgdeH31oR2Op dXA+WHXoSat8DCHzuDlc ZO7zgTPnQOrkLf4oTLW4 QeMtHqWzEPrlV2SzCUIl rfwwahtwcTT2JZAl HLOnwN45Nu6utVunXw7t XVJnOIJ8LFIfzFQoT4Kx nL8nByXtTHJoKFPaX0Se wIPcDYeyN522MRct JxM4JFCejhDmV3NdIMHn nFbxWlL0i1T2Wz8MxVaq nQKkYO6jHuIyXAx6C0Cg Dma7MDYceQyeZK2s qXAaEZblVg9cmOfuaDde GC1bJPXpqriev448QnKx w9qgSCFfoMUiHIqrPEA4 A67te1T2LCIfYPXf MVV2bPE0zI8dpKimryvd bGVmdDsgdmVydGljYWwt GQxpI351UXQsfHuqSeFP Tsd0C5IkJcm1CDPr yWtaWF4iiZToDEdcUr9z uFeozJieWU4kFDGzcoav s305FaJzs0etRLXivTWl VJjbPMX8C64yl0R2 YYZmIPBjRTV6fRL1vT7y bGlnbjogbGVmdDsgdmVy hJcxUJwuQOmkF885XSRd kVhuDc2DJjr7I7Py Itv5MFGieTnyCL0pqLQo WCgvTs6reDeuyLsxHQ0g YSMzqykxt553QaUvv4wd IDEwcHQgVGltZXM7 R19kc2Z9YDJjXXRuKET9 bXE5jO5udRupxpyzcXOn dDsgdmVydGljYWwtYWxp R508LOCzoMzyKiEe eWVyOjwvdGQ+NC80bm02 Q4WfSzotOku9MJUnAAX4 vVJ4xO3aABCkTOzro1E1 mWH8Z5TkstYcsy4n b2xs (more content not included)... [facility] Nursing Note - Woundon 11-07 Nursing Note - Wound [id number] 0 [id number] 6#2.00CD:127 [facility] Consent for Treatmenton 10-15 Consent for Treatment [id number] 30 [id number] #1.00CD:127 [facility] Multi-Wound Charton 11-06-19 Multi-Wound Chart [id number] 2#2.00CD:127 [facility] Nursing Assessment - Woundon 11-06-2022 Nursing Assessment - Wound [id number] 2#1.00CD:127 [facility] Consent for Procedure/Surger yon 11-04-2022 Consent for Procedure/Surgery [id number] 59#1.00CD:127 [facility] Consent for Procedure/Surgery [id number] 42#1.00CD:127 [facility] Consent for Treatmenton 10-15 Consent for Treatment [id number] 30 [id number] #1.00CD:127 [facility] Correspondence - Woundon Correspondence - Wound [id number] 302 [id number] #1.00CD:127 [facility] Correspondence - Wound [id number] 230 [id number] 72#1.00CD:127 [facility] Correspondence - Wound [id number] 230 [id number] 13#1.00CD:127 [facility] HIPAA Forms Officeon 023 HIPAA Forms Office [id number] 84#1.00CD:127 [facility] Physician Orderon 11-04-2022 Physician Order [id number] 1#1.00CD:127 [facility] Procedure - Woundon 11-04-19 23 Procedure - Wound [id number] 3#1.00CD:127 [facility] Progress Note - Woundon 10-15 Progress Note - Wound [id number] 30 [id number] 4#1.00CD:127 [facility] Correspondence - Woundon Correspondence - Wound [id number] 302 [id number] 9#1.00CD:127 [facility] Coding Summary.on 10-22-2022 Coding Summary. CD:[id number]:[id number] Gh0bWw+PGhlYWQ+PE1FV ZEeV25iwQSlhR2CB4wRH O9AMCPPNGJSXD7WPV3wd AM2AApgN7QnmjDl XkjzoLWlDV76WSm8KSG1 zVdfQGxtdC6owWTfH6v1 CzCbQO43jQ27NCttWYAf ZqK6GkCpacqiiQAf K2tiOjFnlHXvDxr+PHRh YmxlIHdpZHRoPScxMDAl ZqOflUptBK4hHb5wUBCk LWNvbGxhcHNlOiBj g0cuILWuPPkuVZ9mhImg H1AlyFS1ZJLsj2z4Ha68 dHI+BRPnIJP4xJhiJNvz l670EpMwe1lwHOD7 nNNaVWrdZCQ0W84oo0Y0 VZQtIZLuSKN7yZX4gX9n qDgyycsoP3JcqXSeEuK1 MMM8ySDyeT7glAxh yxplcU9lFui+M09BNG0F GKNSKA3GFwn9S6AoJtmp dHI+LE71JGVeFH98xSSe nIZfq3vptTb7QnYv DGXkMRY6nEwwLDbfp2Yp BEAkG37nbJMcl5P8ZEQe eXbcaRCkWdLliOM4yX3r EKwbjcwyo0iqpxow Shvwp3nndb08yW32G77u MJhiOMGdBYZ6LMBvWLMn xHiwlk3zkO7gLi7+IDxj z3ygf9edsBi8EqTe ECKzuuUvlEfwSFP2v9Jj Zc38N0LtuKhny1AdNrm5 bz26dWKaj2L5oGG7IGej LFTixM9lBXmrAyI3 ABZaZqQssM08fVNgLMwr Uv0azQxsnGtuPB0gEYKw dnmfXIBhsA7gPKNvuUBy pNvlKY3kXZQxiqtp t809SzRiNYK0RLAemTPg M1LosG8pOoCbLRShYAPm W8LzyOYcGDubR306TEop TkF4YLSezeSfY5Vt RCUzqFhfShO0y2F8Ni6U u8SaxflxOIE1KNjwIQWk UdZ9AwTiDxA5O9UbJjf0 PANpyEfnHW7rU2Kk AGXkbxzykyyqnEZ5QKKf KRNpwN09tYKbNIruIj2l k5R1t284VFZuCBNshT76 Gb2neNmuNDNbmWHV iC9voapgu9plvxsfLwMa JLZsUBt3OCq4VZOvuWgm GqJqBGN0QhZ1QXL2mZQo jM8mdRdtgjplnX7m Oyc+B67chF8uPTB3FIN9 edkiMJDhkjEoEF26QZ96 E5YiDnjfuRObuAE+PGRp veAirNolDZ3uTjAn l0flh3PoHAgrO8XfLLMb PCvxIur7ZHZwUQP0bPN8 uE1jSHFuRWekr6N7xSC7 E8YilkKjwg6bb0tu HQRoHIutK66zbZPdr0D8 NEIvmOC0QEQyzRuxEnHg vP19Wah+HFEmpRfzo3Rf Ihraj0ytk9bdpDm5 IjMwJSIgdmFsaWduPSJ0 b9TbRj50W87wMImoYBOe MAAyVQTyVHAmyDmlzy0p eN5xXy6+PGNvbCB3 bBI1fU9pBJNeElK8UMls O585IfKabETjMlwuh0gq t1mhlRn6KjVzUONojpMd jTgtTFI0n9RzLp56 M66bSYviFGXhOCBpOSFt DIXcaIedfr2cgG7vYh5+ QL3tc5wykq18vH65wQX+ DORhTXY3jZnwAHud QGNojD7rNOciJhF7WHZl QkLbdK18bTBuHMjlTn0c ySbawVxwFR9iPSNjxwis d685RsZci9opKRSc hGRoTLpvJKJ9I63fk4X4 RFDnZAJlLOU7yFM1jT8g bGlnbjogbGVmdDsgdmVy eFdqJDqoNDlvQ295 IHRvcDsnPlBhdGllbnQg ZxWgAMo5R1CfXmk4SIWr aIxlTD4ejBAiHMmrNw9z uYtqpRroRF4lRWPh eggon267XcVmj6gnZTYf kFRoWEgaYXV9O72yn1B8 FPHrZEAvHRB7sBW9cM3q bGlnbjogbGVmdDsg gkKqxKjnSDobIIjtW272 IHRvcDsnPkJpcnRoIERh xOA0MR59MM14lDStg4T0 uBW4R3XsYTUozdro wsdwjGQ9HLRwWADjvL47 Kb2mnIlkJq6iZKQsFHJ4 KBYdfFGuI0BkcA5mJxDg PBSaPAKvU2BoaDSm EOcnZ856ZRkxNfS2MGSt vhQqB7QsEOZmyUpdIwZ0 g8H4Da4SG6C5RG45AQ81 cFNyy0V4rCO4W2Du WLQkehxwxullgCR0TNDz XXDujB06Kt9wxFnpOk7p ALReGFQ4BHHvyXHbG6Pm wW8cFvTuWIYjIJCq C4EzfKSlSYdjV777LAeh CeS3BTKuxnYgY8DfNGOg sFovEbJ6k9A0Da2EIDo8 DC82IO70iXVcy2K2 qLO1O0OuYWMozzuilflm gKU0WACeYLKebW10Zu5r dGhaFf3jIFIdSUI8GTQm pEGzZ1YbuK1qIeJk IDHsCBGtN4FbyHBvOQfm U114CGjmQhA6BDTapxDg T0DnAQQgfDdmNmA7n9A8 Bc9YRKFpUM38MYY1 bEY9ZK82NQ89J3PhJgfu dGFibGU+PHRhYmxlIHdp ZHRoPScxMDAlJyBzdHls IW1oCb1pAIXtCLFu sPhoyZCqDkBxg5wzSXOh NFiiKE8zjBsnN0GesGI3 YLYsw2d8Zk10T14gG1La dXA+ORQauEA6fGY8 bD4jSzAtLkG5OKedL270 GsOptCVaKhidm0hfi2dc hGg0SdX4OLPpkwEpnHxm CCL8t8HiXj20Z04j IHdpZHRoPSIxNSUiIHZh zHozrl9vqI4nZm6+PGNv cCU7xMB5wU4oYoUrPfT6 QMokP204LiBoyODm Vrxtq9wuz9gqwMi5EoXq QAKqyeZczJjuUKM3d1Sv Jd52L7FcfGjwn9UpHzb5 ug43rENwt9P4gWE4 Y6CiIQQjpiehlPTstMhf UY0uZPNmlclhACPofQ4z NQJoO7w3CiIoPhV5WFvb U0NkwtA1WWPkjNXf HPhrJBU4T18oy6J7UULf VVSaRKM8kPH8rN2zkXie bjogbGVmdDsgdmVydGlj XEygAMgfP392JMJq nDnlELWlhF2gMZCbxQKe sXacDM5eLOXbjujmAdDH PjFUPsQWGBPfYIQQUd8Z TYv5I9NaYhu5EVHy zEtpGM6wpYEuZCtsRu1e cOxowBtqVJ7vBATxzspq IBQugV9iQCLvaAPiuQdx UU7fWXCvdyzsd436 ZxJlQFL7LDHchPFtV1Cy cO1qZdFzEFLfRQPqN0Jm mVDcNYayV074AXpjZtR8 UUMpbwGaS2VlCWTv xJssVxQ1z9B4Zd2qEE2m MV2hXYN2HF36MZ42xZBq c3Y9bEA2O0UjRANvsscq qwubtEC7AXRkYLDz kY34wTAhOIzcQz6zw2Y3 k992MRPcTURjgV58Uu2z sVvyOKCqdJZRaE1purho y5kstrbhHqMdPBEl STk5ZXp0UKXvsScvFgSk YGM2FtM1HQC3yYTlyX4y eAdkfijkhI3nOxs+NTkg CUHvgkU7P2HkMdk7 FNNsjYxeYI0nbFVmGCbv Nv0wgBioaJpfUB6wGQBj ebcgTGJkmQ2vUNQffGOa fBjvZQ9eCGPrxvpf i131PdJpPLZ7NUOgnWSh G0SabT1yBgExQZHhDSDa U8JzdSBvUJbwP025UOyn GyQ6GYDaaxHqU6Jz FVIucVtgEcX0k7K6Ee9S XQ9tcST2D2RaZki0WKCq lZgsBD3rpJYnXPvkEi1e rQmycQxwFK4zULHl fbxhVJXyyE3aAITmuBDm tGrqHY9dGACyjhniu067 AbVgXRW1LOYotNPlC2Ms eN2yHsMpXSLnWXAp C2PenPTaAPpzM107KZkr CkN2VXBtrjKgQ2FjUTRx rGkdJpW2a6B0Vx6IsEVd H2BeT1b2D1KyVuwb dHI+UF49KRQiIY44dIFu hVHua0ldvBu7NkMhHEHx YFF0kWvwDLecz0GrRIUn V09hdNFln0B4EGUx qTxlfMNcXxOveOD5iA2b QKldvesmc8asklsyYgzg w6iqxh58yT79K71wIJhr ZHRoPSIzMCUiIHZh kXutlm9jkC8jFp5+PGNv jSI1pUI5kC1zSsAcLkW4 EOvcY392PgRibLRbToag o9yne4xdtOd4AcGa PDNmruIwcHtiOLO9w3Rm Uw97X33qXAemGUUuCPXe ODKyUEYrkEcmod8bzL5k Ii8+GY6jv6bctt22 jP95zPG+QIFsYFO6rLbe QGxiGBPccW2jDCkmWbE9 WAKyAzHldT42lEIyRPmb Sk2gdAhedQycPU0k DRDreuaew115FfIaz6zt TPFqgFTmPLspCJT1Z28x o4E3BYSvATAoWVO5dBA6 mF6ygWegbgfybJLv dDsgdmVydGljYWwtYWxp N508CBFjqMbrGbOeyAGk Y3qsauCXUX3vUnrvzAP+ FYCrGNO0lCljINhf PEZsbC4nGRPpZ0w5SpGa ViD2BZgiV1TwuqC7URAa qKBzEEYpwHJNqV1adffa y3uuhpcxXkNiIFLx RId2WMt4TNPttGbnAeMw GMN0LeB3NVE4fYPaiN7w uAzvfovjhV0oFuo+RklO OjwvdGQ+PHRkIHN0 fRpwVWeeCLNzdA2iIPTk L8z1ZfKiSmH1WNxwX1Ef emD1PTTjnDAnCFWhdOEV aE1ppztaj8gfdkai MaUcNAZbHOb9FFe6LEVz mWcmChKhSFJ3NpE0LMW1 aWSfnN4abEwttfqjzP1g Oyc+TVJOOjwvdGQ+ SKCcVZY1bEzuQEjdMNGu yL3qZXWyI2i0QpXpPbP8 ZKllL6KvwwK6WEBapGGw VGLajNXErV1icvum c0ciemaqEiKuCOJrACj0 LPv8GTIurWtjCrTtFTD7 ZyL3MEQ3mUIotD3vuOcc hepcxK3zMdj+UGF5 QAZ3TZ75HA81K0PkQsmc dGFibGU+PHRhYmxlIHdp ZHRoPScxMDAlJyBzdHls WM1jNw7fEJAiQUYm bGxh (more content not included)... Normal [facility] CHEMISTRYOrdered By: SYSTEM SYSTEM on 05-02-2022 Albumin [Mass/Vol] 3.8 g/dL Normal 3.3 - 5.0 gm/dL [facility] Albumin/Globulin [Mass ratio] 1.2 {ratio} Normal 1.1 - 2.2 [facility] ALP [Catalytic activity/Vol] 66 [iU]/d Normal 21 - 98 Int._Unit/L [facility] ALT No additional P-5'-P [Catalytic activity/Vol] 19 [iU]/d Normal 6 - 46 Int._Unit/L [facility] Anion gap [Moles/Vol] 10 mmol/L Normal 6 - 16 mEq/L [facility] AST [Catalytic activity/Vol] 15 [iU]/d Normal 5 - 43 Int._Unit/L [facility] Bilirubin [Mass/Vol] 0.6 mg/dL Normal 0.0 - 1 .1 mg/dL [facility] Calcium [Mass/Vol] 9.3 mg/dL Normal 8.9 - 11. 1 mg/dL [facility] Chloride [Moles/Vol] 108 mmol/L Normal 101 - 1 11 mmol/L [facility] Cholesterol [Mass/Vol] 172 mg/dL Normal 120 - 200 mg/dL [facility] Cholesterol in HDL [Mass/Vol] 55 mg/dL Invalid Interpretation Code [facility] Cholesterol in LDL [Mass/Vol] 104 mg/dL Normal <=129mg/dL [facility] Cholesterol in VLDL [Mass/Vol] 12 mg/dL Normal 7 - 40 mg/dL [facility] CO2 [Moles/Vol] 26 mmol/L Normal 21 - 31 mmol/L [facility] Creatinine [Mass/Vol] 0.6 mg/dL Normal 0.5 - 1.3 mg/dL [facility] GFR/1.73 sq M.predicted among blacks MDRD (S/P/Bld) [Vol rate/Area] mL/min/1.73 m2 Normal >=59mL/min/1 .73 m2 [facility] Chem S GFR/1.73 sq M.predicted among non-blacks MDRD (S/P/Bld) [Vol rate/Area] mL/min/1.73 m2 Normal >=59mL/min/1 .73 m2 [facility] Chem S Globulin (S) [Mass/Vol] 3.2 g/dL Normal 1.4 - 4.0 gm/dL [facility] Glucose [Mass/Vol] 156 mg/dL Normal 55 - 199 mg/dL [facility] Potassium [Moles/Vol] 3.9 mmol/L Normal 3.5 - 5.3 mmol/L [facility] Protein [Mass/Vol] 7.0 g/dL Normal 6.0 - 7.8 gm/dL [facility] Sodium [Moles/Vol] 140 mmol/L Normal 135 - 145 mmol/L [facility] Triglyceride [Mass/Vol] 61 mg/dL Normal <=149mg/dL [facility] Urea nitrogen [Mass/Vol] 17 mg/dL Normal 5 - 21 mg/dL [facility] Urea nitrogen/Creatinine [Mass ratio] 28 mg/mg High 10 - 20 [facility] HEMATOLOGYOrdered By: SYSTEM SYSTEM on 05-02-2022 Basophils/100 WBC (Bld) 0.8 % Normal 0.0 - 2.0 % [facility] Basophils/Leukocytes Auto (Bld) [Pure # fraction] 0.1 E9/L Normal 0.0 - 0.2 E9/L [facility] Eosinophils/100 WBC (Bld) 4.0 % Normal 0.0 - 8.0 % [facility] Eosinophils/Leukocytes Auto (Bld) [Pure # fraction] 0.3 E9/L Normal 0.0 - 0.5 E9/L [facility] Lymphocytes/100 WBC (Bld) 36.8 % Normal 14.0 - 50.0 % [facility] Lymphocytes/Leukocytes Auto (Bld) [Pure # fraction] 2.4 E9/L Normal 1.0 - 4.0 E9/L [facility] Monocytes/100 WBC (Bld) 5.7 % Normal 4.0 - 14.0 % [facility] Monocytes/Leukocytes Auto (Bld) [Pure # fraction] 0.4 E9/L Normal 0.2 - 1.0 E9/L [facility] Neutrophils/100 WBC (Bld) 52.7 % Normal 36.0 - 75.0 % [facility] Neutrophils/Leukocytes Auto (Bld) [Pure # fraction] 3.4 E9/L Normal 2.0 - 7.5 E9/L [facility] HEMATOLOGYOrdered By: Francia Garcia on 05-02-2022 Erythrocyte distribution width (RBC) [Ratio] 13.9 % Normal 10.9 - 14.2 % [facility] Hematocrit (Bld) [Volume fraction] 41.7 % Normal 34.0 - 46.0 % [facility] Hemoglobin (Bld) [Mass/Vol] 14.2 g/dL Normal 12.0 - 16.0 gm/dL [facility] MCH (RBC) [Entitic mass] 29.5 pg Normal 27.0 - 34.0 pg [facility] MCHC (RBC) [Mass/Vol] 34.0 g/dL Normal 31.4 - 36.0 gm/dL [facility] MCV (RBC) [Entitic vol] 86.8 fL Normal 80.0 - 100.0 fL [facility] Platelet mean volume (Bld) [Entitic vol] 9.9 fL Normal 6.4 - 10.8 fL [facility] Platelets (Bld) [#/Vol] 180.0 E9/L Normal 150. 0 - 500.0 E9/L [facility] RBC (Bld) [#/Vol] 4.8 E12/L Normal 4.3 - 5.9 E12/L [facility] WBC corrected for nucl RBC Auto (Bld) [#/Vol] 6.5 E9/L Normal 4.0 - 11.0 E9/L [facility] Reference Laboratory Testing Ordered By: Cynthia Taylor on 05-02-2022 Test Code [id number] Invalid Interpretation Code [facility] SendOuts Test Name genesis by ifa Invalid Interpretation Code [facility] Auto DifferentialOrdered By: Karina Martinez on 04-21-2021 Basophils (Bld) [#/Vol] 0.0 10*3/uL 0.0 - 0.2 K/uL [employer] Phone: Basophils/100 WBC (Bld) 0.5 % [facility]: Eosinophils (Bld) [#/Vol] 0.1 10*3/uL 0.0 - 0.7 K/uL [facility]: Eosinophils/100 WBC (Bld) 1.6 % [employer] Phone: Hematocrit (Bld) [Volume fraction] 48.6 % High 37.0 - 47.0 % [employer] Phone: Hemoglobin.gastrointest inal spec 1 Ql (Stl) 16.4 g/dL High 12.0 - 16.0 g/dL [employer] Phone: Interpretation and review of laboratory results Abnormal [employer] Phone: Lymphocytes (Bld) [#/Vol] 1.9 10*3/uL 1.0 - 4.8 K/uL [employer] Phone: Lymphocytes/100 WBC (Bld) 32.8 % [employer] Phone: MCH (RBC) [Entitic mass] 30.9 pg 27.0 - 31.3 pg [employer] Phone: MCHC (RBC) [Mass/Vol] 33.8 % 33.0 - 37.0 % [employer] Phone: MCV (RBC) [Entitic vol] 91.4 fL 82.0 - 100.0 fL [employer] Phone: Monocytes (Bld) [#/Vol] 0.5 10*3/uL 0.2 - 0.8 K/uL [employer] Phone: Monocytes/100 WBC (Bld) 8.9 % M [employer] Phone: Neutrophils Absolute 3.3 K/uL 1.4 - 6 .5 K/uL [employer] Phone: Neutrophils/100 WBC (Bld) 56.2 % [employer] Phone: Platelet distribution width (Bld) [Ratio] 13.6 % 11.5 - 14.5 % [employer] Phone: Platelets (Bld) [#/Vol] 167 10*3/uL 130 - 400 K/uL [employer] Phone: RBC (Bld) [#/Vol] 5.32 10*6/uL [employer] Phone: WBC (Bld) [#/Vol] 5.9 10*3/uL 4.8 - 10.8 K/uL [employer] Phone: [employer] Phone: CBC With Platelet and Differ entialon 08-09-2021 Basophils (Bld) [#/Vol] 0.0 10*3/uL Normal 0.0-0.2 [facility] Comment on above: Performed By: #### C BCWD #### [facility] [address] [place] [address] Basophils/100 WBC (Bld) 0.5 % Normal [place] Comment on above: Performed By: #### C BCWD #### [facility] [address] [place] [address] Eosinophils (Bld) [#/Vol] 0.1 10*3/uL Normal 0.0-0.7 [facility] Comment on above: Performed By: #### C BCWD #### [facility] [address] [place] [address] Eosinophils/100 WBC (Bld) 1.6 % Normal [facility] Comment on above: Performed By: #### C BCWD #### [facility] [address] [place] [address] Erythrocyte distribution width (RBC) [Ratio] 13.6 % Normal 11.5-14.5 [facility] Comment on above: Performed By: #### C BCWD #### [facility] [address] [place] [address] Hematocrit (Bld) [Volume fraction] 48.6 % Critically high 37.0-47.0 [facility] Comment on above: Performed By: #### C BCWD #### [facility] [address] [place] [address] Hemoglobin (Bld) [Mass/Vol] 16.4 g/dL Critically high 12.0-16.0 [facility] Comment on above: Performed By: #### C BCWD #### [facility] [address] [place] [address] Lymphocytes (Bld) [#/Vol] 1.9 10*3/uL Normal 1.0-4.8 [facility] Comment on above: Performed By: #### C BCWD #### [facility] [address] [place] [address] Lymphocytes/100 WBC (Bld) 32.8 % Normal [facility] Comment on above: Performed By: #### C BCWD #### [facility] [address] [place] [address] MCH (RBC) [Entitic mass] 30.9 pg Normal 27.0-31.3 [facility] Comment on above: Performed By: #### C BCWD #### [facility] [address] [place] [address] MCHC 33.8 % Normal 33.0-37.0 [facility] Comment on above: Performed By: #### C BCWD #### [facility] [address] [place] [address] MCV (RBC) [Entitic vol] 91.4 fL Normal 82.0-100.0 [place] Comment on above: Performed By: #### C BCWD #### [facility] [address] [place] [address] Monocytes (Bld) [#/Vol] 0.5 10*3/uL Normal 0.2-0.8 [facility] Comment on above: Performed By: #### C BCWD #### [facility] [address] [place] [address] Monocytes/100 WBC (Bld) 8.9 % Normal [place] Comment on above: Performed By: #### C BCWD #### [facility] [address] [place] [address] Neutrophils (Bld) [#/Vol] 3.3 10*3/uL Normal 1.4-6.5 [facility] Comment on above: Performed By: #### C BCWD #### [facility] [address] [place] [address] Neutrophils/100 WBC (Bld) 56.2 % Normal [facility] Comment on above: Performed By: #### C BCWD #### [facility] [address] [place] [address] Platelets (Bld) [#/Vol] 167 10*3/uL Normal 130-400 [facility] Comment on above: Performed By: #### C BCWD #### [facility] [address] [place] [address] RBC (Bld) [#/Vol] 5.32 10*6/uL Normal 4.20-5.40 [facility] Comment on above: Performed By: #### C BCWD #### [facility] [address] [place] [address] WBC (Bld) [#/Vol] 5.9 10*3/uL Normal 4.8-10.8 [facility] Comment on above: Performed By: #### C BCWD #### [facility] [address] [place] [address] Comprehensive Metabolic Pane silviano 04-21-2021 Albumin [Mass/Vol] 4.0 g/dL Normal 3.5-4.6 [facility] Comment on above: Performed By: #### C MP #### [facility] [address] [place] [address] ALP [Catalytic activity/Vol] 95 U/L Normal 40-130 [facility] Comment on above: Performed By: #### C MP #### [facility] [address] [place] [address] ALT [Catalytic activity/Vol] 16 U/L Normal 0-33 [facility] Comment on above: Performed By: #### C MP #### [facility] [address] [place] [address] Anion gap [Moles/Vol] 15 mmol/L Normal 9-15 [facility] Comment on above: Performed By: #### C MP #### [facility] [address] [place] [address] AST [Catalytic activity/Vol] 14 U/L Normal 0-35 [facility] Comment on above: Performed By: #### C MP #### [facility] [address] [place] [address] Bilirubin [Mass/Vol] 1.2 mg/dL Critically high 0.2-0.7 [facility] Comment on above: Performed By: #### C MP #### [facility] [address] [place] [address] Calcium [Mass/Vol] 9.8 mg/dL Normal 8.5-9.9 [facility] Comment on above: Performed By: #### C MP #### [facility] [address] [place] [address] Chloride [Moles/Vol] 97 mmol/L Normal 95-107 [facility] Comment on above: Performed By: #### C MP #### [facility] [address] [place] [address] CO2 [Moles/Vol] 23 mmol/L Normal 20-31 [facility] Comment on above: Performed By: #### C MP #### [facility] [address] [place] [address] Creatinine [Mass/Vol] 0.48 mg/dL Low 0.50-0.90 [facility] Comment on above: Performed By: #### C MP #### [facility] [address] [place] [address] GFR >60.0 Normal >60 [facility] Comment on above: Result Comment: >60 mL/min/1.73m2 EGFR, calc. for ages 18 and older using the MDRD formula (not corrected for weight), is valid for stable renal function. Performed By: #### C MP #### [facility] [address] [place] [address] GFR/1.73 sq M.predicted among blacks MDRD (S/P/Bld) [Vol rate/Area] mL/min/{1.73_m2} Normal >60 [facility] Comment on above: Result Comment: >60 mL/min/1.73m2 EGFR, calc. for ages 18 and older using the MDRD formula (not corrected for weight), is valid for stable renal function. Performed By: #### C MP #### [facility] [address] [place] [address] Globulin (S) [Mass/Vol] 4.0 g/dL Critically high 2.3-3.5 [facility] Comment on above: Performed By: #### C MP #### [facility] [address] [place] [address] Glucose [Mass/Vol] 300 mg/dL Critically high 70-99 [place] Comment on above: Performed By: #### C MP #### [facility] [address] [place] [address] Potassium [Moles/Vol] 3.7 mmol/L Normal 3.4-4.9 [facility] Comment on above: Performed By: #### C MP #### [facility] [address] [place] [address] Protein [Mass/Vol] 8.0 g/dL Normal 6.3-8.0 [facility] Comment on above: Performed By: #### C MP #### [facility] [address] [place] [address] Sodium [Moles/Vol] 135 mmol/L Normal 135-144 [facility] Comment on above: Performed By: #### C MP #### [facility] [address] [place] [address] Urea nitrogen [Mass/Vol] 14 mg/dL Normal 6-20 [facility] Comment on above: Performed By: #### C MP #### [facility] [address] [place] [address] Comprehensive Metabolic Pane lOrdered By: Karina Martinez on 04-21-2021 Albumin [Mass/Vol] 4 g/dL 3.5 - 4.6 g/dL [facility] [employer] Phone: ALP (Bld) [Catalytic activity/Vol] 95 U/L 40 - 130 [facility]/L [facility] [employer] Phone: ALT [Catalytic activity/Vol] 16 U/L 0 - 33 U/L [facility] [employer] Work Phone: Anion gap [Moles/Vol] 15 mmol/L [facility] [employer] Work Phone: AST [Catalytic activity/Vol] 14 U/L 0 - 35 U/L [facility] [place] [employer] Phone: Bilirubin [Mass/Vol] 1.2 mg/dL High 0.2 - 0 .7 mg/dL [facility] [employer] Work Phone: Calcium [Mass/Vol] 9.8 mg/dL 8.5 - 9.9 mg/dL [facility] [place] [employer] Phone: Chloride [Moles/Vol] 97 mmol/L [facility] [employer] Work Phone: CO2 [Moles/Vol] 23 mmol/L [facility] Work Phone: Creatinine [Mass/Vol] 0.48 mg/dL Low 0.50 - 0.90 mg/dL [facility] [employer] Work Phone: Free PSA/Total PSA [Mass fraction] 8.0 g/dL 6.3 - 8.0 g/dL [facility] [employer] Phone: GFR >60.0 >60 [employer] Phone: Comment on above: >60 mL/min/1.73m2 EG FR, calc. for ages 18 and older using the MDRD formula (not corrected for weight), is valid for stable renal function. GFR Non- >60.0 >60 [employer] Work Phone: Comment on above: >60 mL/min/1.73m2 EG FR, calc. for ages 18 and older using the MDRD formula (not corrected for weight), is valid for stable renal function. Globulin (S) [Mass/Vol] 4 g/dL High 2.3 - 3.5 g/dL [facility] [employer] Phone: Glucose [Mass/Vol] 300 mg/dL High 70 - 99 mg/dL [facility] [employer] Phone: Interpretation and review of laboratory results Abnormal [facility] [employer] Phone: Potassium [Moles/Vol] 3.7 mmol/L [facility] [employer] Work Phone: Sodium [Moles/Vol] 135 mmol/L [facility] [place] [employer] Phone: Urea nitrogen (BldV) [Mass/Vol] 14 mg/dL 6 - 20 mg/dL [facility] [employer] Phone: [employer] Phone: Hemoglobin [id number] By: Corwin Martinez on 04-21-2021 HbA1c (Bld) [Mass fraction] 11.6 % High 4.8 - 5.9 % [facility] [employer] Phone: Interpretation and review of laboratory results Abnormal [facility] [employer] Phone: [facility] [employer] Phone: Hemoglobin A1con 04-21-2021 HbA1c (Bld) [Mass fraction] 11.6 % Critically high 4.8-5.9 [facility] Comment on above: Performed By: #### A 1C #### [facility] [address] [facility] [address] Sedimentation Rateon 021 Sedimentation Rate 34 mm Critically high 0-30 M [facility] Comment on above: Performed By: #### E SR #### [facility] [address] [facility] [address] Sedimentation RateOrdered By : Karina Martinez on 04-21-2021 Interpretation and review of laboratory results Abnormal [facility] [employer] Phone: Sed Rate 34 mm High 0 - 30 mm [facility] [employer] Phone: [employer] Phone: XR FOOT LEFT (MIN 3 VIEWS)on 04-21-2021 XR FOOT LEFT (MIN 3 VIEWS) LEFT FOOT RADIOGRAPHS HISTORY: Cellulitis of left foot ICD10 TECHNIQUE: Left foot, 3 views, . COMPARISON: None. RESULT: No fracture or dislocation. Alignment is anatomic. Joint spaces are well maintained. Mild soft tissue swelling. Posterior and plantar calcaneal enthesophytes.. IMPRESSION: MILD SOFT TISSUE SWELLING. Interpreted by: Esau Ball MD Signed by: Esau Ball MD 04/21/21 Final result Normal [facility] XR FOOT LEFT (MIN 3 VIEWS)Or dered By: Karina Martinez on 04-21-2021 MILD SOFT TISSUE SWELLING. [employer] Phone: LEFT FOOT RADIOGRAPHS HISTORY: Cellulitis of left foot ICD10 TECHNIQUE: Left foot, 3 views, . COMPARISON: None. RESULT: No fracture or dislocation. Alignment is anatomic. Joint spaces are well maintained. Mild soft tissue swelling. Posterior and plantar calcaneal enthesophytes.. [employer] Phone: Sanchez, po Incoming Radiant Results From [employer] - 04/21/2021 4:49 PM EDT LEFT FOOT RADIOGRAPHS HISTORY: Cellulitis of left foot ICD10 TECHNIQUE: Left foot, 3 views, . COMPARISON: None. RESULT: No fracture or dislocation. Alignment is anatomic. Joint spaces are well maintained. Mild soft tissue swelling. Posterior and plantar calcaneal enthesophytes.. IMPRESSION: MILD SOFT TISSUE SWELLING. [employer] Phone: [employer] Phone: Vital Signs Date Time Vital Sign Value Performing Clinician Faci lity 10-21-2023 17:25-0500 Body mass index (BMI) [Ratio] 44.48 kg/m2 Karina Mendez DO Work Phone: [facility] [employer] 10-21-2023 17:25-0500 Body temperature 97 [degF] Karina Morgansop DO Work Phone: [facility] [employer] 10-21-2023 17:25-0500 Body weight 128.82 kg Karina [employer] Work Phone: [facility] [employer] 10-21-2023 17:25-0500 Diastolic blood pressure 80 mm[Hg] Karina Allsop DO Work Phone: [facility] 10-21-2023 17:25-0500 Heart rate 86 /min Karina Allsop DO Work Phone: [facility] 10-21-2023 17:25-0500 SaO2% (BldA) [Mass fraction] 98 % Karina Allsop DO Work Phone: [facility] 10-21-2023 17:25-0500 Systolic blood pressure 120 mm[Hg] Karina Allsop DO Work Phone: [facility] 10-16-2023 15:15-0500 Hourly Rounding Ronobir FRANKLIN [facility] 10-16-2023 15:15-0500 Promise to Return Ronobir FRANKLIN [facility] 10-16-2023 15:15-0500 SaO2% (BldA) [Mass fraction] 99 % Ronobir FRANKLIN [facility] 10-16-2023 12:51-0500 Hourly Rounding Ronobir FRANKLIN [facility] 10-16-2023 12:51-0500 Promise to Return Ronobir FRANKLIN [facility] 10-16-2023 12:30-0500 gluc 246 mg/dL Ronobir FRANKLIN [facility] 10-16-2023 12:00-0500 Diastolic blood pressure 83 mm[Hg] Ronobir FRANKLIN [facility] 10-16-2023 12:00-0500 Heart rate 72 /min Ronobir FRANKLIN [facility] 10-16-2023 12:00-0500 Systolic blood pressure 144 mm[Hg] Ronobir FRANKLIN [facility] 10-16-2023 11:51-0500 Hourly Rounding Ronobir FRANKLIN [facility] 10-16-2023 11:51-0500 Promise to Return Ronobir FRANKLIN [facility] 10-16-2023 09:27-0500 Diastolic blood pressure 81 mm[Hg] Ronobir FRANKLIN [facility] 10-16-2023 09:27-0500 Heart rate 73 /min Ronobir FRANKLIN [facility] 10-16-2023 09:27-0500 Systolic blood pressure 141 mm[Hg] Ronobir FRANKLIN [facility] 10-16-2023 08:26-0500 Heart rate 73 /min Ronobir FRANKLIN [facility] 10-16-2023 08:26-0500 SaO2% (BldA) [Mass fraction] 98 % Ronobir FRANKLIN [facility] 10-16-2023 08:23-0500 Diastolic blood pressure 81 mm[Hg] Ronobir FRANKLIN [facility] 10-16-2023 08:23-0500 Mean blood pressure 101 mm[Hg] Ronobir FRANKLIN [facility] 10-16-2023 08:23-0500 Systolic blood pressure 141 mm[Hg] Ronobir FRANKLIN [facility] 10-16-2023 08:22-0500 Body temperature 98.06 [degF] Ronobir FRANKLIN [facility] 10-16-2023 00:30-0500 Blood Pressure Location Ronobir FRANKLIN [facility] 10-16-2023 00:30-0500 Body temperature 97.88 [degF] Ronobir FRANKLIN [facility] 10-16-2023 00:30-0500 Heart rate 83 /min Ronobir FRANKLIN [facility] 10-16-2023 00:30-0500 Mean blood pressure 96 mm[Hg] Ronobir FRANKLIN [facility] 10-16-2023 00:30-0500 Respiratory rate 18 /min Ronobir FRANKLIN [facility] 10-15-2023 20:28-0500 Heart rate 73 /min Ronobir FRANKLIN [facility] 10-15-2023 20:15-0500 Blood Pressure Location Ronobir FRANKLIN [facility] 10-15-2023 20:15-0500 Body temperature 97.52 [degF] Ronobir FRANKLIN [facility] 10-15-2023 20:15-0500 Respiratory rate 18 /min Ronobir FRANKLIN [facility] 10-15-2023 15:00-0500 gluc 163 mg/dL Ronobir FRANKLIN [facility] 10-15-2023 15:00-0500 Heart rate 88 /min Ronobir FRANKLIN [facility] 10-15-2023 09:26-0500 Heart rate 89 /min Ronobir FRANKLIN [facility] 10-15-2023 09:18-0500 Mean blood pressure 106 mm[Hg] Ronobir FRANKLIN [facility] 10-14-2023 20:29-0500 Mean blood pressure 102 mm[Hg] Ronobir FRANKLIN [facility] 10-14-2023 16:26-0500 gluc 124 mg/dL Ronobir FRANKLIN [facility] 10-14-2023 16:00-0500 Mean blood pressure 91 mm[Hg] Ronobir FRANKLIN [facility] 10-14-2023 16:00-0500 Respiratory rate 18 /min Ronobir FRANKLIN [facility] 10-13-2023 21:59-0500 Heart rate 108 /min Ronobir FRANKLIN [facility] 10-13-2023 20:53-0500 Respiratory rate 12 /min Ronobir FRANKLIN [facility] 10-13-2023 19:57-0500 Respiratory rate 25 /min Ronobir FRANKLIN [facility] 10-13-2023 18:53-0500 Respiratory rate 22 /min Ronobir FRANKLIN [facility] 10-13-2023 17:40-0500 Heart rate 127 /min Ronobir FRANKLIN [facility] 08-23-2023 13:34-0500 Diastolic blood pressure 78 mm[Hg] Aris Vivasofferson [facility] 08-23-2023 13:34-0500 Mean blood pressure 106 mm[Hg] Aris Christofferson [facility] 08-23-2023 13:34-0500 Systolic blood pressure 162 mm[Hg] Aris Christofferson [facility] 08-23-2023 13:21-0500 Blood Pressure Location Aris Vivasofferson [facility] 08-23-2023 13:21-0500 Diastolic blood pressure 83 mm[Hg] Aris Juares [facility] 08-23-2023 13:21-0500 Heart rate 55 /min Aris Juares [facility] 08-23-2023 13:21-0500 SaO2% (BldA) [Mass fraction] 99 % Aris Juares [facility] 08-23-2023 13:21-0500 Systolic blood pressure 158 mm[Hg] Aris Juares [facility] 07-02-2023 14:00-0400 Hourly Rounding [facility] 07-02-2023 13:16-0400 Hourly Rounding [facility] 07-02-2023 13:16-0400 Promise to Return [facility] 07-02-2023 12:16-0400 Hourly Rounding [facility] 07-02-2023 12:16-0400 Promise to Return [facility] 07-02-2023 11:52-0400 Promise to Return [facility] 07-02-2023 10:33-0400 Heart rate 106 /min [facility] 07-02-2023 10:33-0400 SaO2% (BldA) [Mass fraction] 99 % [facility] 07-02-2023 10:33-0400 Diastolic blood pressure 75 mm[Hg] [facility] 07-02-2023 10:33-0400 Mean blood pressure 90 mm[Hg] [facility] 07-02-2023 10:33-0400 Systolic blood pressure 120 mm[Hg] [facility] 07-02-2023 10:32-0400 Body temperature 97.7 [degF] [facility] 07-02-2023 09:01-0400 Diastolic blood pressure 88 mm[Hg] [facility] 07-02-2023 09:01-0400 Heart rate 77 /min [facility] 07-02-2023 09:01-0400 Systolic blood pressure 147 mm[Hg] [facility] 07-02-2023 08:03-0400 Heart rate 99 /min [facility] 07-02-2023 08:03-0400 SaO2% (BldA) [Mass fraction] 97 % [facility] 07-02-2023 08:02-0400 Diastolic blood pressure 88 mm[Hg] [facility] 07-02-2023 08:02-0400 Mean blood pressure 108 mm[Hg] [facility] 07-02-2023 08:02-0400 Systolic blood pressure 147 mm[Hg] [facility] 07-02-2023 08:02-0400 Body temperature 97.7 [degF] [facility] 07-02-2023 01:27-0400 Heart rate 91 /min [facility] 07-02-2023 01:27-0400 SaO2% (BldA) [Mass fraction] 98 % [facility] 07-01-2023 20:44-0400 Heart rate 111 /min [facility] 07-01-2023 19:53-0400 Heart rate 100 /min [facility] 07-01-2023 19:51-0400 Body temperature 97.88 [degF] [facility] 07-01-2023 19:50-0400 Mean blood pressure 102 mm[Hg] [facility] 07-01-2023 16:00-0400 Blood Pressure Location [facility] 07-01-2023 16:00-0400 Respiratory rate 16 /min [facility] 07-01-2023 08:00-0400 Respiratory rate 18 /min [facility] 07-01-2023 01:57-0400 Body temperature 97.34 [degF] [facility] 06-30-2023 23:20-0400 Body temperature 97.16 [degF] [facility] 06-30-2023 23:20-0400 Mean blood pressure 94 mm[Hg] [facility] 06-30-2023 20:00-0400 gluc 294 mg/dL [facility] 06-30-2023 19:00-0400 Blood Pressure Location [facility] 06-30-2023 19:00-0400 Body temperature 98.06 [degF] [facility] 06-30-2023 00:00-0400 Blood Pressure Location [facility] 06-30-2023 00:00-0400 Mean blood pressure 89 mm[Hg] [facility] 06-29-2023 20:00-0400 Mean blood pressure 88 mm[Hg] [facility] 06-28-2023 18:55-0400 Heart rate 111 /min [facility] 06-28-2023 18:00-0400 Heart rate 107 /min [facility] 06-28-2023 18:00-0400 Respiratory rate 19 /min [facility] 06-28-2023 17:02-0400 Heart rate 112 /min [facility] 06-28-2023 17:02-0400 Respiratory rate 30 /min [facility] 06-28-2023 16:00-0400 Respiratory rate 21 /min [facility] 06-28-2023 15:25-0400 gluc 233 mg/dL [facility] 06-28-[facility]23 15:25-0400 gluc [facility] 04-07-2021 15:06-0400 Diastolic blood pressure 105 mm[Hg] Patel Raymond MD Work Phone: [employer] Work Phone: 04-07-2021 15:06-0400 Systolic blood pressure 219 mm[Hg] Patel Raymond MD Work Phone: [employer] Work Phone: 04-07-2021 14:18-0400 Body height 170.2 cm Patel Raymond MD Work Phone: [employer] Work Phone: 04-07-2021 14:18-0400 Body mass index (BMI) [Ratio] 46.99 kg/m2 Patel Raymond MD Work Phone: [employer] Work Phone: 04-07-2021 14:18-0400 Body temperature 98.49 [degF] Patel Raymond MD Work Phone: [employer] Work Phone: 04-07-2021 14:18-0400 Body weight 136.08 kg Patel Raymond MD Work Phone: [employer] Work Phone: 04-07-2021 14:18-0400 Heart rate 100 /min Patel Raymond MD Work Phone: [employer] Work Phone: 04-07-2021 14:18-0400 Respiratory rate 20 /min Patel Raymond MD Work Phone: [employer] Work Phone: 04-07-2021 14:18-0400 SaO2% (BldA) [Mass fraction] 97 % Patel Raymond MD Work Phone: [employer] Work Phone: Encounters Encounter Date Encounter Type Care Provider Facility Start: 10-26-2023 Refill Flor Patton MA [facility] Comment on above: Cellulitis of other specified site (Primary Dx) Start: 10-21-2023 End: 10-21-2023 ambulatory KARINA Britton ALLSOP Not Available Start: 10-21-2023 End: 10-21-2023 Transitional care manage srvc 7 day discharge Karina Britton Allsop DO Work Phone: [facility] Comment on above: Cellulitis of right lower extremity (Primary Dx); Uncontrolled type 2 diabetes mellitus with hypoglycemia without coma ([facility]); Edema, unspecified type; Primary hypertension ([facility]); Peripheral venous insufficiency Start: 10-21-2023 Bamboo flowsheet Karina Britton Al lsop DO Work Phone: [facility] Start: 10-21-2023 Bamboo flowsheet Karina Britton Al lsop DO Work Phone: [facility] Start: 10-13-2023 End: 10-16-2023 Evaluation and management of inpatient Ronobir R FRANKLIN Facility:[facility] Start: 10-13-2023 End: 10-16-2023 Evaluation and management of inpatient Ronobir R FRANKLIN [facility] Start: 09-10-2023 End: 10-01-2023 Pre-admission assessment Aris Juares [facility] Start: 09-09-2023 End: 09-09-2023 ambulatory KARINA Britton ALLSOP Not Available Start: 08-23-2023 End: 08-24-2023 ambulatory XXXX NONE Facility:[facility] Start: 08-23-2023 End: 08-23-2023 Patient encounter procedure Aris Juares [facility] Start: 07-27-2023 End: 07-28-2023 ambulatory Mark Chen Facility:[facility] Start: 07-27-2023 End: 07-27-2023 Patient encounter procedure Mark Chen [facility] Start: 07-20-2023 End: 07-21-2023 ambulatory Mark Chen Facility:[facility] Start: 07-20-2023 End: 07-20-2023 Patient encounter procedure Mark Chen [facility] Start: 07-08-2023 End: 07-09-2023 ambulatory Karina D Allsop Facility:[facility] Start: 07-08-2023 End: 07-08-2023 Patient encounter procedure Karina Morgansop [facility] Start: 06-28-2023 End: 07-02-2023 Evaluation and management of inpatient XXXX [facility] Cardio Facility:[facility] Start: 06-28-2023 End: 07-02-2023 Evaluation and management of inpatient Alaa ALAHMAD [facility] Start: 11-11-2022 End: 11-12-2022 ambulatory Sky Sony Chen Facility:[facility] Start: 11-11-2022 End: 11-11-2022 Patient encounter procedure Sky Sony Chen [facility] Start: 11-06-2022 End: 11-07-2022 ambulatory Sky R April Facility:[facility] Start: 11-06-2022 End: 11-06-2022 Patient encounter procedure Sky Sony Chen [facility] Start: 11-04-2022 End: 11-05-2022 ambulatory Karina D Allsop Facility:[facility] Start: 05-02-2022 End: 05-02-2022 Patient encounter procedure Karina Britton Allsop [facility] Start: 01-09-2022 End: 02-24-2022 Pre-admission assessment Anne Mathis [facility] Start: 04-21-2021 End: 04-24-2021 ambulatory KARINA MARTINEZ [facility] Start: 04-21-2021 End: 04-23-2021 Subsequent hospital visit by physician [facility] Comment on above: Arrived Cellulitis of left f oot Start: 04-07-2021 End: 04-07-2021 Emergency department patient visit PATEL RAYMOND [facility] Start: 04-07-2021 End: 04-07-2021 Emergency department patient visit Patel Raymond MD Work Phone: [facility] ED Comment on above: Peripheral edema (Pr imary Dx); Essential hypertension; Bleeding from varicose vein Procedures Date Procedure Procedure Detail Performing Clinician Start: 10-21-2023 Urine albumin semiquantitative Karina Martinez DO Work Phone: Start: 10-21-2023 Hemoglobin glycosylated a1c Karina Martinez DO Work Phone: Start: 04-21-2021 Radex foot complete minimum 3 views Karina Martinez MD Work Phone: Start: 04-21-2021 Comprehensive metabolic panel Karina Martinez MD Work Phone: Carpal tunnel syndro me (disorder) Anne Mathis Hand tendon repaired Anne Mathis Plan of Treatment Date Care Activity Detail Author Start: 10-21-2024 Urine screening for protein Diabetes: Urine Protein Screening [facility] Start: 08-02-2024 Screening for malignant neoplasm of cervix Cervical Cancer Screening [facility] Comment on above: Postponed from 1993 (Patient Refus ed) Start: 07-26-2024 Glaucoma screening Diabetes: Retinopathy Screening [facility] Comment on above: Postponed from 1973 (Patient Refus ed) Start: 07-20-2024 Screening for malignant neoplasm of breast Mammogram [facility] Comment on above: Postponed from 2003 (Patient Refus ed) Start: 07-15-2024 Screening for malignant neoplasm of colon Colorectal Cancer Screening [facility] Comment on above: Postponed from 1963 (Patient Refus ed) Start: 07-15-2024 Urine screening for protein Diabetes: Urine Protein Screening [facility] Start: 03-12-2024 Influenza vaccination Influenza Vaccine (#1) [facility] Comment on above: Postponed from 05/14/2023 (Patient Refus ed) Start: 01-19-2024 Hemoglobin A1c measurement Diabetes: Hemoglobin A1C [facility] Start: 10-21-2023 End: 10-21-2023 Patient encounter procedure 10/21/2023 5:30 PM EST Office Visit [facility] [address] [place] [id number] Karina Martinez DO [address] [place] [address] Arrived [facility] Comment on above: Arrived Start: 10-08-2023 Hemoglobin A1c measurement Diabetes: Hemoglobin A1C [facility] Start: 04-21-2022 Creatinine measurement Creatinine monitoring [facility] Phone: Start: 04-21-2022 Potassium monitoring Potassium monitoring [facility] Phone: Start: 07-22-2021 Hemoglobin A1c measurement A1C test (Diabetic or Prediabetic) [facility]: Start: 05-14-2021 Influenza vaccination Flu vaccine (#1) [facility] Phone: Start: 2013 Screening for malignant neoplasm of breast Breast cancer screen [facility] Phone: Start: 2013 Shingles Vaccine (1 of 2) Shingles Vaccine (1 of 2) [employer] [facility] Phone: Start: 2008 Screening for malignant neoplasm of colon Colon cancer screen colonoscopy [facility]: Start: 2003 Diabetes screen Diabetes screen [facility] Phone: Start: 2003 Lipid panel Lipid screen [facility]: Start: 1993 Screening for malignant neoplasm of cervix HPV/Cotest [facility] Start: 1984 Screening for malignant neoplasm of cervix [facility] Start: 1982 DTaP/Tdap/Td vaccine (1 - Tdap) DTaP/Tdap/Td vaccine (1 - Tdap) [facility] Phone: Start: 1981 Diabetic microalbuminuria test Diabetic microalbuminuria test [facility] Phone: Start: 1978 HIV screening HIV screen [facility] Phone: Start: 1975 COVID-19 Vaccine (1) COVID-19 Vaccine (1) [facility] Phone: Start: 1973 Diabetic foot examination Diabetic foot exam [facility] Phone: Start: 1973 Diabetic retinal exam Diabetic retinal exam [facility] Phone: Start: 1973 Lipid panel Lipid screen [facility] Phone: Start: 1963 Creatinine measurement Creatinine monitoring [facility] Phone: Start: 1963 Hepatitis C screening Hepatitis C screen [facility] Phone: Start: 1963 Potassium monitoring Potassium monitoring [facility] Phone: Start: 1963 Screening for malignant neoplasm of colon [facility] Immunizations Immunization Date Immunization Notes Care Provider Fa cilinegra 02-01-2021 SARS-CoV-2 (COVID-19) Ad26 vaccine, recombinant Aris Juares [facility] NEGATED: Highlighted row has not occurred!08-23-2023 influenza virus vaccine, unspecified formulation Aris Juares [facility] Payers Date Payer Category Payer Unknown [id number] 2021 Unknown 2021 Unknown [id number] 1.2.8 [id number] 1965 Unknown [id number] 2.16.8 [id number] 1965 Unknown [id number] 2.16.8 [id number] 1965 Unknown [id number] 2.16.8 [id number] 1965 Unknown [id number] 2.16.8 [id number] 1965 Unknown [id number] 2.16.8 [id number] 1965 Unknown [id number] 2.16.8 [id number] 1965 Unknown [id number] 2.16.8 [id number] 1965 Unknown [id number] 2.16.8 [id number] 1965 Unknown [id number] 2.16.8 [id number] 1965 Unknown [id number] 2.16.8 [id number] 1965 Unknown [id number] 2.16.8 [id number] 1965 Unknown [id number] 2.16.8 [id number] 1965 Unknown [id number] 2.16.8 [id number] 1965 Unknown [id number] 2.16.84 [id number] 1965 Unknown [id number] Social History Date Type Detail Facility Start: 04-07-2021 End: 07-08-2023 Tobacco smoking status NHIS Never smoker [facility] Start: 04-07-2021 End: 07-08-2023 Tobacco use and exposure Never used [facility] Start: 04-07-2021 End: 10-21-2023 Alcohol intake Lifetime non-drinker (finding) [facility]: Start: 04-07-2021 History SDOH Alcohol Frequency 1 [facility] Phone: Start: 1965 Sex Assigned At Not on file [facility] [employer] Work Phone: [facility] SARS-CoV -2 (event) [facility] No Smokin g Status Entered [facility] Start: 09-09-2023 End: 10-21-2023 Sex Assigned At Female [facility] Tobacco smoking status No Smokin g Status Entered [facility] Tobacco smoking status Never [facility] Start: 09-09-2023 End: 10-21-2023 History of Social function [facility] Medical Equipment Procedure Code Equipment Code Equipment Origin al Text Equipment Identifier Dates glucometer, lanc ets, alcohol swabs, syringes, needles, check BS 3x/day, Print Requisition, Supply Start: 04-24-2021 glucometer, lanc ets, alcohol swabs, syringes, needles, test strips, check BS 3x/day, Print Requisition, Supply Start: 04-24-2021 glucometer, lanc ets, alcohol swabs, syringes, needles, check BS 3x/day, Print Requisition, Supply Start: 04-24-2021 glucometer, lanc ets, alcohol swabs, syringes, needles, test strips, check BS 3x/day, Print Requisition, Supply Start: 04-24-2021 glucometer, lanc ets, alcohol swabs, syringes, needles, check BS 3x/day, Print Requisition, Supply Start: 04-24-2021 glucometer, lanc ets, alcohol swabs, syringes, needles, test strips, check BS 3x/day, Print Requisition, Supply Start: 04-24-2021 glucometer, lanc ets, alcohol swabs, syringes, needles, check BS 3x/day, Print Requisition, Supply Start: 04-24-2021 glucometer, lanc ets, alcohol swabs, syringes, needles, test strips, check BS 3x/day, Print Requisition, Supply Start: 04-24-2021 glucometer, lanc ets, alcohol swabs, syringes, needles, check BS 3x/day, Print Requisition, Supply Start: 04-24-2021 glucometer, lanc ets, alcohol swabs, syringes, needles, test strips, check BS 3x/day, Print Requisition, Supply Start: 04-24-2021 glucometer, lanc ets, alcohol swabs, syringes, needles, check BS 3x/day, Print Requisition, Supply Start: 04-24-2021 glucometer, lanc ets, alcohol swabs, syringes, needles, test strips, check BS 3x/day, Print Requisition, Supply Start: 04-24-2021 glucometer, lanc ets, alcohol swabs, syringes, needles, check BS 3x/day, Print Requisition, Supply Start: 04-24-2021 glucometer, lanc ets, alcohol swabs, syringes, needles, test strips, check BS 3x/day, Print Requisition, Supply Start: 04-24-2021 glucometer, lanc ets, alcohol swabs, syringes, needles, check BS 3x/day, Print Requisition, Supply Start: 04-24-2021 glucometer, lanc ets, alcohol swabs, syringes, needles, test strips, check BS 3x/day, Print Requisition, Supply Start: 04-24-2021 glucometer, lanc ets, alcohol swabs, syringes, needles, check BS 3x/day, Print Requisition, Supply Start: 04-24-2021 glucometer, lanc ets, alcohol swabs, syringes, needles, test strips, check BS 3x/day, Print Requisition, Supply Start: 04-24-2021 glucometer, lanc ets, alcohol swabs, syringes, needles, check BS 3x/day, Print Requisition, Supply Start: 04-24-2021 glucometer, lanc ets, alcohol swabs, syringes, needles, test strips, check BS 3x/day, Print Requisition, Supply Start: 04-24-2021 glucometer, lanc ets, alcohol swabs, syringes, needles, check BS 3x/day, Print Requisition, Supply Start: 04-24-2021 glucometer, lanc ets, alcohol swabs, syringes, needles, test strips, check BS 3x/day, Print Requisition, Supply Start: 04-24-2021 Functional Status Date Assessment Result Facility 10-13-2023 Functional Status N/A [facility] 10-13-2023 Functional Status [facility] 08-23-2023 Functional Status No [facility] 06-28-2023 Functional Status No [facility] 06-28-2023 Functional Status [facility] Clinical Notes 05-02-2022 to 10-26-2023 Telephone Encounter - Flor Patton MA - 10/26/2023 10:05 AM ESTTelephone Encounter - Flor Patton MA - 10/26/2023 10:05 AM Tiago Martinez DO - 10/21/2023 5:30 PM EST Note Date & Type Note Facility 10-26-2023 Telephone encounter Note Pt left stating Dr Betancourt at [facility] prescribed her doxycycline and she is about out of it. Do you want her to keep taking? If so she will need a refill. Pt was worried about not taking it long enough. Please advise. [facility] 10-26-2023 Miscellaneous Notes Pt left stating Dr Betancourt at [facility] prescribed her doxycycline and she is about out of it. Do you want her to keep taking? If so she will need a refill. Pt was worried about not taking it long enough. Please advise. documented in this encounter [facility] 10-21-2023 History of Presen t illness Narrative Charla Duncan is a 58 y.o. female presents with chief complaint of Diabetes [place]: [place] [facility] [place] 10/16/2023 Home on doxycyline Has an appointment to follow with wound clinic next week Hbaic 8.7 Has an appointment at [facility]. Has a follow up with cardiology On januvia metformin and glimiperide 2mg . Will increase glimiperide to 3mg daily. Will refer to diabetic specialist. Still on Eliquis. Dr Dia thinks will stop that in November Will refer to Dr Warner for diabetes Pt has an appointment with wound clinic advised needs to go to that 7zz` pt here today for A1c check, microalbumin. SUBJECTIVE: MEDICATIONS: Current Outpatient Medications Medication Instructions amLODIPine (NORVASC) 5 mg, Oral, Daily apixaban (ELIQUIS) 5 mg, Oral, 2 times daily atorvastatin (Lipitor) 40 MG tablet TAKE 1 TABLET BY MOUTH ONCE DAILY FOR 90 DAYS busPIRone (BUSPAR) 5 mg, Oral, 2 times daily citalopram (CELEXA) 20 mg, Oral, Daily doxycycline (VIBRAMYCIN) 100 mg, Oral, 2 times daily furosemide (Lasix) 20 MG tablet One tablet po 3 times weekly glimepiride (AMARYL) 2 mg, Oral, Daily before breakfast lisinopril 20 mg, Oral, Daily metFORMIN (GLUCOPHAGE) 500 mg, Oral, Daily with breakfast metoprolol succinate XL (TOPROL XL) 100 mg, Oral, Daily, Do not crush or chew. potassium chloride CR (Klor-Con M10) 10 MEQ ER tablet One tab po 3 times weekly SITagliptin (JANUVIA) 100 mg, Oral, Daily ALLERGIES: No Known Allergies REVIEW OF SYMPTOMS: Patient: Charla Duncan : 1965 PCP: Karina Martinez DO Charla Duncan is a 58 y.o. female presenting today for follow-up after being discharged from the hospital 4 days ago. The main problem requiring admission was cellulitis. The discharge summary and/or Transitional Care Management documentation was reviewed. Medication reconciliation was performed as indicated via the [place] as Reviewed timestamp. Charla Duncan was contacted by Transitional Care Management services two days after her discharge. This encounter and supporting documentation was reviewed. Flowsheet Row Telephone from 07/02/2023 in [facility] with Karina Martinez, DO Discharge Information ED or Hospital Discharge? Hospital Patient has been contacted within two business days of discharge No Discharge Date 07/02/23 Discharge [facility] Discharged To: Home Setting Engagement Call Start Time 1049 Medications Discharge medications reviewed and reconciled from hospital? Yes Does the patient have all medications ordered at discharge? Yes Is the patient taking all medications as directed (includes completed medication regime)? Yes Appointments Self Management Patient Teaching Does the patient have access to their discharge instructions? Yes Wrap Up Call End Time 1051 Review of Systems Constitutional: Negative. HENT: Negative. Respiratory: Negative. Cardiovascular: Negative. Gastrointestinal: Negative. Musculoskeletal: Positive for arthralgias. Skin: R leg in full wrap. Dressings are moist Psychiatric/Behavioral: Negative. General: Denies fever, chills, fatigue, REDDY or weight loss/gain CV: Denies CP, palpitations or swelling in legs Resp: denies cough, SOB or wheezing GI: Denies abd pain/n/v/c/d Skin: Denies rash Neuro: Denies LH or dizziness Objective Vitals: 10/21/23 1725 BP: 120/80 Pulse: 86 Temp: 97 F SpO2: 98% Body mass index is 44.48 kg/m . Physical Exam Constitutional: Appearance: Normal appearance. Cardiovascular: Rate and Rhythm: Normal rate and regular rhythm. Pulmonary: Effort: Pulmonary effort is normal. Breath sounds: Normal breath sounds. Abdominal: General: Abdomen is flat. Bowel sounds are normal. Palpations: Abdomen is soft. Skin: Comments: R leg erythema . Leg in dressings . Pt doesn't want to unwrap. Dressings are moist Neurological: Mental Status: She is alert. Psychiatric: Mood and Affect: Mood normal. Behavior: Behavior normal. General: alert & oriented, NAD Head: NC/AT Oral Cavity: MMM Skin: warm, dry Heart: RRR, No m/r/g, S1S2 nml Lungs: CTA b/l Abdomen: soft, ND/NT, BS wnl Musculoskeletal: normal gait Extremities: no clubbing, cyanosis or edema Neurological: nonfocal Psych: mood/affect full range Assessment/Plan Charla was seen today for diabetes. Diagnoses and all orders for this visit: Uncontrolled type 2 diabetes mellitus with hypoglycemia without coma (CMS/HCC) - POCT Glycated hemoglobin, total - POCT microalbumin manually resulted No follow-ups on file. OBJECTIVE: Visit Vitals Smoking Status Never ASSESSMENT AND PLAN: Assessment/Plan Diagnoses and all orders for this visit: Cellulitis of right lower extremity Uncontrolled type 2 diabetes mellitus with hypoglycemia without coma (CMS/HCC) - POCT Glycated hemoglobin, total - POCT microalbumin manually resulted - Ambulatory referral to Family Practice; Future Edema, unspecified type Primary hypertension (CMS/[facility]) Peripheral venous insufficiency documented in this encounter [facility] 10-21-2023 Note Microbiology PROCEDURE: Blood Culture Charcoal [R1] SOURCE: Blood BODY SITE: Wrist R COLLECTED DATE/TIME: 10/13/2023 18:02 EST RECEIVED DATE/TIME: 10/13/2023 18:13 EST START DATE/TIME: 10/13/2023 18:13 EST FREE TEXT SOURCE: IV Start Juanjo Nair PA-C, PA-C, Juanjo Lowry. FINAL REPORTS Final Report [] Verified Date/Time: 10/21/2023 07:00 EST No growth at 7 days. Performing Locations R1: This test was performed at: [facility], [address] [place] [address], [facility] , , [facility] Comment on above: Performed By: #### [id number] #### [facility] [address] [place] [address] 10-21-2023 Note Microbiology PROCEDURE: Blood Culture Charcoal [R1] SOURCE: Blood BODY SITE: Arm L COLLECTED DATE/TIME: 10/13/2023 18:01 EST RECEIVED DATE/TIME: 10/13/2023 18:13 EST START DATE/TIME: 10/13/2023 18:13 EST FREE TEXT SOURCE: Peripheral vein site #1 Korey ARANDA, Juanjo Nair PA-C, Juanjo Lowry. FINAL REPORTS Final Report [] Verified Date/Time: 10/21/2023 07:00 EST No growth at 7 days. Performing Locations R1: This test was performed at: [facility], [address] [place] [address], [id number] , [place], [facility] Comment on above: Performed By: #### [id number] #### [facility] [address] [place] [id number] 10-16-2023 Hospital Discharg e instructions Patient Education 10/16/2023 16:15:49 Atrial Fibrillation, [id number] Atrial Fibrillation Atrial fibrillation is a type of heartbeat that is irregular or fast. If you have this condition, your heart beats without any order. This makes it hard for your heart to pump blood in a normal way. Atrial fibrillation may come and go, or it may become a long-lasting problem. If this condition is not treated, it can put you at higher risk for stroke, heart failure, and other heart problems. What are the causes? This condition may be caused by diseases that damage the heart. They include: High blood pressure. Heart failure. Heart valve disease. Heart surgery. Other causes include: Diabetes. Thyroid disease. Being overweight. Kidney disease. Sometimes the cause is not known. What increases the risk? You are more likely to develop this condition if: You are older. You smoke. You exercise often and very hard. You have a family history of this condition. You are a man. You use drugs. You drink a lot of alcohol. You have lung conditions, such as emphysema, pneumonia, or COPD. You have sleep apnea. What are the signs or symptoms? Common symptoms of this condition include: A feeling that your heart is beating very fast. Chest pain or discomfort. Feeling short of breath. Suddenly feeling light-headed or weak. Getting tired easily during activity. Fainting. Sweating. In some cases, there are no symptoms. How is this treated? Treatment for this condition depends on underlying conditions and how you feel when you have atrial fibrillation. They include: Medicines to: ?Prevent blood clots. ?Treat heart rate or heart rhythm problems. Using devices, such as a pacemaker, to correct heart rhythm problems. Doing surgery to remove the part of the heart that sends bad signals. Closing an area where clots can form in the heart (left atrial appendage). In some cases, your doctor will treat other underlying conditions. Follow these instructions at home: Medicines Take rmez-[id number]-[id number] and prescription medicines only as told by your doctor. Do not take any new medicines without first talking to your doctor. If you are taking blood thinners: ?Talk with your doctor before you take any medicines that have aspirin or NSAIDs, such as ibuprofen, in them. ?Take your medicine exactly as told by your doctor. Take it at the same time each day. ?Avoid activities that could hurt or bruise you. Follow instructions about how to prevent falls. ?Wear a bracelet that says you are taking blood thinners. Or, carry a card that lists what medicines you take. Lifestyle Do not use any products that have nicotine or tobacco in them. These include cigarettes, e-cigarettes, and chewing tobacco. If you need help quitting, ask your doctor. Eat heart-healthy foods. Talk with your doctor about the right eating plan for you. Exercise regularly as told by your doctor. Do not drink alcohol. Lose weight if you are overweight. Do not use drugs, including cannabis. General instructions If you have a condition that causes breathing to stop for a short period of time (apnea), treat it as told by your doctor. Keep a healthy weight. Do not use diet pills unless your doctor says they are safe for you. Diet pills may make heart problems worse. Keep all follow-up visits as told by your doctor. This is important. Contact a doctor if: You notice a change in the speed, rhythm, or strength of your heartbeat. You are taking a blood-thinning medicine and you get more bruising. You get tired more easily when you move or exercise. You have a sudden change in weight. Get help right away if: You have pain in your chest or your belly (abdomen). You have trouble breathing. You have side effects of blood thinners, such as blood in your vomit, poop (stool), or pee (urine), or bleeding that cannot stop. You have any signs of a stroke. BE FAST is an easy way to remember the main warning signs: ?B - Balance. Signs are dizziness, sudden trouble walking, or loss of balance. ?E - Eyes. Signs are trouble seeing or a change in how you see. ?F - Face. Signs are sudden weakness or loss of feeling in the face, or the face or eyelid drooping on one side. ?A - Arms. Signs are weakness or loss of feeling in an arm. This happens suddenly and usually on one side of the body. ?S - Speech. Signs are sudden trouble speaking, slurred speech, or trouble understanding what people say. ?T - Time. Time to call emergency services. Write down what time symptoms started. You have other signs of a stroke, such as: ?A sudden, very bad headache with no known cause. ?Feeling like you may vomit (nausea). ?Vomiting. ?A seizure. These symptoms may be an emergency. Do not wait to see if the symptoms will go away. Get medical help right away. Call your local emergency services (911 in the [place] Do not drive yourself to the hospital. Summary Atrial fibrillation is a type of heartbeat that is irregular or fast. You are at higher risk of this condition if you smoke, are older, have diabetes, or are overweight. Follow your doctor's instructions about medicines, diet, exercise, and follow-up visits. Get help right away if you have signs or symptoms of a stroke. Get help right away if you cannot catch your breath, or you have chest pain or discomfort. This information is not intended to replace advice given to you by your health care provider. Make sure you discuss any questions you have with your health care provider. Document Revised: 02/21/2020 Document Reviewed: 02/21/2020 [email or web address] Patient Education 2022 [employer]. 10/16/2023 16:15:24 Cellulitis, Adult, [id number] Cellulitis, Adult Cellulitis is a skin infection. The infected area is often warm, red, swollen, and sore. It occurs most often in the arms and lower legs. It is very important to get treated for this condition. What are the causes? This condition is caused by bacteria. The bacteria enter through a break in the skin, such as a cut, burn, insect bite, open sore, or crack. What increases the risk? This condition is more likely to occur in people who: Have a weak body defense system (immune system). Have open cuts, zamora, bites, or scrapes on the skin. Are older than 60 years of age. Have a blood sugar problem (diabetes). Have a long-lasting (chronic) liver disease (cirrhosis) or kidney disease. Are very overweight (obese). Have a skin problem, such as: ?Itchy rash (eczema). ?Slow movement of blood in the veins (venous stasis). ?Fluid buildup below the skin (edema). Have been treated with high-energy rays (radiation). Use IV drugs. What are the signs or symptoms? Symptoms of this condition include: Skin that is: ?Red. ?Streaking. ?Spotting. ?Swollen. ?Sore or painful when you touch it. ?Warm. A fever. Chills. Blisters. How is this diagnosed? This condition is diagnosed based on: Medical history. Physical exam. Blood tests. Imaging tests. How is this treated? Treatment for this condition may include: Medicines to treat infections or allergies. Home care, such as: ?Rest. ?Placing cold or warm cloths (compresses) on the skin. Hospital care, if the condition is very bad. Follow these instructions at home: Medicines Take aaki-frj-okyxnnv and prescription medicines only as told by your doctor. If you were prescribed an antibiotic medicine, take it as told by your doctor. Do not stop taking it even if you start to feel better. General instructions Drink enough fluid to keep your pee (urine) pale yellow. Do not touch or rub the infected area. Raise (elevate) the infected area above the level of your heart while you are sitting or lying down. Place cold or warm cloths on the area as told by your doctor. Keep all follow-up visits as told by your doctor. This is important. Contact a doctor if: You have a fever. You do not start to get better after 1 2 days of treatment. Your bone or joint under the infected area starts to hurt after the skin has healed. Your infection comes back. This can happen in the same area or another area. You have a swollen bump in the area. You have new symptoms. You feel ill and have muscle aches and pains. Get help right away if: Your symptoms get worse. You feel very sleepy. You throw up (vomit) or have watery poop (diarrhea) for a long time. You see red streaks coming from the area. Your red area gets larger. Your red area turns dark in color. These symptoms may represent a serious problem that is an emergency. Do not wait to see if the symptoms will go away. Get medical help right away. Call your local emergency services (911 in the [place] Do not drive yourself to the hospital. Summary Cellulitis is a skin infection. The area is often warm, red, swollen, and sore. This condition is treated with medicines, rest, and cold and warm cloths. Take all medicines only as told by your doctor. Tell your doctor if symptoms do not start to get better after 1 2 days of treatment. This information is not intended to replace advice given to you by your health care provider. Make sure you discuss any questions you have with your health care provider. Document Revised: 06/11/2022 Document Reviewed: 06/11/2022 [email or web address] Patient Education 2022 [employer]. Follow Up Care 10/13/2023 17:31:04 With:Mark Chen Address: [facility] [place] [address] [place] [address]- 0 Business (1) When:1 week With:Karina Megan Address: [address] [place] [address]- Business (1) When: Unknown Comments:Keep scheduled appointment [facility] 10-16-2023 Note Admission and Discha rge Information Admit Date/Time:10/13/2023 19:24 Admitting Physician - Heather REID DO Consulting Physician - Mark Chen DPM Admitting Diagnoses: Discharge Order Date Discharge Patient - Ordered -- 10/16/23 15:11:00 EST, to home Discharge Diagnoses 1. Sepsis, 10/13/2023 2. Cellulitis of right leg, 10/13/2023 3. Acute renal failure, 10/13/2023 4. Troponin level elevated, 10/13/2023 5. Atrial fibrillation, 10/13/2023 6. HTN (hypertension), 10/13/2023 7. DM2 (diabetes mellitus, type 2), 10/13/2023 8. Anxiety, 10/13/2023 9. On deep vein thrombosis (DVT) prophylaxis, 10/13/2023 Acute cellulitis, 10/13/2023 Cellulitis - Leg, 10/13/2023 Lactic acidosis, 10/13/2023 Leukocytosis, 10/13/2023 Procedure History Carpal tunnel, Hand tendon repaired. Hospital Course Significant Findings Please refer to history and physical details of admission. Patient presented to the emergency room October 13 because of swelling to her right leg that started the day prior. She also had pain as well given progressive. The pain was getting severe so she came to the ED to be evaluated. She reports subjective chills but no fevers and no other complaints. She has had a chronic wound on her right lower extremity for the majority of 2022 and she sees podiatry. In the emergency room she was tachypneic and tachycardic but the rest of her vitals were stable and she is afebrile. Her white count was 19.7 with 94% neutrophils. Coags were elevated with an elevated PT of 26.1 and PTT of 43.2. Creatinine is 1.4 and her sodium is 132 but the rest of her labs are unremarkable except lactic acid level was 1.7 initially. Chest x-ray is nonacute. She is admitted to the medical service for further evaluation and treatment. Patient was admitted to the medical service with a working diagnosis of sepsis and cellulitis of her right leg along with acute renal failure/injury. She had elevated troponins most likely due to the infection and sepsis. She was placed on IV fluids and IV cefazolin and 2 blood cultures were sent. Podiatry was consulted who saw the patient in consultation and recommended getting an MRI of her right tibia-fibula with and without contrast plus an plain film of her right leg. The MRI showed no bony involvement with cellulitis and no abscess. X-ray of the right tibia-fibula was also negative. Patient had slow improvement. She was put on compression with double Tubigrip. She was maintained on Zosyn. Cultures are no growth to date. She will be discharged home today with follow-up with podiatry in 1 week. I will put her on doxycycline as she has an allergy to Augmentin. Procedures and Treatment Provided 1. Podiatry consultation 2. MRI of the tibia-fibula on the right with and without contrast 10/14/2023 Services Consulted Consult to Dietitian Adult - Ordered -- 10/14/23 11:04:55 EST Consult to Trim Die Maker - Ordered -- 10/13/23 22:39:00 EST, Right lower extremity cellulitis, Consult and Co-manage Consult to Wound Care - Ordered -- 10/14/23 16:56:00 EST, double tubi grib, tubi grib right leg double if possible, Consult and Co-manage Physical Exam Vitals & Measurements T: 36.7 ?C(Oral) TMIN: 36.4 ?C(Oral) TMAX: 36.7 ?C(Oral) HR: 72(Monitored) RR: 18 BP: 144/83 SpO2: 99% Constitutional: Awake and alert; oriented x 3 with no apparent distress or respiratory distress Head/neck: Neck supple with no palpable lymphadenopathy, bruits or masses; trachea midline with increased neck circumference Chest/lungs: Diminished but clear with no wheezes or rhonchi noted bilaterally Cardiovascular: Regular rate and rhythm; normal S1-S2 with no murmur; 1+ pitting edema right lower extremity and 2+ pulses bilaterally: Erythema right lower extremity no open lesions or sores Gastrointestinal: Soft, nontender, nondistended, positive bowel sounds; obese Neurological: Nonfocal; cranial nerves II through XII are intact Psychological: Pleasant affect Tests Performed BMP -- Results Pending -- Magnesium Level -- Results Pending -- UA With Cult Reflex -- Results Pending -- MRI Tibia/Fibula w/ + w/o Contrast Right XR Chest Single View XR Tib/Fib Right 2 View Please visit your patient portal for your results or contact your primary care physician. Discharge Plan Patient Discharge Condition stable Discharge Disposition Discharge To, Anticipated II - Home with responsible caregiver Discharge Diet Discharge Diet(s): Calorie Controlled- 1800 Calorie Diet, Fat Modified- Low cholesterol (10/16/23 15:11:00) Discharge Medication List Prescriptions doxycycline hyclate 100 mg Cap, 100 mg= 1 cap(s), Oral, BID Eliquis 5 mg oral tablet, 5 mg= 1 tab(s), Oral, BID, 1 refills glucometer, lancets, alcohol swabs, syringes, needles, 0 glucometer, lancets, alcohol swabs, syringes, needles, test strips, 0 lisinopril 40 mg Tab, 40 mg= 1 tab(s), Oral, Daily, 3 refills metoprolol 50 mg ER Tab, 50 mg= 1 tab(s), Oral, BID Home amL (more content not included)... [facility] Comment on above: Result Comment: Elec tronically Signed By: Adarsh Betancourt DO\.br\Date and Time Signed: 10/16/23 15:25 EST 10-16-2023 Evaluation + Plan note Extrac umu from: Title:Discharge Note Author:Adarsh Betancourt DO Date:10/16/23 stable Discharge To, Anticipated II - Home with responsible caregiver Discharge Diet(s): Calorie Controlled- 1800 Calorie Diet, Fat Modified- Low cholesterol (10/16/23 15:11:00) Prescriptions doxycycline hyclate 100 mg Cap, 100 mg= 1 cap(s), Oral, BID Eliquis 5 mg oral tablet, 5 mg= 1 tab(s), Oral, BID, 1 refills glucometer, lancets, alcohol swabs, syringes, needles, 0 glucometer, lancets, alcohol swabs, syringes, needles, test strips, 0 lisinopril 40 mg Tab, 40 mg= 1 tab(s), Oral, Daily, 3 refills metoprolol 50 mg ER Tab, 50 mg= 1 tab(s), Oral, BID Home amLODIPine 10 mg Tab, 10 mg= 1 tab(s), Oral, Daily, Not taking atorvastatin 40 mg Tab, 40 mg= 1 tab(s), Oral, Daily busPIRone 5 mg Tab, 5 mg= 1 tab(s), Oral, BID cyclobenzaprine 10 mg Tab, 10 mg= 1 tab(s), Oral, Daily, PRN, Not taking glimepiride 2 mg Tab, 1.5, Oral, Daily metformin 500 mg ER Tab, 500 mg= 1 tab(s), Oral, BID With When Contact Information Mark Chen Within 1 week [facility] [address] [place] [address]- 0 Business (1) Additional Instructions: Karina Martinez [address] [place] [address]- Business (1) Additional Instructions: Keep scheduled appointment Extracted from: Title:Progress/SOAP Note Author:Quin Betancourt DO Date:10/16/23 58-year-old female admitted for sepsis (leukocytosis; her tachycardia and lactic acidosis has resolved) secondary to cellulitis of her right leg. MRI of the right tib-fib shows cellulitis with no bone involvement. Initially had acute kidney injury which has resolved as well. Patient has had history of type 2 diabetes, hypertension, hypercholesterolemia, A-fib on Eliquis therapy and anxiety. 1. Sepsis (A41.9: Sepsis, unspecified organism) Resolved On IV Zosyn Blood cultures x 2 no growth to date Ordered: [facility] Care/Day Moderate 35 Minutes 41048 2. Cellulitis of right leg (L03.115: Cellulitis of right lower limb) MRI right tib-fib shows cellulitis but no bony involvement Continue IV antibiotics with day 4 IV Zosyn Compression orders per podiatry with double Tubigrip Blood culture x 2 no growth to date Ordered: [facility] Care/Day Moderate 35 Minutes 59787 3. Acute renal failure (N17.9: Acute kidney failure, unspecified) Resolved Ordered: [facility] Care/Day Moderate 35 Minutes 97238 4. Troponin level elevated (R79.89: Other specified abnormal findings of blood chemistry) Stable/resolved Ordered: [facility] Care/Day Moderate 35 Minutes 02035 5. Atrial fibrillation (I48.91: Unspecified atrial fibrillation) In sinus rhythm Continue metoprolol and Eliquis Ordered: [facility] Care/Day Moderate 35 Minutes 18249 6. HTN (hypertension) (I10: Essential (primary) hypertension) On amlodipine plus metoprolol Ordered: [facility] Care/Day Moderate 35 Minutes 66372 7. DM2 (diabetes mellitus, type 2) (E11.9: Type 2 diabetes mellitus without complications) Sliding scale coverage; she was on metformin that was held because of the MRI with contrast yesterday Ordered: [facility] Care/Day Moderate 35 Minutes 72827 8. Anxiety (F41.9: Anxiety disorder, unspecified) Maintain BuSpar Ordered: [facility] Care/Day Moderate 35 Minutes 17284 9. On deep vein thrombosis (DVT) prophylaxis (Z79.899: Other assisted (current) drug therapy) SCDs plus her Eliquis therapy Ordered: [facility] Care/Day Moderate 35 Minutes 04656 Acute cellulitis (L03.90: Cellulitis, unspecified) Lactic acidosis (E87.20: Acidosis, unspecified) Leukocytosis (D72.829: Elevated white blood cell count, unspecified) Orders: Al hydroxide/Mg hydroxide/simethicone, 30 mL, Susp-Oral, Oral, q6hr PRN Indigestion, Routine, Start date 10/15/23 14:21:00 EST magnesium sulfate + Generic Diluent 50 mL, 2 gram = 50 mL, Soln-IV, IV Piggyback, Once, Stop date 10/15/23 11:00:00 EST, Routine, Start date 10/15/23 11:00:00 EST, 25 mL/hr, Infuse over 2 hour(s) Basic Metabolic Panel CBC w/ Auto Diff eGFR Magnesium Level PLAN: 1. Will continue IV Zosyn 2. Continue compression with double Tubigrip 3. Continue metoprolol plus Eliquis for A-fib; she is also on amlodipine for hypertension and atorvastatin for hyperlipidemia 4. I will replace her potassium 40 mEq p.o. x 1 5. Will follow-up with podiatry regarding discharge plans 6. Sliding scale insulin for her diabetes 7. DVT prophylaxis with SCDs and Eliquis therapy 8. Discharge planning in next 24 to 48 hours pending podiatry input She most likely require oral antibiotics at discharge Extracted from: Title:Progress/SOAP Note Author:Quin Betancourt DO Date:10/15/23 58-year-old female admitted for sepsis (leukocytosis; her tachycardia and lactic acidosis has resolved) secondary to cellulitis of her right leg. MRI of the right tib-fib shows cellulitis with no bone involvement. Initially had acute kidney injury which has resolved as well. Patient has had history of type 2 diabetes, hypertension, hypercholesterolemia, A-fib on Eliquis therapy and anxiety. 1. Sepsis (A41.9: Sepsis, unspecified organism) Stable/resolved Continue IV Zosyn Blood culture x 2 pending Ordered: [facility] Care/Day Moderate 35 Minutes 99137 2. Cellulitis of right leg (L03.115: Cellulitis of right lower limb) MRI right tib-fib noted above showing cellulitis but no bone involvement Continue IV antibiotics; day 3 IV Zosyn Compression orders per podiatry with double Tubigrip Ordered: [facility] Care/Day Moderate 35 Minutes 43858 3. Acute renal failure (N17.9: Acute kidney failure, unspecified) Do not Ordered: [facility] Care/Day Moderate 35 Minutes 80063 4. Troponin level elevated (R79.89: Other specified abnormal findings of blood chemistry) Stable Ordered: [facility] Care/Day Moderate 35 Minutes 16014 5. Atrial fibrillation (I48.91: Unspecified atrial fibrillation) Continuing sinus rhythm On metoprolol and Eliquis Ordered: [facility] Care/Day Moderate 35 Minutes 10071 6. HTN (hypertension) (I10: Essential (primary) hypertension) On metoprolol and amlodipine Ordered: [facility] Care/Day Moderate 35 Minutes 93414 7. DM2 (diabetes mellitus, type 2) (E11.9: Type 2 diabetes mellitus without complications) Sliding scale insulin for coverage Will suspend her metformin as she got a contrasted study yesterday Ordered: [facility] Care/Day Moderate 35 Minutes 17630 8. Anxiety (F41.9: Anxiety disorder, unspecified) Maintain BuSpar Ordered: [facility] Care/Day Moderate 35 Minutes 59430 9. On deep vein thrombosis (DVT) prophylaxis (Z79.899: Other assisted (current) drug therapy) SCDs plus her Eliquis therapy Ordered: [facility] Care/Day Moderate 35 Minutes 79045 Acute cellulitis (L03.90: Cellulitis, unspecified) Lactic acidosis (E87.20: Acidosis, unspecified) Leukocytosis (D72.829: Elevated white blood cell count, unspecified) Orders: lactobacillus acidophilus and bulgaricus, 1 tab(s), Tab, Oral, Daily, Routine, Start date 10/14/23 17:53:00 EST magnesium sulfate + Generic Diluent 50 mL, 2 gram = 50 mL, Soln-IV, IV Piggyback, Once, Stop date 10/15/23 11:00:00 EST, Routine, Start date 10/15/23 11:00:00 EST, 25 mL/hr, Infuse over 2 hour(s) Basic Metabolic Panel Basic Metabolic Panel CBC w/ Auto Diff CBC w/ Auto Diff eGFR Magnesium Level PLAN: 1. Continue IV Zosyn; day 3 2. Blood cultures x 2 pending 3. MRI noted; cellulitis but no bone involvement 4. Can continue compression with double Tubigrip 5. Will replete her magnesium with 2 g IV x 1 6. Lab for a.m. 7. Suspend metformin given the fact that she had a contrasted study yesterday; she does have sliding scale insulin for coverage 8. Continue metoprolol and Eliquis for A-fib history; she is also on amlodipine plus atorvastatin 9. DVT prophylaxis with SCDs plus Eliquis therapy 10. Discharge planning Extracted from: Title:Podiatric surgery Author:Mark Chen DPM Date:10/14/23 Impression and Plan I educated the patient on severe cellulitis of her right lower extremity. I recommended compression via the use of double Tubigrip wound care has been consulted for the double Tubigrip placement. I recommended this time the patient undergo tib-fib radiographs as well as an MRI of the tib-fib region rule out deep space infection continue with IV antibiotics and compression will follow after the MRI has been resulted. Extracted from: Title:Progress/SOAP Note Author:Quin Betancourt DO Date:10/14/23 58-year-old female admitted for sepsis (leukocytosis; her tachycardia and lactic acidosis has resolved) secondary to cellulitis of her right leg. Initially had acute kidney injury which has resolved as well. Patient has had history of type 2 diabetes, hypertension, hypercholesterolemia, A-fib on Eliquis therapy and anxiety. 1. Sepsis (A41.9: Sepsis, unspecified organism) Secondary to cellulitis of her right leg Day 2 IV Zosyn Blood cultures x 2 pending Will saline lock the patient at this time 2. Cellulitis of right leg (L03.115: Cellulitis of right lower limb) Day 2 IV Zosyn Podiatry consult pending 3. Acute renal failure (N17.9: Acute kidney failure, unspecified) Resolved with fluids 4. Troponin level elevated (R79.89: Other specified abnormal findings of blood chemistry) Resolved 5. Atrial fibrillation (I48.91: Unspecified atrial fibrillation) In sinus rhythm Maintain metoprolol and Eliquis 6. HTN (hypertension) (I10: Essential (primary) hypertension) On metoprolol plus amlodipine 7. DM2 (diabetes mellitus, type 2) (E11.9: Type 2 diabetes mellitus without complications) On sliding scale insulin plus metformin from home 8. Anxiety (F41.9: Anxiety disorder, unspecified) Continue BuSpar 9. On deep vein thrombosis (DVT) prophylaxis (Z79.899: Other assisted (current) drug therapy) SCDs plus Eliquis Acute cellulitis (L03.90: Cellulitis, unspecified) Lactic acidosis (E87.20: Acidosis, unspecified) Leukocytosis (D72.829: Elevated white blood cell count, unspecified) PLAN: 1. Will continue IV Zosyn; blood cultures x 2 pending 2. Podiatry consulted 3. Lab for a.m. 4. Continue metoprolol plus amlodipine for blood pressure and A-fib; she is also on Eliquis therapy 5. Will saline lock patient 6. Maintain metformin from home plus sliding scale insulin for coverage 7. For DVT prophylaxis she has SCDs plus her Eliquis therapy 8. Continue other meds including her atorvastatin for hypercholesterolemia and BuSpar for her anxiety Extracted from: Title:Admission H & P Author:Heather REID DO Date:10/13/23 1. Sepsis (A41.9: Sepsis, un specified organism) Patient noted to have leukocytosis, tachycardia, lactic acidosis and right lower extremity cellulitis. Patient has been fluid resuscitated in the emergency department. Will continue normal saline at 75 mill per hour. Patient has been started on IV Zosyn and vancomycin. Will recheck CBC with morning labs. Heart rate has improved at time of my exam. Blood cultures have been ordered. Ordered: metoprolol, 50 mg = 1 tab(s), Tab-ER, Oral, BID, NOW, Start date 10/13/23 22:35:00 EST, 10/13/23 22:35:00 EST 2. Cellulitis of right leg (L03.115: Cellulitis of right lower limb) IV vancomycin/Zosyn 3. Acute renal failure (N17.9: Acute kidney failure, unspecified) Hold nephrotoxic drugs. Will recheck creatinine with morning labs. Ordered: metoprolol, 50 mg = 1 tab(s), Tab-ER, Oral, BID, NOW, Start date 10/13/23 22:35:00 EST, 10/13/23 22:35:00 EST 4. Troponin level elevated (R79.89: Other specified abnormal findings of blood chemistry) No active anginal complaints. Suspect related to acute kidney injury. Will recheck troponin with morning labs. 5. Atrial fibrillation (I48.91: Unspecified atrial fibrillation) Currently rate controlled. Currently normal sinus rhythm. Continue DOAC. 6. HTN (hypertension) (I10: Essential (primary) hypertension) Continue patient's metoprolol. Holding lisinopril because of ALCIRA. Hydralazine iv prn. see orders. 7. DM2 (diabetes mellitus, type 2) (E11.9: Type 2 diabetes mellitus without complications) Holding glimepiride because of ALCIRA. Continue metformin. Sliding scale insulin. Diabetic diet. 8. Anxiety (F41.9: Anxiety disorder, unspecified) Continue BuSpar 9. On deep vein thrombosis (DVT) prophylaxis (Z79.899: Other assisted (current) drug therapy) SCD, DOAC Orders: acetaminophen, 650 mg = 2 tab(s), Tab, Oral, q6hr PRN Pain, Routine, Start date 10/13/23 22:41:00 EST, 10/13/23 22:41:00 EST amlodipine, 5 mg = 1 tab(s), Tab, Oral, Daily, Routine, Start date 10/14/23 9:00:00 EST, 10/13/23 22:34:00 EST apixaban, 5 mg = 1 tab(s), Tab, Oral, BID, Routine, Start date 10/14/23 9:00:00 EST, 10/13/23 22:35:00 EST atorvastatin, 40 mg = 1 tab(s), Tab, Oral, Daily, Routine, Start date 10/14/23 9:00:00 EST, 10/13/23 22:35:00 EST busPIRone, 5 mg = 1 tab(s), Tab, Oral, BID, NOW, Start date 10/13/23 22:35:00 EST, 10/13/23 22:35:00 EST diphenhydrAMINE, 25 mg = 1 cap(s), Cap, Oral, q6hr PRN Itching, Routine, Start date 10/13/23 22:41:00 EST, 10/13/23 22:41:00 EST glucose, 50 mL, Soln-IV, IV Push, Once PRN Blood glucose, Routine, Start date 10/13/23 22:40:00 EST hydrALAZINE, 10 mg = 0.5 mL, Injection, IV Push, q6hr PRN Other (see comment), Routine, Start date 10/13/23 22:41:00 EST, 10/13/23 22:41:00 EST insulin lispro, 0-10 Unit(s), Injection-Insulin, SubCutaneous, QIDACHS, Routine, Start date 10/14/23 7:30:00 EST metformin, 500 mg = 1 tab(s), Tab, Oral, BIDWM for 30 day(s), Stop date 11/12/23 22:59:00 EST, Start date 10/13/23 23:00:00 EST ondansetron, 4 mg = 2 mL, Injection, IV Push, q6hr PRN Nausea, Routine, Start date 10/13/23 22:41:00 EST, 10/13/23 22:41:00 EST piperacillin-tazobactam + Sodium Chloride 0.9% intravenous solution 50 mL, 3.375 gm = 1 EA, Injection, IV Piggyback, q6hr, Stop date 11/12/23 23:59:00 EST, Routine, Start date 10/14/23 0:00:00 EST, 100 mL/hr, Infuse over 30 minute(s) Sodium Chloride 0.9% intravenous solution 1,000 mL, 1,000 mL, IV, 75 mL/hr, Routine, Start date 10/13/23 22:41:00 EST, 13.3 hour(s), Total volume (mL): 1,000, 129.1 kg, 2.47, m2 Ambulate with Assistance Basic Metabolic Panel Below the Knee Intermittent Pneumatic Compression Device Cardiac Monitoring CBC w/ Indices Communication Order Physician to Nursing Consult to Trim Die Maker Diabetic/Calorie Control Diet Hypoglycemia Protocol Responsive Patient Hypoglycemia Protocol Unresponsive Patient Magnesium Level Notify Provider Vital Signs Notify Provider Vital Signs Oxygen Protocol Place in Status Precautions Resuscitation Status - Full Routine Capillary Glucose POC Troponin Vital Signs Weight Anticipated stay greater than 2 midnights due to above Addendum by Evans REID DO on October 13, 2023 23:42:17 EST Consult to podiatry for right lower extremity cellulitis as patient has seen Dr. Chen in the past. Extracted from: Title:ED Note Author:Korey ARANDA, Juanjo Arriaga te:10/13/23 Cellulitis of right leg (L03 .115: Cellulitis of right lower limb) Sepsis (A41.9: Sepsis, unspecified organism) Orders: acetaminophen, 650 mg = 2 tab(s), Tab, Oral, Once, Stop date 10/13/23 17:51:00 EST, STAT, Start date 10/13/23 17:51:00 EST, 10/13/23 17:51:00 EST piperacillin-tazobactam + Sodium Chloride 0.9% intravenous solution 50 mL, 3.375 gm = 1 EA, IV Piggyback, q6hrFT, STAT, Start date 10/13/23 18:34:00 EST, 100 mL/hr, Infuse over 30 minute(s), 10/13/23 18:34:00 EST Sodium Chloride 0.9% intravenous solution, 1,000 mL, Soln-IV, IV, Once, Stop date 10/13/23 17:51:00 EST, STAT, Start date 10/13/23 17:51:00 EST, Infuse over 61, minute(s) Sodium Chloride 0.9% intravenous solution, 500 mL, IV, Stop date 10/13/23 18:47:00 EST, Start date 10/13/23 18:47:00 EST Sodium Chloride 0.9% intravenous solution, 1,000 mL, Soln-IV, IV, Once, Stop date 10/13/23 18:55:00 EST, STAT, Start date 10/13/23 18:55:00 EST, Infuse over 61, minute(s) vancomycin + Generic Diluent 400 mL, 2,000 mg = 400 mL, Soln-IV, IV Piggyback, Once, Stop date 10/13/23 19:00:00 EST, Start date 10/13/23 19:00:00 EST, 200 mL/hr, Infuse over 2 hour(s) Blood Culture Charcoal Blood Culture Charcoal CBC w/ Auto Diff Comprehensive Metabolic Panel Continuous Pulse Oximetry ECG 12 Lead Adult ED Cardiac Monitoring eGFR Extra SST Tube Lactic Acid Lactic Acid Lactic Acid PT & PTT Troponin UA With Cult Reflex XR Chest Single View Future Appointments Appointment Date:11/25/2023 03:30:00 PM Scheduled Provider:Mor GUERRERO, Aris Hanks Location:[facility] Appointment Type:Cardiology Follow Up (FT) Diagnostic Tests Pending * UA With Cult Reflex 10/13/23 [facility]02-01-2024 NoteBasic Information Admit Date/Time:10/13/2023 19:24 Chief Complaint Swelling of right leg that started yesterday History of Present Illness Patient is a 58-year-old female with past medical history as noted below who comes in with above-stated chief complaint. Patient states that she noticed right lower extremity erythema and pain on 10/12/2023. Symptoms progressed and became more severe on 10/13/2023 therefore she came to ED for evaluation. Patient does admit to having some subjective chills but no fever. Patient denies any chest pain, shortness of breath, headache, vision changes, diarrhea, abdominal pain, nausea, vomiting, vision changes. Of note patient had a chronic wound on her right lower extremity for the majority of 2022. She states that she was released from wound care middle fall 2022 and had been doing well until thisbout of erythema. Review of Systems 14 Systems reviewed and negative except as noted in HPI. Scoring Love Fall Risk Score: 45 (10/13/23) Physical Exam Vitals & Measurements T: 37.9 ?C(Oral) TMIN: 37.5 ?C(Oral) TMAX: 37.9 ?C(Oral) HR: 108(Peripheral) RR: 12 BP: 115/52 SpO2: 98% HT: 170.18 cm WT: 125.4 kg General: alert, no acute distress Skin: warm, dry Head: no trauma, normocephalic Neck: Trachea midline, no adenopathy, no tenderness Eye: normal conjunctiva, sclera clear ENMT: oral mucosa moist, no pharyngeal erythema or exudate. hearing grossly intact Cardiovascular: regular rate and rhythm, no murmur/gallop/rub Respiratory: Lungs CTA, respirations non labored , no w/r/r Gastrointestinal: Positive bowel sound, soft, non distended, no tenderness, no guarding. Extremities: Right lower extremity with significant erythema from ankle to knee, moderate edema of right lower extremity, left lower extremity with no erythema noted Osteopathic: Deferred due to being noncontributory to current case. Neurological: oriented x 4, LOC appropriate for age, CN II-XII intact, motor strength equal & normal bilaterally, sensation equal & normal bilaterally, speech normal Psychiatric: cooperative, affect appropriate for age, normal judgement, normal psychiatric thoughts. Lab Results WBC: 19.7 E9/L High (10/13/23 18:01:00) RBC: 4.9 E12/L (10/13/23::00) HGB: 13.6 gm/dL (10/13/23::) Hct: 41 % (10/13/23:) MCV: 84.8 fL (10/13/23::) MCH: 27.9 pg (10/13/23) MCHC: 32.9 gm/dL (10/13/23) RDW: 15.1 % High (10/13/23) Platelet: 251 E9/L (10/13/23:) MPV: 9.9 fL (10/13/23) Neutro Auto: 94 % High (10/13/23) Lymph Auto: 4.4 % Low (10/13/23:) [place] Auto: 1.5 % Low (10/13/23) Eos Auto: 0 % (10/13/23) Basophil Auto: 0.1 % (10/13/23::) Neutro Absolute: 18.5 E9/L High (10/13/23) Lymph Absolute: 0.9 E9/L Low (10/13/23) [place] Absolute: 0.3 E9/L (10/13/23::) Eos Absolute: 0 E9/L (10/13/23:) Basophil Absolute: 0 E9/L (10/13/23:) PT: 26.1 second(s) High (10/13/23::) INR: 2.3 (10/13/23::00) PTT: 43.2 second(s) High (10/13/23::) Glucose Lvl: 193 mg/dL (10/13/23::) BUN: 24 mg/dL High (10/13/23::00) Creatinine: 1.4 mg/dL High (10/13/23:) eGFR: 43 mL/min/1.73 m2 Low (10/13/23 18:01:00) BUN/Creat Ratio: 17 (10/13/23 18:01:00) Sodium Lvl: 132 mmol/L Low (10/13/23 18:01:00) Potassium Lvl: 3.5 mmol/L (10/13/23 18:01:00) Chloride: 97 mmol/L Low (10/13/23 18:01:00) CO2: 22 mmol/L (10/13/23 18::00) AGAP: 17 mEq/L High (10/13/23 18:01:00) Calcium Lvl: 9 mg/dL (10/13/23 18:01:00) Alk Phos: 60 Int._Unit/L (10/13/23 18::00) ALT: 14 Int._Unit/L (10/13/23 18:01:00) AST: 22 Int._Unit/L (10/13/23 18::00) Total Protein: 7.8 gm/dL (10/13/23 18:01:00) Albumin Lvl: 3.7 gm/dL (10/13/23 18:01:00) Globulin: 4.1 gm/dL High (10/13/23 18:01:00) A/G Ratio: 0.9 Low (10/13/23 18:01:00) Bili Total: 0.8 mg/dL (10/13/23 18:01:00) Lactic Acid Lvl: 1.7 mmol/L (10/13/23 21:45:00) Troponin: 28.2 pg/mL High (10/13/23 18:01:00) Assessment/Plan 1. Sepsis (A41.9: Sepsis, unspecified organism) Patient noted to have leukocytosis, tachycardia, lactic acidosis and right lower extremity cellulitis. Patient has been fluid resuscitated in the emergency department. Will continue normal saline at 75 mill per hour. Patient has been started on IV Zosyn and vancomycin. Will recheck CBC with morninglabs. Heart rate has improved at time of my exam. Blood cultures have been ordered. Ordered: metoprolol, 50 mg = 1 tab(s), Tab-ER, Oral, BID, NOW, Start date 10/13/23 22:35:00 EST, 10/13/23 22:35:00 EST 2. Cellulitis of right leg (L03.115: Cellulitis of right lower limb) IV vancomycin/Zosyn 3. Acute renal failure (N17.9: Acute kidney failure, unspecified) Hold nephrotoxic drugs. Will recheck creatinine with morning labs. Ordered: metoprolol, 50 mg = 1 tab(s), Tab-ER, Oral, BID, NOW, Start date 10/13/23 22:35:00 EST, 10/13/23 22:35:00 E (more content not included)...[facility] CenterComment on [facility]:Result Comment: Electronically Signed By: Heather REID DO.carlos\Date and Time Signed: 10/13/23 23:42 [id number] Note Microbiology PROCEDURE: Wound Culture [R1] SOURCE: Wound BODY SITE: Leg R COLLECTED DATE/TIME: 07/20/2023 13:50 EST RECEIVED DATE/TIME: 07/20/2023 16:18 EST START DATE/TIME: 07/20/2023 16:18 EST FREE TEXT SOURCE: right lower leg April SPENCER, Mark Chen DPM, Mark Britton FINAL REPORTS Final Report [] Verified Date/Time: 07/23/2023 14:18 EST 1+ Pseudomonas aeruginosa isolated. 1+ Streptococcus agalactiae (Group B) Presumptive isolated. 1+ Staphylococcus species coagulase negative isolated. STAINS Gram Stain Report [] Verified Date/Time: 07/21/2023 09:07 EST Rare White Blood Cells Rare Gram Positive Cocci SUSCEPTIBILITY RESULTS LEGEND: S=Susceptible, N/R=Not Reported, Blank=Data not available, or drug not advisable or tested, I=Intermediate, ESBL=Extended spectrum beta-lactamase, R=Resistant, TFG=Thymidine-dependent strain, JACKIE=Beta-lactamase positive, FLACO=mcg/m;(mg/L), S*=Predicted susceptible interp, R*=Predicted resistant interp PA Strep B Antibiotic FLACO Dilutn FLACO Interp FLACO Dilutn FLACO Interp Amikacin <=16 S Ampicillin 0.12 S Azithromycin >2 R Aztreonam 8 S Cefepime 4 S <=0.25 S Ceftazidime 4 S Ceftazidime/ <=8 S Avibactam Ceftriaxone <=0.25 S Ciprofloxacin <=1 S Clindamycin >0.5 R Erythromycin >0.5 R Gentamicin <=4 S Levofloxacin 4 I 0.5 S Meropenem <=1 S Penicillin 0.06 S Piperacillin/ <=16 S Tazobactam Tetracycline >4 R Tobramycin <=4 S Vancomycin 0.5 S Performing Locations R1: This test was performed at: [facility], [address] [place] [address], [facility] , , WpuvobUniversity [facility]als Elyria [facility] CenterComment on above:Performed By: #### [id number] #### [facility] [address] [place] [address] [id number] Evaluation + Plan note Diagnostic Tests Pending * GENESIS w/Reflex if POS 07/08/23 [facility]10-23-2023 NoteMicrobiology PROCEDURE: Blood Culture Charcoal [R1] SOURCE: Blood BODY SITE: Arm L COLLECTED DATE/TIME: 06/28/2023 15:20 EDT RECEIVED DATE/TIME: 06/28/2023 15:53 EDT START DATE/TIME: 06/28/2023 15:53 EDT FREE TEXT SOURCE: Peripheral vein site #1 Juanjo Nair PA-C. Juanjo Nair PA-C. FINAL REPORTS Final Report [] Verified Date/Time: 07/05/2023 17:01 EDT No growth at 7 days. Performing Locations R1: This [facility] was performed at: [facility], [address] [place] [address], [id number] [place] [address], JyiysnUniversity Hospitals Elyria [facility] CenterComment on above:Performed By: #### [id number] #### [facility] [address] [place] [address] [id number] NoteMicrobiology PROCEDURE: Blood Culture Charcoal [R1] SOURCE: Blood BODY SITE: Hand L COLLECTED DATE/TIME: 06/28/2023 15:34 EDT RECEIVED DATE/TIME: 06/28/2023 15:53 EDT START DATE/TIME: 06/28/2023 15:53 EDT FREE TEXT SOURCE: Peripheral vein site #2 Juanjo Nair PA-C. Korey ARANDA, Juanjo Lowry. FINAL REPORTS Final Report [] Verified Date/Time: 07/05/2023 17:01 EDT No growth at 7 days. Performing Locations R1: [facility] performed at: [facility], [address] [place] [address], [id number] [place] [address], QdolcvUniversity [facility]als Elyria Medical CenterComment on above:Performed By: #### [id number] ####[facility] [address] [place], [place] [id number] NoteAdmission and Discharge Information Admit Date/Time:06/28/2023 17:34 Admitting Physician - NELY GUERRERO, Unruly Consulting Physician - [facility] [place] [facility], XXXX Admitting Diagnoses: Discharge Order Date Discharge Patient - Ordered -- 07/02/23 11:38:00 EDT Discharge Diagnoses 1. Cellulitis - Leg, 06/28/2023 2. Sepsis, 06/28/2023 3. Leukocytosis, 06/28/2023 4. Acute renal failure, 06/28/2023 5. Lactic acidosis, 06/28/2023 6. Elevated troponin, 06/28/2023 7. Diabetes mellitus, type II, 06/28/2023 8. HTN (hypertension), 06/28/2023 9. Hyperlipemia, 06/28/2023 10. History of TIA (transient ischemic attack), 06/28/2023 11. Obesity, 06/28/2023 Fever, 06/28/2023 Leg pain-swelling, 06/28/2023 Shortness of breath, 06/28/2023 Procedure History Carpal tunnel, Hand tendon repaired. Hospital Course 57-year-old white female with past medical history obesity, hypertension, hyperlipidemia, history of TIA diabetes type 2, and a history of, cellulitis of present emergency room with right leg swelling, redness, and tenderness. Right leg redness extended from her ankle to the knee. It is very warm to touch. Associated with fever. Associated with some confusion and disorientation. She had recent a blister on her right foot. No history of injury or trauma. She denies having nausea vomiting. No diarrhea. She denies any chest pain or shortness of breath. No orthopnea PND. No dysuria, hematuria, frequency. Upon presentation to emergency room she was tachycardic and tachypneic. Her white count waselevated at 20,000. Her lactic acid was elevated at 3.6. She was given IV fluid and given vancomycin and Zosyn. She was admitted to the hospital for further management. A/P 1. Sepsis (A41.9: Sepsis, unspecified organism) Tachycardia tachypnea/leukocytosis Secondary to acute right leg cellulitis Seen and examined Clinically better No fever No Leukocytosis Less leg redness Blood cultures are negative C/w Zosyn and Vancomycin IV Still have some redness and swelling Has few blisters Patient wants to go home she does not want to stay for couple more days on IV antibiotic Doxycycline 100 mg twice daily for 10 days follow-up with her primary physician in 1 to 2 weeks 2. Acute cellulitis (L03.90: Cellulitis, unspecified) As above 3. Leukocytosis (D72.829: Elevated white blood cell count, unspecified) CBC with differential daily Improving 4. Acute renal failure (N17.9: Acute kidney failure, unspecified) Resolved 5. Lactic acidosis (E87.20: Acidosis, unspecified) Lactic acid daily 6. Elevated troponin (R77.8: Other specified abnormalities of plasma proteins) Type II secondary to increased demand No chest pain 7. Diabetes mellitus, type II (E11.9: Type 2 diabetes mellitus without complications) Accu-Chek ACHS Insulin sliding scale 8. HTN (hypertension) (I10: Essential (primary) hypertension) Resume home medication 9. Hyperlipemia (E78.5: Hyperlipidemia, unspecified) Resume home medication 10. History of TIA (transient ischemic attack) (Z86.73: Personal history of transient ischemic attack (TIA), and cerebral infarction without residual deficits) Resume home medication 11. Obesity (E66.9: Obesity, unspecified) Lifestyle modification 12. Afib with RVR HR is better controlled DC IV Cardizem infusion Toprol XL DAILY Replace potassium 13. Hypokalemia: Replaced DVT prophylaxis: Lovenox Services Consulted Consult to Cardiology (Cardiology Consult) - Ordered -- 06/29/23 0:41:00 EDT, Afib with RVR, Consult and Co-manage, [facility] Consult to Dietitian Adult - Ordered -- 06/28/23 18:59:59 EDT Physical Exam Vitals & Measurements T: 36.5 ?C(Axillary) TMIN: 36.5 ?C(Axillary) TMAX: 37.8 ?C(Axillary) HR: 106(Monitored) RR: 16 BP: 120/75 SpO2: 99% General: alert, no acute distress Skin: warm, dry Head: no trauma, normocephalic Neck: Trachea midline, no adenopathy, no tenderness Eye: normal conjunctiva, sclera clear ENMT: TM's clear, oral mucosa moist, no pharyngeal erythema or exudate Cardiovascular: irregularly-irregular rate and rhythm, normal peripheral perfusion Respiratory: Lungs CTA, respirations non labored Chest wall: no deformity. Gastrointestinal: soft, non distended, no tenderness, no guarding. Back: No tenderness, Normal ROM, Normal alignment. Extremities: no deformity, no trauma Neurological: oriented x 4, LOC appropriate for age, CN II-XII intact, motor strength equal & normal bilaterally, sensation equal & normal bilaterally, speech normal Psychiatric: cooperative, affect appropriate for age, normal judgement, normal psychiatric thoughts. [1] Laboratory Results .Manual Abs (06/29/2023) Segs Abs Man - 16.7 E9/L Lymph Abs Man - 1.3 E9/L [place] Abs Man - 0.0 E9/L Eos Abs Man - 0.0 E9/L Basophil Abs Man - 0.0 E9/L Automated Diff (07/01/2023) Neutro Auto - 71.5 % Lymph Auto - 19.9 % [place] Auto - 7.9 % Eos Auto - 0.4 % Basophil Auto - 0.3 % Amina (more content not included)...[facility] CenterComment on above: Result Comment: Electronically Signed By: NELY GUERRERO, Unruly\.br\Date and Time Signed: 07/02/23 12:[id number] Evaluation + Plan noteExtracted from: Title:Discharge Note Author:Unruly CUETO MD John e:07/02/23 stable Discharge To, Anticipated II - Home with responsible caregiver Discharged to - Home independently Home Discharge Diet(s): Calorie Controlled- 1800 Calorie Diet (07/02/23 11:28:00) Prescriptions doxycycline hyclate 100 mg Cap, 100 mg= 1 cap(s), Oral, q12hr Eliquis 5 mg oral tablet, 5 mg= 1 tab(s), Oral, BID, 1 refills glucometer, lancets, alcohol swabs, syringes, needles, 0 glucometer, lancets, alcohol swabs, syringes, needles, test strips, 0 insulin lispro 100 units/mL injectable solution, See Instructions, 3 refills metoprolol 50 mg ER Tab, 50 mg= 1 tab(s), Oral, BID Home amLODIPine 10 mg Tab, 10 mg= 1 tab(s), Oral, Daily atorvastatin 40 mg Tab, 40 mg= 1 tab(s), Oral, Daily busPIRone 5 mg Tab, 5 mg= 1 tab(s), Oral, BID cyclobenzaprine 10 mg Tab, 10 mg= 1 tab(s), Oral, Daily, PRN glimepiride 2 mg Tab, 1.5, Oral, Daily lisinopril 20 mg Tab, 20 mg= 1 tab(s), Oral, Daily metformin 500 mg ER Tab, 500 mg= 1 tab(s), Oral, BID With When Contact Information Karina Martinez 07/08/2023 05:00 PM EDT [address] [email or web address] (1) Additional Instructions: Cellulitis, Adult Sepsis, Diagnosis, Adult discharge time >30 min Extracted from: Title:Progress/SOAP Note Author:William DUNCAN CNP Date:06/30/23 1. Sepsis (A41.9: Sepsis, un specified organism) Ordered: metoprolol, 50 mg = 1 tab(s), Tab-ER, Oral, BID, Routine, Start date 06/30/23 21:00:00 EDT, 06/30/23 13:06:00 EDT 2. Acute cellulitis (L03.90: Cellulitis, unspecified) Ordered: metoprolol, 50 mg = 1 tab(s), Tab-ER, Oral, BID, Routine, Start date 06/30/23 21:00:00 EDT, 06/30/23 13:06:00 EDT 3. Leukocytosis (D72.829: Elevated white blood cell count, unspecified) Ordered: metoprolol, 50 mg = 1 tab(s), Tab-ER, Oral, BID, Routine, Start date 06/30/23 21:00:00 EDT, 06/30/23 13:06:00 EDT 4. Acute renal failure (N17.9: Acute kidney failure, unspecified) Ordered: metoprolol, 50 mg = 1 tab(s), Tab-ER, Oral, BID, Routine, Start date 06/30/23 21:00:00 EDT, 06/30/23 13:06:00 EDT 5. Lactic acidosis (E87.20: Acidosis, unspecified) Ordered: metoprolol, 50 mg = 1 tab(s), Tab-ER, Oral, BID, Routine, Start date 06/30/23 21:00:00 EDT, 06/30/23 13:06:00 EDT 6. Elevated troponin (R77.8: Other specified abnormalities of plasma proteins) Echocardiogram shows normal LV function, no wall motion abnormalities. She has no anginal symptoms. Would restart aspirin 81 mg and statin when medically able. Started on beta- maury this admission. Eventual ischemic evaluation. 7. Diabetes mellitus, type II (E11.9: Type 2 diabetes mellitus without complications) 8. HTN (hypertension) (I10: Essential (primary) hypertension) 9. Hyperlipemia (E78.5: Hyperlipidemia, unspecified) 10. History of TIA (transient ischemic attack) (Z86.73: Personal history of transient ischemic attack (TIA), and cerebral infarction without residual deficits) 11. Obesity (E66.9: Obesity, unspecified) Atrial fibrillation -new onset for patient, rates are now controlled but remains on IV diltiazem. We will uptitrate metoprolol succinate to 50 mg twice daily. Please wean diltiazem to off. Recommend Eliquis 5 mg twice daily to reduce risk of stroke in patient with a high [id number] score, at least therapeutic Lovenox/Heparin if NOAC contraindicated. Rhythm control to be addressed as out patient after ischemic eval Patient is seen and examined with Dr. Juares. Extracted from: Title:Consult Note Author:Mor GUERRERO, Milan Britton. Date:06/29/23 57-year-old female with new onset atrial fibrillation RVR in the setting of cellulitis, ALCIRA, elevated troponin, lactic acidosis, sepsis. History of diabetes and obesity, hypertension, hyperlipidemia. Recommend full dose Lovenox or heparin as well as rate control with beta-maury. Check echocardiogram. Eventual ischemia work- up. Thank you for the consult 1. Sepsis (A41.9: Sepsis, unspecified organism) 2. Acute cellulitis (L03.90: Cellulitis, unspecified) 3. Leukocytosis (D72.829: Elevated white blood cell count, unspecified) 4. Acute renal failure (N17.9: Acute kidney failure, unspecified) 5. Lactic acidosis (E87.20: Acidosis, unspecified) 6. Elevated troponin (R77.8: Other specified abnormalities of plasma proteins) 7. Diabetes mellitus, type II (E11.9: Type 2 diabetes mellitus without complications) 8. HTN (hypertension) (I10: Essential (primary) hypertension) 9. Hyperlipemia (E78.5: Hyperlipidemia, unspecified) 10. History of TIA (transient ischemic attack) (Z86.73: Personal history of transient ischemic attack (TIA), and cerebral infarction without residual deficits) 11. Obesity (E66.9: Obesity, unspecified) Extracted from: Title:Admission H & P Author:Unruly CUETO MD te:06/28/23 57-year-old white female wit h past medical history obesity, hypertension, hyperlipidemia, history of TIA diabetes type 2, and a history of, cellulitis of present emergency room with right leg swelling, redness, and tenderness. Right leg redness extended from her ankle to the knee. It is very warm to touch. Associated with fever. Associated with some confusion and disorientation. She had recent a blister on her right foot. No history of injury or trauma. She denies having nausea vomiting. No diarrhea. She denies any chest pain or shortness of breath. No orthopnea PND. No dysuria, hematuria, frequency. Upon presentation to emergency room she was tachycardic and tachypneic. Her white count was elevated at 20,000. Her lactic acid was elevated at 3.6. She was given IV fluid and given vancomycin and Zosyn. She was admitted to the hospital for further management. A/P 1. Sepsis (A41.9: Sepsis, unspecified organism) Tachycardia tachypnea/leukocytosis Secondary to acute right leg cellulitis Inpatient admission Patient will require more than 2 nights in the hospital Blood cultures x2 CBC with differential daily Normal saline at 1h Zosyn IV every 6 hours 00 cc/h Vancomycin pharmacy to dose 2. Acute cellulitis (L03.90: Cellulitis, unspecified) As above 3. Leukocytosis (D72.829: Elevated white blood cell count, unspecified) CBC with differential daily 4. Acute renal failure (N17.9: Acute kidney failure, unspecified) Normal saline 100 cc/h BMP daily 5. Lactic acidosis (E87.20: Acidosis, unspecified) Lactic acid daily 6. Elevated troponin (R77.8: Other specified abnormalities of plasma proteins) Type II secondary to increased demand No chest pain 7. Diabetes mellitus, type II (E11.9: Type 2 diabetes mellitus without complications) Accu-Chek ACHS Insulin sliding scale 8. HTN (hypertension) (I10: Essential (primary) hypertension) Resume home medication 9. Hyperlipemia (E78.5: Hyperlipidemia, unspecified) Resume home medication 10. History of TIA (transient ischemic attack) (Z86.73: Personal history of transient ischemic attack (TIA), and cerebral infarction without residual deficits) Resume home medication 11. Obesity (E66.9: Obesity, unspecified) Lifestyle modification . DVT prophylaxis Orders: acetaminophen, 650 mg = 2 tab(s), Tab, Oral, q6hr PRN Pain, Routine, Start date 06/28/23 17:34:00 EDT, 06/28/23 17:34:00 EDT Al hydroxide/Mg hydroxide/simethicone, 30 mL, Susp-Oral, Oral, q6hr PRN Indigestion, STAT, Start date 06/28/23 17:34:00 EDT glucose, 50 mL, Soln-IV, IV Push, Once PRN Blood glucose, STAT, Start date 06/28/23 17:36:00 EDT heparin, 5,000 unit(s) = 1 mL, Injection, SubCutaneous, q8hrFT for 30 day(s), Stop date 07/28/23 23:59:00 EST, Routine, Start date 06/29/23 0:00:00 EDT insulin lispro, 0-10 Unit(s), Injection-Insulin, SubCutaneous, QIDACHS, Routine, Start date 06/28/23 21:00:00 EDT magnesium hydroxide, 30 mL, Susp-Oral, Oral, q6hr PRN Constipation, STAT, Start date 06/28/23 17:34:00 EDT ondansetron, 4 mg = 2 mL, Injection, IV Push, q6hr PRN Nausea, Routine, Start date 06/28/23 17:34:00 EDT, 06/28/23 17:34:00 EDT piperacillin-tazobactam + Sodium Chloride 0.9% intravenous solution 50 mL, 3.375 gm = 1 EA, Injection, IV Piggyback, q6hrFT, Routine, Start date 06/28/23 18:00:00 EDT, 100 mL/hr, Infuse over 30 minute(s) Sodium Chloride 0.9% intravenous solution 1,000 mL, 1,000 mL, IV, 125 mL/hr, Routine, Start date 06/28/23 17:34:00 EDT, 8 hour(s), Total volume (mL): 1,000, 117 kg, 2.35, m2 vancomycin, PHARMACY TO DOSE, Injection, IV, As Directed for 99 day(s), Stop date 10/05/23 16:36:00 EST, Routine, Start date 06/28/23 17:37:00 EDT Basic Metabolic Panel Cardiac Monitoring CBC w/ Auto Diff Diabetic/Calorie Control Diet Elevate Head of Bed Hypoglycemia Protocol Responsive Patient Hypoglycemia Protocol Unresponsive Patient Intake and Output Notify Provider Vital Signs Notify Provider Vital Signs Place in Status Resuscitation Status - Full Routine Capillary Glucose POC Saline Lock Convert From IV Up ad Antonia Vital Signs Weight Extracted from: Title:ED Note Author:Juanjo Nair PA-C te:06/28/23 Altered mental status (R41.8 2: Altered mental status, unspecified) Cellulitis of right leg (L03.115: Cellulitis of right lower limb) Elevated troponin (R77.8: Other specified abnormalities of plasma proteins) Sepsis (A41.9: Sepsis, unspecified organism) Orders: acetaminophen + Generic Diluent 100 mL, 1,000 mg = 100 mL, Soln-IV, IV Piggyback, Once, Stop date 06/28/23 15:12:00 EDT, STAT, Start date 06/28/23 15:12:00 EDT, 400 mL/hr, Infuse over 15 minute(s) piperacillin-tazobactam + Sodium Chloride 0.9% intravenous solution 50 mL, 3.375 gm = 1 EA, IV Piggyback, q6hrFT, STAT, Start date 06/28/23 16:32:00 EDT, 100 mL/hr, Infuse over 30 minute(s), 06/28/23 16:32:00 EDT Sodium Chloride 0.9% intravenous solution, 1,000 mL, Soln-IV, IV, Once, Stop date 06/28/23 15:11:00 EDT, STAT, Start date 06/28/23 15:11:00 EDT, Infuse over 61, minute(s) Sodium Chloride 0.9% intravenous solution, 1,000 mL, Soln-IV, IV, Once, Stop date 06/28/23 16:35:00 EDT, STAT, Start date 06/28/23 16:35:00 EDT, Infuse over 61, minute(s) vancomycin, PHARMACY TO DOSE, Injection, IV, As Directed, Routine, Start date 06/28/23 16:32:00 EDT vancomycin + Generic Diluent 350 mL, 1,750 mg = 350 mL, Soln-IV, IV Piggyback, Once, Stop date 06/28/23 17:00:00 EDT, Start date 06/28/23 17:00:00 EDT, 175 mL/hr, Infuse over 2 hour(s) .Manual Abs Blood Culture Charcoal Blood Culture Charcoal CBC w/ Auto Diff Comprehensive Metabolic Panel Continuous Pulse Oximetry ED Cardiac Monitoring eGFR Lactic Acid Lactic Acid Lactic Acid Manual Diff Oxygen Therapy PT & PTT Troponin UA With Cult Reflex XR Chest Single View [facility]10-20-2023 Hospital Discharge instructions Patient Education 07/02/2023 11:29:07 Cellulitis, Adult Cellulitis, Adult Cellulitis is a skin infection. The infected area is usually warm, red, swollen, and tender. This condition occurs most often in the arms and lower legs. The infection can travel to the muscles, blood, and underlying tissue and become serious. It is very important to get treated for this condition. What are the causes? Cellulitis is caused by bacteria. The bacteria enter through a break in the skin, such as a cut, burn, insect bite, open sore, or crack. What increases the risk? This condition is more likely to occur in people who: Have a weak body defense system (immune system). Have open wounds on the skin, such as cuts, zamora, bites, and scrapes. Bacteria can enter the body through these open wounds. Are older than 60 years of age. Have diabetes. Have a type of long-lasting (chronic) liver disease (cirrhosis) or kidney disease. Are obese. Have a skin condition such as: ?Itchy rash (eczema). ?Slow movement of blood in the veins (venous stasis). ?Fluid buildup below the skin (edema). Have had radiation therapy. Use IV drugs. What are the signs or symptoms? Symptoms of this condition include: Redness, streaking, or spotting on the skin. Swollen area of the skin. Tenderness or pain when an area of the skin is touched. Warm skin. A fever. Chills. Blisters. How is this diagnosed? This condition is diagnosed based on a medical history and physical exam. You may also have tests, including: Blood tests. Imaging tests. How is this treated? Treatment for this condition may include: Medicines, such as antibiotic medicines or medicines to treat allergies (antihistamines). Supportive care, such as rest and application of cold or warm cloths (compresses) to the skin. Hospital care, if the condition is severe. The infection usually starts to get better within 1 2 days of treatment. Follow these instructions at home: Medicines Take gxkn-vjm-spdepox and prescription medicines only as told by your health care provider. If you were prescribed an antibiotic medicine, take it as told by your health care provider. Do notstop taking the antibiotic even if you start to feel better. General instructions Drink enough fluid to keep your urine pale yellow. Do not touch or rub the infected area. Raise (elevate) the infected area above the level of your heart while you are sitting or lying down. Apply warm or cold compresses to the affected area as told by your health care provider. Keep all follow-up visits as told by your health care provider. This is important. These visits letyour health care provider make sure a more serious infection is not developing. Contact a health care provider if: You have a fever. Your symptoms do not begin to improve within 1 2 days of starting treatment. Your bone or joint underneath the infected area becomes painful after the skin has healed. Your infection returns in the same area or another area. You notice a swollen bump in the infected area. You develop new symptoms. You have a general ill feeling (malaise) with muscle aches and pains. Get help right away if: Your symptoms get worse. You feel very sleepy. You develop vomiting or diarrhea that persists. You notice red streaks coming from the infected area. Your red area gets larger or turns dark in color. These symptoms may represent a serious problem that is an emergency. Do not wait to see if the symptoms will go away. Get medical help right away. Call your local emergency services (911 in the [place] Do not drive yourself to the hospital. Summary Cellulitis is a skin infection. This condition occurs most often in the arms and lower legs. Treatment for this condition may include medicines, such as antibiotic medicines or antihistamines. Take bbtb-enc-xgwqfew and prescription medicines only as told by your health care provider. If you were prescribed an antibiotic medicine, do not stop taking the antibiotic even if you start to feel better. Contact a health care provider if your symptoms do not begin to improve within 1 2 days of startingtreatment or your symptoms get worse. Keep all follow-up visits as told by your health care provider. This is important. These visits letyour health care provider make sure that a more serious infection is not developing. This information is not intended to replace advice given to you by your health care provider. Make sure you discuss any questions you have with your health care provider. Document Revised: 06/11/2022 Document Reviewed: 06/11/2022 [email or web address] Patient Education 2022 [employer]. 07/02/2023 11:29:02 Sepsis, Diagnosis, Adult Sepsis, Diagnosis, Adult Sepsis is a serious bodily reaction to an infection. The infection that triggers sepsis may be froma bacteria, virus, or fungus. Sepsis can result from an infection in any part of your body. Infections that commonly lead to sepsis include skin, lung, and urinary tract infections. Sepsis is a medical emergency that must be treated right away in a hospital. In severe cases, it can lead to septic shock. Septic shock can weaken your heart and cause your blood pressure to drop. This can cause your central nervous system and your body's organs to stop working. What are the causes? This condition is caused by a severe reaction to infections from bacteria, viruses, or fungus. The germs that most often lead to sepsis include: Escherichia coli (E. coli) bacteria. Staphylococcus aureus (staph) bacteria. Some types of Streptococcus bacteria. The most common infections affect these organs: The lung (pneumonia). The kidneys or bladder (urinary tract infection). The skin (cellulitis). The bowel, gallbladder, or pancreas. What increases the risk? You are more likely to develop this condition if: Your body's disease-fighting system (immune system) is weakened. You are age 65 or older. You are male. You had surgery or you have been hospitalized. You have these devices inserted into your body: ?A small, thin tube (catheter). ?IV line. ?Breathing tube. ?Drainage tube. You are not getting enough nutrients from food (malnourished). You have a chronic disease, such as cancer, lung disease, kidney disease, or diabetes. What are the signs or symptoms? Symptoms of this condition may include: Fever. Chills or feeling very cold. Confusion or anxiety. Fatigue. Muscle aches. Shortness of breath or rapid breathing (hyperventilation). Nausea and vomiting. Urinating much less than usual. Fast heart rate. Changes in skin color. Your skin may look blotchy, pale, or blue. Cool, clammy, or sweaty skin. Skin rash. Other symptoms depend on the source of your infection. How is this diagnosed? This condition is diagnosed based on your symptoms, medical history, and physical exam. Other testsmay also be done to find out the cause of the infection and how severe the sepsis is. Tests may include: Blood tests. Urine tests. Swabs from other areas of your body that may have an infection. These samples may be tested (cultured) to find out what type of bacteria is causing the infection. Chest X-ray to check for pneumonia. Other imaging tests, such as a CT scan, may also be done. Lumbar puncture. This removes a small amount of the fluid that surrounds your brain and spinal cord. The fluid is then examined for infection. How is this treated? This condition must be treated in a hospital. Based on the cause of your infection, you may be given an antibiotic, antiviral, or antifungal medicine. You may also receive: Fluids through an IV. Oxygen and breathing assistance. Medicines to increase your blood pressure. Kidney dialysis. This process cleans your blood if your kidneys have failed. Surgery to remove infected tissue. Blood transfusion if needed. Medicine to prevent blood clots. Nutrients to correct imbalances in basic body function (metabolism). You may: ?Receive important salts and minerals (electrolytes) through an IV. ?Have your blood sugar level adjusted. Follow these instructions at home: Medicines Take yulm-byg-okfvtrd and prescription medicines only as told by your health care provider. If you were prescribed an antibiotic, antiviral, or antifungal medicine, take it as told by your health care provider. Do not stop taking the medicine even if you start to feel better. General instructions If you have a catheter or other indwelling device, ask to have it removed as soon as possible. Keep all follow-up visits. This is important. Contact a health care provider if: You do not feel like you are getting better or regaining strength. You are having trouble coping with your recovery. You frequently feel tired. You feel worse or do not seem to get better after surgery. You think you may have an infection after surgery. Get help right away if: You have any symptoms of sepsis. You have difficulty breathing. You have a rapid or skipping heartbeat. You become confused or disoriented. You have a high fever. Your skin becomes blotchy, pale, or blue. You have an infection that is getting worse or not getting better. These symptoms may represent a serious problem that is an emergency. Do not wait to see if the symptoms will go away. Get medical help right away. Call your local emergency services (911 in the [place] Do not drive yourself to the hospital. Summary Sepsis is a medical emergency that requires immediate treatment in a hospital. This condition is caused by a severe reaction to infections from bacteria, viruses, or fungus. Based on the cause of your infection, you may be given an antibiotic, antiviral, or antifungal medicine. Treatment may also include IV fluids, breathing assistance, and kidney dialysis. This information is not intended to replace advice given to you by your health care provider. Make sure you discuss any questions you have with your health care provider. Document Revised: 07/14/2021 Document Reviewed: 07/14/2021 [email or web address] Patient Education 2022 [employer]. Follow Up Care 06/28/2023 14:46:32 With:Karina Martinez Address: [address] [place] [address] Business (1) When:07/08/2023 17:00:00 [facility]10-18-2023 NoteBasic Information Cardiology Progress Subjective Feeling better today. No chest pain or palpitations. Heart rate on telemetry in the 80s, remains in AF on IV diltiazem at 5 mg an hour. Started metoprolol succinate. Echo with normal LVSF, no significant valve disease. Review of Systems Constitutional: no fever, no chills, no weakness, no fatigue Respiratory: no shortness of breath, no cough, no orthopnea, no wheezing Cardiovascular: no chest pain, no palpitations, no edema Neuro:no dizziness no light headed no syncope Additional ROS info: Except as noted in the above Review of Systems and in the History of Present Illness all other systems have been reviewed and are negative or noncontributory. Objective Vitals & Measurements T: 36.4 ?C(Axillary) TMIN: 36.0 ?C(Axillary) TMAX: 38.8 ?C(Axillary) HR: 72(Monitored) RR: 16 BP: 131/80 SpO2: 98% WT: 125.7 kg Intake & Output This visit (24 hour periods starting at 07:00 EDT) 06/30/23 * 06/29/23 06/28/23 Total Summary Intake mL -- 2,250 1,452 Output mL -- 200 -- Fluid Balance -- 2,050 1,452 Intake (5) Generic Diluent, acetaminophen mL -- -- 100 Generic Diluent, vancomycin mL -- 250 350 Sodium Chloride 0.9% mL -- -- 1,000 Sodium Chloride 0.9% intravenous solution 1,000 mL mL -- 2,000 -- diltiazem mL -- -- 2 Total -- 2,250 1,452 Output (1) Urine Voided mL -- 200 -- Total -- 200 -- Counts (1) Stool Count -- 1 -- * This column has not completed the indicated time period. Physical Exam General: alert, no acute distress Neck: Supple, noJVD nocarotid bruit Cardiovascular: irregularly-irregular rate and rhythm, no murmur normal peripheral perfusion Respiratory: Lungs CTA, respirations non labored Extremities:no edema Neurological: oriented x 4, LOC appropriate for age, sensation equal & normal bilaterally, speech normal Skin: Warm, dry, intact- no rash or concerning lesions Lab Results WBC: 11.4 E9/L High (06/30/23 06:22:00) RBC: 4.6 E12/L (06/30/23 06:22:00) HGB: 13.2 gm/dL (06/30/23 06:22:00) Hct: 38.9 % (06/30/23 06:22:00) MCV: 85.2 fL (06/30/23 06:22:00) MCH: 29 pg (06/30/23 06:22:00) MCHC: 34 gm/dL (06/30/23 06:22:00) RDW: 14.2 % (06/30/23 06:22:00) Platelet: 83 E9/L Low (06/30/23 06:22:00) MPV: 10.5 fL (06/30/23 06:22:00) Neutro Auto: 82.1 % High (06/30/23 06:22:00) Lymph Auto: 11.8 % Low (06/30/23 06:22:00) [place] Auto: 5.9 % (06/30/23 06:22:00) Eos Auto: 0 % (06/30/23 06:22:00) Basophil Auto: 0.2 % (06/30/23 06:22:00) Neutro Absolute: 9.4 E9/L High (06/30/23 06:22:00) Lymph Absolute: 1.3 E9/L (06/30/23 06:22:00) [place] Absolute: 0.7 E9/L (06/30/23 06:22:00) Eos Absolute: 0 E9/L (06/30/23 06:22:00) Basophil Absolute: 0 E9/L (06/30/23 06:22:00) Glucose Lvl: 223 mg/dL High (06/30/23 06:22:00) BUN: 17 mg/dL (06/30/23 06:22:00) Creatinine: 0.8 mg/dL (06/30/23 06:22:00) eGFR: 85 mL/min/1.73 m2 (06/30/23 06:22:00) BUN/Creat Ratio: 21 High (06/30/23 06:22:00) Sodium Lvl: 136 mmol/L (06/30/23 06:22:00) Potassium Lvl: 3 mmol/L Low (06/30/23 06:22:00) Chloride: 109 mmol/L (06/30/23 06:22:00) CO2: 21 mmol/L (06/30/23 06:22:00) AGAP: 9 mEq/L (06/30/23 06:22:00) Calcium Lvl: 7.8 mg/dL Low (06/30/23 06:22:00) Magnesium: 1.8 mg/dL (06/30/23 06:22:00) Vanco Pk: 38 mcg/mL (06/30/23 11:53:00) Glucose Cap: 285 mg/dL High (06/30/23 11:39:00) POC Device SN: [id number] (06/30/23 11:39:00) POC User ID: [id number] (06/30/23 11:39:00) POC Username: JEN BABIN (06/30/23 11:39:00) Diagnostic Results (06/30/2023 10:18 EDT Echo Transthoracic Complete) Interpretation Summary Ejection Fraction = 60-65%. Normal LV and RV. Dilated LA. No significant valve disease. Normal estimated PA pressure. Afib cannot assess diastology. [1] Assessment/Plan 1. Sepsis (A41.9: Sepsis, unspecified organism) Ordered: metoprolol, 50 mg = 1 tab(s), Tab-ER, Oral, BID, Routine, Start date 06/30/23 21:00:00 EDT, 06/30/23 13:06:00 EDT 2. Acute cellulitis (L03.90: Cellulitis, unspecified) Ordered: metoprolol, 50 mg = 1 tab(s), Tab-ER, Oral, BID, Routine, Start date 06/30/23 21:00:00 EDT, 06/30/23 13:06:00 EDT 3. Leukocytosis (D72.829: Elevated white blood cell count, unspecified) Ordered: metoprolol, 50 mg = 1 tab(s), Tab-ER, Oral, BID, Routine, Start date 06/30/23 21:00:00 EDT, 06/30/23 13:06:00 EDT 4. Acute renal failure (N17.9: Acute kidney failure, unspecified) Ordered: metoprolol, 50 mg = 1 tab(s), Tab-ER, Oral, BID, Routine, Start date 06/30/23 21:00:00 EDT, 06/30/23 13:06:00 EDT 5. Lactic acidosis (E87.20: Acidosis, unspecified) Ordered: metoprolol, 50 mg = 1 tab(s), Tab-ER, Oral, BID, Routine, Start date 06/30/23 21:00:00 EDT, 06/30/23 13:06:00 EDT 6. Elevated troponin (R77.8: Other specified abnormalities of plasma proteins) Echocardiogram shows normal LV function, no wall motion abnormalities. She has no ang (more contentnot included)...[facility]: Result Comment: Electronically Signed By: Ginette DUNCAN CNP\.br\Date and Time Signed: 06/30/23 13:14 EDT\.br\Electronically Co-Signed By: Mor GUERRERO, Aris Hanks\.br\Date and Time Co-Signed: 07/04/23 11:53 [id number] Note Echocardiology Procedure Exam Date/Time Accession # Ordering Echo Transthoracic 06/30/2023 10:18 EDT [id number] Mor GUERRERO, Aris Hanks CPT code [id number] Reason for Exam (Echo Transthoracic Complete) Cardiac Myocardial infarct OK Report Version: 1 Study ID: [id number] [facility] [address] [place] [address] Adult Echocardiogram Report Name: MARILYN DUNCAN Study Date: 06/30/2023, 8: 48 AM Patient Location: [address] [place] [address] : 1965 (MM/DD/YYYY) Gender: Female Age: 57 Years Height: 170 cm BP: 141 / 82 mmHg Weight: 126 kg HR: 83 bpm BSA: 2.32 m? Ordering Physician: Aris Juares Performed By: Samina Dee RDCS Reason For Study: Cardiac Myocardial infarct OK History: Hypertension Interpretation Summary Ejection Fraction = 60-65%. Normal LV and RV. Dilated LA. No significant valve disease. Normal estimated PA pressure. Afib cannot assess diastology. Procedure A complete two-dimensional transthoracic echocardiogram was performed (2D, M- mode, spectral and color flow Doppler). Study quality is good. Left Ventricle The left ventricle is normal in size. moderate left ventricular hypertrophy. Ejection Fraction = 60-65%. The left ventricular wall motion is normal. Atrial fibrillation preventing assessment of diastology. Left Atrium The left atrium is mild to moderately dilated. Echocardiology Report Right Atrium Right atrial size is normal. Right Ventricle The right ventricular systolic function is normal. The right ventricle is normal size. The right ventricular wall motion is normal. Aortic Valve The aortic valve is trileaflet. No aortic regurgitation. There is no aortic stenosis. Mitral Valve The mitral valve is normal in structure and function. There is no mitral regurgitation noted. No mitral valve stenosis. Tricuspid Valve Structurally normal tricuspid valve. No evidence of tricuspid regurgitation. Right ventricular systolic pressure is normal. Pulmonic Valve No evidence of stenosis. There is no pulmonic valve regurgitation. Arteries The aortic root is normal in size. Normal ascending aorta. Pulmonary artery diameter is normal. Venous The inferior vena cava is normal in size, and collapses normally with respiration. Effusion There is no pericardial effusion. Left Ventricle IVSd: 1.36 cm LVIDd: 4.5 cm LVPWd: 1.25 cm LVIDs: 3.2 cm EDV(MOD-sp4): 122.0 ml LVLd ap4: 8.1 cm ESV(MOD-sp4): 47.9 ml LVLs ap4: 7.1 cm EDV(MOD-sp2): 97.7 ml LVLd ap2: 7.9 cm ESV(MOD-sp2): 42.6 ml LVLs ap2: 7.0 cm Right Ventricle TAPSE: 2.44 cm Aortic Valve LV V1 mean P.14 mmHg LV V1 mean: 70.5 cm/sec LV V1 VTI: 19.2 cm Ao V2 VTI: 26.1 cm Ao mean P.8 mmHg Ao V2 mean: 104.1 cm/sec LV V1 max: 88.8 cm/sec LV V1 max P.2 mmHg Ao max P.2 mmHg Ao V2 max: 143.3 cm/sec Mitral Valve MV P1/2t-pr_phl: 54.2 msec Tricuspid Valve TR max P.3 mmHg TR max milind: 195.5 cm/sec Aorta Ao root diam: 3.3 cm asc Aorta Diam: 3.5 cm Atria LA dimension: 4.2 cm Diastolic funtion Echocardiology Report MV dec slope: 676.1 cm/sec? Med Peak E' Milind: 7.7 cm/sec Lat Peak E' Milind: 7.9 cm/sec MV dec time: 0.19 sec MV E max milind: 123.0 cm/sec Ao max P.2 mmHg Ao mean P.8 mmHg Ao root area: 8.6 cm? Ao root diam: 3.3 cm Ao V2 max: 143.3 cm/sec Ao V2 mean: 104.1 cm/sec Ao V2 VTI: 26.1 cm AV VR: 0.62 EDV(MOD-sp4): 122.0 ml EDV(Teich): 91.7 ml EF(MOD-sp4): 60.7 % EF(Teich): 55.8 % ESV(MOD-sp4): 47.9 ml ESV(Teich): 40.5 ml FS: 29.0 % IVC Diam: 2.26 cm IVSd: 1.36 cm LA dimension: 4.2 cm LV V1 max: 88.8 cm/sec LV V1 max P.2 mmHg LV V1 mean: 70.5 cm/sec LV V1 mean P.14 mmHg LV V1 VTI: 19.2 cm LVIDd: 4.5 cm LVIDs: 3.2 cm LVLd ap4: 8.1 cm LVLs ap4: 7.1 cm LVPWd: 1.25 cm MV dec slope: 676.1 cm/sec? MV dec time: 0.19 sec MV E max milind: 123.0 cm/sec MV P1/2t-pr_phl: 54.2 msec RAP systole: 3.0 mmHg RVDd: 3.0 cm RVIDd/LVIDd: 0.67 RVSP(TR): 18.3 mmHg SV(MOD-sp4): 74.1 ml TAPSE: 2.44 cm TR max P.3 mmHg TR max milind: 195.5 cm/sec asc Aorta Diam: 3.5 cm E/E' Lat: 15.6 E/E' Med: 16.0 EDV(MOD-sp2): 97.7 ml EF (MOD-bp): 58.6 % EF(MOD-sp2): 56.4 % ESV(MOD-sp2): 42.6 ml LA Vol Index: 39.0 ml/m? Echocardiology Report Lat Peak E' Milind: 7.9 cm/sec LVLd ap2: 7.9 cm LVLs ap2: 7.0 cm Med Peak E' Milind: 7.7 cm/sec Electronically signed by: Aris Juares MD 06/30/2023, 10: 56 AM FINAL REPORT Dictated: 06/30/2023 8:48 am Aris Juares MD Signed (Electronic Signature): 06/30/2023 10:56 am Signed by: Aris Juares MD Transcribed by: [facility] Technologist: [facility]10-17-2023 Note Chief Complaint Right leg swollen Reason for Consultation Atrial fibrillation History of Present Illness 57-year-old female with no prior cardiac history. Admitted for sepsis and cellulitis. Found on EKG to have atrial fibrillation with RVR. Patient was asymptomatic did not notice that she had any irregular heartbeats or palpitations. Denied any chest pain or shortness of breath. Review of Systems Constitutional: no fever, no sweats, no weakness Skin: no rash, no lesions, nobruising/petechiae ENMT: no sore throat, no congestion, no hoarseness Respiratory: no shortness of breath, no cough, no orthopnea, no wheezing Cardiovascular: no chest pain, no palpitations, no edema Gastrointestinal: no nausea, no vomiting, no diarrhea, no GI bleeding Genitourinary: no anuria/oliguria no hematuria Musculoskeletal: no back pain, no trauma Neurologic: no headache, no dizziness, no numbness, no weakness Psychiatric: no sleeping problems, no irritability, no anxiety/depression. Heme/Lymph: no bleeding tendency, no bruising tendency Allergy/Immunologic: no recurrent infections, no impaired immunity Additional ROS info: Except as noted in the above Review of Systems and in the History of Present Illness all other systems have been reviewed and are negative or noncontributory. Physical Exam Vitals & Measurements T: 37.4 ?C(Axillary) TMIN: 36.7 ?C(Axillary) TMAX: 39.4 ?C(Oral) HR: 99(Monitored) RR: 15 BP: 157/74 SpO2: 94% WT: 125.5 kg General: alert, no acute distress Skin: warm, dry intact Head: atraumatic, normocephalic Neck: Trachea midline, no JVD, no bruit Eye: normal conjunctiva, sclera clear ENMT: oral mucosa moist Cardiovascular: regular rate and rhythm, nomurmur normal peripheral perfusion Respiratory: Lungs CTA, respirations non labored Chest wall: no deformity. Gastrointestinal: soft, non distended, no tenderness, no guarding. Back: No tenderness, Normal ROM, Normal alignment. Extremities: no edema, no deformity, no trauma Neurological: oriented x 4, LOC appropriate for agesensation equal & normal bilaterally, speechnormal Psychiatric: cooperative, affect appropriate for age, normal judgement, normal psychiatric thoughts. Images EKG: Atrial fibrillation with RVR Assessment/Plan 57-year-old female with new onset atrial fibrillation RVR in the setting of cellulitis, ALCIRA, elevated troponin, lactic acidosis, sepsis. History of diabetes and obesity, hypertension, hyperlipidemia.Recommend full dose Lovenox or heparin as well as rate control with beta-maury. Check echocardiogram. Eventual ischemia work-up. Thank you for the consult 1. Sepsis (A41.9: Sepsis, unspecified organism) 2. Acute cellulitis (L03.90: Cellulitis, unspecified) 3. Leukocytosis (D72.829: Elevated white blood cell count, unspecified) 4. Acute renal failure (N17.9: Acute kidney failure, unspecified) 5. Lactic acidosis (E87.20: Acidosis, unspecified) 6. Elevated troponin (R77.8: Other specified abnormalities of plasma proteins) 7. Diabetes mellitus, type II (E11.9: Type 2 diabetes mellitus without complications) 8. HTN (hypertension) (I10: Essential (primary) hypertension) 9. Hyperlipemia (E78.5: Hyperlipidemia, unspecified) 10. History of TIA (transient ischemic attack) (Z86.73: Personal history of transient ischemic attack (TIA), and cerebral infarction without residual deficits) 11. Obesity (E66.9: Obesity, unspecified) Problem List/Past Medical History Ongoing No qualifying data Historical No qualifying data Procedure/Surgical History Carpal tunnel, Hand tendon repaired. Medications Inpatient acetaminophen 325 mg Tab, 650 mg= 2 tab(s), Oral, q6hr, PRN Al hydroxide/Mg hydroxide/simethicone 200 mg-200 mg-20 mg/5 mL oral suspension, 30 mL, Oral, q6hr, PRN Dextrose 50% Soln-IV, 50 mL, IV Push, Once, PRN diltiazem additive 100 mg [5 mg/hr] + Sodium Chloride 0.9% intravenous solution 100 mL heparin 5000 units/mL Inj, 5000 unit(s)= 1 mL, SubCutaneous, q8hrFT Insulin Lispro Sliding Scale, 0-10 Unit(s), SubCutaneous, QIDACHS Milk of Magnesia 8% Susp-Oral, 30 mL, Oral, q6hr, PRN NS 1000 ml Bolus, 1000 mL, IV, Once NS 1000 mL Soln-IV 1,000 mL, 1000 mL, IV piperacillin-tazobactam additive + Sodium Chloride 0.9% intravenous solution 50 mL vancomycin + Generic Diluent 250 mL vancomycin IV PHARMACY TO DOSE, PHARMACY TO DOSE, IV, As Directed Zofran 4 mg/2 mL Injection, 4 mg= 2 mL, IV Push, q6hr, PRN Home amLODIPine 10 mg Tab, 10 mg= 1 tab(s), Oral, Daily atorvastatin 40 mg Tab, 40 mg= 1 tab(s), Oral, Daily busPIRone 5 mg Tab, 5 mg= 1 tab(s), Oral, BID clindamycin 300 mg oral cap cyclobenzaprine 10 mg Tab, 10 mg= 1 tab(s), Oral, Daily, PRN glimepiride 2 mg Tab, 1.5, Oral, Daily glucometer, lancets, alcohol swabs, syringes, needles, 0 glucometer, lancets, alcohol swabs, syringes, needles, test strips, 0 insulin lispro 100 units/mL injectable solution, See Instructions, 3 refills lisinopril 20 mg Tab, 2 (more content not included)...[facility] CenterComment on above:Result Comment: Electronically Signed By: Mor GUERRERO, Aris Hanks\.br\Date and Time Signed: 06/29/23 20:15 [id number] NoteChief Complaint Pt. came with the squad here d/t leg swelling, redness and pain that started months ago.Pt is Alertbut not oriented to time and place. Pt got fever of 100.1 is tachycardic and feels SOB. History of Present Illness 57-year-old white female with past medical history obesity, hypertension, hyperlipidemia, history of TIA diabetes type 2, and a history of, cellulitis of present emergency room with right leg swelling, redness, and tenderness. Right leg redness extended from her ankle to the knee. It is very warm to touch. Associated with fever. Associated with some confusion and disorientation. She had recent a blister on her right foot. No history of injury or trauma. She denies having nausea vomiting. No diarrhea. She denies any chest pain or shortness of breath. No orthopnea PND. No dysuria, hematuria, frequency. Upon presentation to emergency room she was tachycardic and tachypneic. Her white count waselevated at 20,000. Her lactic acid was elevated at 3.6. She was given IV fluid and given vancomycin and Zosyn. She was admitted to the hospital for further management. Review of Systems Constitutional: moderate fever, mild chills, no sweats, mild weakness Skin: no Jaundice, no rash, no lesions, nopetechiae ENMT: no ear pain, no sore throat, no congestion, no hoarseness Respiratory: no shortness of breath, no cough, no orthopnea, no wheezing Cardiovascular: no chest pain, no palpitations, no edema Gastrointestinal: no nausea, no vomiting, no diarrhea, no GI bleeding Genitourinary: no dysuria, no hematuria, no discharge, no pain Musculoskeletal: no back pain, no trauma Neurologic: no headache, no dizziness, no numbness, no weakness Psychiatric: no sleeping problems, no irritability, no mood swings/depression. Heme/Lymph: no bleeding tendency, no bruising tendency, no petechiae, no swollen nodes Allergy/Immunologic: no seasonal allergies, no food allergies, no recurrent infections, no impairedimmunity Additional ROS info: Except as noted in the above Review of Systems and in the History of Present Illness all other systems have been reviewed and are negative or noncontributory. Scoring Love Fall Risk Score: 35 (06/28/23) Physical Exam Vitals & Measurements T: 37.9 ?C(Oral) TMIN: 37.8 ?C(Oral) TMAX: 37.9 ?C(Oral) HR: 112(Peripheral) RR: 30 BP: 139/78 SpO2: 97% HT: 170 cm WT: 117 kg General: alert, no acute distress Skin: warm, dry Head: no trauma, normocephalic Neck: Trachea midline, no adenopathy, no tenderness Eye: normal conjunctiva, sclera clear ENMT: TM's clear, oral mucosa moist, no pharyngeal erythema or exudate Cardiovascular: regular rate and rhythm, normal peripheral perfusion Respiratory: Lungs CTA, respirations non labored Chest wall: no deformity. Gastrointestinal: soft, non distended, no tenderness, no guarding. Back: No tenderness, Normal ROM, Normal alignment. Extremities: no deformity, no trauma, right leg swelling, redness around the ankle to the knee, very warm to touch, very tender to touch. Neurological: oriented x 4, LOC appropriate for age, CN II-XII intact, motor strength equal & normal bilaterally, sensation equal & normal bilaterally, speech normal Psychiatric: cooperative, affect appropriate for age, normal judgement, normal psychiatric thoughts. Lab Results WBC: 20.3 E9/L High (06/28/23 15:20:00) RBC: 5.2 E12/L (06/28/23 15:20:00) HGB: 15.2 gm/dL (06/28/23 15:20:00) Hct: 44.7 % (06/28/23:20:00) MCV: 85.9 fL (06/28/23:20:00) MCH: 29.2 pg (06/28/23:20:00) MCHC: 33.9 gm/dL (06/28/23:20:00) RDW: 13.9 % (06/28/23:20:00) Platelet: 153 E9/L (06/28/23:20:00) MPV: 10.8 fL (06/28/23:20:00) Segs Man: 88 % High (06/28/23 15:20:00) Band Man: 5 % (06/28/23 15:20:00) Lymph Man: 5 % Low (06/28/23:20:00) Monocyte Man: 2 % Low (06/28/23:20:00) Eos Man: 0 % (06/28/23:20:00) Basophil Man: 0 % (06/28/23:20:00) React Lymph Man: 0 % (06/28/23 15:20:00) Segs Abs Man: 18.9 E9/L High (06/28/23:20:00) Lymph Abs Man: 1 E9/L (06/28/23:20:00) [place] Abs Man: 0.4 E9/L (06/28/23 15:20:00) Eos Abs Man: 0 E9/L (06/28/23 15:20:00) Basophil Abs Man: 0 E9/L (06/28/23:20:00) RBC Morph: Normal (06/28/23 15:20:00) PT: 18.5 second(s) High (06/28/23 15:20:00) INR: 1.6 (10/16/23 15:20:00) PTT: 39.3 second(s) High (06/28/23 15:20:00) Glucose Lvl: 233 mg/dL High (06/28/23 15:20:00) BUN: 35 mg/dL High (06/28/23 15:20:00) Creatinine: 1.4 mg/dL High (06/28/23 15:20:00) eGFR: 43 mL/min/1.73 m2 Low (06/28/23 15:20:00) BUN/Creat Ratio: 25 High (06/28/23 15:20:00) Sodium Lvl: 130 mmol/L Low (06/28/23 15:20:00) Potassium Lvl: 3.7 mmol/L (06/28/23 15:20:00) Chloride: 97 mmol/L Low (06/28/23 15:20:00) CO2: 22 mmol/L (06/28/23 15:20:00) AGAP: 15 mEq/L (06/28/23 15:20:00) Calcium Lvl: 9 mg/dL (06/28/23 15:20:00) Alk Phos: 64 Int._Unit/L (06/28/23 15:20:00) ALT: 29 Int._Unit/L (06/28/23 15:20:00) AST: 46 Int._Unit/L High (06/28/23 15: (more content not included)...[facility] CenterComment on above:Result Comment: Electronically Signed By: NELY GUERRERO, Unruly\.br\Date and Time Signed: 06/28/23 17:[id number] Note Microbiology PROCEDURE: Wound Culture [R1] SOURCE: Wound BODY SITE: Leg R COLLECTED DATE/TIME: 11/04/2022 11:01 EST RECEIVED DATE/TIME: 11/04/2022 11:19 EST START DATE/TIME: 11/04/2022 11:19 EST FREE TEXT SOURCE: right lower leg ulcer Sky Chen DPM, DPM, Sky Cardoza FINAL REPORTS Final Report [] Verified Date/Time: 11/06/2022 12:35 EST 2+ Enterococcus faecalis 2+ Staphylococcus species coagulase negative 2+ Gram Positive Rods resembling diphtheroids 1+ Bacteroides species Presumptive STAINS Gram Stain Report [] Verified Date/Time: 11/04/2022 12:22 EST Occasional epithelial cells 1+ Gram Positive Cocci Occasional Gram Positive Rods SUSCEPTIBILITY RESULTS LEGEND: S=Susceptible, N/R=Not Reported, Blank=Data not available, or drug not advisable or tested, I=Intermediate, ESBL=Extended spectrum beta-lactamase, R=Resistant, TFG=Thymidine-dependent strain, JACKIE=Beta-lactamase positive, FLACO=mcg/m;(mg/L), S*=Predicted susceptible interp, R*=Predicted resistant interp Entfaeca Antibiotic FLACO Dilutn FLACO Interp Ampicillin <=2 S Daptomycin 4 S Erythromycin >4 R Linezolid <=2 S Penicillin 2 S Rifampin 2 I Vancomycin 2 S Performing Locations R1: This test was performed at: [facility], [address] [place] [address], [id number] , , BtvrujUniversity Hospitals Elyria Medical CenterComment on above:Performed By: #### [id number], [id number] #### [facility] [address] [place] [address] [id number] Evaluation + Plan note Diagnostic Tests Pending * Rheumatoid Factor [facility] No data available for this section [facility] + Plan note Future Appointments Appointment Date:11/11/2022 08:15:00 AM Scheduled Provider:Sky Chen DPM Location:[facility] Appointment Type:WC Follow Up Visit (FT) [facility] Future Appointments Appointment Date:07/27/2023 02:45:00 PM Scheduled Provider:Mark Chen DPM Location:[facility] Appointment Type:WC Follow Up Visit (FT) Diagnostic Tests Pending * Wound Culture 07/20/23 [facility] + Plan note Future Appointments Appointment Date:08/17/2023 01:45:00 PM Scheduled Provider:Mark Chen DPM Location:[facility] Appointment Type:WC Follow Up Visit (FT) Appointment Date:08/23/2023 01:30:00 PM Scheduled Provider:Aris Juares MD Location:[facility]Cardiology Clinic Appointment Type:Cardiology Inpatient [facility] ([facility]) [facility] Future Appointments Appointment Date:11/25/2023 03:30:00 PM Scheduled Provider:Aris Juares MD Location:[facility]iology [facility] Appointment Type:Cardiology Follow Up (FT) Future Scheduled Tests Radiology* NM Myocardial Spect Rest/Stress 2 Day 08/23/23 [facility] Future Appointments Appointment Date:11/25/2023 03:30:00 PM Scheduled Provider:Aris Juares MD Location:[facility]iology [facility] Appointment Type:Cardiology Follow Up (FT) [facility] note* Diagnosis Peripheral edema- Primary Edema Essential hypertension Unspecified essential hypertension Bleeding from varicose vein Varicose veins of lower extremities with other complications documented in this encounter [employer]: evaluation note* Diagnosis Cellulitis of left foot Cellulitis and abscess of foot, except toes documented in this encounter [employer]: evaluation note* Diagnosis Cellulitis of right lower extremity- Primary Uncontrolled type 2 diabetes mellitus with hypoglycemia without coma (CMS/HCC) Edema, unspecified type Primary hypertension ([facility]/HCC) Unspecified essential hypertension Peripheral venous insufficiency Unspecified venous (peripheral) insufficiency documented in this encounter [facility] HealthcareEvaluation note* Diagnosis Cellulitis of other specified site- Primary documented in this encounter [facility] HealthcareHospital Discharge instructions* Attachments The following attachments cannot be sent through Care Everywhere. * Edema: Leg and Ankle (Somali) * Low Sodium Diet ([place]omali) * Compression Stockings: General Info ([place]i) * Hypertension: General Info ([place]i) [facility] Work Phone: Hospital Discharge instructions No data available for this section [facility] No data available for this section [facility] HospitalReason for referral (narrative)* Consultation (Routine) - Pending Review Specialty Diagnoses / Procedures Referred By Danielito dinero Referred To Contact Family Medicine Diagnoses Uncontrolled type 2 diabetes mellitus with hypoglycemia without coma ([facility]) Procedures [place] OFFICE/OUTPATIENT NEW HIGH MDM 60 MINUTES Karina Martinez DO [address] [place] [address] Tami Warner, DO [address] [place] [address] Referral ID Status Reason Start Date Expiration Date Visits Requested Visits Authorized [id number] Pending Review Specialty Services Required 10/21/2023 04/18/2024 1 1 -[facility] Healthcare Summary Purpose Family History No Family History Records Found No data available for this section No data available for this section No data available for this section No data available for this section No data available for this section No data available for this section No data available for this section No Family History Records FoundNo Family History Records Found Advance Directives No Advanced Directives Records FoundNo Advanced Directives Records FoundNo Advanced Directives Records Found Additional Source Comments Reason for Visit (unrecogniz ed section and content) Reason Comments Leg Swelling left leg varicous ve in bleeding. Reason Comments Diabetes Reason Onset Date Comments Med Refill 10/26/2023 Ordered Prescriptions (unrec ognized section and content) Prescription Sig Dispensed Refills Start Date End Da te cloNIDine (CATAPRES) 0.2 MG tablet Take 1 tablet by mouth daily 30 tablet 0 04/07/2021 furosemide (LASIX) 20 MG tablet Take 1 tablet by mouth daily 10 tablet 0 04/07/2021 Scheduled Active and Recently Administ ered Medications (unrecognized section and content) Medication Order 04/05/2021 04/06/2021 04/07/2021 cloNIDine (CATAPRES) tablet 0.2 mg (COMPLETED) 0.2 mg, Oral, ONCE, On Wed04/07/21 at 1431, For 1 dose 1433 (Given - Provid er: Jos Mehta RN) furosemide (LASIX) tablet 40 mg 40 mg, Oral, DAILY, First dose on Wed04/07/21 at 1431 1433 (Given - Provid er: Jos Mehta RN) INFORMATION SOURCE (unrecogn ized section and content) DATE CREATED AUTHOR 04/25/2021 Korin N[facility] DATE CREATED AUTHOR AUTHOR'S ORGANIZ ATION 10/22/2023 [facility] DATE CREATED AUTHOR AUTHOR'S ORGANIZ ATION 10/23/2023 [facility] d[facility] Specialists [facility] Care Team (unrecognized sect ion and content) Industrial Custodian Relationship Specialty Start Date End Date Karina Martinez DO [address] [place] [address] PCP - General Family Medicine 01/19/23 Industrial Custodian Relationship Specialty Start Date End Date Karina Martinez DO [address] [place] [address] PCP - General Family Medicine 01/19/23 Industrial Custodian Relationship Specialty Start Date End Date Karina Martinez DO [address] [place] [address] PCP - General Family Medicine 01/19/23 FOR RECORDS PERTAINING TO PATIENTS WHO ARE OR HAVE BEEN ENROLLED IN A CHEMICAL DEPENDENCY/SUBSTANCEABUSE PROGRAM, SOME INFORMATION MAY BE OMITTED. This clinical summary was aggregated from multiple sources. Caution should be exercised in using it in the provision of clinical care. This summary normalizes information from multiple sources, and as a consequence, information in this document may materially change the coding, format and clinical context of patient data. In addition, data may be omitted in some cases. CLINICAL DECISIONS SHOULD BE BASED ON THE PRIMARY CLINICAL RECORDS. [employer] provides no warranty or guarantee of the accuracy or completeness of information in this document.
== END 2023-11-02 08:38 | disposition home or self-care (01) ==
LOC: VC 08:37
PROVIDERS: PCP Podiatrist Foot & Ankle Surgery; Visit Provider Radiology Diagnostic Radiology
DX: I83.813 Varicose veins of bilateral lower extremities with pain (principal)
CPT/HCPCS: 36478

== ENCOUNTER 2023-11-08 13:30 | Outpatient (OUT) | payer OTHER, SELFPAY ==
--- NOTE | 2023-11-08 13:32 | VEIN_ITS ---
Patient Name: BEAU DUNCAN MR#: [id number] : 1965 Exam Date: 11/08/2023 Ordering Doctor: DR BRANT SANCHEZ M.D. RADIOLOGY REPORT PROCEDURE: FACILITY EST LMTD VEIN CENTER - OFFICE VISIT FOLLOW UP COMPARISON: None. PROGRESS NOTES: The patient reports no significant problems following intravenous laser ablation of the right great saphenous vein. The patient did her compression stocking. Patient did not require oral analgesics. The patient exercised to the best of her ability Physical exam demonstrates no significant bruising. Numerous skin ulcerations are noted below the knee. Severe subcutaneous edema erythema and redness below the knee. The right great saphenous vein cannot be palpated likely due to the patient's body habitus Review of the ultrasound performed the same day demonstrates occlusive thrombus extending throughout the treated right great saphenous vein with heat induced thrombus 4.6 cm from the saphenofemoral junction. No deep vein thrombus. The patient expressed a desire to proceed with treatment of incompetent left great saphenous vein with endovenous laser ablation. VEIN/ Facility EST LMTD IMPRESSION: 1. Successful ablation of the right great saphenous. 2. Persistent incompetent left great saphenous vein. PLAN: Intravenous laser ablation left great saphenous vein Nurse notes, history and physical were reviewed and confirmed, see attached forms. The nurse was present throughout the physical exam and consultation Dictated by: Brant Sanchez MD on 11/08/2023 at 14:08 Approved by: Brant Sanchez MD on 11/08/2023 at 14:11
--- NOTE | 2023-11-08 13:32 | VEIN_ITS ---
Patient Name: BEAU DUNCAN MR#: [id number] : 1965 Exam Date: 11/08/2023 Ordering Doctor: DR BRANT SANCHEZ M.D. RADIOLOGY REPORT PROCEDURE: VC EXT VENOUS RT LMTD COMPARISON: None. INDICATIONS: I80.01 Phlebitis of superficial veins of right lower extremity TECHNIQUE: Lower extremity willis scale and Duplex Doppler evaluation of the deep venous system from the inguinal ligament through the calf veins. FINDINGS: REGION: Right lower extremity. THROMBI: Negative for DVT. Heat induced thrombus in right GSV 4.6 cm from SFJ and extends to proximal calf. COMPRESSIBILITY: Non-compressible segments corresponding to thrombus FLOW: Areas of no flow corresponding to thrombus CONCLUSION: Post ablation occlusion of the treated right great saphenous vein with heat induced thrombus 4.6 cm from the saphenofemoral junction Dictated by: Brant Sanchez MD on 11/08/2023 at 14:01 Approved by: Brant Sanchez MD on 11/08/2023 at 14:02
== END 2023-11-08 13:31 | disposition home or self-care (01) ==
LOC: VC 13:30
PROVIDERS: PCP Radiology Diagnostic Radiology; Visit Provider Radiology Diagnostic Radiology
DX: I80.01 Phlebitis and thrombophlebitis of superficial vessels of right lower extremity (principal)
CPT/HCPCS: 93971; G0463

== ENCOUNTER 2023-11-22 12:55 | Outpatient (OUT) | payer OTHER, SELFPAY ==
--- NOTE | 2023-11-22 12:55 | VEIN_ITS ---
[address] [address] Patient Name: BEAU DUNCAN MRN: [id number] date: 1965 Sex: F Assigned Patient Location: Current Patient Location: Accession/Order Number: [id number] Exam Date: 11/22/2023 13:05 Report Date: 11/22/2023 13:59 At the request of: CARMELA COLORADO Procedure: VC Endovenous Ablation 1VeinLT EXAMINATION: VC Endovenous Ablation 1Vein LT great saphenous vein HISTORY: Pain due to varicose veins of bilateral legs I83.813 COMPARISON: No relevant comparison available. TECHNIQUE: The risks and benefits of the procedure had been previously discussed, and were rediscussed at length. Informed written consent was obtained. Sharona Márquez and Jose Andrade assisted. Time out procedure was performed. The left lower extremity was prepared and draped in the usual sterile fashion to allow knee flexion in the sterile field. Duplex ultrasound probe was draped in a sterile cover, sterile transmission gel was used. Venous mapping was performed with the areas of dilation and large tributaries marked. The total length was 44 cm from the entry upper thigh to 3 cm below the saphenofemoral junction. The diameter of the greater saphenous vein ranged from 6-8 mm. A 30 gauge needle and 1% buffered lidocaine was used to anesthetize the entry site. A 4 mm incision was made with a scalpel and the saphenous vein was entered percutaneously under direct ultrasound guidance with a micropuncture set, a single stick was successful in gaining access. A micro-guide wire was inserted and the needle removed. A micro-set including a dilator was inserted over the microwire and the needle and dilator were removed. A 0.018 guide wire was inserted through the micro-set and threaded through the saphenous vein to the saphenofemoral junction. The dilator was removed and an introducer sheath was inserted over the wire until the end of the sheath entered the saphenofemoral junction. The dilator and wire were removed and the 600 micron fiber was introduced and placed and positioned so that it extended beyond the sheath and was 3 cm peripheral to the saphenofemoral femoral junction. Final position of the fiber was determined by ultrasound guidance and duplex imaging. Tumescent anesthetic was delivered by ultrasound guidance. 300 cc of fluid was delivered along the entire course of the saphenous vein. The solution consisted of 1000 cc of normal saline with 40 mL of 1% lidocaine and 20 mL of sodium bicarbonate. A final positioning check was made. The energy source was turned on by means of the foot pedal and the fiber and sheath were withdrawn. The total number of Joules delivered was 2156. The laser was active for 269 seconds under continuous pulse, average laser use of 8 J. Laser start time 1:48 pm 11/22/23 . Laser stop time 1:52 pm 11/22/23 . A duplex ultrasound revealed compressibility and flow at the saphenofemoral junction immediately after the procedure. Hemostasis at the access site was achieved. The skin incision of the saphenous vein was closed with a 4 x 4. A compression stocking was applied. Postop instructions were given. A follow up appointment was recommended and scheduled. The patient tolerated the procedure well and was discharged in good condition . VEIN/VC Endovenous Ablation 1VeinLT IMPRESSION: Technically successful endovenous laser ablation of the left great saphenous vein Electronically authenticated by: CARMELA COLORADO Date: 11/22/2023 13:59
[2023-11-22] MEDS: 0.9 % SODIUM CHLORIDE 500 ML, LIDOCAINE HCL 20 ML, SODIUM BICARBONATE 10 MEQ INJ (13:05)
[2023-11-22] MEDS: LIDOCAINE HCL 1% 100 MG/10 ML MDV INJ (13:05)
== END 2023-11-22 12:56 | disposition home or self-care (01) ==
LOC: VC 12:55
PROVIDERS: PCP Radiology Diagnostic Radiology; Visit Provider Radiology Diagnostic Radiology
DX: I83.813 Varicose veins of bilateral lower extremities with pain (principal)
CPT/HCPCS: 36478

== ENCOUNTER 2023-11-29 12:57 | Outpatient (OUT) | payer OTHER, SELFPAY ==
--- NOTE | 2023-11-29 12:59 | VEIN_ITS ---
Patient Name: BEAU DUNCAN MR#: [id number] : 1965 Exam Date: 11/29/2023 Ordering Doctor: DR BRANT SANCHEZ M.D. RADIOLOGY REPORT PROCEDURE: VC EXT VENOUS LT LIMITED COMPARISON: None. INDICATIONS: Phlebitis of superficial veins of right lower extremity I80.01 TECHNIQUE: Lower extremity willis scale and Duplex Doppler evaluation of the deep venous system from the inguinal ligament through the calf veins. FINDINGS: REGION: Left lower extremity. THROMBI: Negative for DVT. Heat induced thrombus in left GSV 4.2cm from SFJ and extends to proximal calf. COMPRESSIBILITY: Non-compressible segments corresponding to thrombus FLOW: Areas of no flow corresponding to thrombus CONCLUSION: Post ablation occlusion the left great saphenous vein with heat induced thrombus 4.2 cm from the saphenofemoral junction Dictated by: Brant Sanchez MD on 11/29/2023 at 13:31 Approved by: Brant Sanchez MD on 11/29/2023 at 13:32
--- NOTE | 2023-11-29 12:59 | VEIN_ITS ---
Patient Name: BEAU DUNCAN MR#: [id number] : 1965 Exam Date: 11/29/2023 Ordering Doctor: DR BRANT SANCHEZ M.D. RADIOLOGY REPORT PROCEDURE: [facility] EST LMTD VEIN CENTER - OFFICE VISIT FOLLOW UP COMPARISON: [facility] EST LMTD, 11/08/2023. PROGRESS NOTES: The patient reports some mild pain around the insertion site along the medial left lower leg. The patient did not require oral analgesics. The patient has worn her compression stockings. The patient has tried exercised vascular ability Physical exam demonstrates an 8 cm area of warmth, swelling, skin thickening and erythema just proximal to the left lower leg insertion site for the intravenous laser ablation, this likely represents an area of thrombophlebitis. The left great saphenous vein can be partially palpated. Some minimal bruising is noted likely related to tumescence injection. No active ulceration on the left leg Review of the ultrasound performed the same day demonstrates occlusive thrombus extending throughout the treated left great saphenous vein with heat induced thrombus 4.2 cm from the saphenofemoral junction. No deep vein thrombus. The patient expressed a desire to proceed with treatment of incompetent right small saphenous vein with intravenous laser ablation. VEIN/[facility] EST LMTD IMPRESSION: 1. Successful ablation of the left great saphenous vein. 2. Persistent incompetent bilateral small saphenous veins. PLAN: Intravenous laser ablation right small saphenous vein Nurse notes, history and physical were reviewed and confirmed, see attached forms. The nurse was present throughout the physical exam and consultation Dictated by: Brant Sanchez MD on 11/29/2023 at 13:36 Approved by: Brant Sanchez MD on 11/29/2023 at 13:37
== END 2023-11-29 12:58 | disposition home or self-care (01) ==
LOC: VC 12:57
PROVIDERS: PCP Radiology Diagnostic Radiology; Visit Provider Radiology Diagnostic Radiology
DX: I80.02 Phlebitis and thrombophlebitis of superficial vessels of left lower extremity (principal)
CPT/HCPCS: 93971; G0463

== ENCOUNTER 2023-12-27 12:57 | Outpatient (OUT) | payer OTHER, SELFPAY ==
--- NOTE | 2023-12-27 13:18 | VEIN_ITS ---
[address] [address] Patient Name: BEAU DUNCAN MRN: [facility]:[id number] date: 1965 Sex: F Assigned Patient Location: Current Patient Location: Accession/Order Number: [id number] Exam Date: 12/27/2023 13:05 Report Date: 12/27/2023 14:11 At the request of: CARMELA COLORADO Procedure: VC Endovenous Ablation 1VeinRT EXAMINATION: VC Endovenous Ablation 1VeinRT HISTORY: I83.813 painful varicose vein COMPARISON: No relevant comparison available. TECHNIQUE: The risks and benefits of the procedure had been previously discussed, and were rediscussed at length. Informed written consent was obtained. Leda Márquez and Jose Andrade assisted. Time out procedure was performed. The right lower extremity was prepared and draped in the usual sterile fashion. Duplex ultrasound probe was draped in a sterile cover, sterile transmission gel was used. Venous mapping was performed with the areas of dilation and large tributaries marked. The total length was 31 cm from the entry 5 cm above the lateral malleolus to where the vein dives into the muscle fascia. The diameter of the small saphenous vein ranged from 7-8 mm. A 30 gauge needle and 1% buffered lidocaine was used to anesthetize the entry site. A 4 mm incision was made with a scalpel and the saphenous vein was entered percutaneously under direct ultrasound guidance with a micropuncture set, a single stick was successful in gaining access. A micro-guide wire was inserted and the needle removed. A micro-set including a dilator was inserted over the microwire and the needle and dilator were removed. A 0.018 guide wire was inserted through the micro-set and threaded through the saphenous vein. The dilator was removed and an introducer sheath was inserted over the wire. The dilator and wire were removed and the 600 micron fiber was introduced and placed and positioned so that it extended beyond the sheath. Final position of the fiber was determined by ultrasound guidance and duplex imaging. Tumescent anesthetic was delivered by ultrasound guidance. 175 cc of fluid was delivered along the entire course of the saphenous vein. The solution consisted of 1000 cc of normal saline with 40 mL of 1% lidocaine and 20 mL of sodium bicarbonate. A final positioning check was made. The energy source was turned on by means of the foot pedal and the fiber and sheath were withdrawn. The total number of Joules delivered was 1474. The laser was active for 184 seconds under continuous pulse, average laser use of 8 J. Laser start time 1:44 pm 12/27/23 . Laser stop time 1:47 pm 12/27/23 . A duplex ultrasound revealed compressibility and flow at the saphenofemoral junction immediately after the procedure. Hemostasis at the access site was achieved. The skin incision of the saphenous vein was closed with a 4 x 4. A compression stocking was applied. Postop instructions were given. A follow up appointment was recommended and scheduled. The patient tolerated the procedure well and was discharged in good condition . VEIN/VC Endovenous Ablation 1VeinRT IMPRESSION: Technically successful endovenous laser ablation of the right small saphenous vein Electronically authenticated by: CARMELA COLORADO Date: 12/27/2023 14:11
[2023-12-27] MEDS: 0.9 % SODIUM CHLORIDE 500 ML, LIDOCAINE HCL 20 ML, SODIUM BICARBONATE 10 MEQ INJ (13:31)
[2023-12-27] MEDS: LIDOCAINE HCL 1% 100 MG/10 ML MDV INJ (13:31)
== END 2023-12-27 12:58 | disposition home or self-care (01) ==
LOC: VC 12:57
PROVIDERS: PCP Radiology Diagnostic Radiology; Visit Provider Radiology Diagnostic Radiology
DX: I83.813 Varicose veins of bilateral lower extremities with pain (principal)
CPT/HCPCS: 36478

== ENCOUNTER 2024-01-04 07:32 | Outpatient (OUT) | payer OTHER, SELFPAY ==
--- NOTE | 2024-01-04 | VEIN_ITS ---
Patient Name: BEAU DUNCAN MR#: [id number] : 1965 Exam Date: 01/04/2024 Ordering Doctor: DR BRANT SANCHEZ M.D. RADIOLOGY REPORT PROCEDURE: FACILITY EST LMTD [facility] - OFFICE VISIT FOLLOW UP COMPARISON: [facility] EST LMTD, 11/29/2023. [facility] EST LMTD, 11/08/2023. PROGRESS NOTES: The patient reports no significant problems following intravenous laser ablation of the right small saphenous vein. The patient did not require oral analgesics. The patient has worn her compression wraps. Physical exam demonstrates persistent swelling skin thickening and erythema of the right lower leg below the knee, stable to slightly improved from the prior exam. No active ulceration. The small saphenous vein cannot be palpated Review of the ultrasound performed the same day demonstrates occlusive thrombus extending throughout the treated right small saphenous vein. Heat induced thrombus is 1.4 cm from the saphenous popliteal junction period no deep vein thrombus. The patient expressed a desire to proceed with treatment of incompetent left small saphenous vein with intravenous laser ablation. VEIN/[facility] EST LMTD IMPRESSION: 1. Successful ablation of the right small saphenous vein 2. Persistent incompetent left small saphenous vein. PLAN: Intravenous laser ablation left small saphenous vein Nurse notes, history and physical were reviewed and confirmed, see attached forms. The nurse was present throughout the physical exam and consultation Dictated by: Brant Sanchez MD on 01/04/2024 at 08:03 Approved by: Brant Sanchez MD on 01/04/2024 at 08:05
--- NOTE | 2024-01-04 07:34 | VEIN_ITS ---
Patient Name: BEAU DUNCAN MR#: [id number] : 1965 Exam Date: 01/04/2024 Ordering Doctor: DR BRANT SANCHEZ M.D. RADIOLOGY REPORT PROCEDURE: VC EXT VENOUS RT LMTD COMPARISON: VC EXT VENOUS RT LMTD, 11/08/2023. INDICATIONS: Phlebitis of superficial vein of Rt lower extremity I80.01 TECHNIQUE: Lower extremity willis scale and Duplex Doppler evaluation of the deep venous system from the inguinal ligament through the calf veins. FINDINGS: REGION: Right lower extremity. THROMBI: Negative for DVT. Heat induced thrombus visualized 1.4cm from the SPJ. The heat induced thrombus extends from SPJ to distal calf. COMPRESSIBILITY: Non-compressible segments corresponding to thrombus FLOW: Areas of no flow corresponding to thrombus CONCLUSION: Post ablation occlusion of the right small saphenous vein with heat induced thrombus 1.4 cm from the saphenopopliteal junction Dictated by: Brant Sanchez MD on 01/04/2024 at 07:54 Approved by: Brant Sanchez MD on 01/04/2024 at 07:55
--- OUTSIDE RECORDS SUMMARY | 2024-01-04 07:37 | XMS_ITS | CCD ---
Author Organization [facility] Care Team Providers Care Classification Officer Name Role Phone Unavailable Primary Care Provider UnavailKarina Wright MD Primary Care Provider ALLSOPablo KARINA Referring Unavailable ALLSOP, KARINA Primary Care Unavailable ALLSOP, KARINA Referring Unavailable ALLSOP, KARINA Primary Care Unavailable ALLSOPablo KARINA Referring Unavailable ALLSOPablo KARINA Primary Care Unavailable PATEL RAYMOND Attending Unavailable AllsoKarina sharma Primary Care Physician KARINA MARTINEZ Attending Unavailable ALLSOP KARINA D Attending Unavailable Allsop DOKarina Primary Care Provider [phone] REFERRAL, SELF Referring Unavailable Dolce, Mark D Attending Unavailable Aris Juares Attending Unavaila Aris Severino Admitting Unavaila ble NONE, XXXX Referring Unavailable Allsop, Karina D Attending Unavailable Allsop, Karina D Admitting Unavailable ALAHMAD, Alaa Attending Unavailable ALAHMAD, Alaa Admitting Unavailable [facility] Cardio, XXXX Consulting Unavailable Adarsh Betancourt Attending Unavailable Heather REID Admitting Unavailable Dolce, Mark D Consulting Unavailable Dolce, DPM Mark D Consulting Unavailable Dolce, Mark D Consulting Unavailable Dolce, Mark D Consulting Unavailable Dolce, Mark D Consulting Unavailable Dolce, Mark D Consulting Unavailable Dolce, Mrak D Consulting Unavailable Dolce, Mark D Consulting Unavailable Dolce, Mark D Consulting Unavailable Dolce, Mark D Consulting Unavailable Dolce, Mark D Consulting Unavailable Dolce, Sky R Attending Unavailable Dolce Mark D Attending Unavailable Allergies Allergy Classification Reported Allergen(s) Allergy Type Date of Onset Reaction(s) Facility (5 sources) Amoxicillin / Clavulanate; Translations: [amoxicillin-cl avulanate] Drug Allergy Lethargy (finding) [facility] (1 source) No Known Medication Allergies; Translations: [No Known Medication Allergies] Propensity to adverse reactions (disorder) [facility] Repository Medications Current Medications Medication Drug Class(es) Dates Sig (Normalized) Sig (Original) amLODIPine 5 mg oral tablet (12 sources) Dihydropyridine Calcium Channel Maury Start: 09-09-2023 [...] day(s), # 90 tab(s), Refills(s) 3, Pharmacy: [facility], 170, cm, 04/23/21 10:46:00 EDT, Height/Length Dosing, 122, kg, 04/23/21 10:46:00 EDT, Weight Dosing Start Date: 04/24/21 Stop Date: 04/19/22 Status: Ordered apixaban 5 mg oral tablet (11 sources) Factor Xa Inhibitor Start: 07-02-2023 take 1 tablet by mouth twice daily Eliquis 5 mg oral tablet 5 mg = 1 tab(s), Oral, BID, # 60 tab(s), Refills(s) 1, Pharmacy: [facility], 170, cm, 06/28/23 15:08:00 EDT, Height/Length Dosing, 117, kg, 06/28/23 15:08:00 EDT, Weight Dosing Start Date: 07/02/23 Status: Ordered aspirin 81 mg delayed release oral tablet (1 source) Platelet Aggregation Inhibitor, Nonsteroidal Anti-inflammatory Drug Start: 04-24-2021 End: 04-19-2022 take 1 tablet by mouth once daily aspirin 81 mg Oral EC Tab 81 mg = 1 tab(s), Oral, Daily, X 90 day(s), # 90 tab(s), Refills(s) 3, Pharmacy: [facility], 170, cm, 04/23/21 10:46:00 EDT, Height/Length Dosing, 122, kg, 04/23/21 10:46:00 EDT, Weight Dosing Start Date: 04/24/21 Stop Date: 04/19/22 Status: Ordered atorvastatin 40 mg oral tablet (12 sources) HMG-CoA Reductase Inhibitor Start: 06-16-2023 take 1 tablet by mouth once daily atorvastatin 40 mg Tab 40 mg = 1 tab(s), Oral, Daily, Refills(s) 0 Start Date: 06/28/23 Status: Ordered Start: 04-24-2021 End: 04-19-2022 take 1 tablet by mouth at bedtime atorvastatin 40 mg Tab 40 mg = 1 tab(s), Oral, Bedtime, X 90 day(s), # 90 tab(s), Refills(s) 3, Pharmacy: [facility], 170, cm, 04/23/21 10:46:00 EDT, Height/Length Dosing, 122, kg, 04/23/21 10:46:00 EDT, Weight Dosing Start Date: 04/24/21 Stop Date: 04/19/22 Status: Ordered busPIRone hydrochloride 5 mg oral tablet (11 sources) Start: 06-28-2023 take 1 tablet by mouth twice daily busPIRone 5 mg Tab 5 mg = 1 tab(s), Oral, BID, Refills(s) 0 Start Date: 06/28/23 Status: Ordered citalopram 20 mg oral tablet (3 sources) [...] Active cyclobenzaprine hydrochloride 10 mg oral tablet (8 sources) Muscle Relaxant Start: 06-28-2023 take 1 tablet by mouth once daily as needed for muscle spasms cyclobenzaprine 10 mg Tab 10 mg = 1 tab(s), Oral, Daily, PRN for spasm, # 30 tab(s), Refills(s) 0 Start Date: 06/28/23 Status: Ordered doxycycline hyclate 100 mg oral capsule (10 sources) Tetracycline-c lass Drug Start: 07-13-2023 End: 10-26-2023 take 1 capsule by mouth twice daily doxycycline hyclate 100 mg Cap 100 mg = 1 cap(s), Oral, BID, # 20 cap(s), Refills(s) 0, Pharmacy: [facility], 170, cm, 10/13/23 17:46:00 EST, Height/Length Dosing, 129.1, kg, 10/13/23 17:46:00 EST, Weight Dosing Start Date: 10/16/23 Status: Ordered Start: 07-02-2023 take 1 capsule by mouth once d oxycycline hyclate 100 mg Cap 100 mg = 1 cap(s), Oral, q12hr, Take one capsule by mouth every twelve hours for ten days, # 20 cap(s), Refills(s) 0, Pharmacy: [facility], 170, cm, 06/28/23 15:08:00 EDT, Height/Length [...] 04/07/2021 Active glimepiride 2 mg oral tablet (11 sources) Sulfonylurea Start: 06-28-2023 take 1.5 tablets by mouth once daily glimepiride 2 mg Tab 1.5, Oral, Daily, Refills(s) 0 Start Date: 06/28/23 Status: Ordered Start: 06-28-2023 take 1 tablet by eduin th before mealtime glimepiride (Amaryl) 2 MG tablet Take 2 mg by mouth in the morning. Take before meals. 0 06/28/2023 Active lisinopril 40 mg oral tablet (12 sources) Angiotensin Converting Enzyme Inhibitor Start: 08-23-2023 take 1 tablet by mouth once daily lisinopril 40 mg Tab 40 mg = 1 tab(s), Oral, Daily, # 90 tab(s), Refills(s) 3, Pharmacy: [facility], 170, cm, 08/23/23 13:24:00 EST, Height/Length [...] day(s), # 90 tab(s), Refills(s) 3, Pharmacy: [facility], 170, cm, 04/23/21 10:46:00 EDT, Height/Length Dosing, 122, kg, 04/23/21 10:46:00 EDT, Weight Dosing Start Date: 04/24/21 Stop Date: 04/19/22 Status: Ordered metFORMIN hydrochloride 500 mg oral tablet (12 sources) Biguanide Start: 06-28-2023 take 1 tablet by mouth twice daily metformin 500 mg ER Tab 500 mg = 1 tab(s), Oral, BID, Refills(s) 0 Start Date: 06/28/23 Status: Ordered Start: 04-24-2021 End: 04-19-2022 metformin 500 mg Tab 1,000 m g = 2 tab(s), Oral, BIDAC, X 90 day(s), # 360 tab(s), Refills(s) 3, Pharmacy: [facility], 170, cm, 04/23/21 10:46:00 EDT, Height/Length [...] day(s), # 180 tab(s), Refills(s) 3, Pharmacy: [facility], 170, cm, 04/23/21 10:46:00 EDT, Height/Length [...] succinate 50 mg extended release oral tablet (16 sources) beta-Adrenergic Maury Start: 07-15-2023 End: 07-14-2024 take 1 tablet by mouth every twenty-four hours in the morning metoprolol succinate XL (Toprol XL) 100 MG 24 hr tablet Indications: Paroxysmal atrial fibrillation (CMS/HCC) Take 1 tablet (100 mg) by mouth in the morning. Do not crush or chew. . 30 tablet 11 07/15/2023 07/14/2024 Active Start: 07-01-2023 End: 10-16-2023 metoprolol 50 mg ER Tab 50 m g = 1 tab(s), Tab-ER, Oral, Start date 10/16/23 9:00:00 AM EST, 10/13/23 22:35:00 EST Start Date: 10/16/23 Stop Date: 10/16/23 Status: Completed Problems Active Problems Problem Classification Problem Date Documented Date Episodic/Chronic Acute and unspecified renal failure (2 sources) Acute renal failure syndrome; Translations: [Acute kidney failure, unspecified] Onset: 06-28-2023 Episodic Acute cerebrovascular disease (3 sources) Cerebrovascular accident; Translations: [Cerebral infarction, unspecified] Onset: 07-08-2023 07-08-2023 Chronic Anxiety disorders (3 sources) Anxiety disorder; Translations: [Anxiety disorder, unspecified] Onset: 10-13-2023 Chronic Cardiac dysrhythmias (4 sources) Unspecified atrial fibrillation; Translations: [Atrial fibrillation] [...] 07-08-2023 07-08-2023 Chronic Diabetes mellitus without complication (4 sources) Type 2 diabetes mellitus without complication; [...] source) Long-term current use of anticoagulant; 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] Onset: 08-23-2023 Episodic Other aftercare (1 source) Long-term current use of drug therapy; Translations: [Other skilled nursing (current) drug therapy] Onset: 10-13-2023 Episodic Other [...] findings of blood chemistry] Onset: 08-23-2023 Episodic Pneumonia (except that caused by tuberculosis or sexually transmitted disease) (11 sources) Bacterial pneumonia; Translations: [Unspecified bacterial pneumonia] Onset: 07-08-2023 07-02-2023 Episodic Residual codes; unclassified (1 source) Peripheral [...] in unspecified joint] Onset: 07-08-2023 07-08-2023 Episodic Septicemia (except in labor) (3 sources) [...] Test Name Value Interpretation Reference Range Facility Insurance Correspondence Off icetamela 11-03-2023 Insurance Correspondence Office [id number] #1.00TIFF Normal [facility] POCT Glycated hemoglobin, to krishan 10-21-2023 HbA1c (Bld) [Mass fraction] 8.7 % [facility] Comment on above: 8.7 Interpretation and review of laboratory results Normal [facility] POCT microalbumin manually r esultedon 10-21-2023 Albumin DL <= 20 mg/L (U) [Mass/Vol] 80 mg/dL [facility] Albumin/Creatinine DL <= 1.0 mg/L (U) [Ratio] 300 [facility] Creatinine (U) [Mass/Vol] 80/300 [facility] Interpretation and review of laboratory results Normal [facility] BMPon 10-16-2023 Anion gap [Moles/Vol] 12 mmol/L Normal 6-16 [facility] Comment on above: Performed By: #### 2 594176, [id number], 0556534, 9169348 ####[facility] [address] [place] [address] BUN/Creat Ratio 18 No Units Normal 10-20 [facility] Comment on above: Performed By: #### 2 038585, [id number], 4278834, 6560365 ####[facility] [address] [place] [address] Calcium [Mass/Vol] 8.0 mg/dL Low 8.9-11.1 [facility] Comment on above: Performed By: #### 2 774963, 40275694, 2446661, 1301334 ####[facility] [address] [place] [address] Chloride [Moles/Vol] 103 mmol/L Normal 101-111 [facility] Comment on above: Performed By: #### 2 934258, 09124379, 3620881, 9197558 ####[facility] [address] [place] [address] CO2 [Moles/Vol] 23 mmol/L Normal 21-31 [facility] Comment on above: Performed By: #### 2 195995, 17961369, 2099666, 2106059 ####[facility] [address] [place] [address] Creatinine [Mass/Vol] 0.5 mg/dL Normal 0.5-1.3 [facility] Comment on above: Performed By: #### 2 708394, 39665444, 7276393, 1428546 ####[facility] [address] [place] [address] Glucose [Mass/Vol] 180 mg/dL Normal 55-199 [facility] Comment on above: Performed By: #### 2 759212, 04808269, 1981350, 4457394 ####[facility] [address] [place] [address] Potassium [Moles/Vol] 3.1 mmol/L Low 3.5-5.3 [facility] Comment on above: Performed By: #### 2 098226, 29469864, 2248144, 3354393 ####[facility] [address] [place] [address] Sodium [Moles/Vol] 135 mmol/L Normal 135-145 [facility] Comment on above: Performed By: #### 2 854144, 20759427, 8267927, 4643639 ####[facility] [address] [place] [address] Urea nitrogen [Mass/Vol] 9 mg/dL Normal 5-21 [facility] Comment on above: Performed By: #### 2 069695, 41212278, 0036838, 7280538 ####[facility] [address] [place] [address] CBC w/ Auto Diffon 4 Basophil Absolute 0.0 E9/L Normal 0.0-0.2 [facility] Comment on above: Performed By: #### 2 286217, 99570992, 5219211, 5558714 ####[facility] [address] [place] [address] Basophils/100 WBC (Bld) 0.3 % Normal 0.0-2.0 [facility] Comment on above: Performed By: #### 2 251359, 49252645, 6310999, 3227522 ####[address] [place] [address] Eos Absolute 0.0 E9/L Normal 0.0-0.5 [facility] Comment on above: Performed By: #### 2 221023, 19443232, 6769102, 7786573 ####[address] [address] Eosinophils/100 WBC (Bld) 0.6 % Normal 0.0-8.0 [facility] Comment on above: Performed By: #### 2 175227, 78567564, 9547969, 4584196 ####[address] [address] Erythrocyte distribution width (RBC) [Ratio] 14.7 % High 10.9-14.2 [facility] Comment on above: Performed By: #### 2 005587, 02108627, 8240940, 6660616 ####[address] [address] Hematocrit (Bld) [Volume fraction] 35.0 % Normal 34.0-46.0 [facility] Comment on above: Performed By: #### 2 113554, 93385521, 5890039, 2825798 ####[address] [address] Hemoglobin (Bld) [Mass/Vol] 11.4 g/dL Low 12.0-16.0 [facility] Comment on above: Performed By: #### 2 448883, 00307279, 6625729, 0743693 ####[address] [address] Lymph Absolute 1.3 E9/L Normal 1.0-4.0 [facility] Comment on above: Performed By: #### 2 340077, 70817880, 7332137, 2899050 ####[address] [place] [address] Lymphocytes/100 WBC (Bld) 20.3 % Normal 14.0-50.0 [facility] Comment on above: Performed By: #### 2 746171, 20449099, 8254491, 8565808 ####[facility] [address] [place] [address] MCH (RBC) [Entitic mass] 27.8 pg Normal 27.0-34.0 [facility] Comment on above: Performed By: #### 2 152535, 67176910, 8565575, 1047566 ####[address] [address] MCHC (RBC) [Mass/Vol] 32.9 g/dL Normal 31.4-36.0 [facility] Comment on above: Performed By: #### 2 528992, 06816353, 5421821, 3136785 ####[address] [address] MCV (RBC) [Entitic vol] 84.6 fL Normal 80.0-100.0 [facility] Comment on above: Performed By: #### 2 068672, 63986522, 6971332, 7753443 ####[facility] [address] [place] [address] Bergen Absolute 0.5 E9/L Normal 0.2-1.0 [facility] Comment on above: Performed By: #### 2 834059, 18090518, 5316369, 4422231 ####[address] [address] Monocytes/100 WBC (Bld) 6.8 % Normal 4.0-14.0 [facility] Comment on above: Performed By: #### 2 437174, 25676470, 0708058, 2459532 ####[facility] [address] [place] [address] Neutro Absolute 4.8 E9/L Normal 2.0-7.5 [facility] Comment on above: Performed By: #### 2 379943, 59266650, 0639242, 7483938 ####[facility] [address] [place] [address] Neutro Auto 72.0 % Normal 36.0-75.0 [facility] Comment on above: Performed By: #### 2 515607, 29532997, 0162507, 5419236 ####[facility] [address] [place] [address] Platelet 156.0 E9/L Normal 150.0-500.0 [facility] Comment on above: Performed By: #### 2 633486, 02120135, 0066714, 3859168 ####[facility] [address] [place] [address] Platelet mean volume (Bld) [Entitic vol] 10.0 fL Normal 6.4-10.8 [facility] Comment on above: Performed By: #### 2 917046, 80162535, 3496859, 9795053 ####[facility] [address] [place] [address] RBC 4.1 E12/L Low 4.3-5.9 [facility] Comment on above: Performed By: #### 2 541831, 82725893, 8208016, 9483215 ####[facility] [address] [place] [address] WBC 6.6 E9/L Normal 4.0-11.0 [facility] Comment on above: Performed By: #### 2 097038, 14377652, 5638233, 8809429 ####[facility] [address] [place] [address] CHEMISTRYOrdered By: Federica HAMPTON User on 10-16-2023 Glucose [Mass/Vol] 246 mg/dL High 55 - 99 mg/dL [facility] P[facility] Subsection Comment on above: Result Comment: Simón lozano RN/ POC Device SN [id number] 1 Invalid Interpretation Code [facility] POC Subsection POC User ID [id number] 1 Invalid Interpretation Code [facility] POC Subsection POC Username MATT NORRIS Invalid Interpretation Code [facility] POC Subsection Glucose [Mass/Vol] 194 mg/dL High 55 - 99 mg/dL [facility] POC Subsection Comment on above: Result Comment: Simón GRIFFIN POC Device SN [id number] 1 Invalid Interpretation Code [facility] POC Subsection POC User ID [id number] 1 Invalid Interpretation Code [facility] POC Subsection POC UsernamMATT Scott Invalid Interpretation Code [facility] POC Subsection CHEMISTRYOrdered By: SYSTEM SYSTEM on [...] POCon Glucose [Mass/Vol] 246 mg/dL High 55-99 [facility] Comment on above: Result Comment: Simón GRIFFIN Performed By: #### 2 [id number] #### [facility] [address] [place] [address] Glucose [Mass/Vol] 194 mg/dL High 55-99 [facility] Comment on above: Result Comment: Noti fied RN/MD Performed By: #### 2 619256 #### [facility] [address] [place] [address] Discharge Instructionson Discharge Instructions [id number] [facility] [id number] #1.00TIFF Normal [facility] Discharge Note-Nursingon Discharge Note-Nursing MARILYN DUNCAN :1965 [...] Diet, Fat Modified- Low cholesterol Pharmacy Information [facility] Previously Scheduled Follow-Up Appointments 2023 3:30 PM EDT With: Mor GUERRERO, Aris Hanks Where: Cardiology Clinic New Follow Up Appointments after Discharge Follow Up with Mark Chen When: Within 1 week Where: [facility] [address] [place] [address] 0 Business (1) Follow Up with Karina Martinez When: Comments: Keep scheduled appointment Where: [address] [place] [address]- Business (1) Medications What How Much When Why Instructions Next Dose New doxycycline (doxycycline hyclate 100 mg Cap) 1 Capsules By Mouth 2 times a day Pickup at [facility] 10/16/2023 @ 9pm Changed amlodipine [...] Diabetes check BS 3x/ day Pharmacy Information [facility]: [address] [place], [place] [id number] [phone] Test Results CBC BMP WBC: 6.6 E9/L [...] - Any (more content not included)... Normal [facility] HEMATOLOGYOrdered By: SYSTEM SYSTEM on 10-16-2023 Basophil [...] Normal 80.0 - 100.0 fL Remisol Heme Bergen Absolute 0.5 E9/L Normal 0.2 - 1.0 [...] Inpatient Clinical Summaryon 10-16-2023 Inpatient Clinical Summary [address] [address] Clinical Summary Person Information: Name: MARILYN DUNCAN Age: 58 Years : 1965 Sex: Female PCP: Karina Martinez DO Marital Status: Phone: [phone] Race: White Ethnicity: Non- or Language: Tristanian Visit Id: Visit Reason: Cellulitis - Leg; PUFFY RT LEG Speciality: Acuity: Enc Type: Inpatient Med Service: Medical Arrival: 10/13/2023 17:29:32 Discharge: Dispo Type: Admitted as IP to this Hosp Address: [address] [facility] [id number] Provider Notes: Diagnosis: 1:Sepsis; 2:Cellulitis of right [...] Follow up: With: Address: When: Mark PHILLIP [facility], [facility], [address], [place] [address] 0 Business (1) Within 1 week With: Address: When: Karina Martinez [address] [place] [address] Business (1) Comments: Keep scheduled appointment Type Location [facility] Cardiology Follow Up (FT) FT.[facility]iology Clinic 11/25/2023 3:30 PM 11/25/2023 3:45 PM Confirmed Patient Education Information: Normal [facility] Inpatient Patient Summaryon 10-16-2023 Inpatient Patient Summary [address] [address] Patient Discharge Instructions PERSON INFORMATION [...] Follow up: With: Address: When: Mark PHILLIP [facility], [facility], [address], [place] [address] 0 Business (1) Within 1 week With: Address: When: Karina Megan [address] [place] [address] Business (1) Comments: Keep scheduled appointment In the event that this physician does not participate in your insurance network, please consult with your insurance company to find a nearby participating provider. Type Location [facility]/25/[facility]23 3:30 PM 11/25/2023 3:45 PM Confirmed Comment: DAKOTA Rico DEBORAH, have received the attached patient education materials/instructio ns and have verbalized understanding: Patient Signature Date Clinican/Nurse Signature Date HERE ARE THE MEDICATION CHANGES THAT OCCURRED DURING YOUR HOSPITAL STAY New Medications [facility], [address] [place], [place] [id number], [phone] doxycycline (doxycycline hyclate 100 mg Cap) 1 [...] day. cyclobenzaprine (cyclobenzaprin (more content not included)... Normal [facility] Interdisciplinary Note - Vinayak e Manageron 10-16-2023 Interdisciplinary Note - Residential Therapist Pt is awake and alert in bed, [...] Contact information provided and white board updated. [facility] Comment on above: Result Comment: Elec tronically Signed By: Sol MERAZ, Juhi\.br\Date and Time Signed: 10/16/23 10:35 EST Magnesiumon 10-16-2023 Magnesium [Mass/Vol] 1.8 mg/dL Normal 1.3-2.4 [facility] Comment on above: Performed By: #### 2 847593, 37969943, 8486968, 2254529 ####[facility] [address] [place] [address] Monitor Recordon 10-16-2023 Monitor Record [id number]#1.00TIFF [facility] Progress Note-Physicianon Progress Note-Physician Subjective Day 4 IV Zosyn Still having a burning-like tingling sensation to [...] 05:11:00) Lymph Auto: 20.3 % (10/16/23 05:11:00) Bergen Auto: 6.8 % (10/16/23 05:11:00) Eos Auto: 0.6 % (10/16/23 05:11:00) Basophil Auto: 0.3 % (10/16/23 05:11:00) Neutro Absolute: 4.8 E9/L (10/16/23 05:11:00) Lymph Absolute: 1.3 E9/L (10/16/23 05:11:00) Bergen Absolute: 0.5 E9/L (10/16/23 05:11:00) Eos Absolute: [...] mg/dL High (10/16/23 08:25:00) POC Device SN: [id number] (10/16/23 08:25:00) POC User ID: [id number] (10/16/23 08:25:00) POC Username: POC Username (10/16/23 [...] x 2 no growth to date Ordered: [facility] Hospital Care/Day Moderate 35 Minutes 27707 2. Cellulitis of right leg (L03.115: Cellulitis of right lower limb) MRI right tib-fib shows cellulitis but no bony involvement Continue IV antibiotics with day 4 IV Zosyn Compression orders per podiatry with double Tubigrip Blood culture x 2 no growth to date Ordered: [facility] Hospital Care/Day Moderate 35 Minutes 24608 3. Acute renal failure (N17.9: Acute kidney failure, unspecified) Resolved Ordered: [facility] Hospital Care/Day Moderate 35 Minutes [address]857 4. Troponin level elevated (R79.89: Other specified abnormal findings of blood chemistry) Stable/resolved Ordered: [facility] Hospital Care/Day Moderate 35 Minutes 14348 5. Atrial fibrillation (I48.91: Unspecified atrial fibrillation) In sinus rhythm Continue metoprolol and Eliquis Ordered: [facility] Hospital Care/Day Moderate 35 Minutes 10929 6. HTN (hypertension) (I10: Essential (primary) hypertension) On amlodipine plus metopr (more content not included)... Normal [facility] Comment on above: Result Comment: Elec tronically Signed By: Adarsh Betancourt DO\Date and Time Signed: 10/16/23 09:13 EST eGFRon 10-16-2023 eGFR 107 mL/min/1.73 m2 Normal >=59 [facility] Comment on above: Order Comment: Order added by Discern Expert. Performed By: #### 2 386658, 28080137, 9828965, 3060516 ####[facility] [address] [place] [address] BMPon 10-15-2023 Anion gap [Moles/Vol] 10 mmol/L Normal 6-16 [facility] Comment on above: Performed By: #### 2 359372 #### [facility] [address] [place] [address] BUN/Creat Ratio 24 No Units High 10-20 [facility] Comment on above: Performed By: #### 2 291157 #### [facility] [address] [place] [address] Calcium [Mass/Vol] 8.0 mg/dL Low 8.9-11.1 [facility] Comment on above: Performed By: #### 2 [id number] #### [facility] [address] [place] [address] Chloride [Moles/Vol] 104 mmol/L Normal 101-111 [facility] Comment on above: Performed By: #### 2 106882 #### [facility] [address] [place] [address] CO2 [Moles/Vol] 26 mmol/L Normal 21-31 [facility] Comment on above: Performed By: #### 2 313018 #### [facility] [address] [place] [address] Creatinine [Mass/Vol] 0.7 mg/dL Normal 0.5-1.3 [facility] Comment on above: Performed By: #### 2 115019 #### [facility] [address] [place] [address] Glucose [Mass/Vol] 150 mg/dL Normal 55-199 [facility] Comment on above: Performed By: #### 2 191798 #### [facility] [address] [place] [address] Potassium [Moles/Vol] 3.5 mmol/L Normal 3.5-5.3 [facility] Comment on above: Performed By: #### 2 738897 #### [facility] [address] [place] [address] Sodium [Moles/Vol] 136 mmol/L Normal 135-145 [facility] Comment on above: Performed By: #### 2 266549 #### [facility] [address] [place] [address] Urea nitrogen [Mass/Vol] 17 mg/dL Normal 5-21 [facility] Comment on above: Performed By: #### 2 636433 #### [facility] [address] [place] [address] CBC w/ Auto Diffon 4 Basophil Absolute 0.0 E9/L Normal 0.0-0.2 [facility] Comment on above: Performed By: #### 2 947091 #### [facility] [address] [place] [address] Basophils/100 WBC (Bld) 0.2 % Normal 0.0-2.0 [facility] Comment on above: Performed By: #### 2 682027 #### [facility] [address] [place] [address] Eos Absolute 0.0 E9/L Normal 0.0-0.5 [facility] Comment on above: Performed By: #### 2 984647 #### [facility] [address] [place] [address] Eosinophils/100 WBC (Bld) 0.1 % Normal 0.0-8.0 [facility] Comment on above: Performed By: #### 2 238853 #### [facility] [address] [place] [address] Erythrocyte distribution width (RBC) [Ratio] 14.6 % High 10.9-14.2 [facility] Comment on above: Performed By: #### 2 403456 #### [facility] [address] [place] [address] Hematocrit (Bld) [Volume fraction] 35.0 % Normal 34.0-46.0 [facility] Comment on above: Performed By: #### 2 447242 #### [facility] [address] [place] [address] Hemoglobin (Bld) [Mass/Vol] 11.4 g/dL Low 12.0-16.0 [facility] Comment on above: Performed By: #### 2 910209 #### [facility] [address] [place] [address] Lymph Absolute 1.3 E9/L Normal 1.0-4.0 [facility] Comment on above: Performed By: #### 2 187309 #### [facility] [address] [place] [address] Lymphocytes/100 WBC (Bld) 12.0 % Low 14.0-50.0 [facility] Comment on above: Performed By: #### 2 460413 #### [facility] [address] [place] [address] MCH (RBC) [Entitic mass] 28.0 pg Normal 27.0-34.0 [facility] Comment on above: Performed By: #### 2 187043 #### [facility] [address] [place] [address] MCHC (RBC) [Mass/Vol] 32.8 g/dL Normal 31.4-36.0 [facility] Comment on above: Performed By: #### 2 664564 #### [facility] [address] [place] [address] MCV (RBC) [Entitic vol] 85.5 fL Normal 80.0-100.0 [facility] Comment on above: Performed By: #### 2 746712 #### [facility] [address] [place] [address] Bergen Absolute 0.3 E9/L Normal 0.2-1.0 [facility] Comment on above: Performed By: #### 2 139521 #### [facility] [address] [place] [address] Monocytes/100 WBC (Bld) 3.0 % Low 4.0-14.0 [facility] Comment on above: Performed By: #### 2 984936 #### [facility] [address] [place] [address] Neutro Absolute 9.1 E9/L High 2.0-7.5 [facility] Comment on above: Performed By: #### 2 544618 #### [facility] [address] [place] [address] Neutro Auto 84.7 % High 36.0-75.0 [facility] Comment on above: Performed By: #### 2 071781 #### [facility] [address] [place] [address] Platelet 175.0 E9/L Normal 150.0-500.0 [facility] Comment on above: Performed By: #### 2 612216 #### [facility] [address] [place] [address] Platelet mean volume (Bld) [Entitic vol] 9.8 fL Normal 6.4-10.8 [facility] Comment on above: Performed By: #### 2 285585 #### [facility] [address] [place] [address] RBC 4.1 E12/L Low 4.3-5.9 [facility] Comment on above: Performed By: #### 2 626615 #### [facility] [address] [place] [address] WBC 10.8 E9/L Normal 4.0-11.0 [facility] Comment on above: Performed By: #### 2 732623 #### [facility] [address] [place] [address] CHEMISTRYOrdered By: Lab ROP User on 10-15-2023 Glucose [Mass/Vol] 179 mg/dL High 55 - 99 mg/dL [facility] Comment on above: Result Comment: Simón lozano RN/ POC Device SN [id number] 1 Invalid Interpretation Code [facility] POC User ID [id number] 1 Invalid Interpretation Code [facility] POC Username JUDE GARCIA Invalid Interpretation Code [facility] Subsection CHEMISTRYOrdered By: SYSTEM SYSTEM on [...] - 20 Remisol Chem Capillary Glucose POCon - Glucose [Mass/Vol] 179 mg/dL High 55-99 [facility] Comment on above: Result Comment: Simón GRIFFIN Performed By: #### 2 [id number] #### [facility] [address] [place] [address] Glucose [Mass/Vol] 163 mg/dL High 55-99 [facility] Comment on above: Result Comment: Simón GRIFFIN Performed By: #### 2 [id number] ####[facility] [address] [place] [address] Glucose [Mass/Vol] 203 mg/dL High 55-99 [facility] Comment on above: Performed By: #### 2 02551536 #### [facility] [address] [place] [address] Glucose [Mass/Vol] 202 mg/dL High 55-99 [facility] Comment on above: Result Comment: Simón GRIFFIN Performed By: #### 2 [id number] #### [facility] [address] [place] [address] Coding Queryon 10-15-2023 Coding Query - From: Adán Davidson RN To: Adarsh Betancourt DO; Sent: 10/15/2023 11:37:21 EST ! Subject: Coding Query Due Date/Time: 10/16/2023 11:37:00 EST Caller Name: MARILYN DUNCAN; Caller Number: H , B [phone] Documentation in the medical record indicates that this patient has been admitted with the following BMI: BMI 43.3 While BMI may be coded from facility maintenance helper or nursing documentation, the weight-related diagnosis must [...] [id number] - From: Adarsh Betancourt DO To: Adán Davidson RN; Sent: 10/15/2023 16:32:33 EST Subject: RE: Coding Query Caller Name: MARILYN DUNCAN; Caller Number: H , B [phone] Morbid (severe) obesity due to excess calories (BMI 40 or greater) Normal [facility] HEMATOLOGYOrdered By: SYSTEM SYSTEM on 10-15-2023 Basophil [...] Normal 80.0 - 100.0 fL Remisol Heme Bergen Absolute 0.3 E9/L Normal 0.2 - 1.0 [...] Correspondence Off iceon 10-15-2023 Insurance Correspondence Office [id number] 5#1.00TIFF Normal [facility] Interdisciplinary Note - Vinayak e Manageron 10-15-2023 Interdisciplinary Note - Residential Therapist CRM to room to discuss DC planning. [...] are showing negative for day 1 Normal [facility] Comment on above: Result Comment: Elec tronically [...] Vueway Contrast amount in ml's: 7.5 Normal [facility] Monitor Recordon 10-15-2023 Monitor Record [id number] 0#1.00TIFF Normal [facility] Progress Note-Physicianon Progress Note-Physician Subjective Day 3 IV Zosyn Appreciate Podiatry consult Doing well voicing no [...] Lymph Auto: 12 % Low (10/15/23 05:52:00) Bergen Auto: 3 % Low (10/15/23 05:52:00) Eos Auto: 0.1 % (10/15/23 05:52:00) Basophil Auto: 0.2 % (10/15/23 05:52:00) Neutro Absolute: 9.1 E9/L High (10/15/23 05:52:00) Lymph Absolute: 1.3 E9/L (10/15/23 05:52:00) Bergen Absolute: 0.3 E9/L (10/15/23 05:52:00) Eos Absolute: [...] mg/dL High (10/15/23 09:21:00) POC Device SN: [id number] (10/15/23 09:21:00) POC User ID: [id number] (10/15/23 09:21:00) POC Username: EMELYN RANDALL (10/15/23 [...] DO As (more content not included)... Normal [facility] Comment on above: Result Comment: Elec tronically Signed By: Adarsh Betancourt DObr\Date and Time Signed: 10/15/23 10:38 EST XR [...] mGy = 0 DAP = 0 Normal [facility] eGFRon 10-15-2023 eGFR 99 mL/min/1.73 m2 Normal >=59 [facility] Comment on above: Order Comment: Order added by Discern Expert. Performed By: #### 2 988323 #### [facility] [address] [place] [address] BMPon 10-14-2023 Anion gap [Moles/Vol] 12 mmol/L Normal 6-16 [facility] Comment on above: Performed By: #### 1 0111163, 9764521, 6578065, 6109402, 2980553 ####[facility] [address] [place] [address] BUN/Creat Ratio 24 No Units High 10-20 [facility] Comment on above: Performed By: #### 1 8983310, 3335136, 4388650, 0887118, 1635922 ####[facility] [address] [place] [address] Calcium [Mass/Vol] 7.9 mg/dL Low 8.9-11.1 [facility] Comment on above: Performed By: #### 1 2070584, 8718389, 9207099, 9284716, 1855918 ####[facility] [address] [address] Chloride [Moles/Vol] 103 mmol/L Normal 101-111 [facility] Comment on above: Performed By: #### 1 9895622, 5773666, 7079071, 8459856, 6494443 ####[facility] [address] [place] [address] CO2 [Moles/Vol] 24 mmol/L Normal 21-31 [facility] Comment on above: Performed By: #### 1 7251346, 3256508, 0287737, 1609368, 2772817 ####[facility] [address] [place] [address] Creatinine [Mass/Vol] 0.9 mg/dL Normal 0.5-1.3 [facility] Comment on above: Performed By: #### 1 2473618, 1180874, 4240320, 3198047, 3416957 ####[facility] [address] [place] [address] Glucose [Mass/Vol] 116 mg/dL Normal 55-199 [facility] Comment on above: Performed By: #### 1 7749134, 4461701, 7607380, 1907478, 1661172 ####[facility] [address] [place] [address] Potassium [Moles/Vol] 3.4 mmol/L Low 3.5-5.3 [facility] Comment on above: Performed By: #### 1 4728731, 3473640, 6356129, 3212662, 3948249 ####[facility] [address] [place] [address] Sodium [Moles/Vol] 136 mmol/L Normal 135-145 [facility] Comment on above: Performed By: #### 1 7930689, 2164059, 1347233, 9295117, 0820507 ####[facility] [address] [place] [address] Urea nitrogen [Mass/Vol] 22 mg/dL High 5-21 [facility] Comment on above: Performed By: #### 1 4005288, 4088755, 5303000, 1624153, 2448207 ####[facility] [address] [place] [address] CBC w/Indiceson 10-14-2023 RBC morphology finding Nom (Bld) NORMAL Invalid Interpretation Code [facility] Comment on above: Performed By: #### 1 9845533, 8184351, 5247244, 7024702, 3163439 ####[address] [place] [address] Erythrocyte distribution width (RBC) [Ratio] 15.0 % High 10.9-14.2 [facility] Comment on above: Performed By: #### 1 8821495, 7827756, 9284324, 4970499, 0397393 ####[facility] [address] [place] [address] Hematocrit (Bld) [Volume fraction] 37.0 % Normal 34.0-46.0 [facility] Comment on above: Performed By: #### 1 8734654, 5255867, 6762094, 5965372, 0618265 ####[address] [place] [address] Hemoglobin (Bld) [Mass/Vol] 11.7 g/dL Low 12.0-16.0 [facility] Comment on above: Performed By: #### 1 7520419, 5354793, 1767100, 2074153, 6991388 ####[address] [place] [address] MCH (RBC) [Entitic mass] 27.5 pg Normal 27.0-34.0 [facility] Comment on above: Performed By: #### 1 7877305, 1835176, 2873250, 6536961, 1474523 ####[facility] [address] [place] [address] MCHC (RBC) [Mass/Vol] 31.9 g/dL Normal 31.4-36.0 [facility] Comment on above: Performed By: #### 1 5347944, 5123375, 6245700, 4584552, 5306666 ####[address] [place] [address] MCV (RBC) [Entitic vol] 86.2 fL Normal 80.0-100.0 [facility] Comment on above: Performed By: #### 1 9819059, 0617565, 3354021, 1377475, 3135503 ####[place] [address] Platelet 186.0 E9/L Normal 150.0-500.0 [facility] Comment on above: Performed By: #### 1 2882306, 6998152, 8959962, 5857367, 9632275 ####[place] [address] Platelet mean volume (Bld) [Entitic vol] 10.1 fL Normal 6.4-10.8 [facility] Comment on above: Performed By: #### 1 8548240, 9711636, 0746799, 4638199, 3695473 ####[address] [address] RBC 4.3 E12/L Normal 4.3-5.9 [facility] Comment on above: Performed By: #### 1 2508811, 3229654, 3896711, 2033661, 2295254 ####[address] [place] [address] WBC 15.0 E9/L High 4.0-11.0 [facility] Comment on above: Performed By: #### 1 3451134, 4186063, 6508591, 3792757, 7483575 ####[address] [place] [address] CHEMISTRYOrdered By: SYSTEM SYSTEM on 10-14-2023 Anion [...] Remisol Chem Capillary Glucose POCon Glucose [Mass/Vol] 193 mg/dL High 55-99 [facility] Comment on above: Result Comment: Simón lozano RN/ Performed By: #### 2 [id number] #### [facility] [address] [place] [address] Glucose [Mass/Vol] 126 mg/dL High 55-99 [facility] Comment on above: Result Comment: Yin aneta Meter Performed By: #### 2 152753 #### [facility] [address] [place] [address] Glucose [Mass/Vol] 160 mg/dL High 55-99 [facility] Comment on above: Result Comment: Yin aneta Meter Performed By: #### 2 596892 #### [facility] [address] [place] [address] Glucose [Mass/Vol] 146 mg/dL High 55-99 [facility] Comment on above: Result Comment: Yin aneta Meter Performed By: #### 2 45245141 ####[facility] [address] [place] [address] Glucose [Mass/Vol] 104 mg/dL High 55-99 [facility] Comment on above: Result Comment: Simón lozano RN/ Performed By: #### 2 37643174 #### [facility] [address] [place] [address] Consultation Noteon 10-14-19 Consultation Note Patient: MARILYN [...] BID, # 60 tab(s), Refills(s) 1, Pharmacy: [facility], 170, cm, 06/28/23 15:08:00 EDT, Height/Length [...] Daily, # 90 tab(s), Refills(s) 3, Pharmacy: [facility], 170, cm, 08/23/23 13:24:00 EST, Height/Length Dosing, 125.1, kg, 08/23/23 13:24:00 EST, Weight Dosing metoprolol 50 mg ER Tab: 50 mg = 1 tab(s), Oral, BID, # 30 tab(s), Refills(s) 0, Pharmacy: [facility], 170, cm, 06/28/23 15:08:00 EDT, Height/Length [...] Problems A (more content not included)... Normal [facility] Comment on above: Result Comment: Elec tronically [...] Correspondence Off iceon 10-14-2023 Insurance Correspondence Office [id number] 6#1.00TIFF Normal [facility] Interdisciplinary Note - Vinayak e Manageron 10-14-2023 Interdisciplinary Note - Residential Therapist CRM to room to discuss DC planning. [...] contact, white board updated. CRM following Normal [facility] Comment on above: Result Comment: Elec tronically Signed By: Yumiko Black\.br\Date and Time Signed: 10/14/23 12:30 EST Lactic Acidon 10-14-2023 Lactic Acid Lvl 1.7 mmol/L Normal 0.5-2.2 [facility] Comment on above: Order Comment: Order added by EKS Rule. (FT_LACTIC_ACID_REFLEX) Adds reflex Lactic Acid 4 hours after initial if result is greater than or equal to 2.0. Performed By: #### 2 870422 #### [facility] [id number] Magnesiumon 10-14-2023 Magnesium [Mass/Vol] 1.3 mg/dL Normal 1.3-2.4 [facility] Comment on above: Performed By: #### 1 6536123, 2448458, 3211493, 5550963, 1442160 ####[facility] [address] [place] [address] Monitor Recordon 10-14-2023 Monitor Record [id number] 4#1.00TIFF Normal [facility] Monitor Record [id number] 3#1.00TIFF Normal [facility] Progress Note-Physicianon Progress Note-Physician Subjective Day 2 [...] fL (10/14/23 06:01:00) MCH: 27.5 pg (10/14/23 06:01:00) MCHC: 31.9 gm/dL (10/14/23 06:01:00) RDW: 15 % High (10/14/23 06:01:00) Platelet: 186 E9/L (10/14/23 06:01:00) MPV: 10.1 fL (10/14/23 06:01:00) Neutro Auto: 94 % High (10/13/23 18:01:00) Lymph Auto: 4.4 % Low (10/13/23 18:01:00) Bergen Auto: 1.5 % Low (10/13/23 18:01:00) Eos Auto: 0 % (10/13/23 18:01:00) Basophil Auto: 0.1 % (10/13/23 18:01:00) Neutro Absolute: 18.5 E9/L High (10/13/23 18:01:00) Lymph Absolute: 0.9 E9/L Low (10/13/23 18:01:00) [place] Absolute: 0.3 E9/L (10/13/23 18:01:00) Eos Absolute: 0 E9/L (10/13/23 18::00) Basophil Absolute: 0 E9/L (10/13/23 18::00) RBC Morph: NORMAL (10/14/23 06:01:00) PT: 26.1 second(s) High (10/13/23 18:01:00) INR: 2.3 (10/13/23 18::00) PTT: 43.2 second(s) High (10/13/23 18::00) Glucose Lvl: 116 mg/dL (10/14/23 06:01:00) BUN: 22 mg/dL High (10/14/23 06::00) Creatinine: 0.9 mg/dL (10/14/23 06::00) eGFR: 73 mL/min/1.73 m2 (10/14/23 06::00) BUN/Creat Ratio: 24 High (10/14/23 06::00) Sodium Lvl: 136 mmol/L (10/14/23 06::00) Potassium Lvl: 3.4 mmol/L Low (10/14/23 06::00) Chloride: 103 mmol/L (10/14/23 06::00) CO2: 24 mmol/L (10/14/23 06::00) AGAP: 12 mEq/L (10/14/23 06::00) Calcium Lvl: 7.9 mg/dL Low (10/14/23 06::00) Alk Phos: 60 Int._Unit/L (10/13/23 18::00) ALT: 14 Int._Unit/L (10/13/23 18::00) AST: 22 Int._Unit/L (10/13/23 18::00) Total Protein: 7.8 gm/dL (10/13/23 18::00) Albumin Lvl: 3.7 gm/dL (10/13/23 18::00) Globulin: 4.1 gm/dL High (10/13/23 18:01:00) A/G Ratio: 0.9 Low (10/13/23 18::00) Bili Total: 0.8 mg/dL (10/13/23 18:01:00) Lactic Acid Lvl: 1.7 mmol/L (10/13/23 21:45:00) Magnesium: 1.3 mg/dL (10/14/23 06:01:00) Troponin: 25.1 pg/mL (10/14/23 06:01:00) Glucose Cap: 146 mg/dL High (10/14/23 08:39:00) POC Device SN: [id number] (10/14/23 08:39:00) POC User ID: [id number] (10/14/23 08:39:00) POC Username: POC Username (10/14/23 [...] Atrial fibri (more content not included)... Normal [facility] Comment on above: Result Comment: Elec tronically Signed By: Adarsh Betancourt DO.br\Date and Time Signed: 10/14/23 10:54 EST RAD - MRI Screening Formon 0 10-14-2023 RAD - MRI Screening Form [id number] #1.00TIFF Normal [facility] Troponinon 10-14-2023 Troponin 25.10 pg/mL Normal 10.10-27.10 [facility] Comment on above: Result Comment: The 95% CI (Confidence Interval) PPV (Positive Predictive Value) for myocardial infarction in females is 38 pg/mL, in males 51 pg/mL. The results should be used in conjunction with clinical conditions of myocardial infarction. (Access High Sensitivity Troponin I Instructions For Use, Geraldo Jessica, April 2018) Performed By: #### 1 5261604, 5030025, 4304237, 1171835, 0708215 ####[facility] [address] [place] [address] eGFRon 10-14-2023 eGFR 73 mL/min/1.73 m2 Normal >=59 [facility] Comment on above: Order Comment: Order added by Discern Expert. Performed By: #### 1 5662799, 1536839, 5920231, 8322671, 0976163 ####[facility] [address] [place] [address] CBC w/ Auto Diffon 4 Basophil Absolute 0.0 E9/L Normal 0.0-0.2 [facility] Comment on above: Performed By: #### 2 540018 #### [facility] [address] [place] [address] Basophils/100 WBC (Bld) 0.1 % Normal 0.0-2.0 [facility] Comment on above: Performed By: #### 2 471846 #### [facility] [address] [place] [address] Eos Absolute 0.0 E9/L Normal 0.0-0.5 [facility] Comment on above: Performed By: #### 2 128084 #### [facility] [address] [place] [address] Eosinophils/100 WBC (Bld) 0.0 % Normal 0.0-8.0 [facility] Comment on above: Performed By: #### 2 208249 #### [facility] [address] [place] [address] Erythrocyte distribution width (RBC) [Ratio] 15.1 % High 10.9-14.2 [facility] Comment on above: Performed By: #### 2 974955 #### [facility] [address] [place] [address] Hematocrit (Bld) [Volume fraction] 41.0 % Normal 34.0-46.0 [facility] Comment on above: Performed By: #### 2 593682 #### [facility] [address] [place] [address] Hemoglobin (Bld) [Mass/Vol] 13.6 g/dL Normal 12.0-16.0 [facility] Comment on above: Performed By: #### 2 918466 #### [facility] [address] [place] [address] Lymph Absolute 0.9 E9/L Low 1.0-4.0 [facility] Comment on above: Performed By: #### 2 859498 #### [facility] [address] [place] [address] Lymphocytes/100 WBC (Bld) 4.4 % Low 14.0-50.0 [facility] Comment on above: Performed By: #### 2 510386 #### [facility] [address] [place] [address] MCH (RBC) [Entitic mass] 27.9 pg Normal 27.0-34.0 [facility] Comment on above: Performed By: #### 2 332524 #### [facility] [address] [place] [address] MCHC (RBC) [Mass/Vol] 32.9 g/dL Normal 31.4-36.0 [facility] Comment on above: Performed By: #### 2 911653 #### [facility] [address] [place] [address] MCV (RBC) [Entitic vol] 84.8 fL Normal 80.0-100.0 [facility] Comment on above: Performed By: #### 2 648547 #### [facility] [address] [place] [address] [place] Absolute 0.3 E9/L Normal 0.2-1.0 [facility] Comment on above: Performed By: #### 2 556489 #### [facility] [address] [place] [address] Monocytes/100 WBC (Bld) 1.5 % Low 4.0-14.0 [facility] Comment on above: Performed By: #### 2 829573 #### [facility] [address] [place] [address] Neutro Absolute 18.5 E9/L High 2.0-7.5 [facility] Comment on above: Performed By: #### 2 579873 #### [facility] [address] [place] [address] Neutro Auto 94.0 % High 36.0-75.0 [facility] Comment on above: Performed By: #### 2 308418 #### [facility] [address] [place] [address] Platelet 251.0 E9/L Normal 150.0-500.0 [facility] Comment on above: Performed By: #### 2 935940 #### [facility] [address] [place] [address] Platelet mean volume (Bld) [Entitic vol] 9.9 fL Normal 6.4-10.8 [facility] Comment on above: Performed By: #### 2 246611 #### [facility] [address] [place] [address] RBC 4.9 E12/L Normal 4.3-5.9 [facility] Comment on above: Performed By: #### 2 510105 #### [facility] [address] [place] [address] WBC 19.7 E9/L High 4.0-11.0 [facility] Comment on above: Performed By: #### 2 463065 #### [facility] [address] [place] [address] CHEMISTRYOrdered By: SYSTEM SYSTEM on 10-13-2023 Lactic [...] Instructions For Use, Geraldo Jessica, April 2018) CMPon 10-13-2023 Albumin [Mass/Vol] 3.7 g/dL Normal 3.3-5.0 [facility] Comment on above: Performed By: #### 2 [id number] #### [facility] [address] [place] [address] Albumin/Globulin [Mass ratio] 0.9 {ratio} Low 1.1-2.2 [facility] Comment on above: Performed By: #### 2 89091430 #### [facility] [address] [place] [address] Alk Phos 60 Int._Unit/L Normal 21-98 [facility] Comment on above: Performed By: #### 2 [id number] #### [facility] [address] [place] [address] ALT 14 Int._Unit/L Normal 6-46 [facility] [facility] Comment on above: Performed By: #### 2 [id number] #### [facility] [address] [place] [address] Anion gap [Moles/Vol] 17 mmol/L High 6-16 [facility] Comment on above: Performed By: #### 2 [id number] #### [facility] [address] [place] [address] AST 22 Int._Unit/L Normal 5-43 [facility] Comment on above: Performed By: #### 2 [id number] #### [facility] [address] [place] [address] Bili Total 0.8 mg/dL Normal 0.0-1.1 [facility] Comment on above: Performed By: #### 2 [id number] #### [facility] [address] [place] [address] BUN/Creat Ratio 17 No Units Normal 10-20 [facility] Comment on above: Performed By: #### 2 [id number] #### [facility] [address] [place] [address] Calcium [Mass/Vol] 9.0 mg/dL Normal 8.9-11.1 [facility] Comment on above: Performed By: #### 2 [id number] #### [facility] [address] [place] [address] Chloride [Moles/Vol] 97 mmol/L Low 101-111 [facility] Comment on above: Performed By: #### 2 [id number] #### [facility] [address] [place] [address] CO2 [Moles/Vol] 22 mmol/L Normal 21-31 [facility] Comment on above: Performed By: #### 2 [id number] #### [facility] [address] [place] [address] Creatinine [Mass/Vol] 1.4 mg/dL High 0.5-1.3 [facility] Comment on above: Performed By: #### 2 [id number] #### [facility] [address] [place] [address] Globulin (S) [Mass/Vol] 4.1 g/dL High 1.4-4.0 [facility] Comment on above: Performed By: #### 2 [id number] #### [facility] [address] [place] [address] Glucose [Mass/Vol] 193 mg/dL Normal 55-199 [facility] Comment on above: Performed By: #### 2 [id number] #### [facility] [address] [place] [address] Potassium [Moles/Vol] 3.5 mmol/L Normal 3.5-5.3 [facility] Comment on above: Performed By: #### 2 [id number] #### [facility] [address] [place] [address] Protein [Mass/Vol] 7.8 g/dL Normal 6.0-7.8 [facility] Comment on above: Performed By: #### 2 [id number] #### [facility] [address] [place] [address] Sodium [Moles/Vol] 132 mmol/L Low 135-145 [facility] Comment on above: Performed By: #### 2 [id number] #### [facility] [address] [place] [address] Urea nitrogen [Mass/Vol] 24 mg/dL High 5-21 [facility] Comment on above: Performed By: #### 2 [id number] #### [facility] [address] [place] [address] COAGULATIONOrdered By: Moise Eng on 10-13-2023 aPTT Coag (PPP) [Time] 43.2 s High 25.1 - 36.5 second(s) [facility] Comment on above: Interpretive Data: P arameter 15 days - 4 weeks 1 - [...] the same coagulation reagent and instrumentation as [facility]. Currently there are no coagulation studies available worldwide for children to 14 days, and no normal ranges. Heparin therapeutic range (represented by Anti-Factor Xa activity of 0.2 - 0.4 U/mL) corresponds to PTT of 56.6 - 109.0 sec. INR Coag (PPP) [Relative time] 2.3 {INR} Invalid Interpretation Code [facility] Comment on above: Interpretive Data: I NR results are specifically intended to assess patients stabilized on long-term Anticoagulation therapy suggested INR s Less Intensive Anticoagulation 2.0 3.0 Conventional Range 3.0 4.5 PT Coag (PPP) [Time] 26.1 s High 9.4 - 1 2.5 second(s) [facility] Coag Comment on above: Interpretive Data: [...] from a study by Donald Astorga et alNadeem prepared from 1437 samples obtained at 7 different centers using the same coagulation reagent and instrumentation as [facility]. Currently there are no coagulation studies available worldwide for children to 14 days, and no normal ranges. Consent for Treatmenton 09-15 Consent for Treatment [id number] 5#1.00TIFF Normal [facility] Consent for Treatment [id number] #1.00TIFF Normal [facility] ED Clinical Summaryon 2023 ED Clinical Summary [place] [id number] ED Clinical Summary Person Information Name: MARILYN DUNCAN/New_[place] Age: 58 Years : 1965 Sex: Female Language: Tristanian PCP: Karina Martinez DO Marital Status: Phone: [phone] Visit Id: Visit Reason: Cellulitis - Leg; PUFFY RT LEG Speciality: Acuity: 3 Enc Type: Inpatient Med Service: Emergency Arrival: 10/13/2023 17:29:32 Discharge: LOS: 000 04:01 Checkin: 10/13/2023 17:29:32 Checkout: 10/13/2023 21:30:17 Dispo Type: Admitted as IP to this [facility] EVENTS: Event Name Event Status Request Date/Time [...] 19:28:30 Patient Care Request 10/13/2023 19:28:30 ADDRESS: [address] [place] [phone] PHYS DOC NOTES: MEDICAL INFORMATION: Prescriptions Given: [...] DIAGNOSIS: Cellulitis of right leg; Sepsis Normal [facility] ED Note-Physicianon 10-13-19 24 ED Note-Physician Basic Information Time Seen: Juanjo Nair PA-C 10/13/2023 17:41 Chief Complaint patient presents with [...] Complexity of Problems Differential Diagnosis: [] [facility] External documents reviewed: [] My EKG [...] IV P (more content not included)... Normal [facility] Comment on above: Result Comment: Elec tronically Signed By: Juanjo Nair PA-C\.br\Date and Time Signed: 10/13/23 19:20 EST\.br\Electronically Co-Signed By: Antonio Potter DO\.br\Date and Time Co-Signed: 10/13/23 19:36 EST ED Patient Education Noteon 10-13-2023 ED Patient Education Note Normal [facility] ED Patient Summaryon 024 ED Patient Summary [place] [id number] Patient Discharge Instructions Person Information Name: MARILYN DUNCAN Age: 58 Years Arrival Date: 10/13/2023 17:29:32 Discharge Diagnosis: Cellulitis of right leg; Sepsis Primary Care Physician: Karina Martinez DO Provider Information Primary Provider: Antonio Potter DO Advanced Airline Pilot:None The exam and treatment you received in the Emergency Department were for an urgent problem and are not intended as complete care. It is important that you follow up with a doctor, nurse practitioner, or physician?s assistant professor of archaeology for ongoing care. If your symptoms become [...] opioids can be used to help relieve vyuodlrz-oq-ygdgrh pain and are often prescribed following a [...] be struggling with addiction, tell your health care specialist and ask for guidance or call [facility]?S National Helpline at 1-015-405-BWSB. s Source: [place] Department of Health and Human Services/Center for Disease Control & Prevention [facility] Medications Given: Medication Dose (more content not included)... Normal [facility] HEMATOLOGYOrdered By: SYSTEM SYSTEM on 10-13-2023 Basophil [...] Low 14.0 - 50.0 % Remisol Heme [place] Absolute 0.3 E9/L Normal 0.2 - 1.0 E9/L Remisol Heme Monocytes/100 WBC (Bld) 1.5 % Low 4.0 - 14.0 % Remisol Heme Neutro Absolute 18.5 E9/L High 2.0 - 7.5 E9/L Remisol Heme Neutro Auto 94.0 % High 36.0 - 75.0 % Remisol Heme Lactic Acidon 10-13-2023 Lactic Acid Lvl 3.9 mmol/L High 0.5-2.2 [facility] Comment on above: Performed By: #### 2 [id number] #### [facility] [address] [place] [address] No Panel InformationOrdered By: ANGPROCESSSERVER MICROBIOLOGY on 10-13-2023 Blood Culture Charcoal No growth at 2 da ys. Final to follow at 7 days. [facility] Blood Culture Charcoal No growth at 2 da ys. Final to follow at 7 days. [facility] PT & PTTon 10-13-2023 aPTT Coag (PPP) [Time] 43.2 second(s) High 25.1-36.5 [facility] Comment on above: Result Comment: Para meter [...] the same coagulation reagent and instrumentation as [facility]. Currently there are no coagulation studies available worldwide for children to 14 days, and no normal ranges. Heparin therapeutic range (represented by Anti-Factor Xa activity of 0.2 - 0.4 U/mL) corresponds to PTT of 56.6 - 109.0 sec. Performed By: #### 2 [id number] #### [facility] [address] [place] [address] INR Coag (PPP) [Relative time] 2.3 {INR} Invalid Interpretation Code [facility] Comment on above: Result Comment: INR results are specifically intended to assess patients stabilized on long-term Anticoagulation therapy suggested INR?s ?Less Intensive Anticoagulation? 2.0 ? 3.0 Conventional Range 3.0 ? 4.5 Performed By: #### 2 [id number] #### [facility] [address] [place] [address] PT Coag (PPP) [Time] 26.1 second(s) High 9.4-12.5 [facility] Comment on above: Result Comment: 15 d [...] the same coagulation reagent and instrumentation as [facility]. Currently there are no coagulation studies available worldwide for children to 14 days, and no normal ranges. Performed By: #### 2 [id number] #### [facility] [address] [place] [address] Troponinon 10-13-2023 Troponin 28.20 pg/mL High 10.10-27.10 [facility] Comment on above: Result Comment: The 95% CI (Confidence Interval) PPV (Positive Predictive Value) for myocardial infarction in females is 38 pg/mL, in males 51 pg/mL. The results should be used in conjunction with clinical conditions of myocardial infarction. (Access High Sensitivity Troponin I Instructions For Use, Geraldo Jessica, April 2018) Performed By: #### 2 [id number] #### [facility] [address] [place] [address] XR Chest Single Viewon 10-13 XR Chest [...] mGy = na DAP = na Normal [facility] eGFRon 10-13-2023 eGFR 43 mL/min/1.73 m2 Low >=59 [facility] Comment on above: Order Comment: Order added by Discern Expert. Performed By: #### 2 [id number] #### [facility] [address] [place] [address] Insurance Correspondenceon 1 10-25-2022 Insurance Correspondence [id number] #1.00TIFF Normal [facility] Consent for Treatmenton 08-13 Consent for Treatment [id number] #1.00TIFF Normal [facility] Office/Cl inic Noteon 08-23-2023 [...] cellulitis. This procedure will be performed at [facility]. She mentions that the normal size of [...] followed at subsequent visits. 6. Anticoagulated (Z79.01: jail (current) use of anticoagulants) Will continue Eliquis 5 mg BID for now Portions of this record may have been created with voice recognition artificial intelligence software, specifically [employer], [employer] and or [employer]. Substitutions may have occurred due to the inherent limitations of voice recognition and artificial intelligence software. ATTESTATION: Documentation services were performed after patient or guardian consented to allow [employer] to record this visit. KIESHA firearms specialist and provider reviewed before signing. DA (more content not included)... [facility] Comment on above: Result Comment: Elec tronically Signed By: Mor GUERRERO, Aris Hanks\.br\Date and Time Signed: 08/23/23 16:54 EST\.br\Electronically Co-Signed By: Emily Gonzalez\.br\Date and Time Co-Signed: 08/23/23 15:00 EST Physician Orderon 08-23-2023 Physician Order [id number] 6#1.00TIFF [facility] Outside Recordson 08-10-2023 Outside Records [id number] 8#1.00TIFF [facility] Outside Records [id number] 8#1.00TIFF [facility] Coding Queryon 07-28-2023 Coding Query - From: Madeline Crawford RN To: Unruly CUETO MD; Cc: Lucía Randhawa; Sent: 07/06/2023 08:39:57 EDT ! Subject: Coding Query Due Date/Time: 07/12/2023 08:39:00 EDT Caller Name: MARILYN DUNCAN; Caller Number: H , B [phone] Documentation in the medical record indicates this [...] EDT Subject: RE: Coding Query Caller Name: ASTONMARILYN SEGOVIA; Caller Number: H , B [phone] - From: Madeline Crawford RN To: Unruly CUETO MD; Cc: Lucía Randhawa; Sent: 07/27/2023 07:44:05 EST ! Subject: FW: Coding Query Due Date/Time: 07/28/2023 07:43:00 EST Caller Name: MARILYN DUNCAN; Caller Number: H , B [phone] Jose Cueto your response was blank so I was hoping you can take a look and respond back. I checked the discharge summary and did not see an addendum there either. - From: Unruly CUETO MD To: Ty MERAZ, Madeline; Sent: 07/28/2023 13:55:24 EST Subject: RE: Coding Query Caller Name: MARILYN DUNCAN; Caller Number: H , B [phone] Metabolic encephalopathy Normal [facility] Consent for Treatmenton 07-14 Consent for Treatment [id number] #1.00TIFF [facility] Multi-Wound Charton 07-27-20 Multi-Wound Chart [id number] 8#1.00TIFF [facility] Nursing Assessment - Woundon 07-27-2023 Nursing Assessment - Wound [id number] 2#1.00TIFF [facility] Nursing Note - Woundon 07-27 Nursing Note - Wound [id number] 1 [id number] 6#1.00TIFF [facility] Physician Orderon 07-27-2023 Physician Order [id number] 3#1.00TIFF [facility] Procedure - Woundon 07-27-20 Procedure - Wound [id number] 1#1.00TIFF [facility] Progress Note - Woundon 07-14 Progress Note - Wound [id number] 31 [id number] 7#1.00TIFF [facility] Nursing Note - Woundon 07-26 Nursing Note - Wound [id number] 1 [id number] 3#3.00TIFF [facility] Correspondence - Woundon Correspondence - Wound [id number] 311 [id number] 1#1.00TIFF [facility] Insurance Correspondenceon 1 09-20-2022 Insurance Correspondence [id number] 3#1.00TIFF [facility] Consent for Procedure/Surger yon 07-20-2023 Consent for Procedure/Surgery [id number] 4#1.00TIFF [facility] Consent for Treatmenton Consent for Treatment [id number] #1.00TIFF [facility] Consent to Photographon Consent to Photograph [id number] 11 [id number] 0#1.00TIFF [facility] Correspondence - Woundon Correspondence - Wound [id number] 311 [id number] 3#1.00TIFF [facility] Correspondence - Wound [id number] 311 [id number] 0#1.00TIFF [facility] Multi-Wound Charton 07-20-20 23 Multi-Wound Chart [id number] 1#1.00TIFF [facility] Nursing Assessment - Woundon 07-20-2023 Nursing Assessment - Wound [id number] 7#1.00TIFF [facility] Nursing Assessment - Wound [id number] 3#1.00TIFF [facility] Physician Orderon 07-20-2023 Physician Order [id number] 4#1.00TIFF Normal [facility] Procedure - Woundon 07-20-20 Procedure - Wound [id number] 6#1.00TIFF Normal [facility] Progress Note - Woundon 11 Progress Note - Wound [id number] 1#1.00TIFF Normal [facility] Progress Note-Physicianon Progress Note-Physician Basic Informatio n [...] % (06/29/23 (more content not included)... Normal [facility] Comment on above: Result Comment: Elec tronically [...] mg/dL High (06/29/23 21:12:00) POC Device SN: [id number] (06/29/23 21:12:00) POC User ID: [id number] (06/29/23 21:12:00) POC Username: STAN WILD (06/29/23 21:12:00) Problem List/Past Medical History Ongoing No qualifying data Historical No qualifying data [employer] (more content not included)... Normal [facility] Comment on above: Result Comment: Elec tronically Signed By: NELY GUERRERO, Unruly\.br\Date and Time Signed: 07/14/23 09:05 EDT GENESIS w/Reflex if POSon 2022 Nuclear Ab Ql (S) Negative Invalid Interpretation Code Negative [facility] Comment on above: Result Comment: Perf ormed at: [facility] [address] [id number] PhD Wilver Damon Performed By: #### 2 [id number] #### [facility] [address] [place] [address] Auto Diffon 07-08-2023 Basophils/100 WBC (Bld) 0.7 % Normal 0.0-2.0 [facility] Comment on above: Order Comment: Order Added by Discern Expert. Performed By: #### 2 960182, 9134249, 23411431, 8848691, 40363824 ####[place] [address] [place] [address] Basophils/Leukocytes Auto (Bld) [Pure # fraction] 0.1 E9/L Normal 0.0-0.2 [facility] Comment on above: Order Comment: Order Added by Discern Expert. Performed By: #### 2 407409, 4939170, 38507364, 7632755, 78443015 ####[address] [address] Eosinophils/100 WBC (Bld) 0.7 % Normal 0.0-8.0 [facility] Comment on above: Order Comment: Order Added by Discern Expert. Performed By: #### 2 882435, 1010320, 60339578, 7376638, 76053550 ####[address] [address] Eosinophils/Leukocytes Auto (Bld) [Pure # fraction] 0.1 E9/L Normal 0.0-0.5 [facility] Comment on above: Order Comment: Order Added by Discern Expert. Performed By: #### 2 885495, 6634490, 41873886, 8411533, 14632691 ####[address] [address] Lymphocytes/100 WBC (Bld) 26.2 % Normal 14.0-50.0 [facility] Comment on above: Order Comment: Order Added by Discern Expert. Performed By: #### 2 311819, 3085614, 35382667, 4280746, 76027359 ####[address] [address] Lymphocytes/Leukocytes Auto (Bld) [Pure # fraction] 2.6 E9/L Normal 1.0-4.0 [facility] Comment on above: Order Comment: Order Added by Discern Expert. Performed By: #### 2 737333, 2720649, 81861972, 1103895, 21466938 ####[place] [address] [place] [address] Monocytes/100 WBC (Bld) 6.0 % Normal 4.0-14.0 [facility] Comment on above: Order Comment: Order Added by Discern Expert. Performed By: #### 2 906472, 5131021, 39632939, 4422523, 12146946 ####[address] [address] Monocytes/Leukocytes Auto (Bld) [Pure # fraction] 0.6 E9/L Normal 0.2-1.0 [facility] Comment on above: Order Comment: Order Added by Discern Expert. Performed By: #### 2 594282, 2699432, 27869607, 4310942, 27127591 ####[address] [address] Neutrophils/100 WBC (Bld) 66.4 % Normal 36.0-75.0 [facility] Comment on above: Order Comment: Order Added by Discern Expert. Performed By: #### 2 686202, 8673903, 43551506, 5468079, 24141662 ####[address] [address] Neutrophils/Leukocytes Auto (Bld) [Pure # fraction] 6.5 E9/L Normal 2.0-7.5 [facility] Comment on above: Order Comment: Order Added by Discern Expert. Performed By: #### 2 065876, 2101453, 39292820, 4029302, 08516313 ####[address] [address] CBC w/ Auto Diffon 3 Erythrocyte distribution width (RBC) [Ratio] 14.1 % Normal 10.9-14.2 [facility] Comment on above: Performed By: #### 2 797349, 8692991, 82052960, 3168674, 08549420 ####[address] [address] Hematocrit (Bld) [Volume fraction] 41.5 % Normal 34.0-46.0 [facility] Comment on above: Performed By: #### 2 691866, 4196629, 37685843, 2547018, 59533095 ####[facility] [address] [place] [address] Hemoglobin (Bld) [Mass/Vol] 13.9 g/dL Normal 12.0-16.0 [facility] Comment on above: Performed By: #### 2 317232, 9470236, 55362571, 4815124, 99448653 ####[address] [address] MCH (RBC) [Entitic mass] 28.9 pg Normal 27.0-34.0 [facility] Comment on above: Performed By: #### 2 141293, 8700244, 41156464, 1470921, 22379746 ####[address] [address] MCHC (RBC) [Mass/Vol] 33.4 g/dL Normal 31.4-36.0 [facility] Comment on above: Performed By: #### 2 625693, 8820381, 25385438, 6579936, 01756415 ####[address] [address] MCV (RBC) [Entitic vol] 86.7 fL Normal 80.0-100.0 [facility] Comment on above: Performed By: #### 2 703664, 4408548, 23302553, 6717425, 93449978 ####[place] [address] [place] [address] Platelet mean volume (Bld) [Entitic vol] 9.4 fL Normal 6.4-10.8 [facility] Comment on above: Performed By: #### 2 570755, 8808746, 16959531, 5226544, 70191429 ####[address] [place] [address] Platelets (Bld) [#/Vol] 347.0 E9/L Normal 150.0-500.0 [facility] Comment on above: Performed By: #### 2 825378, 6129010, 98453535, 8521552, 30908992 ####[facility] [address] [place] [address] RBC (Bld) [#/Vol] 4.8 E12/L Normal 4.3-5.9 [facility] Comment on above: Performed By: #### 2 873004, 1070280, 55408654, 5596680, 62559439 ####[facility] [address] [place] [address] WBC corrected for nucl RBC Auto (Bld) [#/Vol] 9.8 E9/L Normal 4.0-11.0 [facility] Comment on above: Performed By: #### 2 340724, 5363335, 31958283, 1152758, 05047336 ####[facility] [address] [place] [address] CHEMISTRYOrdered By: SYSTEM SYSTEM on 07-08-2023 Albumin [...] mg/dL Normal 8.9 - 11. 1 mg/dL FT [facility] Chloride [Moles/Vol] 100 mmol/L Low 101 - 1 11 mmol/L FT [facility] CO2 [Moles/Vol] 26 mmol/L Normal 21 - 31 mmol/L FT [facility] Creatinine [Mass/Vol] 0.6 mg/dL Normal 0.5 - 1.3 mg/dL FT Remisol GFR/1.73 sq M.predicted among non-blacks MDRD (S/P/Bld) [Vol rate/Area] 103 mL/min/1.73 m2 Normal >=59mL/min/1 .73 m2 [facility] Chem S Comment on above: Interpretive Data: C hronic kidney disease could be indicated at eGFR's of less than 60 mL/min/1.73m2. Kidney failure is indicated at less than 15 mL/min/1.73m2. Globulin (S) [Mass/Vol] 5.0 g/dL High 1.4 - 4.0 gm/dL FT [facility] Glucose [Mass/Vol] 226 mg/dL High 55 - 199 mg/dL [facility] Comment on above: Interpretive Data: I f this glucose result represents a fasting glucose, interpretation should refer to the following reference range: 55-99 mg/dL Potassium [Moles/Vol] 3.9 mmol/L Normal 3.5 - 5.3 mmol/L FT [facility] Protein [Mass/Vol] 8.4 g/dL High 6.0 - 7.8 gm/dL FT [facility] Sodium [Moles/Vol] 134 mmol/L Low 135 - 145 mmol/L FT [facility] Urea nitrogen [Mass/Vol] 9 mg/dL Normal 5 - 21 mg/dL [facility] Urea nitrogen/Creatinine [Mass ratio] 15 mg/mg Normal 10 - 20 FT [facility] CMPon 07-08-2023 Albumin [Mass/Vol] 3.4 g/dL Normal 3.3-5.0 [facility] Comment on above: Performed By: #### 2 992245, 2497492, 02328639, 5537183, 09411621 ####[facility] [address] [place] [address] Albumin/Globulin (S) [Mass conc ratio] 0.7 Low 1.1-2.2 [facility] Comment on above: Performed By: #### 2 290919, 2344041, 24784156, 1101579, 50581310 ####[facility] [address] [place] [address] ALP [Catalytic activity/Vol] 71 Int._Unit/L Normal 21-98 [facility] Comment on above: Performed By: #### 2 137709, 6032143, 60592735, 8823270, 81718676 ####[facility] [address] [place] [address] ALT No additional P-5'-P [Catalytic activity/Vol] 28 Int._Unit/L Normal 6-46 [facility] Comment on above: Performed By: #### 2 476701, 3380892, 98467731, 0151321, 12876555 ####[facility] [address] [place] [address] Anion gap [Moles/Vol] 12 mmol/L Normal 6-16 [facility] Comment on above: Performed By: #### 2 893428, 4053541, 76743004, 4586450, 87742313 ####[facility] [address] [place] [address] AST [Catalytic activity/Vol] 27 Int._Unit/L Normal 5-43 [facility] Comment on above: Performed By: #### 2 098170, 4186028, 16937337, 5951748, 32731890 ####[facility] [address] [place] [address] Bilirubin [Mass/Vol] 0.6 mg/dL Normal 0.0-1.1 [facility] Comment on above: Performed By: #### 2 282067, 1595161, 58633281, 0195327, 18126545 ####[facility] [address] [place] [address] Calcium [Mass/Vol] 9.4 mg/dL Normal 8.9-11.1 [facility] Comment on above: Performed By: #### 2 554612, 9781119, 05713812, 3904671, 78918775 ####[facility] [address] [place] [address] Chloride [Moles/Vol] 100 mmol/L Low 101-111 [facility] Comment on above: Performed By: #### 2 653988, 5644079, 23112390, 2908889, 85825809 ####[facility] [address] [place] [address] CO2 [Moles/Vol] 26 mmol/L Normal 21-31 [facility] Comment on above: Performed By: #### 2 537423, 6510557, 21352503, 4566096, 81981899 ####[facility] [address] [place] [address] Creatinine [Mass/Vol] 0.6 mg/dL Normal 0.5-1.3 [facility] Comment on above: Performed By: #### 2 579813, 5033390, 85864873, 0794658, 05277356 ####[facility] [address] [place] [address] Globulin (S) [Mass/Vol] 5.0 g/dL High 1.4-4.0 [facility] Comment on above: Performed By: #### 2 429822, 0093556, 60937114, 4185627, 02436647 ####[facility] [address] [place] [address] Glucose [Mass/Vol] 226 mg/dL High 55-199 [facility] Comment on above: Result Comment: If t his glucose result represents a fasting glucose, interpretation should refer to the following reference range: 55-99 mg/dL Performed By: #### 2 041252, 0318328, 80049760, 6022127, 65867313 ####[facility] [address] [place] [address] Potassium [Moles/Vol] 3.9 mmol/L Normal 3.5-5.3 [facility] Comment on above: Performed By: #### 2 257391, 7162144, 80272532, 0745742, 54136065 ####[facility] [address] [place] [address] Protein [Mass/Vol] 8.4 g/dL High 6.0-7.8 [facility] Comment on above: Performed By: #### 2 484615, 7679801, 02975881, 6839272, 76272619 ####[facility] [address] [place] [address] Sodium [Moles/Vol] 134 mmol/L Low 135-145 [facility] Comment on above: Performed By: #### 2 044173, 9587070, 84822890, 3230066, 94700251 ####[facility] [address] [place] [address] Urea nitrogen [Mass/Vol] 9 mg/dL Normal 5-21 [facility] Comment on above: Performed By: #### 2 067056, 6803188, 50550376, 0487908, 26197149 ####[facility] [address] [place] [address] Urea nitrogen/Creatinine [Mass ratio] 15 No Units Normal 10-20 [facility] Comment on above: Performed By: #### 2 618845, 0160481, 72651226, 4818091, 72702366 ####[facility] [address] [place] [address] Consent for Treatmenton 06-14 Consent for Treatment [id number] #1.00TIFF Normal [facility] HEMATOLOGYOrdered By: SYSTEM SYSTEM on 07-08-2023 Basophils/100 [...] 6.5 E9/L Normal 2.0 - 7.5 E9/L [facility] HemeAutoSS HEMATOLOGYOrdered By: Jackie Bauman on 07-08-2023 Erythrocyte distribution width (RBC) [Ratio] 14.1 % Normal 10.9 - 14.2 % [facility] HemeAutoSS Hematocrit (Bld) [Volume fraction] 41.5 % Normal 34.0 - 46.0 % [facility] HemeAutoSS Hemoglobin (Bld) [Mass/Vol] 13.9 g/dL Normal 12.0 - 16.0 gm/dL [facility] HemeAutoSS MCH (RBC) [Entitic mass] 28.9 pg [...] 4.8 E12/L Normal 4.3 - 5.9 E12/L [facility] HemeAutoSS WBC corrected for nucl RBC Auto (Bld) [#/Vol] 9.8 E9/L Normal 4.0 - 11.0 E9/L [facility] HemeAutoSS Physician Orderon 07-08-2023 Physician Order [id number] #1.00TIFF Normal [facility] eGFRon 07-08-2023 GFR/1.73 sq M.predicted among non-blacks MDRD (S/P/Bld) [Vol rate/Area] 103 mL/min/1.73 m2 Normal >=59 [facility] Comment on above: Order Comment: Order added by Discern Expert. Result Comment: Loan Approver jyothi kidney disease could be indicated at eGFR's of less than 60 mL/min/1.73m2. Kidney failure is indicated at less than 15 mL/min/1.73m2. Performed By: #### 2 465797, 6531938, 26058798, 5122305, 63794626 ####[facility] [address] [place] [address] Insurance Correspondence Off iceon 07-07-2023 Insurance Correspondence Office [id number]#1.00TIFF Normal [facility] Coding Queryon 07-04-2023 Coding Query - From: Madeline Crawford RN To: Unruly CUETO MD; Sent: 07/01/2023 12:57:00 EDT ! Subject: Coding Query Due Date/Time: 07/02/2023 12:56:00 EDT Caller Name: MARILYN DUNCAN; Caller Number: Clement , B [phone] The following abnormal lab values are documented [...] [phone] - From: Unruly CUETO MD To: Ty MERAZ, Madeline; Sent: 07/04/2023 17:58:55 EDT Subject: RE: Coding Query Caller Name: MARILYN DUNCAN; Caller Number: Clement , B [phone] thrombocytopenia Normal [facility] C. diff by PCRon 07-02-2023 Clostridium difficile by PCR Negative Normal Negative [facility] Comment on above: Order Comment: Order added by Discern Expert. Result Comment: This test result should be correlated with clinical presentations and medical history by a healthcare provider to determine its clinical significance. Performed By: #### 4 [id number], [id number] ####[facility] [address] [place] [address] CDiff PCRon 07-02-2023 Cdiff Specimen Acceptable Acceptable Normal [facility] Comment on above: Performed By: #### 4 [id number], [id number] ####[address] [place] [address] Order Cancelled No, PCR to follow Normal [facility] Comment on above: Performed By: #### 4 [id number], [id number] ####[facility] [address] [place] [address] CHEMISTRYOrdered By: Lab ROP User on 07-02-2023 Glucose [Mass/Vol] 304 mg/dL High 55 - 99 mg/dL [facility] POC Subsection Comment on above: Result Comment: Simón lozano RN/ POC Username TIP MOTTA Invalid Interpretation Code [facility] POC Subsection Sodium [Moles/Vol] 471528418899 mmol/L Invalid Interpretation Code [facility] POC Subsection Sodium [Moles/Vol] 973374006 mmol/L Invalid Interpretation Code [facility] POC Subsection Glucose [Mass/Vol] 242 mg/dL High 55 - 99 mg/dL [facility] POC Subsection Comment on above: Result Comment: Simón lozano RN/ POC Username TIP MOTTA Invalid Interpretation Code [facility] POC Subsection Sodium [Moles/Vol] 160477698637 mmol/L Invalid Interpretation Code [facility] POC Subsection Sodium [Moles/Vol] 459228149 mmol/L Invalid Interpretation Code [facility] POC Subsection CHEMISTRYOrdered By: SYSTEM SYSTEM on 07-02-2023 Vancomycin trough [Moles/Vol] 6 microgram/mL Low 10 - 20 mcg/mL [facility] Capillary Glucose POCon 06-14 Glucose [Mass/Vol] 304 mg/dL High 55-99 [facility] Comment on above: Result Comment: Simón GRIFFIN Performed By: #### 2 [id number] #### [facility] [address] [place] [address] Glucose [Mass/Vol] 242 mg/dL High 55-99 [facility] Comment on above: Result Comment: Simón GRIFFIN Performed By: #### 2 [id number] ####[facility] [address] [place] [address] Coding Queryon 07-02-2023 Coding Query - From: Adán Davidson RN To: Unruly CUETO MD; Sent: 06/29/2023 07:44:16 EDT ! Subject: Coding Query Due Date/Time: 06/30/2023 07:44:00 EDT Caller Name: MARILYN DUNCAN; Caller Number: H , B [phone] Documentation in the medical record indicates this [...] are present? [___]Demand ischemia with Type 2 ID. [___]Other: In responding to this request, please exercise your independent professional judgement. The fact that a question is asked does not imply that any particular answer is desired or expected. Thank you!adán [phone] - From: Unruly CUETO MD To: Close RN, Adán Cardenas; Sent: 07/02/2023 13:56:18 EDT Subject: RE: Coding Query Caller Name: MARILYN DUNCAN; Caller Number: H , B [phone] Demand ischemia with Type 2 ID. Normal [facility] Discharge Instructionson Discharge Instructions [id number] #1.00TIFF Normal [facility] Discharge Note-Nursingon Discharge Note-Nursing Per Dr. Cueto, he will not refill her diabetic medication Lispro scale. She needs to discuss this medication with her PCP when she has her follow up visit with him. Patient verbally agreed. Normal [facility] Discharge Note-Nursing MARILYN DUNCAN :1965 Visit Date:06/28/2023 Inpatient Discharge Instructions Your Care Team Admitting Physician - Unruly CUETO MD Consulting Physician - [facility] Cardio, XXXX Reason for Your Visit Right [...] Pending Diagnostic Test Results None [facility]acy Information [facility] New Follow Up Appointments after Discharge Follow Up with Karina Martinez When: 07/08/2023 05:00 PM EDT Where: [address] [place] [address]- [employer]abybox (1) Medications What How Much When Why Instructions Next Dose New apixaban (Eliquis 5 mg oral tablet) 1 Tablets By Mouth 2 times a day Refills: 1 Pickup at [facility] 07/02/23 @9pm New doxycycline (doxycycline hyclate 100 mg Cap) 1 Capsules By Mouth Every 12 hours Take one capsule by mouth every twelve hours for ten days Pickup at [facility] 07/02/23 @ 9pm New metoprolol (metoprolol 50 mg ER Tab) 1 Tablets By Mouth 2 times a day Sepsis Acute cellulitis Leukocytosis Acute renal failure Lactic acidosis Pickup at [facility] 07/02/23@ 9pm Unchanged amlodipine (amLODIPine 10 [...] a day 07/02/23 @ 9pm Pharmacy Information [facility]: [address] [place], [place] [id number] [phone] What How Much When Comments Stop Taking [...] CO2: 1 (more content not included)... Normal [facility] Discharge Note-Nursing MARILYN DUNCAN :1965 Visit Date:06/28/2023 Inpatient Discharge Instructions Your Care Team Admitting Physician - NELY GUERRERO, Unruly Consulting Physician - [facility] Cardio, XXXX Reason for Your Visit Right [...] Pending Diagnostic Test Results None [facility] Information [facility] New Follow Up Appointments after Discharge Follow Up with Karina Martinez When: 07/08/2023 05:00 PM EDT Where: [address] [place] [address]- Business (1) Medications What How Much When Why Instructions Next Dose New apixaban (Eliquis 5 mg oral tablet) 1 Tablets By Mouth 2 times a day Refills: 1 Pickup at [facility] New doxycycline (doxycycline hyclate 100 mg Cap) 1 Capsules By Mouth Every 12 hours Take one capsule by mouth every twelve hours for ten days Pickup at [facility] New metoprolol (metoprolol 50 mg ER Tab) 1 Tablets By Mouth 2 times a day Sepsis Acute cellulitis Leukocytosis Acute renal failure Lactic acidosis Pickup at [facility] Unchanged amlodipine (amLODIPine 10 mg [...] Diabetes check BS 3x/ day Pharmacy Information [facility]27: [address] [place], [place] [id number] [phone] What When Comments Stop Taking clindamycin (clindamycin [...] 06:21:00) Chlori (more content not included)... Normal [facility] Discharge Note-Nursing MARILYN DUNCAN :1965 Visit Date:06/28/2023 Inpatient Discharge Instructions Your Care Team Admitting Physician - NELY GUERRERO, Unruly Consulting Physician - [facility] Cardio, XXXX Reason for Your Visit Right [...] Pending Diagnostic Test Results None [facility] New Follow Up Appointments after Discharge Follow Up with Karina Martinez When: 07/08/2023 05:00 PM EDT Where: [address] [place] [address] Business (1) Medications What How Much When Why Instructions Next Dose New apixaban (Eliquis 5 mg oral tablet) 1 Tablets By Mouth 2 times a day Refills: 1 Pickup at [facility] 07/02/23 @ 9pm New doxycycline (doxycycline hyclate 100 mg Cap) 1 Capsules By Mouth Every 12 hours Take one capsule by mouth every twelve hours for ten days Pickup at [facility] 07/02/23 @9pm New metoprolol (metoprolol 50 mg ER Tab) 1 Tablets By Mouth 2 times a day Sepsis Acute cellulitis Leukocytosis Acute renal failure Lactic acidosis Pickup at [facility] 07/02/23 @9pm Unchanged amlodipine (amLODIPine 10 [...] Diabetes check BS 3x/ day Pharmacy Information [facility]27: [address] [place], [place] [id number] [phone] What When Comments Stop Taking clindamycin (clindamycin [...] 06:21:00) Sodi (more content not included)... Normal [facility] Inpatient Clinical Summaryon 07-02-2023 Inpatient Clinical Summary [place] [address] Clinical Summary Person Information: Name: MARILYN DUNCAN Age: 57 Years : 1965 Sex: Female PCP: Karina Martinez DO Marital Status: Phone: [phone] Race: White Ethnicity: Non- or Language: Tristanian Visit Id: Visit Reason: Cellulitis - Leg; Fever; Shortness of breath; Leg pain-swelling; LEG EDEMA Speciality: Acuity: Enc Type: Inpatient Med Service: Medical Arrival: 06/28/2023 14:45:11 Discharge: Dispo Type: Admitted as IP to this Hosp Address: [id number] [place] [id number] Provider Notes: Diagnosis: 2:Sepsis; 3:Leukocytosis; 4:Acute renal [...] Attending Physician: Unruly CUETO MD Consulting Physician: [facility] Cardio, XXXX Referring Physician: Follow up: With: Address: When: Karina Mendezpablo [address] [place] [address] Business (1) 07/08/2023 5:00 PM Patient Education Information: Cellulitis, Adult; Sepsis, Diagnosis, Adult Normal [facility] Inpatient Patient Summaryon 07-02-2023 Inpatient Patient Summary [address] [address] Patient Discharge Instructions PERSON INFORMATION [...] None Follow up: With: Address: When: Karina Martinez [place] [address] Business (1) 07/08/2023 5:00 PM In the [...] OCCURRED DURING YOUR HOSPITAL STAY New Medications [facility] [address], [address], [place] [id number], [phone] apixaban (Eliquis 5 mg oral tablet) 1 [...] mg Tab) 1 (more content not included)... [facility] Interdisciplinary Note - Vinayak e Manageron 07-02-2023 Interdisciplinary Note - Residential Therapist Pt is awake and alert in chair, previously rounded with Dr. Cueto. pt is aware of plan to DC home today, declines any concerns or DC needs. Discussed plan to DC home today, discussed paramedicine, pt declines. PCP verified and insurance information reviewed and DME discussed. Contact information provided and [facility] Comment on above: Result Comment: Elec tronically Signed By: Sol MERAZ, Juhi\.carlos\Date and Time Signed: 07/02/23 12:32 EDT Monitor Recordon 07-02-2023 Monitor Record [id number] 2#1.00TIFF [facility] Progress Note-Physicianon Progress Note-Physician Basic Informatio n [...] 06:21:00) Lymph Auto: 19.9 % (07/01/23 06:21:00) Bergen Auto: 7.9 % (07/01/23 06:21:00) Eos Auto: 0.4 % (07/01/23 06:2 (more content not included)... Normal [facility] Comment on above: Result Comment: Elec tronically Signed By: NELY GUERRERO, Unruly\.br\Date and Time Signed: 07/02/23 11:35 EDT Vanco Peakon 07-02-2023 VANCOMYCIN 16 microgram/mL Abnormal 20-40 [facility] Comment on above: Result Comment: Crit ical Result verified by repeat analysis\Critical Result S_VANC_P:16.0 Called to [facility] by COLBY MARTINEZ And Read Back For Confirmation at: 07/02/2023 00:19:01 Performed By: #### 2 780829 ####[facility] [address] [place] [address] Vanco Troughon 07-02-2023 VANCOMYCIN 6 microgram/mL Low 07-02 [facility] Comment on above: Order Comment: Pleas e draw 1 hour prior to dose at 0800 on 07/02. Thank you. Performed By: #### 2 608578 ####[facility] [address] [place] [address] Auto Diffon 07-01-2023 Basophils/100 WBC (Bld) 0.3 % Normal 0.0-2.0 [facility] Comment on above: Order Comment: Order Added by Discern Expert. Performed By: #### 2 910373, 2641409, 28356982, 6958375, 3487869 ####[facility] [address] [place] [address] Basophils/Leukocytes Auto (Bld) [Pure # fraction] 0.0 E9/L Normal 0.0-0.2 [facility] Comment on above: Order Comment: Order Added by Discern Expert. Performed By: #### 2 368405, 9283681, 32055918, 7250185, 4280715 ####[address] [place] [address] Eosinophils/100 WBC (Bld) 0.4 % Normal 0.0-8.0 [facility] Comment on above: Order Comment: Order Added by Discern Expert. Performed By: #### 2 675915, 2698335, 08647845, 0434210, 9802514 ####[address] [place] [address] Eosinophils/Leukocytes Auto (Bld) [Pure # fraction] 0.0 E9/L Normal 0.0-0.5 [facility] Comment on above: Order Comment: Order Added by Mariano Expert. Performed By: #### 2 942675, 1623894, 50617341, 9667863, 3870273 ####[address] [address] Lymphocytes/100 WBC (Bld) 19.9 % Normal 14.0-50.0 [facility] Comment on above: Order Comment: Order Added by Mariano Expert. Performed By: #### 2 896142, 5238994, 23652655, 7883540, 2916512 ####[address] [address] Lymphocytes/Leukocytes Auto (Bld) [Pure # fraction] 1.6 E9/L Normal 1.0-4.0 [facility] Comment on above: Order Comment: Order Added by Discern Expert. Performed By: #### 2 448449, 1155568, 37056924, 4862683, 4216516 ####[address] [address] Monocytes/100 WBC (Bld) 7.9 % Normal 4.0-14.0 [facility] Comment on above: Order Comment: Order Added by Mariano Expert. Performed By: #### 2 068835, 2935698, 72194548, 1044277, 9229669 ####[facility] [address] [place] [address] Monocytes/Leukocytes Auto (Bld) [Pure # fraction] 0.6 E9/L Normal 0.2-1.0 [facility] Comment on above: Order Comment: Order Added by Discern Expert. Performed By: #### 2 296330, 3919005, 03027161, 9817735, 8686259 ####[address] [place] [address] Neutrophils/100 WBC (Bld) 71.5 % Normal 36.0-75.0 [facility] Comment on above: Order Comment: Order Added by Discern Expert. Performed By: #### 2 813305, 0582670, 28939202, 7928078, 1720157 ####[facility] [address] [place] [address] Neutrophils/Leukocytes Auto (Bld) [Pure # fraction] 5.8 E9/L Normal 2.0-7.5 [facility] Comment on above: Order Comment: Order Added by Discern Expert. Performed By: #### 2 302447, 3015745, 34051442, 1651556, 3650775 ####[facility] [address] [place] [address] BMPon 07-01-2023 Anion gap [Moles/Vol] 12 mmol/L Normal 6-16 [facility] Comment on above: Performed By: #### 2 037474, 5203599, 97886192, 8397358, 2335879 ####[facility] [address] [place] [address] Calcium [Mass/Vol] 7.9 mg/dL Low 8.9-11.1 [facility] Comment on above: Performed By: #### 2 310189, 4273759, 38956538, 6682427, 6659383 ####[facility] [address] [place] [address] Chloride [Moles/Vol] 108 mmol/L Normal 101-111 [facility] Comment on above: Performed By: #### 2 282233, 2440628, 22516306, 6293623, 8765510 ####[facility] [address] [place] [address] CO2 [Moles/Vol] 19 mmol/L Low 21-31 [facility] Comment on above: Performed By: #### 2 095584, 4895737, 69361212, 7390474, 1585503 ####[facility] [address] [place] [address] Creatinine [Mass/Vol] 0.7 mg/dL Normal 0.5-1.3 [facility] Comment on above: Performed By: #### 2 462274, 6891800, 22444879, 5573994, 7225107 ####[facility] [address] [place] [address] Glucose [Mass/Vol] 223 mg/dL High 55-199 [facility] Comment on above: Result Comment: If t his glucose result represents a fasting glucose, interpretation should refer to the following reference range: 55-99 mg/dL Performed By: #### 2 032315, 8673487, 34084975, 2799976, 0341229 ####[facility] [address] [place] [address] Potassium [Moles/Vol] 3.6 mmol/L Normal 3.5-5.3 [facility] Comment on above: Performed By: #### 2 493297, 5011266, 77551068, 4204457, 9377982 ####[facility] [address] [place] [address] Sodium [Moles/Vol] 135 mmol/L Normal 135-145 [facility] Comment on above: Performed By: #### 2 855878, 1609659, 48430648, 8077981, 1286524 ####[facility] [address] [place] [address] Urea nitrogen [Mass/Vol] 12 mg/dL Normal 5-21 [facility] Comment on above: Performed By: #### 2 263714, 2248168, 84327077, 8373152, 3263341 ####[facility] [address] [place] [address] Urea nitrogen/Creatinine [Mass ratio] 17 No Units Normal 10-20 [facility] Comment on above: Performed By: #### 2 082975, 7102627, 02832233, 5356193, 1488303 ####[facility] [address] [place] [address] CBC w/ Auto Diffon 3 Erythrocyte distribution width (RBC) [Ratio] 14.2 % Normal 10.9-14.2 [facility] Comment on above: Performed By: #### 2 953281, 8365396, 45112993, 5172163, 5326948 ####[facility] [address] [place] [address] Hematocrit (Bld) [Volume fraction] 36.8 % Normal 34.0-46.0 [facility] Comment on above: Performed By: #### 2 689144, 7388644, 84765194, 8506483, 6875465 ####[facility] [address] [place] [address] Hemoglobin (Bld) [Mass/Vol] 12.5 g/dL Normal 12.0-16.0 [facility] Comment on above: Performed By: #### 2 091132, 4801715, 72290315, 8024821, 2106989 ####[facility] [address] [place] [address] MCH (RBC) [Entitic mass] 29.0 pg Normal 27.0-34.0 [facility] Comment on above: Performed By: #### 2 047815, 6505015, 95999071, 4542908, 6798775 ####[facility] [address] [place] [address] MCHC (RBC) [Mass/Vol] 33.9 g/dL Normal 31.4-36.0 [facility] Comment on above: Performed By: #### 2 001837, 1899831, 95031374, 1726634, 6627106 ####[facility] [address] [place] [address] MCV (RBC) [Entitic vol] 85.6 fL Normal 80.0-100.0 [facility] Comment on above: Performed By: #### 2 464952, 0529167, 92427956, 6383304, 9344770 ####[facility] [address] [place] [address] Platelet mean volume (Bld) [Entitic vol] 11.3 fL High 6.4-10.8 [facility] Comment on above: Performed By: #### 2 881950, 3060828, 99716198, 9329801, 9865249 ####[address] [address] Platelets (Bld) [#/Vol] 108.0 E9/L Low 150.0-500.0 [facility] Comment on above: Performed By: #### 2 312188, 3402554, 93122881, 7318625, 1048387 ####[address] [address] RBC (Bld) [#/Vol] 4.3 E12/L Normal 4.3-5.9 [facility] Comment on above: Performed By: #### 2 064793, 2010137, 09237755, 1062352, 5667875 ####[address] [address] WBC corrected for nucl RBC Auto (Bld) [#/Vol] 8.1 E9/L Normal 4.0-11.0 [facility] Comment on above: Performed By: #### 2 090939, 0218789, 07785548, 9681636, 6775445 ####[address] [address] CHEMISTRYOrdered By: SYSTEM SYSTEM on 07-01-2023 Vancomycin [...] mg/dL Low 8.9 - 11. 1 mg/dL [facility] Chloride [Moles/Vol] 108 mmol/L Normal 101 - 1 11 mmol/L [facility] CO2 [Moles/Vol] 19 mmol/L Low 21 - 31 mmol/L [facility] Creatinine [Mass/Vol] 0.7 mg/dL Normal 0.5 - 1.3 mg/dL [facility] GFR/1.73 sq M.predicted among non-blacks MDRD (S/P/Bld) [Vol rate/Area] 100 mL/min/1.73 m2 Normal >=59mL/min/1 .73 m2 [facility] Chem S Comment on above: Interpretive Data: C hronic kidney disease could be indicated at eGFR's of less than 60 mL/min/1.73m2. Kidney failure is indicated at less than 15 mL/min/1.73m2. Glucose [Mass/Vol] 223 mg/dL High 55 - 199 mg/dL [facility] Comment on above: Interpretive Data: I f this glucose result represents a fasting glucose, interpretation should refer to the following reference range: 55-99 mg/dL Magnesium [Mass/Vol] 1.8 mg/dL Normal 1.3 - 2 .4 mg/dL [facility] Potassium [Moles/Vol] 3.6 mmol/L Normal 3.5 - 5.3 mmol/L [facility] Sodium [Moles/Vol] 135 mmol/L Normal 135 - 145 mmol/L [facility] Remisol Urea nitrogen [Mass/Vol] 12 mg/dL Normal 5 - 21 mg/dL [facility] Remisol Urea nitrogen/Creatinine [Mass ratio] 17 mg/mg Normal 10 - 20 [facility] CHEMISTRYOrdered By: Lab ROP User on 07-01-2023 Glucose [Mass/Vol] 208 mg/dL High 55 - 99 mg/dL FT POC Subsection POC Username DUSTIN FARRELL Invalid Interpretation Code [facility] POC Subsection Sodium [Moles/Vol] [id number] mmol/L Invalid Interpretation Code [facility] POC Subsection Sodium [Moles/Vol] 320271316 mmol/L Invalid Interpretation Code [facility] POC Subsection Capillary Glucose POCon 06-13 Glucose [Mass/Vol] 208 mg/dL High 55-99 [facility] Comment on above: Performed By: #### 2 [id number] ####[facility] [address] [place] [address] Glucose [Mass/Vol] 275 mg/dL High 55-99 [facility] Comment on above: Result Comment: Simón lozano RN/ Performed By: #### 2 [id number] ####[facility] [facility] [address] [place] [address] Glucose [Mass/Vol] 253 mg/dL High 55-99 [facility] Comment on above: Result Comment: Simón GRIFFIN Performed By: #### 2 [id number] ####[facility] [address] [place] [address] Glucose [Mass/Vol] 214 mg/dL High 55-99 [facility] Comment on above: Result Comment: Simón GRIFFIN Performed By: #### 2 551566 #### [facility] [address] [place] [address] HEMATOLOGYOrdered By: SYSTEM SYSTEM on 07-01-2023 Basophils/100 WBC (Bld) 0.3 [...] 5.8 E9/L Normal 2.0 - 7.5 E9/L [facility] HEMATOLOGYOrdered By: Zoë Kaur on 07-01-2023 Erythrocyte distribution width (RBC) [Ratio] 14.2 % Normal 10.9 - 14.2 % [facility] Hematocrit (Bld) [Volume fraction] 36.8 % Normal 34.0 - 46.0 % [facility] Hemoglobin (Bld) [Mass/Vol] 12.5 g/dL Normal 12.0 - 16.0 gm/dL [facility] MCH (RBC) [Entitic mass] 29.0 pg Normal 27.0 - 34.0 pg [facility] MCHC (RBC) [Mass/Vol] 33.9 g/dL Normal 31.4 - 36.0 gm/dL [facility] MCV (RBC) [Entitic vol] 85.6 fL Normal 80.0 - 100.0 fL [facility] Platelet mean volume (Bld) [Entitic vol] 11.3 fL High 6.4 - 10.8 fL [facility] Platelets (Bld) [#/Vol] 108.0 E9/L Low 150. 0 - 500.0 E9/L [facility] RBC (Bld) [#/Vol] 4.3 E12/L Normal 4.3 - 5.9 E12/L [facility] WBC corrected for nucl RBC Auto (Bld) [#/Vol] 8.1 E9/L Normal 4.0 - 11.0 E9/L [facility] Insurance Correspondence Off ice 07-01-2023 Insurance Correspondence Office [id number] #1.00TIFF Normal [facility] Interdisciplinary Note - Vinayak e Manageron 07-01-2023 Interdisciplinary Note - Residential Therapist Pt is awake and alert in bed, previously rounded with Dr. Cueto. Pt is aware of plan to stay in hospital today and anticipate DC tomorrow. Pt is form home with spouse and he will transport at DC. Declines any concerns or DC needs . PCP verified and insurance information reviewed and DME discussed. Contact information provided and white board updated. Normal [facility] Comment on above: Result Comment: Elec tronically Signed By: Sol MERAZ, Juhi\.br\Date and Time Signed: 07/01/23 12:11 EDT Magnesiumon 07-01-2023 Magnesium [Mass/Vol] 1.8 mg/dL Normal 1.3-2.4 [facility] Comment on above: Performed By: #### 2 174933, 3206019, [id number], 1508724, 1807634 ####[facility] [address] [place] [address] Monitor Recordon 07-01-2023 Monitor Record [id number] 3#1.00TIFF Normal [facility] Monitor Record [id number] 3#1.00TIFF Normal [facility] eGFRon 07-01-2023 GFR/1.73 sq M.predicted among non-blacks MDRD (S/P/Bld) [Vol rate/Area] 100 mL/min/1.73 m2 Normal >=59 [facility] Comment on above: Order Comment: Order added by Discern Expert. Result Comment: Loan Approver jyothi kidney disease could be indicated at eGFR's of less than 60 mL/min/1.73m2. Kidney failure is indicated at less than 15 mL/min/1.73m2. Performed By: #### 2 370518, 0567098, 52725358, 6181455, 8747106 ####[facility] [address] [place] [address] Auto Diffon 06-30-2023 Basophils/100 WBC (Bld) 0.2 % Normal 0.0-2.0 [facility] Comment on above: Order Comment: Order added by EKS Rule. (FT_LACTIC_ACID_REFLEX) Adds reflex Lactic Acid 4 hours after initial if result is greater than or equal to 2.0. Performed By: #### 2 279706 #### [facility] [address] [place] [address] Basophils/Leukocytes Auto (Bld) [Pure # fraction] 0.0 E9/L Normal 0.0-0.2 [facility] Comment on above: Order Comment: Order added by EKS Rule. (FT_LACTIC_ACID_REFLEX) Adds reflex Lactic Acid 4 hours after initial if result is greater than or equal to 2.0. Performed By: #### 2 841339 #### [facility] [address] [place] [address] Eosinophils/100 WBC (Bld) 0.0 % Normal 0.0-8.0 [facility] Comment on above: Order Comment: Order added by EKS Rule. (FT_LACTIC_ACID_REFLEX) Adds reflex Lactic Acid 4 hours after initial if result is greater than or equal to 2.0. Performed By: #### 2 211775 #### [facility] [address] [place] [address] Eosinophils/Leukocytes Auto (Bld) [Pure # fraction] 0.0 E9/L Normal 0.0-0.5 [facility] Comment on above: Order Comment: Order added by EKS Rule. (FT_LACTIC_ACID_REFLEX) Adds reflex Lactic Acid 4 hours after initial if result is greater than or equal to 2.0. Performed By: #### 2 053515 #### [facility] [address] [place] [address] Lymphocytes/100 WBC (Bld) 11.8 % Low 14.0-50.0 [facility] Comment on above: Order Comment: Order added by EKS Rule. (FT_LACTIC_ACID_REFLEX) Adds reflex Lactic Acid 4 hours after initial if result is greater than or equal to 2.0. Performed By: #### 2 439109 #### [facility] [address] [place] [address] Lymphocytes/Leukocytes Auto (Bld) [Pure # fraction] 1.3 E9/L Normal 1.0-4.0 [facility] Comment on above: Order Comment: Order added by EKS Rule. (FT_LACTIC_ACID_REFLEX) Adds reflex Lactic Acid 4 hours after initial if result is greater than or equal to 2.0. Performed By: #### 2 870716 #### [facility] [address] [place] [address] Monocytes/100 WBC (Bld) 5.9 % Normal 4.0-14.0 [facility] Comment on above: Order Comment: Order added by EKS Rule. (FT_LACTIC_ACID_REFLEX) Adds reflex Lactic Acid 4 hours after initial if result is greater than or equal to 2.0. Performed By: #### 2 226514 #### [facility] [address] [place] [address] Monocytes/Leukocytes Auto (Bld) [Pure # fraction] 0.7 E9/L Normal 0.2-1.0 [facility] Comment on above: Order Comment: Order added by EKS Rule. (FT_LACTIC_ACID_REFLEX) Adds reflex Lactic Acid 4 hours after initial if result is greater than or equal to 2.0. Performed By: #### 2 660588 #### [facility] [address] [place] [address] Neutrophils/100 WBC (Bld) 82.1 % High 36.0-75.0 [facility] Comment on above: Order Comment: Order added by EKS Rule. (FT_LACTIC_ACID_REFLEX) Adds reflex Lactic Acid 4 hours after initial if result is greater than or equal to 2.0. Performed By: #### 2 533286 #### [facility] [address] [place] [address] Neutrophils/Leukocytes Auto (Bld) [Pure # fraction] 9.4 E9/L High 2.0-7.5 [facility] Comment on above: Order Comment: Order added by EKS Rule. (FT_LACTIC_ACID_REFLEX) Adds reflex Lactic Acid 4 hours after initial if result is greater than or equal to 2.0. Performed By: #### 2 330809 #### [facility] [address] [place] [address] BMPon 06-30-2023 Anion gap [Moles/Vol] 9 mmol/L Normal 6-16 [facility] Comment on above: Performed By: #### 2 559359 #### [facility] [address] [place] [address] Calcium [Mass/Vol] 7.8 mg/dL Low 8.9-11.1 [facility] Comment on above: Performed By: #### 2 721137 #### [facility] [address] [place] [address] Chloride [Moles/Vol] 109 mmol/L Normal 101-111 [facility] Comment on above: Performed By: #### 2 796455 #### [facility] [address] [place] [address] CO2 [Moles/Vol] 21 mmol/L Normal 21-31 [facility] Comment on above: Performed By: #### 2 934322 #### [facility] [address] [place] [address] Creatinine [Mass/Vol] 0.8 mg/dL Normal 0.5-1.3 [facility] Comment on above: Performed By: #### 2 448110 #### [facility] [address] [place] [address] Glucose [Mass/Vol] 223 mg/dL High 55-199 [facility] Comment on above: Result Comment: If t his glucose result represents a fasting glucose, interpretation should refer to the following reference range: 55-99 mg/dL Performed By: #### 2 566967 #### [facility] [address] [place] [address] Potassium [Moles/Vol] 3.0 mmol/L Low 3.5-5.3 [facility] Comment on above: Performed By: #### 2 389471 #### [facility] [address] [place] [address] Sodium [Moles/Vol] 136 mmol/L Normal 135-145 [facility] Comment on above: Performed By: #### 2 111106 #### [facility] [address] [place] [address] Urea nitrogen [Mass/Vol] 17 mg/dL Normal 5-21 [facility] Comment on above: Performed By: #### 2 398180 #### [facility] [address] [place] [address] Urea nitrogen/Creatinine [Mass ratio] 21 No Units High 10-20 [facility] Comment on above: Performed By: #### 2 681164 #### [facility] [address] [place] [address] CBC w/ Auto Diffon Erythrocyte distribution width (RBC) [Ratio] 14.2 % Normal 10.9-14.2 [facility] Comment on above: Performed By: #### 2 948729 #### [facility] [address] [place] [address] Hematocrit (Bld) [Volume fraction] 38.9 % Normal 34.0-46.0 [facility] Comment on above: Performed By: #### 2 697506 #### [facility] [address] [place] [address] Hemoglobin (Bld) [Mass/Vol] 13.2 g/dL Normal 12.0-16.0 [facility] Comment on above: Performed By: #### 2 832215 #### [facility] [address] [place] [address] MCH (RBC) [Entitic mass] 29.0 pg Normal 27.0-34.0 [facility] Comment on above: Performed By: #### 2 063547 #### [facility] [address] [place] [address] MCHC (RBC) [Mass/Vol] 34.0 g/dL Normal 31.4-36.0 [facility] Comment on above: Performed By: #### 2 799833 #### [facility] [address] [place] [address] MCV (RBC) [Entitic vol] 85.2 fL Normal 80.0-100.0 [facility] Comment on above: Performed By: #### 2 051569 #### [facility] [address] [place] [address] Platelet mean volume (Bld) [Entitic vol] 10.5 fL Normal 6.4-10.8 [facility] Comment on above: Performed By: #### 2 181761 #### [facility] [address] [place] [address] Platelets (Bld) [#/Vol] 83.0 E9/L Low 150.0-500.0 [facility] Comment on above: Result Comment: Plat elet count verified using smear estimate Performed By: #### 2 060069 #### [facility] [address] [place] [address] RBC (Bld) [#/Vol] 4.6 E12/L Normal 4.3-5.9 [facility] Comment on above: Performed By: #### 2 985918 #### [facility] [address] [place] [address] WBC corrected for nucl RBC Auto (Bld) [#/Vol] 11.4 E9/L High 4.0-11.0 [facility] Comment on above: Performed By: #### 2 164043 #### [facility] [address] [place] [address] CHEMISTRYOrdered By: SYSTEM SYSTEM on 06-30-2023 Vancomycin [...] mmol/L Normal 101 - 1 11 mmol/L [facility] Remisol CO2 [Moles/Vol] 21 mmol/L Normal 21 - 31 mmol/L [facility] Remisol Creatinine [Mass/Vol] 0.8 mg/dL Normal 0.5 - 1.3 mg/dL [facility] Remisol GFR/1.73 sq M.predicted among non-blacks MDRD (S/P/Bld) [Vol rate/Area] 85 mL/min/1.73 m2 Normal >=59mL/min/1 .73 m2 [facility] Chem S Comment on above: Interpretive Data: C hronic kidney disease could be indicated at eGFR's of less than 60 mL/min/1.73m2. Kidney failure is indicated at less than 15 mL/min/1.73m2. Glucose [Mass/Vol] 223 mg/dL High 55 - 199 mg/dL [facility] Remisol Comment on above: Interpretive Data: I f this glucose result represents a fasting glucose, interpretation should refer to the following reference range: 55-99 mg/dL Magnesium [Mass/Vol] 1.8 mg/dL Normal 1.3 - 2 .4 mg/dL [facility] Remisol Potassium [Moles/Vol] 3.0 mmol/L Low 3.5 - 5.3 mmol/L [facility] Remisol Sodium [Moles/Vol] 136 mmol/L Normal 135 - 145 mmol/L [facility] Remisol Urea nitrogen [Mass/Vol] 17 mg/dL Normal 5 - 21 mg/dL [facility] Remisol Urea nitrogen/Creatinine [Mass ratio] 21 mg/mg High 10 - [facility] Remisol Capillary Glucose POCon 06-13 Glucose [Mass/Vol] 294 mg/dL High 55-99 [facility] Comment on above: Result Comment: Simón GRIFFIN Performed By: #### 2 [id number] ####[facility] [address] [place] [address] Glucose [Mass/Vol] 229 mg/dL High 55-99 [facility] Comment on above: Result Comment: Simón GRIFFIN Performed By: #### 2 19846948 #### [facility] [address] [place] [address] Glucose [Mass/Vol] 285 mg/dL High 55-99 [facility] Comment on above: Result Comment: Simón GRIFFIN Performed By: #### 2 [id number] ####[facility] [address] [place] [address] Glucose [Mass/Vol] 223 mg/dL High 55-99 [facility] Comment on above: Result Comment: Simón GRIFFIN Performed By: #### 2 [id number] #### [facility] [address] [place] [address] HEMATOLOGYOrdered By: [employer] SYSTEM on 06-30-2023 Basophils/100 WBC (Bld) 0.2 [...] Correspondence Off iceon 06-30-2023 Insurance Correspondence Office [id number] 1#1.00TIFF [facility] Interdisciplinary Note - Vinayak e Manageron 06-30-2023 Interdisciplinary Note - Residential Therapist CRM to room to discuss DC planning. [...] Contact information provided and white board updated. [facility] Comment on above: Result Comment: Elec tronically Signed By: Yumiko Black\.br\Date and Time Signed: 06/30/23 13:09 EDT Magnesiumon 06-30-2023 Magnesium [Mass/Vol] 1.8 mg/dL Normal 1.3-2.4 [facility] Comment on above: Performed By: #### 2 921795 #### [facility] [address] [place] [address] Monitor Recordon 06-30-2023 Monitor Record [id number] 8#1.00TIFF Normal [facility] Monitor Record [id number] 8#1.00TIFF Normal [facility] Monitor Record [id number] 2#1.00TIFF Normal [facility] Monitor Record [id number] 1#1.00TIFF [facility] Progress Note - Pharmacyon 1 Progress Note [...] Lymph Auto: 11.8 % Low (06/30/23 06:22:00) [place] Auto: 5.9 % (06/30/23 06:22:00) Eos Auto: 0 % (06/30/23 06:22:00) Basophil Auto: 0.2 % (06/30/23 06:22:00) Neutro Absolute: 9.4 E9/L High (06/30/23 06:22:00) Lymph Absolute: 1.3 E9/L (06/30/23 06:22:00) [place] Absolute: 0.7 E9/L (06/30/23 06:22:00) Eos Absolute: [...] mg/dL High (06/30/23 20:15:00) POC Device SN: [id number] (06/30/23 20:15:00) POC User ID: [id number] (06/30/23 20:15:00) POC Username: POC Username (06/30/23 20:15:00) Normal [facility] Vanco Peakon 06-30-2023 VANCOMYCIN 38 microgram/mL Normal 20-40 [facility] Comment on above: Order Comment: Order added by EKS Rule. (FT_LACTIC_ACID_REFLEX) Adds reflex Lactic Acid 4 hours after initial if result is greater than or equal to 2.0. Performed By: #### 2 548597 #### [facility] [address] [place] [address] Vanco Troughon 06-30-2023 VANCOMYCIN 11 microgram/mL Normal 10-20 [facility] Comment on above: Order Comment: Take trough one hour prior to dose at 2100. Thank you Performed By: #### 2 [id number] #### [facility] [address] [place] [address] eGFRon 06-30-2023 GFR/1.73 sq M.predicted among non-blacks MDRD (S/P/Bld) [Vol rate/Area] 85 mL/min/1.73 m2 Normal >=59 [facility] Comment on above: Order Comment: Order added by EKS Rule. (FT_LACTIC_ACID_REFLEX) Adds reflex Lactic Acid 4 hours after initial if result is greater than or equal to 2.0. Result Comment: Loan Approver jyothi kidney disease could be indicated at eGFR's of less than 60 mL/min/1.73m2. Kidney failure is indicated at less than 15 mL/min/1.73m2. Performed By: #### 2 232599 #### [facility] [address] [place] [address] .Manual Abson 06-29-2023 Basophils/Leukocytes Manual cnt (Bld) [Pure # fraction] 0.0 E9/L Normal 0.0-0.2 [facility] Comment on above: Performed By: #### 1 5468068, 6437671, 7467937, 92353088, 9623665, 8009573 ####[facility] [address] [place] [address] Eosinophils/Leukocytes Manual cnt (Bld) [Pure # fraction] 0.0 E9/L Normal 0.0-0.5 [facility] Comment on above: Performed By: #### 1 7103438, 0050539, 1457573, 62708661, 9902286, 3731990 ####[facility] [address] [place] [address] Lymphocytes/Leukocytes Manual cnt (Bld) [Pure # fraction] 1.3 E9/L Normal 1.0-4.0 [facility] Comment on above: Performed By: #### 1 2667851, 1868324, 8758081, 90391819, 2067529, 8202804 ####[facility] [address] [place] [address] Monocytes/Leukocytes Manual cnt (Bld) [Pure # fraction] 0.0 E9/L Low 0.2-1.0 [facility] Comment on above: Performed By: #### 1 9510197, 0223587, 0980752, 08208545, 1956928, 4786276 ####[facility] [address] [place] [address] Neutrophils/Leukocytes Auto (Bld) [Pure # fraction] 16.7 E9/L High 2.0-7.5 [facility] Comment on above: Performed By: #### 1 6731532, 8781084, 8496894, 52772770, 3363484, 9299885 ####[facility] [address] [place] [address] BMPon 06-29-2023 Anion gap [Moles/Vol] 13 mmol/L Normal 6-16 [facility] Comment on above: Performed By: #### 1 3242093, 3691585, 0711046, 91100616, 5539566, 5585295 ####[facility] [address] [place] [address] Calcium [Mass/Vol] 8.1 mg/dL Low 8.9-11.1 [facility] Comment on above: Performed By: #### 1 3469393, 6492950, 4622421, 90910382, 6835223, 9251294 ####[facility] [address] [place] [address] Chloride [Moles/Vol] 104 mmol/L Normal 101-111 [facility] Comment on above: Performed By: #### 1 7925575, 9157948, 7207326, 61975876, 6911533, 1811198 ####[facility] [address] [place] [address] CO2 [Moles/Vol] 21 mmol/L Normal 21-31 [facility] Comment on above: Performed By: #### 1 9141931, 8323939, 2612919, 38702818, 3793113, 0892900 ####[facility] [address] [place] [address] Creatinine [Mass/Vol] 1.0 mg/dL Normal 0.5-1.3 [facility] Comment on above: Performed By: #### 1 5570949, 0676518, 4986376, 19556764, 1766955, 3603134 ####[facility] [address] [place] [address] Glucose [Mass/Vol] 209 mg/dL High 55-199 [facility] Comment on above: Result Comment: If t his glucose result represents a fasting glucose, interpretation should refer to the following reference range: 55-99 mg/dL Performed By: #### 1 3088150, 1236127, 7334254, 12005303, 3648903, 3697668 ####[facility] [address] [place] [address] Potassium [Moles/Vol] 3.4 mmol/L Low 3.5-5.3 [facility] Comment on above: Performed By: #### 1 9883401, 6057421, 3332321, 68051601, 9349426, 4490190 ####[facility] [address] [place] [address] Sodium [Moles/Vol] 135 mmol/L Normal 135-145 [facility] Comment on above: Performed By: #### 1 4366074, 7439159, 4655483, 84638878, 8138173, 9129899 ####[facility] [address] [place] [address] Urea nitrogen [Mass/Vol] 30 mg/dL High 5-21 [facility] Comment on above: Performed By: #### 1 7678471, 6220309, 1394024, 56392012, 6629717, 9309346 ####[facility] [address] [place] [address] Urea nitrogen/Creatinine [Mass ratio] 30 No Units High 10-20 [facility] Comment on above: Performed By: #### 1 6680998, 5160478, 2866985, 11902399, 6645098, 9944843 ####[facility] [address] [place] 17[address]157 CBC w/ Auto Diffon Erythrocyte distribution width (RBC) [Ratio] 14.1 % Normal 10.9-14.2 [facility] Comment on above: Performed By: #### 1 9817267, 0327025, 6466615, 62798205, 8267135, 5210545 ####[place] [address] [place] 1745157 Hematocrit (Bld) [Volume fraction] 43.1 % Normal 34.0-46.0 [facility] Comment on above: Performed By: #### 1 8269877, 2925846, 8501842, 30888538, 4979395, 6600786 ####[place] [address] [place] 1745157 Hemoglobin (Bld) [Mass/Vol] 14.4 g/dL Normal 12.0-16.0 [facility] Comment on above: Performed By: #### 1 1932542, 4723239, 3082725, 01610694, 6968677, 1759997 ####[facility] [address] [place] [address] MCH (RBC) [Entitic mass] 28.6 pg Normal 27.0-34.0 [facility] Comment on above: Performed By: #### 1 5848382, 1429719, 2475886, 83574465, 0057597, 3328688 ####[place] [address] MCHC (RBC) [Mass/Vol] 33.3 g/dL Normal 31.4-36.0 [facility] Comment on above: Performed By: #### 1 3245364, 7971739, 9131996, 33560638, 5540734, 0429678 ####[place] [address] [place] [address] MCV (RBC) [Entitic vol] 85.9 fL Normal 80.0-100.0 [facility] Comment on above: Performed By: #### 1 4369078, 3731548, 6730881, 35572387, 0937964, 1121423 ####[facility] [address] [place] [address] Platelet mean volume (Bld) [Entitic vol] 10.8 fL Normal 6.4-10.8 [facility] Comment on above: Performed By: #### 1 7900694, 4110111, 2260821, 80635522, 2514879, 2145153 ####[facility] [address] [place] [address] Platelets (Bld) [#/Vol] 107.0 E9/L Low 150.0-500.0 [facility] Comment on above: Performed By: #### 1 3536479, 4253952, 7790834, 51158310, 4875248, 1995720 ####[facility] [address] [place] [address] RBC (Bld) [#/Vol] 5.0 E12/L Normal 4.3-5.9 [facility] Comment on above: Performed By: #### 1 2493997, 8680709, 7586284, 25636971, 3757953, 3678587 ####[facility] [address] [place] [address] WBC corrected for nucl RBC Auto (Bld) [#/Vol] 18.0 E9/L High 4.0-11.0 [facility] Comment on above: Performed By: #### 1 3584060, 5089186, 6258736, 15034662, 4204986, 4588290 ####[facility] [address] [place] [address] CHEMISTRYOrdered By: SYSTEM SYSTEM on 06-29-2023 Lactate [...] mg/dL Low 8.9 - 11. 1 mg/dL [facility] Remisol Chloride [Moles/Vol] 104 mmol/L Normal 101 - 1 11 mmol/L [facility] Remisol CO2 [Moles/Vol] 21 mmol/L Normal 21 - 31 mmol/L [facility] Remisol Creatinine [Mass/Vol] 1.0 mg/dL Normal 0.5 - 1.3 mg/dL [facility] Remisol GFR/1.73 sq M.predicted among non-blacks MDRD (S/P/Bld) [Vol rate/Area] 65 mL/min/1.73 m2 Normal >=59mL/min/1 .73 m2 [facility] Chem S Comment on above: Interpretive Data: C hronic kidney disease could be indicated at eGFR's of less than 60 mL/min/1.73m2. Kidney failure is indicated at less than 15 mL/min/1.73m2. Glucose [Mass/Vol] 209 mg/dL High 55 - 199 mg/dL [facility] Remisol Comment on above: Interpretive Data: I f this glucose result represents a fasting glucose, interpretation should refer to the following reference range: 55-99 mg/dL Potassium [Moles/Vol] 3.4 mmol/L Low 3.5 - 5.3 mmol/L [facility] Remisol Sodium [Moles/Vol] 135 mmol/L Normal 135 - 145 mmol/L [facility] Remisol Urea nitrogen [Mass/Vol] 30 mg/dL High 5 - 21 mg/dL [facility] Remisol Urea nitrogen/Creatinine [Mass ratio] 30 mg/mg High 10 - 20 [facility] Remisol Vancomycin trough [Moles/Vol] 8 microgram/mL Low 10 - 20 mcg/mL [facility] Remisol CHEMISTRYOrdered By: Chantael Jack on 06-29-2023 HbA1c (Bld) [Mass fraction] 9.7 % High <=5.9% [facility] ChemAutoSS Capillary Glucose POCon 06-13 Glucose [Mass/Vol] 221 mg/dL High 55-99 [facility] Comment on above: Result Comment: Yin cornell Meter Performed By: #### 2 625418 #### [facility] [address] [place] [address] Glucose [Mass/Vol] 165 mg/dL High 55-99 [facility] Comment on above: Result Comment: Simón lozano RN/ Performed By: #### 2 [id number] ####[facility] [address] [place] [address] Glucose [Mass/Vol] 194 mg/dL High 55-99 [facility] Comment on above: Result Comment: Simón lozano RN/ Performed By: #### 2 [id number] ####[facility] [address] [place] [address] Glucose [Mass/Vol] 219 mg/dL High 55-99 [facility] Comment on above: Result Comment: Simón lozano RN/ Performed By: #### 2 [id number] #### [facility] [address] [place] [address] HEMATOLOGYOrdered By: Jennifer davalos on 06-29-2023 Band form neutrophils/100 WBC (Bld) 12 % High 0 - 10 % [facility]ManSS Basophils/100 WBC (Bld) 0 % Normal 0 - 2 % F [facility] HemeManSS Basophils/Leukocytes Manual cnt (Bld) [Pure # fraction] 0.0 E9/L Normal 0.0 - 0.2 E9/L [facility] Eosinophils/100 WBC (Bld) 0 % Normal 0 - 8 % [facility] HemeManSS Eosinophils/Leukocytes Manual cnt (Bld) [Pure # fraction] 0.0 E9/L Normal 0.0 - 0.5 E9/L [facility] Erythrocyte distribution width (RBC) [Ratio] 14.1 % Normal 10.9 - 14.2 % [facility]Auto[facility] Hematocrit (Bld) [Volume fraction] 43.1 % Normal 34.0 - 46.0 % [facility] Hemoglobin (Bld) [Mass/Vol] 14.4 g/dL Normal 12.0 - 16.0 gm/dL [facility] Lymphocytes/100 WBC (Bld) 7 % Low [...] High 4.0 - 11.0 E9/L [facility]Auto[facility] OwaC8erk 06-29-2023 HbA1c (Bld) [Mass fraction] 9.7 % High <=5.9 [facility] Comment on above: Order Comment: Order placed by EKM rule. [id number] Performed By: #### 7 [id number] ####[facility] [address] [place] [address] Interdisciplinary Note - Vinayak e Manageron 06-29-2023 Interdisciplinary Note - Residential Therapist Pt is awake and alert in bed, [...] have scanned into chart. UR updated. Normal [facility] Comment on above: Result Comment: Elec tronically Signed By: Sol MERAZ, Juhi\.br\Date and Time Signed: 06/29/23 11:22 EDT Lactic Acidon 06-29-2023 Lactate [Mass/Vol] 1.8 mmol/L Normal 0.5-2.2 [facility] Comment on above: Order Comment: Order added by EKS Rule. (FT_LACTIC_ACID_REFLEX) Adds reflex Lactic Acid 4 hours after initial if result is greater than or equal to 2.0. Result Comment: 'Spe cimen hemolyzed, result may be affected. Redraw is recommended.' Performed By: #### 2 [id number] #### [facility] [address] [place] [address] Lactate [Mass/Vol] 2.6 mmol/L High 0.5-2.2 [facility] Comment on above: Performed By: #### 2 095985 #### [facility] [address] [place] [address] Manual Diffon 06-29-2023 Band form neutrophils/100 WBC (Bld) 12 % High 0-10 [facility] Comment on above: Order Comment: Order Added by Discern Expert. Performed By: #### 1 6273656, 5705679, 5702137, 54451373, 3552724, 3767914 ####[facility] [address] [place] [address] Basophils/100 WBC (Bld) 0 % Normal 0-2 [facility] Comment on above: Order Comment: Order Added by Discern Expert. Performed By: #### 1 6942707, 0858268, 3258899, 81218467, 3075761, 2957960 ####[facility] [address] [place] [address] Eosinophils/100 WBC (Bld) 0 % Normal 0-8 [facility] Comment on above: Order Comment: Order Added by Discern Expert. Performed By: #### 1 8610991, 7171051, 6248438, 90830714, 0282656, 5563030 ####[facility] [address] [place] [address] Lymphocytes/100 WBC (Bld) 7 % Low 14-50 [facility] Comment on above: Order Comment: Order Added by Mariano Expert. Performed By: #### 1 7364487, 1980147, 1089097, 46356872, 6030169, 3037962 ####[facility] [address] [place] [address] Monocytes/100 WBC (Bld) 0 % Low 4-14 [facility] Comment on above: Order Comment: Order Added by Mariano Expert. Performed By: #### 1 4640602, 6004096, 6633154, 45420538, 0338322, 8400175 ####[facility] [address] [place] [address] Morphology Javier (Bld) [Interp] Normal Normal [facility] Comment on above: Order Comment: Order Added by Mariano Expert. Performed By: #### 1 1935523, 8758249, 9117671, 86037581, 5255162, 4427919 ####[facility] [address] [place] [address] Segmented neutrophils/100 WBC (Bld) 81 % High 36-75 [facility] Comment on above: Order Comment: Order Added by Mariano Expert. Performed By: #### 1 2047495, 0058221, 2502348, 91985811, 1757603, 2932068 ####[facility] [address] [place] [address] Variant lymphocytes LM Ql (Bld) 0 % Normal <=0 [facility] Comment on above: Order Comment: Order Added by Discern Expert. Performed By: #### 1 8509992, 7413214, 8512615, 11009044, 1889708, 7381526 ####[facility] [address] [place] [address] Progress Note - Pharmacyon 1 Progress Note [...] Lymph Abs Man: 1.3 E9/L (06/29/23 05:59:00) [place] Abs Man: 0 E9/L Low (06/29/23 05:59:00) [...] mg/dL High (06/29/23 07:29:00) POC Device SN: [id number] (06/29/23 07:29:00) POC User ID: [id number] (06/29/23 07:29:00) POC Username: MATT BOOGIE (06/29/23 07:29:00) Vanco Random Level drawn at 0600 this morning 06/29 approx 12 hours after last dose of vancomycin 1.75 gm on 06/28 @ 1500. Normal [facility] Vanco Troughon 06-29-2023 VANCOMYCIN 8 microgram/mL Low 10-20 [facility] Comment on above: Performed By: #### 1 2203492, 8094780, 9458693, 24209947, 0246147, 8532179 ####[facility] [address] [place] [address] eGFRon 06-29-2023 GFR/1.73 sq M.predicted among non-blacks MDRD (S/P/Bld) [Vol rate/Area] 65 mL/min/1.73 m2 Normal >=59 [facility] Comment on above: Order Comment: Order added by Discern Expert. Result Comment: Loan Approver jyothi kidney disease could be indicated at eGFR's of less than 60 mL/min/1.73m2. Kidney failure is indicated at less than 15 mL/min/1.73m2. Performed By: #### 1 3261059, 3587704, 9913759, 27122976, 4743856, 6104939 ####[facility] [address] [place] [address] .Manual Abson 06-28-2023 Basophils/Leukocytes Manual cnt (Bld) [Pure # fraction] 0.0 E9/L Normal 0.0-0.2 [facility] Comment on above: Performed By: #### 1 9018241, 0749817, 3608099, 3111015, 2651749, 87597712, 6832491, 78212740 ####[facility] [address] [place] [address] Eosinophils/Leukocytes Manual cnt (Bld) [Pure # fraction] 0.0 E9/L Normal 0.0-0.5 [facility] Comment on above: Performed By: #### 1 6012804, 3087718, 6142949, 1456889, 7449131, 72073290, 8252718, 82611926 ####[facility] [address] [place] [address] Lymphocytes/Leukocytes Manual cnt (Bld) [Pure # fraction] 1.0 E9/L Normal 1.0-4.0 [facility] Comment on above: Performed By: #### 1 3061018, 9666760, 0457240, 5477368, 2693234, 47139782, 3913267, 74198505 ####[address] [place] [address] Monocytes/Leukocytes Manual cnt (Bld) [Pure # fraction] 0.4 E9/L Normal 0.2-1.0 [facility] Comment on above: Performed By: #### 1 4809056, 6197828, 6635990, 9907595, 3283414, 78312048, 2596520, 71207434 ####[address] [place] [address] Neutrophils/Leukocytes Auto (Bld) [Pure # fraction] 18.9 E9/L High 2.0-7.5 [facility] Comment on above: Performed By: #### 1 6474187, 8204240, 0687480, 8585633, 1017094, 16913878, 9139580, 92272383 ####[address] [address] CBC w/ Auto Diffon 3 Erythrocyte distribution width (RBC) [Ratio] 13.9 % Normal 10.9-14.2 [facility] Comment on above: Performed By: #### 1 3207189, 8155859, 7096430, 6802844, 8308893, 45305623, 0481992, 72247939 ####[address] [place] [address] Hematocrit (Bld) [Volume fraction] 44.7 % Normal 34.0-46.0 [facility] Comment on above: Performed By: #### 1 2528105, 8858331, 9067473, 9083789, 5203445, 76140687, 5530783, 51156957 ####[facility] [address] [place] [address] Hemoglobin (Bld) [Mass/Vol] 15.2 g/dL Normal 12.0-16.0 [facility] Comment on above: Performed By: #### 1 9335511, 6447365, 7107376, 0229744, 8785947, 60723749, 4117763, 44782823 ####[address] [place] [address] MCH (RBC) [Entitic mass] 29.2 pg Normal 27.0-34.0 [facility] Comment on above: Performed By: #### 1 3413080, 8374411, 1310314, 7644379, 2137583, 17748907, 0784404, 42718790 ####[address] [address] MCHC (RBC) [Mass/Vol] 33.9 g/dL Normal 31.4-36.0 [facility] Comment on above: Performed By: #### 1 4817500, 7443431, 6138755, 4876356, 2424268, 84094019, 2885713, 78030638 ####[address] [address] MCV (RBC) [Entitic vol] 85.9 fL Normal 80.0-100.0 [facility] Comment on above: Performed By: #### 1 5969798, 2842079, 5943983, 5832136, 6350863, 03209152, 0788197, 82616959 ####[address] [address] Platelet mean volume (Bld) [Entitic vol] 10.8 fL Normal 6.4-10.8 [facility] Comment on above: Performed By: #### 1 4749726, 8114130, 5888647, 3020921, 9765613, 67075612, 4227376, 29781401 ####[address] [address] Platelets (Bld) [#/Vol] 153.0 E9/L Normal 150.0-500.0 [facility] Comment on above: Performed By: #### 1 3510398, 0754872, 7112078, 2204674, 6122830, 45344058, 0914814, 21118491 ####[facility] [address] [place] [address] RBC (Bld) [#/Vol] 5.2 E12/L Normal 4.3-5.9 [facility] Comment on above: Performed By: #### 1 6434256, 1897099, 9214230, 6297642, 1587359, 11263598, 6381931, 70618696 ####[facility] [address] [place] [address] WBC corrected for nucl RBC Auto (Bld) [#/Vol] 20.3 E9/L High 4.0-11.0 [facility] Comment on above: Performed By: #### 1 6611959, 1368056, 1180719, 5561802, 8251686, 58820655, 6777445, 89687921 ####[facility] [address] [place] [address] CHEMISTRYOrdered By: SYSTEM SYSTEM on 06-28-2023 Lactate [...] 8.0 g/dL High 6.0 - 7.8 gm/dL [facility] Remisol Troponin I.cardiac [Mass/Vol] 56.60 pg/mL Invalid Interpretation Code 10.10 - 27.10 pg/mL [facility] Remisol Comment on above: Result Comment: Crit [...] High Sensitivity Troponin I Instructions For Use, [employer], April 2018) CMPon 06-28-2023 Albumin [Mass/Vol] 3.8 g/dL Normal 3.3-5.0 [facility] Comment on above: Performed By: #### 1 0253812, 0743849, 1216199, 1725899, 3608030, 07004213, 4350920, 30693913 ####[facility] [address] [place] [address] Albumin/Globulin (S) [Mass conc ratio] 0.9 Low 1.1-2.2 [facility] Comment on above: Performed By: #### 1 9483508, 5777308, 9508958, 4658413, 5333283, 55099767, 9409030, 67686089 ####[facility] [address] [place] [address] ALP [Catalytic activity/Vol] 64 Int._Unit/L Normal 21-98 [facility] Comment on above: Performed By: #### 1 2955419, 9850504, 6606659, 4793578, 4216669, 44128971, 4848803, 58698408 ####[facility] [address] [place] [address] ALT No additional P-5'-P [Catalytic activity/Vol] 29 Int._Unit/L Normal 6-46 [facility] Comment on above: Performed By: #### 1 8166251, 6454728, 2612077, 2787369, 0239794, 29426734, 0397897, 06822485 ####[facility] [address] [place] [address] AST [Catalytic activity/Vol] 46 Int._Unit/L High 5-43 [facility] Comment on above: Performed By: #### 1 1874909, 3557455, 6609425, 2371585, 9690313, 59786253, 2386500, 46286620 ####[facility] [address] [place] [address] Bilirubin [Mass/Vol] 1.2 mg/dL High 0.0-1.1 [facility] Comment on above: Performed By: #### 1 5393777, 4371834, 6588977, 9372516, 2232453, 86995564, 6622712, 45969869 ####[facility] [address] [place] [address] Creatinine [Mass/Vol] 1.4 mg/dL High 0.5-1.3 [facility] Comment on above: Performed By: #### 1 5150233, 5833642, 2113770, 1624631, 6058430, 91692659, 7557200, 68112552 ####[facility] [address] [place] [address] Globulin (S) [Mass/Vol] 4.2 g/dL High 1.4-4.0 [facility] Comment on above: Performed By: #### 1 3819842, 5549155, 6772275, 7495555, 8217050, 09533684, 8069556, 37327256 ####[facility] [address] [place] [address] Protein [Mass/Vol] 8.0 g/dL High 6.0-7.8 [facility] Comment on above: Performed By: #### 1 6303970, 4818026, 1214250, 0145341, 3692485, 84273347, 8693258, 88693820 ####[facility] [address] [place] [address] Urea nitrogen [Mass/Vol] 35 mg/dL High 5-21 [facility] Comment on above: Performed By: #### 1 5184721, 7932669, 7422469, 6590246, 4798527, 89608466, 6631852, 39026162 ####[facility] [address] [place] [address] Urea nitrogen/Creatinine [Mass ratio] 25 No Units High 10-20 [facility] Comment on above: Performed By: #### 1 1607370, 2625720, 6564322, 0743437, 8796383, 72676932, 1658348, 09074960 ####[facility] [address] [place] [address] Anion gap [Moles/Vol] 15 mmol/L Normal 6-16 [facility] Comment on above: Performed By: #### 1 1479577, 1339993, 9212746, 2831185, 2864576, 67681539, 9638627, 03428985 ####[facility] [address] [place] [address] Calcium [Mass/Vol] 9.0 mg/dL Normal 8.9-11.1 [facility] Comment on above: Performed By: #### 1 6338279, 2207226, 2351861, 6492661, 8473836, 29560615, 6436293, 89770744 ####[facility] [address] [place] [address] Chloride [Moles/Vol] 97 mmol/L Low 101-111 [facility] Comment on above: Performed By: #### 1 5501046, 9628115, 9590598, 8318424, 6473426, 96528430, 6077004, 57286887 ####[facility] [address] [place] [address] CO2 [Moles/Vol] 22 mmol/L Normal 21-31 [facility] Comment on above: Performed By: #### 1 9176809, 8360173, 1696264, 5135979, 3582034, 92440975, 3675397, 37161079 ####[facility] [address] [place] [address] Glucose [Mass/Vol] 233 mg/dL High 55-199 [facility] Comment on above: Result Comment: If t his glucose result represents a fasting glucose, interpretation should refer to the following reference range: 55-99 mg/dL Performed By: #### 1 6365774, 2523434, 7257034, 7503133, 4998428, 90711497, 2917999, 07450439 ####[facility] [address] [place] [address] Potassium [Moles/Vol] 3.7 mmol/L Normal 3.5-5.3 [facility] Comment on above: Performed By: #### 1 2029993, 5657169, 6358076, 0298421, 1397398, 91266619, 1067669, 94459735 ####[facility] [address] [place] [address] Sodium [Moles/Vol] 130 mmol/L Low 135-145 [facility] Comment on above: Performed By: #### 1 1233026, 3023708, 3780192, 2495311, 5754842, 89094303, 1803874, 10028682 ####[facility] [address] [place] [address] COAGULATIONOrdered By: Isaac Ballard on 06-28-2023 aPTT Coag (PPP) [Time] 39.3 s High 25.1 - 36.5 second(s) [facility] Auto Coag Comment on above: Interpretive Data: P arameter 15 days - 4 weeks 1 - [...] the same coagulation reagent and instrumentation as [facility]. Currently there are no coagulation studies available worldwide for children to 14 days, and no normal ranges. Heparin therapeutic range (represented by Anti-Factor Xa activity of 0.2 - 0.4 U/mL) corresponds to PTT of 56.6 - 109.0 sec. INR Coag (PPP) [Relative time] 1.6 {INR} Invalid Interpretation Code [facility] Auto Coag Comment on above: Interpretive Data: I NR results are specifically intended to assess patients stabilized on long-term Anticoagulation therapy suggested INR s Less Intensive Anticoagulation 2.0 3.0 Conventional Range 3.0 4.5 PT Coag (PPP) [Time] 18.5 s High 9.4 - 1 2.5 second(s) [facility] Auto Coag Comment on above: Interpretive Data: [...] the same coagulation reagent and instrumentation as [facility]. Currently there are no coagulation studies available worldwide for children to 14 days, and no normal ranges. Capillary Glucose POCon 06-13 Glucose [Mass/Vol] 224 mg/dL High 55-99 [facility] Comment on above: Result Comment: Simón lozano RN/ Performed By: #### 2 469118 #### [facility] [address] [place] [address] Consent for Treatmenton 06-13 Consent for Treatment [id number] #1.00TIFF Normal [facility] ED Clinical Summaryon 2022 ED Clinical Summary [address] [address] ED Clinical Summary Person Information Name: [facility] Age[facility] 57 Years : 1965 Sex: Female Language: Tristanian PCP: Karina Martinez DO Marital Status: Phone: [phone] Visit Id: Visit Reason: Fever; Shortness of breath; Leg pain-swelling; Cellulitis - Leg; LEG EDEMA Speciality: Acuity: 2 Enc Type: Observation Med Service: Emergency Arrival: 06/28/2023 14:45:11 Discharge: LOS: 000 03:57 Checkin: 06/28/2023 14:45:11 Checkout: 06/28/2023 18:42:45 Dispo Type: Admitted as IP to this [facility] EVENTS: Event Name Event Status Request Date/Time [...] 06/28/2023 18:28:40 06/28/2023 18:28:40 06/28/2023 18:28:41 ADDR[address]: [id number] [address] [facility] [id number] PHYS DOC NOTES: MEDICAL INFORMATION: Prescriptions Given: [...] of TIA (transient ischemic attack); 11:Obesity Normal [facility] ED Note-Nursingon 06-28-2023 ED Note-Nursing Grandmother came to ED to take the patient at great grandmother's house who's safety planned him. Said KELLY will make followup starting tomorrow at 1100 til Wednesday. Patient is calm and cooperative. Normal [facility] Comment on above: Other Comment: wrong entry ED Note-Physicianon 06-28-20 ED Note-Physician Basic Information Time Seen: Korey ARANDA, Juanjo Liz 06/28/2023 14:48 Chief Complaint Pt. came with [...] Complexity of Problems Differential Diagnosis: [] [facility] Data External documents reviewed: [] My EKG [...] making: [] (more content not included)... Normal [facility] Comment on above: Result Comment: Elec tronically Signed By: Korey ARANDA, Juanjo J.\.br\Date and Time Signed: 06/28/23 17:18 EDT\.br\Electronically Co-Signed By: Afshin Krueger DO\.br\Date and Time Co-Signed: 06/28/23 18:37 EDT ED Patient Education Noteon 06-28-2023 ED Patient Education Note Normal [facility] ED Patient Summaryon 023 ED Patient Summary [place] [id number] Patient Discharge Instructions Person Information Name: MARILYN DUNCAN Age: 57 Years Arrival Date: 06/28/2023 14:45:11 Discharge Diagnosis: 1:Sepsis; 2:Acute cellulitis; 3:Leukocytosis; 4:Acute renal failure; 5:Lactic acidosis; 6:Elevated troponin; 7:Diabetes mellitus, type II; 8:HTN (hypertension); 9:Hyperlipemia; 10:History of TIA (transient ischemic attack); 11:Obesity Primary Care Physician: Karina Martinez DO Provider Information Primary Provider: Afshin Krueger DO Advanced Airline Pilot:None The exam and treatment you received in the Emergency Department were for an urgent problem and are not intended as complete care. It is important that you follow up with a doctor, nurse practitioner, or physician?s assistant professor of archaeology for ongoing care. If your symptoms become [...] opioids can be used to help relieve onisfrkt-rn-vthnol pain and are often prescribed following a [...] be struggling with addiction, tell your health care specialist and ask for guidance or call [facility]?Kyree Tran (more content not included)... Normal [facility] HEMATOLOGYOrdered By: Heather Mitchell on 06-28-2023 Band form neutrophils/100 WBC (Bld) 5 % Normal 0 - 10 % [facility]Man[facility] Basophils/100 WBC (Bld) 0 % Normal 0 - 2 % F [facility] Basophils/Leukocytes Manual cnt (Bld) [Pure # fraction] 0.0 E9/L Normal 0.0 - 0.2 E9/L [facility] Eosinophils/100 WBC (Bld) 0 % Normal 0 - 8 % [facility] Eosinophils/Leukocytes Manual cnt (Bld) [Pure # fraction] 0.0 E9/L Normal 0.0 - 0.5 E9/L [facility] Lymphocytes/100 WBC (Bld) 5 % Low 14 - 50 % [facility] Lymphocytes/Leukocytes Manual cnt (Bld) [Pure # fraction] 1.0 E9/L Normal 1.0 - 4.0 E9/L [facility] Monocytes/100 WBC (Bld) 2 % Low 4 - 14 % [facility] Monocytes/Leukocytes Manual cnt (Bld) [Pure # fraction] 0.4 E9/L Normal 0.2 - 1.0 E9/L [facility] Morphology Javier (Bld) [Interp] Normal (06/28/23 3:20 PM) Normal [facility] Neutrophils/Leukocytes Auto (Bld) [Pure # fraction] 18.9 E9/L High 2.0 - 7.5 E9/L [facility] Segmented neutrophils/100 WBC (Bld) 88 % High 36 - 75 % [facility] Variant lymphocytes LM Ql (Bld) 0 % Normal <=0% [facility] Lactic Acidon 06-28-2023 Lactate [Mass/Vol] 2.7 mmol/L High 0.5-2.2 [facility] Comment on above: Performed By: #### 2 762155 #### [facility] [address] [place] [address] Lactate [Mass/Vol] 3.6 mmol/L High 0.5-2.2 [facility] Comment on above: Performed By: #### 1 0439480, 0994624, 0081793, 9354931, 6574188, 17645515, 3565121, 23510072 ####[facility] [address] [place] [address] Manual Diffon 06-28-2023 Band form neutrophils/100 WBC (Bld) 5 % Normal 0-10 [facility] Comment on above: Order Comment: Order Added by Discern Expert. Performed By: #### 1 6332017, 9363214, 1125555, 7246053, 8520455, 35214775, 8555706, 03906851 ####[facility] [address] [place] [address] Basophils/100 WBC (Bld) 0 % Normal 0-2 [facility] Comment on above: Order Comment: Order Added by Discern Expert. Performed By: #### 1 3670774, 5842931, 5736695, 7431269, 9650933, 68547721, 4394523, 66622107 ####[facility] [address] [place] [address] Eosinophils/100 WBC (Bld) 0 % Normal 0-8 [facility] Comment on above: Order Comment: Order Added by Discern Expert. Performed By: #### 1 4491667, 7640029, 0668072, 9270589, 0277904, 61108254, 4735251, 79537832 ####[facility] [address] [place] [address] Lymphocytes/100 WBC (Bld) 5 % Low 14-50 [facility] Comment on above: Order Comment: Order Added by Discern Expert. Performed By: #### 1 0819323, 2415180, 5927629, 8531632, 9921181, 89729601, 7734579, 73576652 ####[facility] [address] [place] [address] Monocytes/100 WBC (Bld) 2 % Low 4-14 [facility] Comment on above: Order Comment: Order Added by Discern Expert. Performed By: #### 1 9831909, 6210568, 8277735, 3179141, 6045579, 15647408, 8496049, 83838173 ####[facility] [address] [place] [address] Morphology Javier (Bld) [Interp] Normal Normal [facility] Comment on above: Order Comment: Order Added by Discern Expert. Performed By: #### 1 6801551, 8562126, 3066133, 1456768, 8659838, 60311346, 0549819, 55972448 ####[address] [place] [address] Segmented neutrophils/100 WBC (Bld) 88 % High 36-75 [facility] Comment on above: Order Comment: Order Added by Discern Expert. Performed By: #### 1 9272790, 5634753, 7298591, 9518425, 7708658, 15784109, 3390629, 99768186 ####[address] [place] [address] Variant lymphocytes LM Ql (Bld) 0 % Normal <=0 [facility] Comment on above: Order Comment: Order Added by Discern Expert. Performed By: #### 1 3097804, 8949129, 6173246, 3559539, 8323058, 84618580, 6162481, 57360858 ####[address] [place] [address] Monitor Recordon 06-28-2023 Monitor Record [id number] 4#1.00TIFF Normal [facility] Monitor Record [id number] 8#1.00TIFF Normal [facility] Monitor Record [id number] 4#1.00TIFF Normal [facility] No Panel InformationOrdered By: [facility] MICROBIOLOGY on 06-28-2023 Blood Culture Charcoal No growth at 4 da ys. Final to follow at 7 days. [facility] Blood Culture Charcoal No growth at 4 da ys. Final to follow at 7 days. [facility] PT & PTTon 06-28-2023 aPTT Coag (PPP) [Time] 39.3 second(s) High 25.1-36.5 [facility] Comment on above: Result Comment: Para meter [...] the same coagulation reagent and instrumentation as [facility]. Currently there are no coagulation studies available worldwide for children to 14 days, and no normal ranges. Heparin therapeutic range (represented by Anti-Factor Xa activity of 0.2 - 0.4 U/mL) corresponds to PTT of 56.6 - 109.0 sec. Performed By: #### 1 [id number], [id number], 2650507, [id number], 1710410, [id number], [id number], [id number] ####[facility] [address] [place] [address] INR Coag (PPP) [Relative time] 1.6 {INR} Invalid Interpretation Code [facility] Comment on above: Result Comment: INR results are specifically intended to assess patients stabilized on long-term Anticoagulation therapy suggested INR?s ?Less Intensive Anticoagulation? 2.0 ? 3.0 Conventional Range 3.0 ? 4.5 Performed By: #### 1 [id number], [id number], 8591258, 5665455, 2842335, [id number], 8712775, [id number] ####[facility] [address] [place] [address] PT Coag (PPP) [Time] 18.5 second(s) High 9.4-12.5 [facility] Comment on above: Result Comment: 15 d [...] the same coagulation reagent and instrumentation as [facility] Currently there are no coagulation studies available worldwide for children to 14 days, and no normal ranges. Performed By: #### 1 [id number], 1173101, 7469072, 3085674, 7134150, [id number], 2757880, [id number] ####[facility] [address] [place] [address] Pre-Arrival Noteon 3 Pre-Arrival Note Pre-Arrival Summary Name: , Current Date: 06/28/2023 14:46:33 EDT Gender: Female Date of : Age: 57 Pre-Arrival Type: EMS ETA: 06/28/2023 15:07:00 EDT Primary Care Physician: Presenting Problem: Leg edema Pre-Arrival User: Rae Butler RN Referring Source: Location: [place] Completion Date/Time: 06/28/2023 14:37:00 [facility] Emergency Department Pre-Hospital Report Form Vital Signs: Pre-Hospital Report: Treatment in Route: Response to Treatment: Misc. Issues: Normal [facility] Progress Note - Pharmacyon 1 [...] questions, please contact the pharmacy at extension [phone]. Age: 57 Years Allergies: ALLERGIES Weight: Last [...] 15.2 gm/dL (06/28/23 15:20:00) Hct: 44.7 % (06/28/23 15:20:00) MCV: 85.9 fL (06/28/23 15:20:00) MCH: 29.2 pg (06/28/23 15:20:00) MCHC: 33.9 gm/dL (06/28/23:20:00) RDW: 13.9 % (06/28/23:20:00) Platelet: 153 E9/L (06/28/23:20:00) MPV: 10.8 fL (06/28/23:20:00) Segs Man: 88 % High (06/28/23 15:20:00) Band Man: 5 % (06/28/23 15:20:00) Lymph Man: 5 % Low (06/28/23:20:00) Monocyte Man: 2 % Low (06/28/23:20:00) Eos Man: 0 % (06/28/23:20:00) Basophil Man: 0 % (06/28/23::00) React Lymph Man: 0 % (06/28/23:20:00) Segs Abs Man: 18.9 E9/L High (06/28/23:20:00) Lymph Abs Man: 1 E9/L (06/28/23:20:00) [place] Abs Man: 0.4 E9/L (06/28/23:20:00) Eos Abs Man: 0 E9/L (06/28/23:20:00) Basophil Abs Man: 0 E9/L (06/28/23:20:00) RBC Morph: Normal (06/28/23:20:00) PT: 18.5 second(s) High (06/28/23:20:00) INR: 1.6 (06/28/23:20:00) PTT: 39.3 second(s) High (06/28/23:20:00) Glucose Lvl: 233 mg/dL High (06/28/23 15:20:00) BUN: 35 mg/dL High (06/28/23 15:20:00) Creatinine: 1.4 mg/dL High (06/28/23 15:20:00) eGFR: 43 mL/min/1.73 m2 Low (06/28/23 15:20:00) BUN/Creat Ratio: 25 High (06/28/23 15:20:00) Sodium Lvl: 130 mmol/L Low (10/16/23 15:20:00) Potassium Lvl: 3.7 mmol/L (06/28/23 15:20:00) Chloride: 97 mmol/L Low (06/28/23 15:20:00) CO2: 22 mmol/L (06/28/23 15:20:00) AGAP: 15 mEq/L (06/28/23:20:00) Calcium Lvl: 9 mg/dL (06/28/23:20:00) Alk Phos: 64 Int._Unit/L (06/28/23 15:20:00) ALT: 29 Int._Unit/L (06/28/23:20:00) AST: 46 Int._Unit/L High (06/28/23:20:00) Total Protein: 8 gm/dL High (06/28/23 15:20:00) Albumin Lvl: 3.8 gm/dL (06/28/23:20:) Globulin: 4.2 gm/dL High (06/28/23:20:00) A/G Ratio: 0.9 Low (06/28/23:20:00) Bili Total: 1.2 mg/dL High (06/28/23 15:20:00) Lactic Acid Lvl: 3.6 mmol/L High (06/28/23 15:20:00) Troponin: 56.6 pg/mL Critical (06/28/23:20:00) Normal [facility] Troponinon 06-28-2023 Troponin I.cardiac [Mass/Vol] 56.60 pg/mL Abnormal 10.10-27.10 [facility] Comment on above: Result Comment: Crit ical [...] Instructions For Use, Geraldo Jessica, April 2018) Performed By: #### 1 [id number], [id number], 2943860, 8697136, 4986426, 60776147, [id number], [id number] ####[facility] [address] [place] [address] XR Chest Single Viewon 06-28 XR Chest [...] mGy = na DAP = na Normal [facility] eGFRon 06-28-2023 GFR/1.73 sq M.predicted among non-blacks MDRD (S/P/Bld) [Vol rate/Area] 43 mL/min/1.73 m2 Low >=59 [facility] Comment on above: Order Comment: Order added by Discern Expert. Result Comment: Loan Approver jyothi kidney disease could be indicated at eGFR's of less than 60 mL/min/1.73m2. Kidney failure is indicated at less than 15 mL/min/1.73m2. Performed By: #### 1 [id number], 7378227, 9342542, 5321968, 6659718, 38543261, 7398356, [id number] ####[facility] [address] [place] [address] Coding Summary.on 11-17-2022 Coding Summary. CD:[id number] Gh0bWw+PGhlYWQ+PE1FV XSsR33jmWYugR7MK7uBO R6PMJTAILLWDO1NEN4hx EK8JHpsN8XmtlRe IuqqbIExXK50CHc3QXA6 rZreYSltqU5chGMgN6r3 VtCmET48oQ50GCziFKYd QrQ4TsBtgmaciDVv M7ueZbJoxHAoUkj+PHRh YmxlIHdpZHRoPScxMDAl UvCdvKjpPU2xSd4rWBGs LWNvbGxhcHNlOiBj b2iwLIJvJGapAI9cuCyk S4IzpHG8UFMgk7s2Et08 dHI+UBXlSUX8oIbdCNrz y301DuBmn0bmTWP9 aNPnERncPZH0N50bb0S9 GXQgDGAhPUE0bCX1uZ7l tWfydmjwZ2DhkKBjJgU7 ISK8oUUpxP7ojWxj cvvavY1iQmh+D10YVH3X CLWDOT4BYqa6N5TbSeno dHI+QI27CQAiTI58qRKo dHUng1xazZl5QbDv NQGxUUB4tNskFGwet0Oi RSPzL34xdCAcl6L0QYZn tJlzoRMoOkWrbZN9pB1s WXpvvszuy9fopiqj Jiosy5hiij23qF00W94t FQanPIUaZER8PVCxIDWw aGqqlr2fwF5hYx7+IDxj j9cfj5hlsMw4HkTi DMSftfAuqErwBQZ0u7Ox Kz69Q6UfbWjta3DiWkf8 vy47vVLgd3O8pET1YJao EAVjqZ6iZTuvCrK7 XSSyOlXqsX35uYDkCAfs Im9ecOmwhUezER8lTLYx zvyqBXPcpU9pZDLohDOi gAfhHO2nQXLepgpa t161KgLdITM8BYEjbDFm D2EhjI6xZiAqVPZmNQWt Q1UddTIgAGqaO018VWgb VdB5LTHsniPaF8Wo SUYrtQjjQpB3a7R4Wk1S s4NxpnbsREH2EAypNZRk AcV8XfExLiW4U2SrJot9 HKFljMxfDF2vQ8Df RVBoxopouifhnKM6VSDu DLRhnH81jNHyIQhrMn2i p3H7j304KJSeVCOcpU43 Yj8bzVfwTYVyhKDA tJ5bodyld9sycfbrGaHd QOJwXUn6DJu1GESthRmf UpHqLHR8OhK0UVO8cSCb uU2ciXirfoankX1q Oyc+W64cmC8vQZJ8UTM2 mrjgYZWardUdXJ99DB60 Y5DvTiotuZVwhZH+PGRp isZucGqkCV0dGjHp r8rvy2OoQKouY8IoEDBi AJqoDnv7HAPnSXH8oPL0 zF9sBDNkMOvif2G1pBA6 U6IifqZjhs0da2me SWBuHNtaN43ahALbx4N0 TJTxuTH1UXFteYynZoBs lZ13Vcd+PMEqgBqbh1Aq Imivt4isr2jziIs9 IjMwJSIgdmFsaWduPSJ0 i8GtIl22G42vXVzzIQPb KSCeFNVaREBedRwewt6z mP9yIt0+PGNvbCB3 oKQ5hH6rOUYgZoM7WEyl W600YrAkdDBxFrjaq0oq q4cejVt2VmIeTYXzaiAg ySuiTFH5y7FdIg83 N87dIXpnWBFaQHVzGAUw HPXxyRrgog7nsX1oSx7+ ZC5tz3vroj90jC76lEJ+ JIJzYGH8yWkrSSjw VGCjoQ8fOXqnNaR4JTKh NaNfwT73qSZvFCvvTz8x jPfwuOvrKU3uRTQxaadf y751ZiZsn9sbWFNo dSNqRFlpTLC5S77jh3U1 HDVcDSSkGRH0wSJ0mG0q bGlnbjogbGVmdDsgdmVy jHblYLpcYZrsZ987 IHRvcDsnPlBhdGllbnQg YzWiPOn5A1PpFwj1OGEc rJusJC8blVZmFWttFw5y yOwcoMnwFX8nZFIl lcajw316CwBps4mbWMEg vICnRNgwXGT8T06bi5L8 ZBHsWYItQHS1dZA2pV0a bGlnbjogbGVmdDsg hpYtbSnsTBaeULqqZ087 IHRvcDsnPkJpcnRoIERh eTB3XK97PN86xYFyq9F1 cLA1E4MeBDJiobvw cqzvaRT1YYEoIMKdjX76 Hf8qkSddJu5jVERvMBA5 OLHxkXNwV5TylV7mYmLw BFPiJSSvA0UwgQWi IRoqF642OVcxLfO1URLk ybGgZ0FlPZZxuMaqQeR1 q8I5Nx7QQ1X0TD02II56 oPWii4L6pAS2D6Ul MPPkzsqwzornwDR7GEFi LCMgiC38Uu6qkOikUc3d MHAmVWF6HFVivROtJ2Kc gG3hYoOiOUFiQHUy S8JmgGDnMDffY092HJry HnW8TJXeuaCzS7JvJHAs pBfjRxO4p6V4Kz5GQZj0 PW28OR12oJRhr4Z0 zPO2N7ZtQGYpauowhdgw mCN1EBAuHWRakZ00Ev0q oOuzGt8hARQwOXL6DSBa tBIrY7LzsH3mJeIl CBJbXYVtV2YbzTJtHRng U687GStoNuP5LRYperRi G2QqMKVxmUyrMxR5r4S3 Sm9CVMOnCF47DIP1 gOF9QT47PH70K9NqUtki dGFibGU+PHRhYmxlIHdp ZHRoPScxMDAlJyBzdHls NC6oRx3xDNHbNTSh oGrlsIUdQqMtn9fiAYYy ANfjHF3lxEirH9OacKC4 QRXgy2z9Gf10Z16nZ8Qf dXA+QJUumJM3nZZ1 nX2aPqNmPaT5TOsoS346 PtVvkXLcCluhz8ofu7yt fUv4NkR0TDOicwPhqCof SWX5v5UoWg67C73n IHdpZHRoPSIxNSUiIHZh jIqfxk9crB7iAe7+PGNv kYU2lPB7sM0sEfHzMzT5 QJxwA312UtGezGMw Lftxn7opa5mgyHx1FqAi QIApyaRzeHnyWGM3u7Gc Li56G2RrtRfrk9TnUtr2 qo27lSJxk1M7mSV4 R6TsPFMewtnneGPutAcq WU8cWXTxitdsYDIulI2d VFVtO5a9MlDzHmF9DMpt M0FapsN5WJDgkLTh PAwcTBN6Q48kp0J8VFBc FIUmTRT6eVO1aP5qxZji bjogbGVmdDsgdmVydGlj CEveSFmeA622GBRj mScxKGVlnU8jDKAvsQBe sXhaXB4lBRVyluozDfDR RqVRJaDTVZMtMUCXDf1B RDt3L6HbSnf6ZLGf fHmtYY2uhEEvBXdwSh4e sLcmoCxyMF8pEJGxdinq ZCErqA8bPCFcbXArlIqg AG3fLMRqgpeod517 TbTjYQK0BESlxTKjZ4Bs oV4mIwNuHQTkZYVfB4Sc vODkZDsoY726CEalQsE0 KOWckaChC3UvQPDb hXbeJeD3h7M9Ll1mAL0q FM1uHBM5JW24RG15mJNn y7L5oPE5T3JoJOHlcfcy sozaaLM2YNNlQFIu nG08rQViQDkqXs1kn3D7 l934LXAdEMOjvA44Hp8o yOnaQWCbiFDZmM5fdeag o9vndiijFdZlRGBh DSv6EKr2PCParXxeSkQo XMD4LxG1OTF4xCZfyG3n eFcuexubvQ7cFdy+NTkg BZEhdsA2I4MbGzn5 ECCaiXqdQF2dzYRgMKjd Xw7reLtvrRfsRO3kAYSd nxvkARCtaN3mTAAogWCq sDdtIJ0zUZMjtdzq z816ByRxYIO0XMAtdHZe X4UwgY3fXbZqZTBgDTUj M8KhdZDcWMwvC822RBjc WbM1VCMwniOvM3Xd BSIajGtnYoL1f5F3Om7I ZW1lkXT6E8GvGwg5DJGk bIorTL4kdDZmXSrtYv8o qPygdWdeJP8tUHKl pugjVNXkiQ7qSSYjeSEr bBygPS7nNBHjcqlcm418 ZhLsRSF5CYXsyWQpD8Gj eQ9jIrKcVRHdQBPd C5BgmGPwITmfC593VRrq KyD3REWrrsOkL3PbCMPg aQtfUmQ1m4W0Rd4BkPFd XKPcWO25QW45IV56 U1EyNpkygYPfxVU+PHRh YmxlIHdpZHRoPScxMDAl AqTtmZmtEF6rMg9gRYTw LWNvbGxhcHNlOiBj a8pkEJXsCDbsVS7svAkh C1VqaGP0GNSxv5r9Yk57 T59eA9KwsQS+PGNvbCB3 xVH5oY0bTpHbQtI2 VNkfP601LvZulHNrXxrq d5roh6rfyXw9JxZtYOGa seHuhEuxWJY0m6EgEm09 J12oWJvaWVFbMDTq LXHmESEbaTlgfb8ugE8q Ii8+YNAajLE8qVN2wK7c XuRjYeR2XFezJ245AkYp tHXnWjxeK56wV0Qd dXA+BHIeSqk9KYOvdYkq NJ8pjJXsLWmbTj3gNCW0 XjJgNaHxWAzzE6IzZLBd jhgnygchsLK1UCUj FCVqqC97Ih1xrTbtWy2u RHRdVRV9ZNVhlXKtI5Di gZ0wTmGqQVQaQVIxK8Rb qJAeENbmS296KXin OvT0RZQyeoJtH2AuRYAx bKekHdI3l4G0Vf2DcKyt bFUmOO4mSaFwYQg9Z0Ow Dwb9ACLqkBooFK0j sVPvAAftYn3wgOcdsMde KB6wLXYlljhxy193RfHc h9rxFDGvvUMpFTcrWVR9 P40cl6G3ZOEhDQNp BFM5lQV0nZ4xcXuaylea bGVmdDsgdmVydGljYWwt SVckB518MWThxDiqGmCW Hpg8U2NqJsa7CZQz oJmyVM8gkTRzSQetOz6h aXcxjCzxLB2eVVZvhfsg w078NbLfz5cvCWGhdORm YIyvQOG0K71zc6P5 ZRAjWUUtLVE3lVR9hQ9t bGlnbjogbGVmdDsgdmVy rXenLZjxDVvjD571FPXb fFagLr2XXbg0C3Qh Kby4WDHbqTbmRU4wqXYj WNalGq5xcVoaeDtiZM7j PXBvwxsos722MsSoj9rd IDEwcHQgVGltZXM7 N56ab3U8LYQuMEQnYTO9 xFJ5jD4qyAkudlptfQLk dDsgdmVydGljYWwtYWxp W573HHResZinFxGq eWVyOjwvdGQ+PR67zv24 E0NwUdzoGeb6OECoLJG2 rCX5hY6qBPTeRFzyv6U5 nFT1L4QpjvNunw3e b2xs (more content not included)... Normal [facility] Nursing Note - Woundon 11-13 Nursing Note - Wound [phone] 0 [id number] Normal [facility] Interdisciplinary Note - Nut ritionon 11-12-2022 Interdisciplinary [...] DM educ incase she decides to attend educ. [facility] Comment on above: Result Comment: Elec tronically Signed By: Dionicio UNGER, RD., LD., Shalini Burnette\.carlos\Date and Time Signed: 11/12/22 14:05 EST Coding Summary.on 11-11-2022 Coding Summary. CD:[id number] Gh0bWw+PGhlYWQ+PE1FV GTtO25maBIuxW3EL5iIQ D1XVTXNGTNDTE8MDW7fp PN7ZEabA8XfczCj NoofoVLdYZ28GTz1MBM3 gVmbNLzlnL7ssWNpF6c8 DaFaNQ07hD14QNfkUZOv UxE1XhAejlazwYQi R7irSdChcHMkApw+PHRh YmxlIHdpZHRoPScxMDAl AaRzwWmvAF9sTp1cBUQy LWNvbGxhcHNlOiBj p9pmSLKqCHypHN7upRjl H0BmoAW3UZTtn0c7Ly50 dHI+OOEqNKK3pQpxHHfj f560MwBnk9uiUND7 rFZmGFydWKY3Z65bj8D5 FNPcYKWfCER8qRO2mQ6o uVrgoydcO6OleFKyMlX9 YWF9vJIuxY7fgJrb vtuxzZ7dYdr+G35ANF3J QPFRBV5VQgu7K6KgQduq dHI+NI15ZREuYI21eIUc iQYmg8xofAi1GaCw OEXcZWD0rIzzECawc3Aw DPXkV88bzPBau3A7XYWt lNjwmBFjDsEtoXA1eZ4j XXgahpzem8qvtvzq Xcumi5qjio27pO14D38k YHctLMMzVBX5LDJrEPGo rNirox8lkW3tAk1+IDxj t4roq1uvnGf6UzXm YZTsdlCzdTgnCLW7e2He Nq07O5RztHymr6MwIaa9 in96jJQyg7H1rIS0YHlh RDMsvZ5iBDvfMeH5 YZEdYjLnnZ33tCGvZKyr Fw6mgLhtzZmhQV6eJDMl bclxWOZrfL9eHVJpgDBp rKhmPE7qITIuebzz z210QnLhVEG0LQFkeVWi D1TcjG7bHrKuMRNkINHf B7AzcYMkRKvhT409XZqy EiT2RTTgkiHdV5Cn HBUujCluHfF8v1I5Ru5W n4WtwtwtKYM4MWosDMFz LuPeXyShVwO0F1RmYzg1 YTNytEvfSS8gI1Ze SVGdyljvjxbafPD6NZHd EXDnkO17vGDaUQmmRy4b s7L7r167ROGsTEXebL34 Up8ggOuvNHKsvOXK iU5iadxts5blmhkrQkMp KJTyJPc7QSw7APPxgUrn ZqZkUHL3HmF8JIQ2nQVs oR0dxWsagejjaT7d Oyc+L02poM9wLTZ2MBN4 pqmaMGTnoiZsKS47TR21 H8UrAzflgWVctAM+PGRp ydWueIrhSJ9hYlXs t2cnc0UrTKtsP6AnFBDn ULoxKot0MBIhAGK3sQI2 jL0hSPNaPExbi9O1mDO5 E9FmobXlfy9ek5iz WVNvPOsoL88axMPhi7O2 JNAkgBZ2WBHovTriIcNh cS39Kwm+IXCpdNtvh5Ys Tbixf9xvk2mzlVa2 IjMwJSIgdmFsaWduPSJ0 q3ViBo86V22lDYjuLZUy SKVfBXSfWSLspSqfqo4w sN6lKv6+PGNvbCB3 yMT6kZ8iXBLcNeP2LMgi P559PmEzdAMwNkkea0vb w8navEk8NdIoWFTdszQf mUezFKX1p8OnJw99 M55nMRagDRKzUZHoMDXs MWHcxXfsny1bpN9oAp7+ AL7qm2rotp01pE07dJX+ CYNyZKT2uHzjBVrc LQLclZ1fJPepReN7GTLg QiAtkF02sPKrDNenDm5u fWficQleGA8uSQSqambc v677BsJrb2hoJMYk cBOiGTtmYFS9C42wm0J6 HMFhISVtXNR6oQU8nK9j bGlnbjogbGVmdDsgdmVy oCrnNUcfPBsxV191 IHRvcDsnPlBhdGllbnQg MrNpRAa3W4ZxNzx0UZTn sLssFF1ggHQkMFddZn9l sUlexHvxLL0xNVSl vkimi498YyDuj9dqJORr jIKeBRyvZRU2L36jt3U4 YHUfDPEvNBE5gJK4yN3a bGlnbjogbGVmdDsg zqEzsKgxURsoSQuxQ339 IHRvcDsnPkJpcnRoIERh aFG2PX08FM53lNElp9D3 aRR8F6XfKQQqfqqq iczlbJE4KKMnQIPgcY27 Gg6dfTxbPr6rVDAnBNF4 SMLqmKBrS8HstP7qLhJx SUKaOFVuG9JtyERj TSylS078FTptSzG5PBBq zdYaI5GdDQMsxYkxInN8 k2C3Sc0RF3V9SV20TE43 kTQwc8P8uNW9Q0Vn YTIwjianguoupTY8WTLy UPIxoU76Zz8cbZyqZl6v VRCfGLG2ULOxcHRrB4Lu xI8jQiKfUCOaZNZo L5UgsZVuWIjmD622CJjm NtT3XOOgfiRpO7IlYNGq nKozTaR8t2K3Ml9HKAc3 QD08KA91xEZcz3R1 cWR3F0BcQEPcojnefjut vLH9IOSoJVIlnO14Xz5m vMsyLw9gHVPfHDR8ZKMv qDMeV4AneD4sOoBd OMLsNYLcK5WcdTYdWGzu T931IRiiFyV0OSFikvIq L8IiZMGenBdrTmI9g5T8 Bi3OMXSkWV89YUH4 lXU3WB93EG34M0IqPrxw dGFibGU+PHRhYmxlIHdp ZHRoPScxMDAlJyBzdHls KQ0zHp8fGKYoMCVj oBhdkALsIiFgj1cpIHEx MYpgTD4laTmuG8QxmOJ1 FULcx2a4Rf72B56bV8Qg dXA+IWMhcSC5rGL5 xF7gBkAbLeU0BJmeN139 BfGzwHZjQlmzr0jql3xt iFh6NwP8FHKiheSowViu KZP3b6DmGa38B95u IHdpZHRoPSIxNSUiIHZh xBqljs4ubF8hWs7+PGNv uES8dLH8xJ7mShUlCfU1 ALhoV573YuMhcBMf Ckqff3xtb3tujEq8ZmPu RYYgkyGuwAwxUDU4j3Pa Pd91L1IlkJjao4ZpBan7 ld57oBWja8Y8lXP4 D0LsUHWwmedjpZUpuFuk HX3wZPAjajraEAYbxC2s EVKcN5v9TwPjHeT5XAhi Y8VlydW8DAKwtHWz UQqkAJB0Y88ha0L6FOVr VEZcYUY2bSC9eA6qgCxw bjogbGVmdDsgdmVydGlj MUesUGcgQ945LMSr vViiMBDivQ0kEVOxiHAa uAkwQF1wTVAtacrbNrRW NvWNJbDYIYBdZFJKXp3H JBs2Z0CqXcq0QUGp sMcgPY2jwAEoJQqtVj0x hOihrCmdFU6eOIFamgiw DVVvvP6yMDVmoTPfnEwi FN1eNIBhkqyyc945 LfFvOWW1JJRzuJLjJ8Qo sR6pKvUlLVVbEYUoT1Sv mUBdYKuuW847RXteZoX9 ZZZmgzPjS7WtVFTf zWhcZqJ9u1D7Fb3rBX7i UX7jTVJ2XM59BL81vNEm x8B3dUN7S7JnBUJibsym uxvwsVF1ULBcLKHz fK04uFNmFWqxEd4wp3P1 k412NBBzUEAcgH45Bl1x oDuqZQTzuLKIiZ5wscly z0olaimcNxXpDNAy RKk8EQo2HWXymQuzOrNj TKK8CvY0HST0qVWdtU7l aElcnkoegQ8kDwu+NTkg OYOpaoY1K6VqWle6 DDPkaJieTU3kmVZjDMhm Lr3urJccuPnaPX9pESMb qnoeERDrbW9aFVEpaZDz vLxyLY1cIQLxlalc a788LjMmEQK5SLChkWLm K9PoqJ3qIyLdQDVeECYu J7PraEHiOIdsO144BSgk IcW7PXMxnoKcH9Gx FILrhCuqFcN1h4J1Cx6K KB7lhVW9C5BrVyj5XYCb bLxpBF5xaINfHBhwTr3c wIyrgUjeGU6kWEEk brjmKNKxgL2pYKDkwHKn dZpgID0lNTOomvaqm623 TjFyIZH7MAUyhFNhT4Rn bY0oFqDiKHTgPEIr H0DivVZtULfhS529NBcs ZyO1MGAkivGdB3XgGHVe aSfmRzW4e2R0Rn8QpFYx WEEsNI26ES75GU51 J5OlHruecQEalBO+PHRh YmxlIHdpZHRoPScxMDAl ZkKijJcfUJ4wAa6tXJNa LWNvbGxhcHNlOiBj c7daMJSvASehOC9ylAcc H3VveRP9OJIba2h5Gt78 J91tT5XfxTJ+PGNvbCB3 gXX6tG8sRiObKxW8 EWvaB954QsVlyODcRaxk b0lpu6kfqCj7FcZmBDHu hrUquVsrESU8k6XlKa40 R11fVZjeZBHeJVAc XUIpYZOtkDkjre3toU2t Ii8+SYWclTH3yAL2cE2k ZoWpLrH6BAkeF957WsTb vBPqBxljH15lX1Th dXA+DXMeIfj6PFFckDrk QX1njVXdIFipYw4nTMP8 JeOcGuMuGScdU8DuFHQc kunnhjxwpCB0NBDb NERktW71Gs6ucIcuJg6t KJZeQHM2GIIgeHNaB7Rh eD1vHzQlGQZbKLInV1Ip rMLjEPfpY585XTwa JdT4IAKeltBzU0IpAYWm rAfbNuU2z5H2Ls5FxOfa yFFqHZ2oEjClGLo4W1Fd Dax9OBCegOczNI6c pBKaIWqzCx2xrHutaHrl FF2pMUUnmzskc057UdSn r7blHDRscAZcBZtwDMN0 S76qp2A2RIFjPCKf EJB0bBG1kY1htCyowkmx bGVmdDsgdmVydGljYWwt BJdrX545GWEegBbpVcWV Isc0I1KiJri3EZFr eFuiTV5qdCHcLSpvTg6j iYzkjCgrTA5iOUMqllxe u231OmYth0lyQEVtzWBa LKlbQVN7T20ow7E5 ELIxQDMrKNV4nGF3rP2r bGlnbjogbGVmdDsgdmVy aSzqVCubRVhlW241EYFv kMvbMv9CVoh8S0Yr Wdu4KWJunAscQN8mgLFu KLkiUf3vhDofcKwwLJ0u HDQrzyqxd864NfKqi0da IDEwcHQgVGltZXM7 E00ud8C6FRRlOCKaSNZ8 vIW3kS3bcTojmlpacBMj dDsgdmVydGljYWwtYWxp X313PWAlkBieKtJl eWVyOjwvdGQ+WN63ia33 Z9AyPhvqOsp5NBKlVLX8 lWK3nX1cGINdURioi9H1 cTA1U5SmehZhea5t b2xs (more content not included)... Normal [facility] Consent for Procedure/Surger yon 11-11-2022 Consent for Procedure/Surgery [id number] #1.00CD:127 Normal [facility] Consent for Treatmenton Consent for Treatment [id number] #1.00CD:127 Normal [facility] Multi-Wound Charton 11-12-19 Multi-Wound Chart [id number] 3#1.00CD:127 Normal [facility] Nursing Assessment - Woundon 11-11-2022 Nursing Assessment - Wound [id number] 6#1.00CD:127 Normal [facility] Physician Orderon 11-11-2022 Physician Order [id number] 6#1.00CD:127 Normal [facility] Progress Note - Woundon Progress Note - Wound [id number] 0#1.00CD:127 Normal [facility] CHEMISTRYOrdered By: SYSTEM SYSTEM on 05-02-2022 Albumin [Mass/Vol] 3.8 g/dL Normal 3.3 - 5.0 gm/dL [facility] Remisol Albumin/Globulin [Mass ratio] 1.2 {ratio} Normal [...] 0.6 mg/dL Normal 0.5 - 1.3 mg/dL [facility] Remisol GFR/1.73 sq M.predicted among blacks MDRD (S/P/Bld) [Vol rate/Area] mL/min/1.73 m2 Normal >=59mL/min/1 .73 m2 FT Chem S GFR/1.73 sq M.predicted among non-blacks MDRD (S/P/Bld) [Vol rate/Area] mL/min/1.73 m2 Normal >=59mL/min/1 .73 m2 FT Chem S Globulin (S) [Mass/Vol] 3.2 g/dL [...] Triglyceride [Mass/Vol] 61 mg/dL Normal <=149mg/dL [facility] Remisol Urea nitrogen [Mass/Vol] 17 mg/dL Normal [...] gm/dL [facility] HemeAutoSS MCV (RBC) [Entitic vol] 86.8 fL Normal 80.0 - 100.0 fL [facility] HemeAutoSS Platelet mean volume (Bld) [Entitic vol] 9.9 fL Normal 6.4 - 10.8 fL [facility] HemeAutoSS Platelets (Bld) [#/Vol] 180.0 E9/L Normal 150. 0 - 500.0 E9/L [facility] HemeAutoSS RBC (Bld) [#/Vol] 4.8 E12/L Normal 4.3 - 5.9 E12/L [facility] WBC corrected for nucl RBC Auto (Bld) [#/Vol] 6.5 E9/L Normal 4.0 - 11.0 E9/L [facility] Reference Laboratory Testing Ordered By: Cynthia Taylor on 05-02-2022 Test Code 910026 Invalid Interpretation Code [facility] Test Name genesis by ifa Invalid Interpretation Code [facility] CBC Auto DifferentialOrdered By: Karina Martinez on 04-21-2021 Basophils (Bld) [#/Vol] 0.0 10*3/uL 0.0 - 0.2 K/uL [facility] Phone: Basophils/100 WBC (Bld) 0.5 % [facility] Phone: Eosinophils (Bld) [#/Vol] 0.1 10*3/uL 0.0 - 0.7 K/uL [facility] Phone: Eosinophils/100 WBC (Bld) 1.6 % [facility] Phone: Hematocrit (Bld) [Volume fraction] 48.6 % High 37.0 - 47.0 % [facility] Phone: Hemoglobin.gastrointest inal spec 1 Ql (Stl) 16.4 g/dL High 12.0 - 16.0 g/dL [facility] Phone: Interpretation and review of laboratory results Abnormal [facility] Phone: Lymphocytes (Bld) [#/Vol] 1.9 10*3/uL 1.0 - 4.8 K/uL [facility] Phone: Lymphocytes/100 WBC (Bld) 32.8 % [facility] Phone: MCH (RBC) [Entitic mass] 30.9 pg 27.0 - 31.3 pg [facility] Phone: MCHC (RBC) [Mass/Vol] 33.8 % 33.0 - 37.0 % [facility] Phone: MCV (RBC) [Entitic vol] 91.4 fL 82.0 - 100.0 fL [facility] Phone: Monocytes (Bld) [#/Vol] 0.5 10*3/uL 0.2 - 0.8 K/uL [facility] Phone: Monocytes/100 WBC (Bld) 8.9 % M [employer] Phone: Neutrophils Absolute 3.3 K/uL 1.4 - 6 .5 K/uL [facility] Phone: Neutrophils/100 WBC (Bld) 56.2 % [facility] Phone: Platelet distribution width (Bld) [Ratio] 13.6 % 11.5 - 14.5 % [facility] Phone: Platelets (Bld) [#/Vol] 167 10*3/uL 130 - 400 K/uL [facility] Phone: RBC (Bld) [#/Vol] 5.32 10*6/uL [facility] Phone: WBC (Bld) [#/Vol] 5.9 10*3/uL 4.8 - 10.8 K/uL [facility] Phone: [facility] Phone: CBC With Platelet and Differ entialon 04-21-2021 Basophils (Bld) [#/Vol] 0.0 10*3/uL Normal 0.0-0.2 [facility] Comment on above: Performed By: #### C BCWD #### [facility] [address] [facility] [address] Basophils/100 WBC (Bld) 0.5 % Normal [facility] Comment on above: Performed By: #### C BCWD #### [facility] [address] [place] [address] Eosinophils (Bld) [#/Vol] 0.1 10*3/uL Normal 0.0-0.7 [facility] Comment on above: Performed By: #### C BCWD #### [facility] [address] [place] [address] Eosinophils/100 WBC (Bld) 1.6 % Normal [facility] Comment on above: Performed By: #### C BCWD #### [facility] [address] [place] [address] Erythrocyte distribution width (RBC) [Ratio] 13.6 % Normal 11.5-14.5 [facility] Comment on above: Performed By: #### C BCWD #### [facility] [address] [place] [address] Hematocrit (Bld) [Volume fraction] 48.6 % Critically high 37.0-47.0 [facility] Comment on above: Performed By: #### C BCWD #### [facility] [address] [place] [address] Hemoglobin (Bld) [Mass/Vol] 16.4 g/dL Critically high 12.0-16.0 [facility] Comment on above: Performed By: #### C BCWD #### [facility] [address] [place] [address] Lymphocytes (Bld) [#/Vol] 1.9 10*3/uL Normal 1.0-4.8 [facility] Comment on above: Performed By: #### C BCWD #### [facility] [address] [place] [address] Lymphocytes/100 WBC (Bld) 32.8 % Normal [facility] Comment on above: Performed By: #### C BCWD #### [facility] [address] [place] [address] MCH (RBC) [Entitic mass] 30.9 pg Normal 27.0-31.3 [facility] Comment on above: Performed By: #### C BCWD #### [facility] [address] [place] [address] MCHC 33.8 % Normal 33.0-37.0 [facility] Comment on above: Performed By: #### C BCWD #### [facility] [address] [place] [address] MCV (RBC) [Entitic vol] 91.4 fL Normal 82.0-100.0 [facility] Comment on above: Performed By: #### C BCWD #### [facility] [address] [place] [address] Monocytes (Bld) [#/Vol] 0.5 10*3/uL Normal 0.2-0.8 [facility] Comment on above: Performed By: #### C BCWD #### [facility] [address] [place] [address] Monocytes/100 WBC (Bld) 8.9 % Normal [facility] Comment on above: Performed By: #### C BCWD #### [facility] [address] [place] [address] Neutrophils (Bld) [#/Vol] 3.3 10*3/uL Normal 1.4-6.5 [facility] Comment on above: Performed By: #### C BCWD #### [facility] [address] [place] [address] Neutrophils/100 WBC (Bld) 56.2 % Normal [facility] Comment on above: Performed By: #### C BCWD #### [facility] [address] [place] [address] Platelets (Bld) [#/Vol] 167 10*3/uL Normal 130-400 [facility] Comment on above: Performed By: #### C BCWD #### [facility] [address] [place] [address] RBC (Bld) [#/Vol] 5.32 10*6/uL Normal 4.20-5.40 [facility] Comment on above: Performed By: #### C BCWD #### [facility] [address] [place] [address] WBC (Bld) [#/Vol] 5.9 10*3/uL Normal 4.8-10.8 [facility] Comment on above: Performed By: #### C BCWD #### [facility] [address] [place] [address] Comprehensive Metabolic Pane silviano 04-21-2021 Albumin [Mass/Vol] 4.0 g/dL Normal 3.5-4.6 [facility] Comment on above: Performed By: #### C MP #### [facility] [address] [place] [address] ALP [Catalytic activity/Vol] 95 U/L Normal 40-130 [facility] Comment on above: Performed By: #### C MP #### [facility] [address] [place] [address] ALT [Catalytic activity/Vol] 16 U/L Normal 0-33 [facility] Comment on above: Performed By: #### C MP #### [facility] [address] [place] [address] Anion gap [Moles/Vol] 15 mmol/L Normal 9-15 [facility] Comment on above: Performed By: #### C MP #### [facility] [address] [place] [address] AST [Catalytic activity/Vol] 14 U/L Normal 0-35 [facility] Comment on above: Performed By: #### C MP #### [facility] [address] [place] [address] Bilirubin [Mass/Vol] 1.2 mg/dL Critically high 0.2-0.7 [facility] Comment on above: Performed By: #### C MP #### [facility] [address] [place] [address] Calcium [Mass/Vol] 9.8 mg/dL Normal 8.5-9.9 [facility] Comment on above: Performed By: #### C MP #### [facility] [address] [place] [address] Chloride [Moles/Vol] 97 mmol/L Normal 95-107 [facility] Comment on above: Performed By: #### C MP #### [facility] [address] [place] [address] CO2 [Moles/Vol] 23 mmol/L Normal 20-31 [facility] Comment on above: Performed By: #### C MP #### [facility] [address] [place] [address] Creatinine [Mass/Vol] 0.48 mg/dL Low 0.50-0.90 [facility] Comment on above: Performed By: #### C MP #### [facility] [address] [place] [address] GFR >60.0 Normal >60 [facility] Comment on above: Result Comment: >60 mL/min/1.73m2 EGFR, calc. for ages 18 and older using the MDRD formula (not corrected for weight), is valid for stable renal function. Performed By: #### C MP #### [facility] [address] [place] [address] GFR/1.73 sq M.predicted among blacks MDRD (S/P/Bld) [Vol rate/Area] mL/min/{1.73_m2} Normal >60 [facility] Comment on above: Result Comment: >60 mL/min/1.73m2 EGFR, calc. for ages 18 and older using the MDRD formula (not corrected for weight), is valid for stable renal function. Performed By: #### C MP #### [facility] [address] [place] [address] Globulin (S) [Mass/Vol] 4.0 g/dL Critically high 2.3-3.5 [facility] Comment on above: Performed By: #### C MP #### [facility] [address] [place] [address] Glucose [Mass/Vol] 300 mg/dL Critically high 70-99 [facility] Comment on above: Performed By: #### C MP #### [facility] [address] [place] [address] Potassium [Moles/Vol] 3.7 mmol/L Normal 3.4-4.9 [facility] Comment on above: Performed By: #### C MP #### [facility] [address] [place] [address] Protein [Mass/Vol] 8.0 g/dL Normal 6.3-8.0 [facility] Comment on above: Performed By: #### C MP #### [facility] [address] [place] [address] Sodium [Moles/Vol] 135 mmol/L Normal 135-144 [facility] Comment on above: Performed By: #### C MP #### [facility] [address] [place] [address] Urea nitrogen [Mass/Vol] 14 mg/dL Normal 6-20 [facility] Comment on above: Performed By: #### C MP #### [facility] [address] [place] [address] Comprehensive Metabolic Pane lOrdered By: Karina Martinez on 04-21-2021 Albumin [Mass/Vol] 4 g/dL 3.5 - 4.6 g/dL [employer] Phone: ALP (Bld) [Catalytic activity/Vol] 95 U/L 40 - 130 U/L [employer] Phone: ALT [Catalytic activity/Vol] 16 U/L 0 - 33 U/L [employer] Phone: Anion gap [Moles/Vol] 15 mmol/L [facility] [employer] Phone: AST [Catalytic activity/Vol] 14 U/L 0 - 35 U/L [employer] Phone: Bilirubin [Mass/Vol] 1.2 mg/dL High 0.2 - 0 .7 mg/dL [employer] Phone: Calcium [Mass/Vol] 9.8 mg/dL 8.5 - 9.9 mg/dL [facility] Phone: Chloride [Moles/Vol] 97 mmol/L [facility] [employer] Work Phone: CO2 [Moles/Vol] 23 mmol/L [facility] Work Phone: Creatinine [Mass/Vol] 0.48 mg/dL Low 0.50 - 0.90 mg/dL [facility] Phone: Free PSA/Total PSA [Mass fraction] 8.0 g/dL 6.3 - 8.0 g/dL [employer] Phone: GFR >60.0 >60 [employer] Phone: Comment on above: >60 mL/min/1.73m2 EG FR, calc. for ages 18 and older using the MDRD formula (not corrected for weight), is valid for stable renal function. GFR Non- >60.0 >60 [facility] Work Phone: Comment on above: >60 mL/min/1.73m2 EG FR, calc. for ages 18 and older using the MDRD formula (not corrected for weight), is valid for stable renal function. Globulin (S) [Mass/Vol] 4 g/dL High 2.3 - 3.5 g/dL [facility] Phone: Glucose [Mass/Vol] 300 mg/dL High 70 - 99 mg/dL [facility] Work Phone: Interpretation and review of laboratory results Abnormal [facility] Phone: Potassium [Moles/Vol] 3.7 mmol/L [facility] [employer] Work Phone: Sodium [Moles/Vol] 135 mmol/L [facility] [employer] Phone: Urea nitrogen (BldV) [Mass/Vol] 14 mg/dL 6 - 20 mg/dL [facility] Phone: [facility] Work Phone: Hemoglobin [id number] By: Corwin Martinez on 04-21-2021 HbA1c (Bld) [Mass fraction] 11.6 % High 4.8 - 5.9 % [employer] Phone: Interpretation and review of laboratory results Abnormal [employer] Phone: [employer] Phone: Hemoglobin A1con 04-21-2021 HbA1c (Bld) [Mass fraction] 11.6 % Critically high 4.8-5.9 [facility] Comment on above: Performed By: #### A 1C #### [facility] [address] [place] [address] Sedimentation Rateon 021 Sedimentation Rate 34 mm Critically high 0-30 [facility] Comment on above: Performed By: #### E SR #### [facility] [address] [place] [address] Sedimentation RateOrdered By : Karina Martinez on 04-21-2021 Interpretation and review of laboratory results Abnormal [employer] Phone: Sed Rate 34 mm High 0 - 30 mm [employer] Phone: [employer] Phone: XR FOOT LEFT (MIN 3 VIEWS)on [...] Esau Ball MD 04/21/21 Final result Normal [facility] XR FOOT LEFT (MIN 3 VIEWS)Or dered By: Karina Martinez on 04-21-2021 MILD SOFT TISSUE SWELLING. [employer] Phone: LEFT FOOT RADIOGRAPHS HISTORY: Cellulitis of left foot ICD10 TECHNIQUE: Left foot, 3 views, . COMPARISON: None. RESULT: No fracture or dislocation. Alignment is anatomic. Joint spaces are well maintained. Mild soft tissue swelling. Posterior and plantar calcaneal enthesophytes.. [employer] Phone: Sanchez, Chpo Incoming Radiant Results From [facility] - 04/21/2021 4:49 PM EDT LEFT FOOT RADIOGRAPHS HISTORY: Cellulitis of left foot ICD10 TECHNIQUE: Left foot, 3 views, . COMPARISON: None. RESULT: No fracture or dislocation. Alignment is anatomic. Joint spaces are well maintained. Mild soft tissue swelling. Posterior and plantar calcaneal enthesophytes.. IMPRESSION: MILD SOFT TISSUE SWELLING. [employer] Work Phone: [employer] Phone: Vital Signs Date Time Vital Sign Value Performing Clinician Faci lity 10-21-2023 17:25-0500 Body mass index (BMI) [Ratio] 44.48 kg/m2 Karina [employer] System[employer] DO Work Phone: [facility] [employer] 10-21-2023 17:25-0500 Body temperature 97 [degF] Karina [employer] DO Work Phone: [facility] [employer] 10-21-2023 17:25-0500 Body weight 128.82 kg Karina Allsop DO Work Phone: [facility] [employer] 10-21-2023 17:25-0500 Diastolic blood pressure 80 mm[Hg] Karina Allsop DO Work Phone: [facility] [employer] 10-21-2023 17:25-0500 Heart rate 86 /min Karina Allsop DO Work Phone: [facility] [employer] 10-21-2023 17:25-0500 SaO2% (BldA) [Mass fraction] 98 % Karina Allsop DO Work Phone: [facility] [employer] 10-21-2023 17:25-0500 Systolic blood pressure 120 mm[Hg] Karina Allsop DO Work Phone: [facility] 10-16-2023 15:15-0500 Hourly Rounding Ronobir FRANKLIN [facility] 10-16-2023 15:15-0500 Promise to Return Ronobir FRANKLIN [facility] 10-16-2023 15:15-0500 SaO2% (BldA) [Mass fraction] 99 % Ronobir FRANKLIN [facility] 10-16-2023 12:51-0500 Hourly Rounding Ronobir FRANKLIN [facility] 10-16-2023 12:51-0500 Promise to Return Ronobir FRANKLIN [facility] 10-16-2023 12:30-0500 gluc 246 mg/dL Ronobir FRANKLIN [facility] 10-16-2023 12:00-0500 Diastolic blood pressure 83 mm[Hg] Ronobir FRANKLIN [facility] 10-16-2023 12:00-0500 Heart rate 72 /min Ronobir FRANKLIN [facility] 10-16-2023 12:00-0500 Systolic blood pressure 144 mm[Hg] Ronobir FRANKLIN [facility] 10-16-2023 11:51-0500 Hourly Rounding Ronobir FRANKLIN [facility] 10-16-2023 11:51-0500 Promise to Return Ronobir FRANKLIN [facility] 10-16-2023 09:27-0500 Diastolic blood pressure 81 mm[Hg] Ronobir FRANKLIN [facility] 10-16-2023 09:27-0500 Heart rate 73 /min Ronobir FRANKILN [facility] 10-16-2023 09:27-0500 Systolic blood pressure 141 mm[Hg] Ronobir FRANKLIN [facility] 10-16-2023 08:26-0500 Heart rate 73 /min Ronobir FRANKLIN [facility] 10-16-2023 08:26-0500 SaO2% (BldA) [Mass fraction] 98 % Ronobir FRANKLIN [facility] 10-16-2023 08:23-0500 Diastolic blood pressure 81 mm[Hg] Ronobir FRANKLIN [facility] 10-16-2023 08:23-0500 Mean blood pressure 101 mm[Hg] Ronobir FRANKLIN [facility] 10-16-2023 08:23-0500 Systolic blood pressure 141 mm[Hg] Ronobir FRANKLIN [facility] 10-16-2023 08:22-0500 Body temperature 98.06 [degF] Ronobir FRANKLIN [facility] 10-16-2023 00:30-0500 Blood Pressure Location Ronobir FRANKLIN [facility] 10-16-2023 00:30-0500 Body temperature 97.88 [degF] Ronobir FRANKLIN [facility] 10-16-2023 00:30-0500 Heart rate 83 /min Ronobir FRANKLIN [facility] 10-16-2023 00:30-0500 Mean blood pressure 96 mm[Hg] Ronobir FRANKLIN [facility] 10-16-2023 00:30-0500 Respiratory rate 18 /min Ronobir FRANKLIN [facility] 10-15-2023 20:28-0500 Heart rate 73 /min Ronobir FRANKLIN [facility] 10-15-2023 20:15-0500 Blood Pressure Location Ronobir FRANKLIN [facility] 10-15-2023 20:15-0500 Body temperature 97.52 [degF] Ronobir FRANKLIN [facility] 10-15-2023 20:15-0500 Respiratory rate 18 /min Ronobir FRANKLIN [facility] 10-15-2023 15:00-0500 gluc 163 mg/dL Ronobir FRANKLIN [facility] 10-15-2023 15:00-0500 Heart rate 88 /min Ronobir FRANKLIN [facility] 10-15-2023 09:26-0500 Heart rate 89 /min Ronobir FRANKLIN [facility] 10-15-2023 09:18-0500 Mean blood pressure 106 mm[Hg] Ronobir FRANKLIN [facility] 10-14-2023 20:29-0500 Mean blood pressure 102 mm[Hg] Ronobir FRANKLIN [facility] 10-14-2023 16:26-0500 gluc 124 mg/dL Ronobir FRANKLIN [facility] 10-14-2023 16:00-0500 Mean blood pressure 91 mm[Hg] Ronobir FRANKLIN [facility] 10-14-2023 16:00-0500 Respiratory rate 18 /min Ronobir FRANKLIN [facility] 10-13-2023 21:59-0500 Heart rate 108 /min Ronobir FRANKLIN [facility] 10-13-2023 20:53-0500 Respiratory rate 12 /min Ronobir FRANKLIN [facility] 10-13-2023 19:57-0500 Respiratory rate 25 /min Ronobir FRANKLIN [facility] 10-13-2023 18:53-0500 Respiratory rate 22 /min Ronobir FRANKLIN [facility] 10-13-2023 17:40-0500 Heart rate 127 /min Ronobir FRANKLIN [facility] 08-23-2023 13:34-0500 Diastolic blood pressure 78 mm[Hg] Aris Christofferson [facility] 08-23-2023 13:34-0500 Mean blood pressure 106 mm[Hg] Aris Christofferson [facility] 08-23-2023 13:34-0500 Systolic blood pressure 162 mm[Hg] Aris Christofferson [facility] 08-23-2023 13:21-0500 Blood Pressure Location Aris Christofferson [facility] 08-23-2023 13:21-0500 Diastolic blood pressure 83 mm[Hg] Aris Christofferson [facility] 08-23-2023 13:21-0500 Heart rate 55 /min Aris Christofferson [facility] 08-23-2023 13:21-0500 SaO2% (BldA) [Mass fraction] 99 % Aris Christofferson [facility] 08-23-2023 13:21-0500 Systolic blood pressure 158 mm[Hg] Aris Christofferson [facility] 07-02-2023 14:00-0400 Hourly Rounding [facility] 07-02-2023 13:16-0400 Hourly Rounding [facility] 07-02-2023 13:16-0400 Promise to Return [facility] 07-02-2023 12:16-0400 Hourly Rounding [facility] 07-02-2023 12:16-0400 Promise to Return [facility] 07-02-2023 11:52-0400 Promise to Return [facility] 07-02-2023 10:33-0400 Heart rate 106 /min [facility] 07-02-2023 10:33-0400 SaO2% (BldA) [Mass fraction] 99 % [facility] 07-02-2023 10:33-0400 Diastolic blood pressure 75 mm[Hg] [facility] 07-02-2023 10:33-0400 Mean blood pressure 90 mm[Hg] [facility] 07-02-2023 10:33-0400 Systolic blood pressure 120 mm[Hg] [facility] 07-02-2023 10:32-0400 Body temperature 97.7 [degF] [facility] 07-02-2023 09:01-0400 Diastolic blood pressure 88 mm[Hg] [facility] 07-02-2023 09:01-0400 Heart rate 77 /min [facility] 07-02-2023 09:01-0400 Systolic blood pressure 147 mm[Hg] [facility] 07-02-2023 08:03-0400 Heart rate 99 /min [facility] 07-02-2023 08:03-0400 SaO2% (BldA) [Mass fraction] 97 % [facility] 07-02-2023 08:02-0400 Diastolic blood pressure 88 mm[Hg] [facility] 07-02-2023 08:02-0400 Mean blood pressure 108 mm[Hg] [facility] 07-02-2023 08:02-0400 Systolic blood pressure 147 mm[Hg] [facility] 07-02-2023 08:02-0400 Body temperature 97.7 [degF] [facility] 07-02-2023 01:27-0400 Heart rate 91 /min [facility] 07-02-2023 01:27-0400 SaO2% (BldA) [Mass fraction] 98 % [facility] 07-01-2023 20:44-0400 Heart rate 111 /min [facility] 07-01-2023 19:53-0400 Heart rate 100 /min [facility] 07-01-2023 19:51-0400 Body temperature 97.88 [degF] [facility] 07-01-2023 19:50-0400 Mean blood pressure 102 mm[Hg] [facility] 07-01-2023 16:00-0400 Blood Pressure Location [facility] 07-01-2023 16:00-0400 Respiratory rate 16 /min [facility] 07-01-2023 08:00-0400 Respiratory rate 18 /min [facility] 07-01-2023 01:57-0400 Body temperature 97.34 [degF] [facility] 06-30-2023 23:20-0400 Body temperature 97.16 [degF] [facility] 06-30-2023 23:20-0400 Mean blood pressure 94 mm[Hg] [facility] 06-30-2023 20:00-0400 gluc 294 [facility] 06-30-2023 19:00-0400 Blood Pressure Location [facility] 06-30-2023 19:00-0400 Body temperature 98.06 [degF] [facility] 06-30-2023 00:00-0400 Blood Pressure Location [facility] 06-30-2023 00:00-0400 Mean blood pressure 89 mm[Hg] [facility] 06-29-2023 20:00-0400 Mean blood pressure 88 mm[Hg] [facility] 06-28-2023 18:55-0400 Heart rate 111 /min [facility] 06-28-2023 18:00-0400 Heart rate 107 /min [facility] 06-28-2023 18:00-0400 Respiratory rate 19 /min [facility] 06-28-2023 17:02-0400 Heart rate 112 /min [facility] 06-28-2023 17:02-0400 Respiratory rate 30 /min [facility] 06-28-2023 16:00-0400 Respiratory rate 21 /min [facility] 06-28-2023 15:25-0400 gluc 233 mg/dL [facility] 06-28-2023 15:25-0400 gluc [facility] 04-07-2021 15:06-0400 Diastolic blood pressure 105 mm[Hg] Patel Raymond MD Work Phone: [employer] Work Phone: 04-07-2021 15:06-0400 Systolic blood pressure 219 mm[Hg] Patel Raymond MD Work Phone: [employer] Work Phone: 04-07-2021 14:18-0400 Body height 170.2 cm Patel Raymond MD Work Phone: [employer] Work Phone: 04-07-2021 14:18-0400 Body mass index (BMI) [Ratio] 46.99 kg/m2 Patel Raymond MD Work Phone: [employer] Work Phone: 04-07-2021 14:18-0400 Body temperature 98.49 [degF] Patel Raymond MD Work Phone: [employer] Work Phone: 04-07-2021 14:18-0400 Body weight 136.08 kg Patel Raymond MD Work Phone: [employer] Work Phone: 04-07-2021 14:18-0400 Heart rate 100 /min Patel Raymond MD Work Phone: [employer] Work Phone: 04-07-2021 14:18-0400 Respiratory rate 20 /min Patel Raymond MD Work Phone: [employer] Work Phone: 04-07-2021 14:18-0400 SaO2% (BldA) [Mass fraction] 97 % Patel Raymond MD Work Phone: [employer] Work Phone: Encounters Encounter Date Encounter Type Care Provider Facility Start: 11-25-2023 End: 11-26-2023 Pre-admission assessment Aris Juares [facility] Start: 10-26-2023 [facility]imo [facility]LL[facility] Comment on above: Cellulitis of other specified site (Primary Dx) Start: 10-21-2023 End: 10-21-2023 ambulatory KARINA Britton ALLSOP Not Available Start: 10-21-2023 End: 10-21-2023 Transitional care manage srvc 7 day discharge Karina Morgansop DO Work Phone: [facility] Comment on above: Cellulitis of right lower extremity (Primary Dx); Uncontrolled type 2 diabetes mellitus with hypoglycemia without coma ([facility]/HCC); Edema, unspecified type; Primary hypertension ([facility]); Peripheral venous insufficiency Start: 10-21-2023 Bamboo flowsheet Karina Britton Al lsop DO Work Phone: [facility] Start: 10-21-2023 Bamboo flowsheet Karina Britton Al lsop DO Work Phone: [facility] Start: 10-13-2023 End: 10-16-2023 Evaluation and management of inpatient Adarsh Betancourt [facility] Start: 10-13-2023 End: 10-16-2023 Evaluation and management of inpatient Jhonatanjohnsonsony REID [facility] Start: 09-10-2023 End: 10-01-2023 Pre-admission assessment Aris Juares [facility] Start: 09-09-2023 End: 09-09-2023 ambulatory KARINA MORGANSOP Not Available Start: 08-23-2023 End: 08-24-2023 ambulatory Aris Juares [facility] Start: 08-23-2023 End: 08-23-2023 Patient encounter procedure Aris Juares [facility] Start: 07-27-2023 End: 07-28-2023 ambulatory Mark Chen Facility[facility] Start: 07-27-2023 End: 07-27-2023 Patient encounter procedure Mark Chen [facility] Start: 07-20-2023 End: 07-21-2023 ambulatory SELF REFERRAL Facility:[facility] Start: 07-20-2023 End: 07-20-2023 Patient encounter procedure Mark Chen [facility] Start: 07-08-2023 End: 07-09-2023 ambulatory Karina Morgansop Facility[facility] Start: 07-08-2023 End: 07-08-2023 Patient encounter procedure Karina Martinez [facility] Start: 06-28-2023 End: 07-02-2023 Evaluation and management of inpatient Alaa ALAHMAD [facility] Start: 06-28-2023 End: 07-02-2023 Evaluation and management of inpatient Alaa ALAAD [facility] Start: 11-11-2022 End: 11-12-2022 ambulatory Sky Chen Facility[facility] Start: 11-11-2022 End: 11-11-2022 Patient encounter procedure Sky Chen [facility] Start: 11-06-2022 End: 11-06-2022 Patient encounter procedure Sky Chen [facility] Start: 05-02-2022 End: 05-02-2022 Patient encounter procedure Karina Martinez [facility] Start: 01-09-2022 End: 02-24-2022 Pre-admission assessment Anne Mathis [facility] Start: 04-21-2021 End: 04-24-2021 ambulatory KARINA MORGANPablo [facility] Start: 04-21-2021 End: 04-23-2021 Subsequent hospital visit by physician [facility] Comment on above: Arrived Cellulitis of left f oot Start: 04-07-2021 End: 04-07-2021 Emergency department patient visit PATEL RAYMOND [facility] Start: 04-07-2021 End: 04-07-2021 Emergency department patient visit Patel Raymond MD Work Phone: [facility] Comment on above: Peripheral edema [...] me (disorder) Anne Mathis Hand tendon repaired Mohbryanna Mathis Plan of Treatment Date Care Activity Detail Author Start: 10-21-2024 Urine screening for protein Diabetes: Urine Protein Screening [facility] Start: 08-02-2024 Screening for malignant neoplasm of cervix Cervical Cancer Screening [facility] Comment on above: Postponed from 1993 (Patient Refus ed) Start: 07-26-2024 Glaucoma screening Diabetes: Retinopathy Screening [facility] Comment on above: Postponed from 1973 (Patient Refus ed) Start: 07-20-2024 Screening for malignant neoplasm of breast Mammogram [facility] Comment on above: Postponed from 2003 (Patient Refus ed) Start: 07-15-2024 Screening for malignant neoplasm of colon Colorectal Cancer Screening [facility] Comment on above: Postponed from 1963 (Patient Refus ed) Start: 07-15-2024 Urine screening for protein Diabetes: Urine Protein Screening [facility] Start: 03-12-2024 Influenza vaccination Influenza Vaccine (#1) [facility] Comment on above: Postponed from 05/14/2023 (Patient Refus ed) Start: 01-19-2024 Hemoglobin A1c measurement Diabetes: Hemoglobin A1C [facility] Start: 10-21-2023 End: 10-21-2023 Patient encounter procedure 10/21/2023 5:30 PM EST Office Visit [facility] [address] [place] [id number] Karina Martinez DO [address] [place] [address] Arrived [facility] Comment on above: Arrived Start: 10-08-2023 Hemoglobin A1c measurement Diabetes: Hemoglobin A1C [facility] Start: 04-21-2022 Creatinine measurement Creatinine monitoring [employer] Phone: Start: 04-21-2022 Potassium monitoring Potassium monitoring [employer] Phone: Start: 07-22-2021 Hemoglobin A1c measurement A1C test (Diabetic or Prediabetic) [employer] Phone: Start: 05-14-2021 Influenza vaccination Flu vaccine (#1) [employer] Phone: Start: 2013 Screening for malignant neoplasm of breast Breast cancer screen [employer] Phone: Start: 2013 Shingles Vaccine (1 of 2) Shingles Vaccine (1 of 2) [employer] Phone: Start: 2008 Screening for malignant neoplasm of colon Colon cancer screen colonoscopy [employer] Phone: Start: 2003 Diabetes screen Diabetes screen [employer] Phone: Start: 2003 Lipid panel Lipid screen [employer] Phone: Start: 1993 Screening for malignant neoplasm of cervix HPV/Cotest [facility] Start: 1984 Screening for malignant neoplasm of cervix [facility] Start: 1982 DTaP/Tdap/Td vaccine (1 - Tdap) DTaP/Tdap/Td vaccine (1 - Tdap) [employer] Phone: Start: 1981 Diabetic microalbuminuria test Diabetic microalbuminuria test [employer] Phone: Start: 1978 HIV screening HIV screen [employer] Phone: Start: 1975 COVID-19 Vaccine (1) COVID-19 Vaccine (1) [employer] Phone: Start: 1973 Diabetic foot examination Diabetic foot exam [employer] Phone: Start: 1973 Diabetic retinal exam Diabetic retinal exam [employer] Phone: Start: 1973 Lipid panel Lipid screen [employer] Phone: Start: 1963 Creatinine measurement Creatinine monitoring [employer] Phone: Start: 1963 Hepatitis C screening Hepatitis C screen [employer] Phone: Start: 1963 Potassium monitoring Potassium monitoring [employer] Phone: Start: 1963 Screening for malignant neoplasm of colon [facility] Immunizations Immunization Date Immunization Notes Care Provider Fa cility 02-01-2021 SARS-CoV-2 (COVID-19) Ad26 vaccine, recombinant Aris Juares [facility] NEGATED: Highlighted row has not occurred!08-23-2023 influenza virus vaccine, unspecified formulation Aris Juares [facility] Payers Date Payer Category Payer Unknown [id number] 2021 Unknown 2021 Unknown [id number] [id number] [id number] 1963 Unknown [id number] 2.16.8 [id number] 1963 Unknown [id number] 2.16.8 [id number] 1963 Unknown [id number] 2.16.8 [id number] 1963 Unknown [id number] 2.16.8 [id number] 1963 Unknown [id number] 2.16.84 [id number] 1963 Unknown [id number] 1965 Unknown [id number] 2.16.8 [id number] 1965 Unknown [id number] 2.16.8 [id number] 1965 Unknown [id number] 2.16.8 [id number] 1965 Unknown [id number] 2.16.8 [id number] 1965 Unknown [id number] 2.16.8 [id number] 1965 Unknown [id number] 2.16.8 [id number] 1965 Unknown [id number] 2.16.8 [id number] Social History Date Type Detail Facility Start: 04-07-2021 End: 08-23-2023 Tobacco smoking status [facility] Never smoker [facility] Start: 04-07-2021 End: 07-08-2023 Tobacco use and exposure Never used [employer] Start: 04-07-2021 End: 10-21-2023 Alcohol intake Lifetime non-drinker (finding) [facility] Phone: Start: 04-07-2021 History SDOH Alcohol Frequency 1 [employer] Phone: Start: 1965 Sex Assigned At Not on file M [employer] Phone: Exposure to SARS-CoV -2 (event) Not sure [facility] Tobacco smoking status No Smokin g Status Entered [facility] Start: 09-09-2023 End: 10-21-2023 Sex Assigned At Female [facility] Tobacco smoking status No Smokin g Status Entered [facility] Tobacco smoking status Never [facility] Start: 09-09-2023 End: 10-21-2023 History of Social [...] Assessment Result Facility 10-13-2023 Functional Status N/A [facility] 10-13-2023 Functional Status [facility] 08-23-2023 Functional Status No [facility] 06-28-2023 Functional Status No [facility] 06-28-2023 Functional Status [facility] Clinical Notes 05-02-2022 to 10-26-2023 Telephone Encounter - Flor Patton MA - 10/26/2023 10:05 AM ESTTelephone Encounter - Flor Patton MA - 10/26/2023 10:05 AM Tiago Martinez DO - 10/21/2023 5:30 PM EST Note Date & Type Note Facility 10-26-2023 Telephone encounter Note Pt left stating Dr Betancourt at [facility] prescribed her doxycycline and she is about out of it. Do you want her to keep taking? If so she will need a refill. Pt was worried about not taking it long enough. Please advise. [facility] 10-26-2023 Miscellaneous Notes Pt left stating Dr Betancourt at [facility] prescribed her doxycycline and she is about out of it. Do you want her to keep taking? If so she will need a refill. Pt was worried about not taking it long enough. Please advise. documented in this encounter [facility] 10-21-2023 History of Presen t illness Narrative Charla Duncan is a 58 y.o. female presents with chief complaint of Diabetes [place]: [place] [facility] - home 10/16/2023 Home on doxycyline Has an appointment to follow with wound clinic next week [facility] 8.7 Has an appointment at [facility]. Has a follow up with [...] of discharge No Discharge Date 07/02/23 Discharge [facility] Discharged To: Home Setting Engagement Call [...] Psychiatric/Behavioral: Negative. General: Denies fever, chills, fatigue, ERDDY or weight loss/gain CV: Denies CP, palpitations [...] Practice; Future Edema, unspecified type Primary hypertension (CMS/HCC) Peripheral venous insufficiency documented in this encounter [facility] 10-21-2023 Note Microbiology PROCEDURE: Blood Culture Charcoal [R1] SOURCE: Blood BODY SITE: Wrist R COLLECTED DATE/TIME: 10/13/2023 18:02 EST RECEIVED DATE/TIME: 10/13/2023 18:13 EST START DATE/TIME: 10/13/2023 18:13 EST FREE TEXT SOURCE: IV Start Juanjo Nair PA-C. Korey ARANDA, Juanjo Lowry. FINAL REPORTS Final Report [] Verified Date/Time: 10/21/2023 07:00 EST No growth at 7 days. Performing Locations R1: This test was performed at: [facility], [address] [place] [address], [address] [place] [address], [facility] Comment on above: Performed By: #### [id number] ####[address] [address] 10-21-2023 Note Microbiology PROCEDURE: Blood Culture Charcoal [R1] SOURCE: Blood BODY SITE: Arm L COLLECTED DATE/TIME: 10/13/2023 18:01 EST RECEIVED DATE/TIME: 10/13/2023 18:13 EST START DATE/TIME: 10/13/2023 18:13 EST FREE TEXT SOURCE: Peripheral vein site #1 Juanjo Nair PA-C. Korey ARANDA, Juanjo Lowry. FINAL REPORTS Final Report [] Verified Date/Time: 10/21/2023 07:00 EST No growth at 7 days. Performing Locations R1: This test was performed at: [facility], [address] [place] [address], [address] [place] [address], [facility] Comment on above: Performed By: #### [id number] ####[address] [address] 10-16-2023 Hospital Discharg e instructions Patient Education 10/16/2023 16:15:49 Atrial Fibrillation, Lmnr-pb-Mich Atrial Fibrillation Atrial fibrillation is a type [...] Follow these instructions at home: Medicines Take psst-vlo-isedjzj and prescription medicines only as told by [...] provider. Document Revised: 02/21/2020 Document Reviewed: 02/21/2020 [employer] Patient Education 2022 [employer]. 10/16/2023 16:15:24 Cellulitis, Adult, Hpme-fe-Eihf Cellulitis, Adult Cellulitis is a skin infection. [...] Follow these instructions at home: Medicines Take rhbf-dzw-ivrvkzz and prescription medicines only as told by [...] provider. Document Revised: 06/11/2022 Document Reviewed: 06/11/2022 [employer] Patient Education 2022 [employer]. Follow Up Care 10/13/2023 17:31:04 With:Mark Chen Address: [facility] [address] [place] [address]- 0 Business (1) When:1 week With:Karina Martinez Address: [address] [place] [address]- Business (1) When: Unknown Comments:Keep scheduled appointment [facility] 10-16-2023 Note Admission and Discha rge Information [...] Ordered -- 10/14/23 11:04:55 EST Consult to Flight Communications Operator - Ordered -- 10/13/23 22:39:00 EST, Right [...] BID Home amL (more content not included)... [facility] Comment on above: Result Comment: Elec tronically [...] Contact Information Mark Chen Within 1 week [facility] [address] [place] [address]- 0 Business (1) Additional Instructions: Karina Martinez [address] [place] [address]- [employer] (1) Additional Instructions: Keep scheduled appointment Extracted [...] x 2 no growth to date Ordered: [facility] Hospital Care/Day Moderate 35 Minutes 46976 2. Cellulitis of right leg (L03.115: Cellulitis of right lower limb) MRI right tib-fib shows cellulitis but no bony involvement Continue IV antibiotics with day 4 IV Zosyn Compression orders per podiatry with double Tubigrip Blood culture x 2 no growth to date Ordered: [facility] Hospital Care/Day Moderate 35 Minutes 84754 3. Acute renal failure (N17.9: Acute kidney failure, unspecified) Resolved Ordered: [facility] Hospital Care/Day Moderate 35 Minutes 37716 4. Troponin level elevated (R79.89: Other specified abnormal findings of blood chemistry) Stable/resolved Ordered: [facility] Care/Day Moderate 35 Minutes 81940 5. Atrial fibrillation (I48.91: Unspecified atrial fibrillation) In sinus rhythm Continue metoprolol and Eliquis Ordered: [facility] Care/Day Moderate 35 Minutes 70766 6. HTN (hypertension) (I10: Essential (primary) hypertension) On amlodipine plus metoprolol Ordered: [facility] Care/Day Moderate 35 Minutes 56177 7. DM2 (diabetes mellitus, type 2) (E11.9: Type 2 diabetes mellitus without complications) Sliding scale coverage; she was on metformin that was held because of the MRI with contrast yesterday Ordered: [facility] Care/Day Moderate 35 Minutes 89933 8. Anxiety (F41.9: Anxiety disorder, unspecified) Maintain BuSpar Ordered: [facility] Hospital Care/Day Moderate 35 Minutes 21756 9. On deep vein thrombosis (DVT) prophylaxis (Z79.899: Other intermodal customer service (current) drug therapy) SCDs plus her Eliquis therapy Ordered: [facility] Care/Day Moderate 35 Minutes 51426 Acute cellulitis (L03.90: Cellulitis, unspecified) Lactic acidosis [...] Zosyn Blood culture x 2 pending Ordered: [facility] Hospital Care/Day Moderate 35 Minutes 42315 2. Cellulitis of right leg (L03.115: Cellulitis of right lower limb) MRI right tib-fib noted above showing cellulitis but no bone involvement Continue IV antibiotics; day 3 IV Zosyn Compression orders per podiatry with double Tubigrip Ordered: [facility] Hospital Care/Day Moderate 35 Minutes 52273 3. Acute renal failure (N17.9: Acute kidney failure, unspecified) Do not Ordered: [facility] Hospital Care/Day Moderate 35 Minutes 20803 4. Troponin level elevated (R79.89: Other specified abnormal findings of blood chemistry) Stable Ordered: [facility] Hospital Care/Day Moderate 35 Minutes 32272 5. Atrial fibrillation (I48.91: Unspecified atrial fibrillation) Continuing sinus rhythm On metoprolol and Eliquis Ordered: [facility] Hospital Care/Day Moderate 35 Minutes 57023 6. HTN (hypertension) (I10: Essential (primary) hypertension) On metoprolol and amlodipine Ordered: [facility] Hospital Care/Day Moderate 35 Minutes 18444 7. DM2 (diabetes mellitus, type 2) (E11.9: Type 2 diabetes mellitus without complications) Sliding scale insulin for coverage Will suspend her metformin as she got a contrasted study yesterday Ordered: [facility] Hospital Care/Day Moderate 35 Minutes 21255 8. Anxiety (F41.9: Anxiety disorder, unspecified) Maintain BuSpar Ordered: [facility] Hospital Care/Day Moderate 35 Minutes 45718 9. On deep vein thrombosis (DVT) prophylaxis (Z79.899: Other skilled nursing (current) drug therapy) SCDs plus her Eliquis therapy Ordered: [facility] Hospital Care/Day Moderate 35 Minutes 90233 Acute cellulitis (L03.90: Cellulitis, unspecified) Lactic acidosis [...] has been resulted. Extracted from: Title:Progress/SOAP Note Author:Serafin Quin. Date:10/14/23 58-year-old female admitted for sepsis (leukocytosis; [...] deep vein thrombosis (DVT) prophylaxis (Z79.899: Other skilled nursing (current) drug therapy) SCDs plus Eliquis Acute [...] Title:Admission H & P Author:Heather REID DO Sony Date:10/13/23 1. Sepsis (A41.9: Sepsis, un specified [...] deep vein thrombosis (DVT) prophylaxis (Z79.899: Other skilled nursing (current) drug therapy) SCD, DOAC Orders: acetaminophen, [...] Communication Order Physician to Nursing Consult to Flight Communications Operator Diabetic/Calorie Control Diet Hypoglycemia Protocol Responsive Patient [...] Pending * UA With Cult Reflex 10/13/23 [facility]02-01-2024 NoteBasic Information Admit Date/Time:10/13/2023 19:24 Chief Complaint [...] E9/L High (10/13/23 18:01:00) RBC: 4.9 E12/L (10/13/23 18:01:00) HGB: 13.6 gm/dL (10/13/23 18:01:00) Hct: 41 % (10/13/23 18:01:00) MCV: 84.8 fL (10/13/23 18:01:00) MCH: 27.9 pg (10/13/23 18:01:00) MCHC: 32.9 gm/dL (10/13/23 18:01:00) RDW: 15.1 % High (10/13/23 18:01:00) Platelet: 251 E9/L (10/13/23 18:01:00) MPV: 9.9 fL (10/13/23 18:01:00) Neutro Auto: 94 % High (10/13/23 18::00) Lymph Auto: 4.4 % Low (10/13/23 18::00) Bergen Auto: 1.5 % Low (10/13/23::00) Eos Auto: 0 % (10/13/23 18::) Basophil Auto: 0.1 % (10/13/23 18::) Neutro Absolute: 18.5 E9/L High (10/13/23:) Lymph Absolute: 0.9 E9/L Low (10/13/23 18::) Bergen Absolute: 0.3 E9/L (10/13/23::00) Eos Absolute: 0 E9/L (10/13/23:) Basophil Absolute: 0 E9/L (10/13/23::) PT: 26.1 second(s) High (10/13/23::) INR: 2.3 (10/13/23:) PTT: 43.2 second(s) High (10/13/23 18::) Glucose Lvl: 193 mg/dL (10/13/23 18::00) BUN: 24 mg/dL High (10/13/23:) Creatinine: 1.4 mg/dL High (10/13/23 18::) eGFR: 43 mL/min/1.73 m2 Low (10/13/23::) BUN/Creat Ratio: 17 (10/13/23::) Sodium Lvl: 132 mmol/L Low (10/13/23::) Potassium Lvl: 3.5 mmol/L (10/13/23 18::00) Chloride: 97 mmol/L Low (10/13/23::00) CO2: 22 mmol/L (10/13/23::00) AGAP: 17 mEq/L High (10/13/23 18::00) Calcium Lvl: 9 mg/dL (10/13/23 18::00) Alk Phos: 60 Int._Unit/L (01/31/24 18:01:00) ALT: 14 Int._Unit/L (10/13/23 18:01:00) AST: 22 [...] EST, 10/13/23 22:35:00 E (more content not included)...[facility]:Result Comment: Electronically Signed By: Heather REID DO\Date and Time Signed: 10/13/23 23:42 [id number] Note Microbiology PROCEDURE: Wound Culture [R1] SOURCE: Wound BODY SITE: Leg R COLLECTED DATE/TIME: 07/20/2023 13:50 EST RECEIVED DATE/TIME: 07/20/2023 16:18 EST START DATE/TIME: 07/20/2023 16:18 EST FREE TEXT SOURCE: right lower leg Dolce DPM, Mark D Dolce DPM, Mark D FINAL REPORTS Final Report [] Verified Date/Time: [...] Locations R1: This test was performed at: [facility], [address] [place] [address], [id number], VqtrqlK[facility] TroyComment on above:Performed By: #### [id number] ####[address] [id number] Evaluation + Plan note Diagnostic Tests Pending * GENESIS w/Reflex if POS 07/08/23 [facility]10-23-2023 NoteMicrobiology PROCEDURE: Blood Culture Charcoal [R1] SOURCE: Blood BODY SITE: Arm L COLLECTED DATE/TIME: 06/28/2023 15:20 EDT RECEIVED DATE/TIME: 06/28/2023 15:53 EDT START DATE/TIME: 06/28/2023 15:53 EDT FREE TEXT SOURCE: Peripheral vein site #1 Korey ARANDA, Juanjo Lowry. Korey ARANDA, Juanjo Lowry. FINAL REPORTS Final Report [] Verified Date/Time: 07/05/2023 17:01 EDT No growth at 7 days. Performing Locations R1: This test was performed at: [facility], [address] [place] [address], [id number], BtzpxxK[facility]tering Health TroyComment on above:Performed By: #### [id number] ####[address] [id number] NoteMicrobiology PROCEDURE: Blood Culture Charcoal [R1] SOURCE: Blood BODY SITE: Hand L COLLECTED DATE/TIME: 06/28/2023 15:34 EDT RECEIVED DATE/TIME: 06/28/2023 15:53 EDT START DATE/TIME: 06/28/2023 15:53 EDT FREE TEXT SOURCE: Peripheral vein site #2 Korey ARANDA, Juanjo Lowry. Korey ARANDA, Juanjo Lowry. FINAL REPORTS Final Report [] Verified Date/Time: 07/05/2023 17:01 EDT No growth at 7 days. Performing Locations R1: This test was performed at: [facility], [address] [place] [address], [id number] , , TbcklzKettering Health TroyComment on above:Performed By: #### [id number] ####[facility] [address] [place], [place] [id number] NoteAdmission and Discharge Information Admit Date/Time:06/28/2023 17:34 Admitting Physician - NELY GUERRERO, Unruly Consulting Physician - [facility] Admitting Diagnoses: Discharge Order Date [...] E9/L Lymph Abs Man - 1.3 E9/L Bergen Abs Man - 0.0 E9/L Eos Abs Man - 0.0 E9/L Basophil Abs Man - 0.0 E9/L Automated Diff (07/01/2023) Neutro Auto - 71.5 % Lymph Auto - 19.9 % Bergen Auto - 7.9 % Eos Auto - 0.4 % Basophil Auto - 0.3 % Amina (more content not included)...[facility] TroyComment on above: Result Comment: Electronically Signed By: Unruly CUETO MD\.br\Date and Time Signed: 07/02/23 12:[id number] Evaluation + Plan noteExtracted from: Title:Discharge Note [...] Karina Martinez 07/08/2023 05:00 PM EDT [address] [id number] [facility] (1) Additional Instructions: Cellulitis, Adult Sepsis, Diagnosis, [...] of stroke in patient with a high [id number] score, at least therapeutic Lovenox/Heparin if NOAC [...] TO DOSE, Injection, IV, As Directed for day(s), Stop date 10/05/23 16:36:00 EST, Routine, [...] Vital Signs Weight Extracted from: Title:ED Note Author:Korey ARANDA, Juanjo Arriaga te:06/28/23 Altered mental status (R41.8 2: Altered [...] With Cult Reflex XR Chest Single View [facility]10-20-2023 Hospital Discharge instructions Patient Education 07/02/2023 11:29:07 [...] Follow these instructions at home: Medicines Take dmln-xjo-lijtewj and prescription medicines only as told by [...] such as antibiotic medicines or antihistamines. Take uozx-xxk-cmfbdxw and prescription medicines only as told by [...] provider. Document Revised: 06/11/2022 Document Reviewed: 06/11/2022 [employer] Patient Education 2022 [employer]. 07/02/2023 11:29:02 Sepsis, Diagnosis, Adult Sepsis, Diagnosis, [...] Follow these instructions at home: Medicines Take atot-qyn-onejwli and prescription medicines only as told by [...] provider. Document Revised: 07/14/2021 Document Reviewed: 07/14/2021 [employer] Patient Education 2022 [employer]. Follow Up Care 06/28/2023 14:46:32 With:Karina Martinez Address: [address] [place] [address]- Business (1) When:07/08/2023 17:00:00 [facility]10-18-2023 NoteBasic Information Cardiology Progress Subjective Feeling better [...] Lymph Auto: 11.8 % Low (06/30/23 06:22:00) Bergen Auto: 5.9 % (06/30/23 06:22:00) Eos Auto: 0 % (06/30/23 06:22:00) Basophil Auto: 0.2 % (06/30/23 06:22:00) Neutro Absolute: 9.4 E9/L High (06/30/23 06:22:00) Lymph Absolute: 1.3 E9/L (06/30/23 06:22:00) Bergen Absolute: 0.7 E9/L (06/30/23 06:22:00) Eos Absolute: [...] mg/dL High (06/30/23 11:39:00) POC Device SN: [id number] (06/30/23 11:39:00) POC User ID: [id number] (06/30/23 11:39:00) POC Username: JEN BABIN (06/30/23 [...] abnormalities. She has no ang (more contentnot included)...[facility] on above: Result Comment: Electronically Signed By: Ginette DUNCAN CNP\.br\Date and Time Signed: 06/30/23 13:14 EDT\.br\Electronically Co-Signed By: Aris Juares MD\.br\Date and Time Co-Signed: 07/04/23 11:53 [id number] Note Echocardiology Procedure Exam Date/Time Accession # Ordering Echo Transthoracic 06/30/2023 10:18 EDT [id number] Mor GUERRERO, Aris Hanks CPT code 31125 [id number] Reason for Exam (Echo Transthoracic Complete) Cardiac Myocardial infarct ID Report Version: 1 Study ID: [id number] [id number] Adult Echocardiogram Report Name: MARILYN DUNCAN Study Date: 06/30/2023, 8: 48 AM Patient Location: [address] [place] [address] : 1965 (MM/DD/YYYY) Gender: Female Age: 57 Years Height: 170 cm BP: 141 / 82 mmHg Weight: 126 kg HR: 83 bpm BSA: 2.32 m? Ordering Physician: Aris Juares Performed By: Samina Dee RDCS Reason For Study: Cardiac Myocardial infarct ID History: Hypertension Interpretation Summary Ejection Fraction = [...] Signed by: Aris Juares MD Transcribed by: [employer] Technologist: [facility]10-17-2023 Note Chief Complaint Right leg swollen [...] 20 mg Tab, 2 (more content not included)...[facility] on above:Result Comment: Electronically Signed By: Mor GUERRERO, Aris Hanks\.br\Date and Time Signed: 06/29/23 20:15 [id number] NoteChief Complaint Pt. came with the squad [...] 15.2 gm/dL (06/28/23 15:20:00) Hct: 44.7 % (06/28/23 15:20:00) MCV: 85.9 fL (06/28/23 15:20:00) MCH: 29.2 pg (06/28/23 15:20:00) MCHC: 33.9 gm/dL (06/28/23 15:20:00) RDW: 13.9 % (06/28/23 15:20:00) Platelet: 153 E9/L (06/28/23 15:20:00) MPV: 10.8 fL (06/28/23 15:20:00) Segs Man: 88 % High (06/28/23 15:20:00) Band Man: 5 % (06/28/23 15:20:00) Lymph Man: 5 % Low (06/28/23:20:00) Monocyte Man: 2 % Low (06/28/23:20:00) Eos Man: 0 % (06/28/23:20:00) Basophil Man: 0 % (06/28/23:20:00) React Lymph Man: 0 % (06/28/23 15:20:00) Segs Abs Man: 18.9 E9/L High (06/28/23:20:00) Lymph Abs Man: 1 E9/L (06/28/23:20:00) Bergen Abs Man: 0.4 E9/L (06/28/23:20:00) Eos Abs Man: 0 E9/L (06/28/23:20:00) Basophil Abs Man: 0 E9/L (06/28/23:20:00) RBC Morph: Normal (06/28/23:20:) PT: 18.5 second(s) High (06/28/23:20:00) INR: 1.6 (06/28/23:20:00) PTT: 39.3 second(s) High (06/28/23:20:00) Glucose Lvl: 233 mg/dL High (06/28/23:20:00) BUN: 35 mg/dL High (06/28/23:20:00) Creatinine: 1.4 mg/dL High (06/28/23:20:00) eGFR: 43 mL/min/1.73 m2 Low (06/28/23 15:20:00) BUN/Creat Ratio: 25 High (06/28/23:20:00) Sodium Lvl: 130 mmol/L Low (06/28/23 15:20:00) Potassium Lvl: 3.7 mmol/L (06/28/23 15:20:00) Chloride: 97 mmol/L Low (06/28/23:20:00) CO2: 22 mmol/L (10/16/23 15:20:00) AGAP: 15 mEq/L (06/28/23 15:20:00) Calcium Lvl: 9 mg/dL (06/28/23 15:20:00) Alk Phos: 64 Int._Unit/L (06/28/23 15:20:00) ALT: 29 Int._Unit/L (06/28/23 15:20:00) AST: 46 Int._Unit/L High (06/28/23 15: (more content not included)...[facility] on above:Result Comment: Electronically Signed By: NELY GUERRERO, Unruly\.br\Date and Time Signed: 06/28/23 17:[id number] Evaluation + Plan note Diagnostic Tests Pending * Rheumatoid Factor Quantitative 05/02/22 [facility] No data available for this section [facility] Future Appointments Appointment Date:11/11/2022 08:15:00 AM Scheduled Provider:Sky Chen DPM Location[facility] Appointment Type:WC Follow Up Visit (FT) [facility] Future Appointments Appointment Date:07/27/2023 02:45:00 PM Scheduled Provider:Mark Chen DPM Location[facility] Appointment Type:WC Follow Up Visit (FT) Diagnostic Tests Pending * Wound Culture 07/20/23 [facility] Future Appointments Appointment Date:08/17/2023 01:45:00 PM Scheduled Provider:Mark Chen DPM Location:[facility] Appointment Type:WC Follow Up Visit (FT) Appointment Date:08/23/2023 01:30:00 PM Scheduled Provider:Aris Juares MD Location:[facility] Appointment Type:Cardiology Inpatient Follow Up (FT) [facility] Future Appointments Appointment Date:11/25/2023 03:30:00 PM Scheduled Provider:Aris Juares MD Location:[facility] Appointment Type:Cardiology Follow Up (FT) Future Scheduled Tests Radiology* NM Myocardial Spect Rest/Stress 2 Day 08/23/23 [facility] Future Appointments Appointment Date:11/25/2023 03:30:00 PM Scheduled Provider:Aris Juares MD Location:.[facility]iology Clinic Appointment Type:Cardiology Follow [facility] (FT) [facility]* Diagnosis Peripheral edema- Primary Edema Essential hypertension Unspecified essential hypertension Bleeding from varicose vein Varicose veins of lower extremities with other complications documented in this encounter [facility] Phone: evaluation note* Diagnosis Cellulitis of left foot Cellulitis and abscess of foot, except toes documented in this encounter [facility] Phone: evaluation note* Diagnosis Cellulitis of right lower extremity- Primary Uncontrolled type 2 diabetes mellitus with hypoglycemia without coma (CMS/HCC) Edema, unspecified type Primary hypertension (CMS/HCC) Unspecified essential hypertension Peripheral venous insufficiency Unspecified venous (peripheral) insufficiency documented in [facility] encounter [facility] Healthcare[facility]* Diagnosis Cellulitis of other specified site- Primary documented in this encounter [facility] HealthcareHospital Discharge instructions* Attachments The following attachments cannot be sent through Care Everywhere. * Edema: Leg and Ankle (Tristanian) * Low Sodium Diet (Tristanian) * Compression Stockings: General Info (Tristanian) * Hypertension: General Info (Tristanian) documented in this encounterAs[facility] CenterFlashstock Phone: Hospital Discharge instructions No data available for this section [facility] No data available for this section [facility] CenterReason for referral (narrative)* Consultation (Routine) - Pending Review Specialty Diagnoses / Procedures Referred By Danielito t Referred To Contact Family Medicine Diagnoses Uncontrolled type 2 diabetes mellitus with hypoglycemia without coma (CMS/HCC) Procedures [place] OFFICE/OUTPATIENT [facility] 60 MINUTES Karina Martinez DO [address] [place] [address] Tami Warner DO [address] [place] [address] Referral ID Status Reason Start Date Expiration Date Visits Requested Visits Authorized [id number] Pending Review Specialty Services Required 10/21/2023 04/18/2024 1 1 [facility] Summary Purpose Family History No Family History Records Found No data available for this section No data available for this section No data available for this section No data available for this section No data available for this section No data available for this section No data available for this section No Family History Records FoundNo Family History Records Found No data available for this section Advance Directives No Advanced Directives Records FoundNo [...] content) DATE CREATED AUTHOR 04/25/2021 [facility] DATE CREATED AUTHOR AUTHOR'S ORGANIZ ATION 10/23/2023 [facility] EPIC DATE CREATED AUTHOR AUTHOR'S ORGANIZ ATION 11/11/2023 Rick Gallo [facility] Care Team (unrecognized sect ion and content) Personnel Name: Karina Martinez DO Address: Address: [facility] [place] [id number] Classification Officer Relationship Specialty Start Date End Date Karina Martinez DO [address] [place] [id number] PCP - General Family Medicine 01/19/23 Classification Officer Relationship Specialty Start Date End Date Karina Martinez DO [address] [place] [address] PCP - General Family Medicine 01/19/23 Classification Officer Relationship Specialty Start Date End Date Karina Martinez DO [address] [place] [address] PCP - General Family Medicine 01/19/23 FOR [...] BE BASED ON THE PRIMARY CLINICAL RECORDS. [facility] provides no warranty or guarantee of the accuracy or completeness of information in this document.
== END 2024-01-04 07:33 | disposition home or self-care (01) ==
LOC: VC 07:32
PROVIDERS: PCP Radiology Diagnostic Radiology; Visit Provider Radiology Diagnostic Radiology
DX: I80.01 Phlebitis and thrombophlebitis of superficial vessels of right lower extremity (principal)
CPT/HCPCS: 93971; G0463